=== PATIENT | male | born 1965 | race African-American/Black ===

== ENCOUNTER 2018-05-20 15:42 | Emergency (ER) | payer OTHER, SELFPAY ==
--- NOTE | 2018-05-20 16:31 | ER ---
Nurse's Notes [facility] Name: Fred Barragan III Age: 53 yrs Sex: Male : 1965 Arrival Date: 05/20/2018 Time: 15:46 Bed 25 Private MD: Channing Woo Diagnosis: Presentation: 05/20 16:07 Presenting complaint: Patient states: " I've been having dark stools for about a week ph and I had some blood work done yesterday and they called me today and said to come here." Copy of lab results provided by pt, Hgb 6.7 Hct 19.9, pt reports increased fatigue and SOB, intermittent nausea \\T\\ dry heaving and gia leg swelling, denies abdominal or chest pain, diarrhea or fever. Transition of care: patient was not received from another setting of care. Onset of symptoms was May 20, 2018. Risk Assessment: Do you want to hurt yourself or someone else? Patient reports no desire to harm self or others. Initial Sepsis Screen: Does the patient meet any 2 criteria? No. Patient's initial sepsis screen is negative. Does the patient have a suspected source of infection? No. Patient's initial sepsis screen is negative. Care prior to arrival: None. 16:07 Method Of Arrival: Ambulatory ph 16:07 Acuity: BATOOL 2 ph Historical: - Allergies: 16:15 No Known Allergies; ph - PMHx: 16:15 Chronic pain; Sleep Apnea; chronic leg swelling; ph Vital Signs: 16:10 BP 153 / 79; Pulse 101; Resp 22; Temp 98.0; Pulse Ox 100% on R/A; Weight 156.04 kg; ph Height 5 ft. 11 in. (180.34 cm); Pain 0/10; 16:10 Body Mass Index 47.98 (156.04 kg, 180.34 cm) ph ED Course: 15:46 Patient arrived in ED. sb2 15:46 Channing Woo MD is Private Physician. sb2 15:54 Melo Lynn, LUKASZ is Primary Nurse. la1 16:10 Triage completed. ph 16:30 Nano Gabriel FNP-C is PHCP. kb 16:30 Valentin De Leon MD is Attending Physician. kb Administered Medications: No medications were administered Outcome: 16:31 Patient left the ED. em Signatures: Nano Gabriel CONCRETE SWIMMING POOL INSTALLER-C CONCRETE SWIMMING POOL INSTALLER-Ckb Janes Balderas, DENTAL LABORATORY SUPERVISOR DENTAL LABORATORY SUPERVISOR em Melo Lynn RN RN la1 Emily Reed RN RN Barbara Lutz sb2
[2018-05-20 16:46] VITALS: BP 153/79; TEMP 98; O2SAT 100
== END 2018-05-20 16:31 | disposition left against medical advice (07) ==
LOC: ER 15:42
DX: Z53.21 Procedure and treatment not carried out due to patient leaving prior to being seen by health care provider (principal)
CPT/HCPCS: 99281

== ENCOUNTER 2018-05-20 17:59 | Emergency (ER) | payer OTHER ==
--- NOTE | 2018-05-20 19:01 | RAD REPORT ---
EXAM DESCRIPTION: RAD - Chest Single View - 05/20/2018 6:56 pm CLINICAL HISTORY: DYSPNEA Chest pain. COMPARISON: CHEST PA AND LAT 2 VIEW dated 09/27/2014; CHEST PA AND LAT 2 VIEW dated 09/06/2013; CHEST P A AND LAT 2 VIEW dated 04/13/2013 FINDINGS: Portable technique limits examination quality. The lungs are grossly clear. The heart is upper limit of normal in size. No displaced fractures. IMPRESSION: No acute intrathoracic process suspected.
[2018-05-20 19:12] LABS: Protime INR 1.58
[2018-05-20 19:18] LABS: Absolute Lymphocytes (CBC) 1.4 K/uL (0.7-4.9); Absolute Monocytes 0.5 K/uL (0.1-1.3); Absolute Neutrophil 6.1 K/uL (1.8-8.0); Basophils % 1.2 % (0-1.3); Eosinophils % 2.8 % (0-4.4); Lymphocytes % 17.1 % (15.3-44.8); MCH 34.3 pg (27.0-35.0); MCV 99.1 fL (80-100); MPV 10.7 fL (7.6-11.3); Monocytes % 5.9 % (3.3-12.3); RBC Red Blood Cell Count 1.78 M/uL (4.33-5.43)
[2018-05-20 19:23] LABS: Hematocrit 17.6 % (39.6-49.0)
[2018-05-20 19:29] LABS: Albumin 1.6 g/dL (3.4-5.0); Bilirubin Direct 2.7 mg/dL (0-0.2); Bilirubin Total 3.2 mg/dL (0.2-1.0); Magnesium 1.3 mg/dL (1.8-2.4); Protein, Total 9.2 g/dL (6.4-8.2); Troponin (Emerg Dept Use Only) 0.09 ng/mL (0.0-0.045)
[2018-05-20 19:32] LABS: Potassium 2.7 mmol/L (3.5-5.1)
[2018-05-20] MEDS ORDERED: Magnesium Sulfate 2gm IVPB 2 G/50 ML BAG IV ONE (20:00)
[2018-05-20] MEDS ORDERED: KCL 20 MEQ/100 mL IVPB 20 MEQ/100 ML BAG IV ONE (20:00)
[2018-05-20] MEDS ORDERED: NA CHLORIDE 0.9% 250 ML ONE (20:00)
[2018-05-20] MEDS ORDERED: PANTOPRAZOLE 40 MG INJ ONE (20:00)
[2018-05-20] MEDS ORDERED: NA CHLORIDE 0.9% 500 ML ONE ×2 (20:05→21:37)
--- NOTE | 2018-05-20 20:39 | RAD REPORT ---
EXAM DESCRIPTION: CT - Abdomen Pelvis Wo Contrast - 05/20/2018 8:27 pm CLINICAL HISTORY: Abdominal pain. no iv or oral contrast;Abd pain COMPARISON: No comparisons TECHNIQUE: CT imaging of the abdomen and pelvis was performed without contrast. Solid organ, bowel a nd vascular assessment is limited due to lack of IV and oral contrast. All CT scans are performed using dose optimization technique as appropriate and may include automated exposure control or mA/KV adjustment according to patient size. FINDINGS: The lower lung gutierrez are clear. Diffuse fatty liver is present. Cholecystectomy clips are seen.The spleen, pancreas and adrenal gland s are within normal limits for noncontrast imaging. The right kidney shows no stone or hydronephrosis . 11 mm stone is seen inferior left kidney without hydronephrosis. Prominent varicosities are seen in the para-aortic region. No bowel obstruction, free air, free fluid or abscess. Small fat containing umbilical hernia. Small f at containing right inguinal hernia. The appendix is normal. Mild lumbosacral degenerative changes. IMPRESSION: Fatty liver. Nonobstructing 11 mm left renal stone. A limited non-contrast examination was performed as detailed.
[2018-05-20] MEDS ORDERED: ONDANSETRON 4 MG/2 ML VIAL ONE (21:44)
[2018-05-20] MEDS ORDERED: MORPHINE 4 MG/ML SYR ONE ×2 (21:44→23:38)
--- NOTE | 2018-05-20 22:12 | ER ---
Nurse's Notes [facility] Name: Fred Barragan III Age: 53 yrs Sex: Male : 1965 Arrival Date: 05/20/2018 Time: 18:02 Bed 7 Private MD: Channing Woo Diagnosis: Anemia;Gastrointestinal hemorrhage, unspecified;Hypokalemia;Hypomagnesemia Presentation: 05/20 18:17 Presenting complaint: Patient states: Dark tarry stools x 1 week, had blood work done ph yesterday and was notified to come to ED for Hgb 6.7 and Hct 19.9, pt denies abdominal or chest pain, also denies V/D, reports increased fatigue, nausea, and SOB, also c/o gia leg swelling. Transition of care: patient was not received from another setting of care. Onset of symptoms was May 20, 2018. Risk Assessment: Do you want to hurt yourself or someone else? Patient reports no desire to harm self or others. Initial Sepsis Screen: Does the patient meet any 2 criteria? No. Patient's initial sepsis screen is negative. Does the patient have a suspected source of infection? No. Patient's initial sepsis screen is negative. Care prior to arrival: None. 18:17 Method Of Arrival: Ambulatory ph 18:17 Acuity: BATOOL 2 ph Historical: - Allergies: 18:21 No Known Allergies; ph - Home Meds: 18:21 Zolpidem Tartrate Oral [Active]; meloxicam oral oral [Active]; Furosemide Oral ph [Active]; CPAP [Active]; - PMHx: 18:21 chronic leg swelling; Chronic pain; Sleep Apnea; ph - Immunization history:: Adult Immunizations up to date. - Social history:: Smoking status: Patient uses tobacco products, smokes one-half pack cigarettes per day. - Ebola Screening: : No symptoms or risks identified at this time. Screenin:50 Abuse screen: Denies threats or abuse. Denies injuries from another. Nutritional sg screening: No deficits noted. Tuberculosis screening: No symptoms or risk factors identified. Never had TB. Fall Risk None identified. Assessment: 18:50 General: Appears in no apparent distress. well groomed, well developed, well nourished, sg Behavior is calm, cooperative, appropriate for age. Pain: Denies pain. Neuro: Level of Consciousness is awake, alert, obeys commands, Oriented to person, place, time, situation, Planning Assistant are equal bilaterally Moves all extremities. Full function Gait is steady, Speech is normal, Facial symmetry appears normal, Pupils are PERRLA, Denies weakness blurred vision dizziness, difficulty swallowing, paresthesias numbness headache photophobia diplopia. Cardiovascular: Capillary refill is brisk in bilateral fingers Patient's skin is warm and dry. Chest pain is denied. Respiratory: Airway is patent Respiratory effort is even, unlabored, Respiratory pattern is regular, symmetrical, Breath sounds are clear. GI: Abdomen is round obese, Bowel sounds present X 4 quads. Abd is soft and non tender X 4 quads. Reports bloody stool. : No signs and/or symptoms were reported regarding the genitourinary system. EENT: No signs and/or symptoms were reported regarding the EENT system. Derm: Skin is pink, warm \T\ dry. Musculoskeletal: No signs and/or symptoms reported regarding the musculoskeletal system. 19:10 General: Appears uncomfortable, Behavior is calm, cooperative, appropriate for age. ea Pain: Denies pain. Neuro: Level of Consciousness is awake, alert, obeys commands, Oriented to person, place, time, situation. Cardiovascular: Patient's skin is warm and dry. Respiratory: Airway is patent Respiratory effort is even, unlabored, Respiratory pattern is regular, symmetrical, Breath sounds are clear bilaterally. GI: Abdomen is round non-distended, obese, Bowel sounds present X 4 quads. Abd is soft and non tender X 4 quads. Derm: Skin is pink, warm \T\ dry. 20:00 Reassessment: Patient and/or family updated on plan of care and expected duration. Pain ea level reassessed. Patient is alert, oriented x 3, equal unlabored respirations, skin warm/dry/pink. 21:00 Reassessment: Patient and/or family updated on plan of care and expected duration. Pain ea level reassessed. Patient is alert, oriented x 3, equal unlabored respirations, skin warm/dry/pink. 21:40 Reassessment: Pt complaining of pain to gia lower extremities, nutrition manager notified, ea medication order obtained, medication administered, pt tolerated well. 21:45 Reassessment: Patient and/or family updated on plan of care and expected duration. Pain ea level reassessed. Transfusion initiated. Pt tolerating well. 22:50 Reassessment: Patient and/or family updated on plan of care and expected duration. Pain ea level reassessed. Patient is alert, oriented x 3, equal unlabored respirations, skin warm/dry/pink. 22:55 Reassessment: Report called to Sara LAL at [facility]. ea 23:32 Reassessment: Patient and/or family updated on plan of care and expected duration. Pain ea level reassessed. Patient is alert, oriented x 3, equal unlabored respirations, skin warm/dry/pink. Completed first unit of blood patient,tolerated well. Second unit initiated, pt tolerating well. 23:57 Reassessment: Patient and/or family updated on plan of care and expected duration. Pain ea level reassessed. Patient is alert, oriented x 3, equal unlabored respirations, skin warm/dry/pink. 05/21 00:18 Reassessment: Patient and/or family updated on plan of care and expected duration. Pain ea level reassessed. Patient is alert, oriented x 3, equal unlabored respirations, skin warm/dry/pink. Report given to [facility], transfusion report signed by EMS. Pt transferred via EMS via stretcher, pt tolerating well. Vital Signs: 05/20 18:19 BP 152 / 78; Pulse 104; Resp 22; Temp 98.0; Pulse Ox 100% on R/A; Weight 156.04 kg; ph Height 5 ft. 11 in. (180.34 cm); Pain 0/10; 19:13 BP 105 / 84; Pulse 99; Resp 18; Pulse Ox 99% ; ea 20:00 BP 139 / 69; Pulse 100; Resp 18; Pulse Ox 99% ; ea 21:00 BP 144 / 92; Pulse 100; Resp 20; Pulse Ox 100% on R/A; ea 21:45 BP 127 / 72; Pulse 98; Resp 20; Temp 98.8; Pulse Ox 98% ; ea 22:00 BP 131 / 70; Pulse 99; Resp 18; Temp 98.5; Pulse Ox 98% ; ea 23:15 BP 133 / 86; Pulse 98; Resp 19; Temp 98; Pulse Ox 100% on R/A; ea 23:48 BP 128 / 64; Pulse 98; Resp 19; Temp 98(O); Pulse Ox 100% on R/A; ea 05/21 00:19 BP 130 / 68; Pulse 80; Resp 19; Temp 98; Pulse Ox 100% on R/A; Pain 5/10; ea 12 18:19 Body Mass Index 47.98 (156.04 kg, 180.34 cm) ph ED Course: 05/20 18:02 Patient arrived in ED. sb2 18:02 Channing Woo MD is Private Physician. sb2 18:08 [facility] jr8 18:08 Valentin De Leon MD is Attending Physician. jr8 18:19 Triage completed. ph 18:21 Arm band placed on Patient placed in an exam room. ph 18:50 Initial lab(s) drawn, by me, sent to lab. First set of blood cultures drawn held at sg bedside. Inserted saline lock: 22 gauge in right forearm, using aseptic technique. Blood collected. 18:55 XRAY Chest (1 view) In Process Unspecified. EDMS 19:10 Bee Alvarez, LUKASZ is Primary Nurse. ea 19:10 Patient has correct armband on for positive identification. Placed in gown. Bed in low ea position. Side rails up X2. 19:22 Notified Nurse Practitioner and/or Physician Asbestos Siding Mechanic of a critical lab result(s), lp1 Hemoglobin 6.1, Hematocrit 17.6. 19:32 Notified Nurse Practitioner and/or Physician Asbestos Siding Mechanic of a critical lab result(s), lp1 Magnesium 1.4, potassium 2.7. 20:27 CT Abd/Pelvis - Without Cont In Process Unspecified. EDMS 20:52 Inserted saline lock: 22 gauge in left hand, using aseptic technique. oe 05/21 00:02 No provider procedures requiring assistance completed. Patient transferred, IV remains ea in place. Administered Medications: 05/20 20:00 Drug: ProTONIX 40 mg Route: IVP; Site: right wrist; ea 21:00 Follow up: Response: No adverse reaction lp1 20:05 Drug: Magnesium Sulfate 2 grams Route: IVPB; Infused Over: 2 hrs; Site: right wrist; ea 21:30 Follow up: IV Status: Completed infusion lp1 20:05 Drug: Potassium Chloride 20 mEq Route: IV; Rate: calculated rate; Site: right wrist; ea 22:15 Follow up: Response: No adverse reaction; IV Status: Completed infusion; IV Intake: ea 100ml 20:50 Drug: ProTONIX 8 mg/hr Route: IV; Rate: 25 ml/hr; Site: left hand; ea 05/21 00:04 Follow up: Response: No adverse reaction; IV Status: Infusion continued upon transfer ea 05/20 21:40 Drug: Zofran 4 mg Route: IVP; Site: left hand; ea 22:34 Follow up: Response: No adverse reaction; Marked relief of symptoms ea 21:42 Drug: morphine 4 mg Route: IVP; Site: left hand; ea 22:34 Follow up: Response: No adverse reaction; Pain is decreased ea 22:33 Drug: Nicoderm CQ 21 mg/24 hr 1 patches {Note: right upper arm.} Route: Transdermal; ea Site: affected area; 23:52 Drug: morphine 4 mg Route: IVP; Site: right forearm; ea 05/21 00:15 Follow up: Response: No adverse reaction; Pain is decreased ea Intake: 05/20 22:15 IV: 100ml; Total: 100ml. ea Outcome: 22:12 ER care complete, transfer ordered by MD. chapman 22:30 Instructed on the need for transfer, Demonstrated understanding of instructions. ea 05/21 00:20 Transferred by ground EMS to [facility], Transfer form completed. ea Condition: stable 00:23 Patient left the ED. ea Signatures: Dispatcher [employer] EDMS Warren Whitley RN RN sg Pena, Laura RN RN lp1 Tho Mandujano PA PA jrEmily Tesfaye RN RN ph Espinosa, Orlando oe Antunez, Elena, RN RN ea Billeau, Sheri sb2
--- NOTE | 2018-05-20 22:13 | EDPHYS ---
Physician Documentation [facility] Name: Fred Barragan III Age: 53 yrs Sex: Male : 1965 Arrival Date: 05/20/2018 Time: 18:02 Bed 7 Private MD: Channing Woo ED Physician Valentin De Leon HPI: 05/20 18:59 This 53 yrs old Black Male presents to ER via Ambulatory with complaints of Abnormal jr8 Lab Results. 18:59 Patient was seen at [facility] for routine lab work. Stated that he has history of jr8 chronic leg swelling that he feels is getting worse. Noticed some darkening of his stools lately that now is to the point where it looks tarry looking per patient. Has had increase in shortness of breath. Got lab results back and was told his H/H were low and needs to come to ED for further evaluation. History of daily alcohol use and NSAID use . Severity of symptoms: At their worst the symptoms were moderate in the emergency department the symptoms are unchanged. The patient has not experienced similar symptoms in the past. The patient has been recently seen by a physician:. Historical: - Allergies: 18:21 No Known Allergies; ph - Home Meds: 18:21 Zolpidem Tartrate Oral [Active]; meloxicam oral oral [Active]; Furosemide Oral ph [Active]; CPAP [Active]; - PMHx: 18:21 chronic leg swelling; Chronic pain; Sleep Apnea; ph - Immunization history:: Adult Immunizations up to date. - Social history:: Smoking status: Patient uses tobacco products, smokes one-half pack cigarettes per day. - Ebola Screening: : No symptoms or risks identified at this time. ROS: 18:59 Eyes: Negative for injury, pain, redness, and discharge, ENT: Negative for injury, jr8 pain, and discharge, Neck: Negative for injury, pain, and swelling, Back: Negative for injury and pain, MS/Extremity: Negative for injury and deformity, Skin: Negative for injury, rash, and discoloration, Neuro: Negative for headache, weakness, numbness, tingling, and seizure. 18:59 Cardiovascular: Positive for edema, Negative for chest pain, orthopnea, palpitations, paroxysmal nocturnal dyspnea. 18:59 Respiratory: Positive for dyspnea on exertion, shortness of breath. 18:59 Abdomen/GI: Positive for nausea, black/tarry stool, Negative for abdominal pain. Exam: 18:59 Eyes: Pupils equal round and reactive to light, extra-ocular motions intact. Lids and jr8 lashes normal. Conjunctiva and sclera are non-icteric and not injected. Cornea within normal limits. Periorbital areas with no swelling, redness, or edema. ENT: Nares patent. No nasal discharge, no septal abnormalities noted. Tympanic membranes are normal and external auditory canals are clear. Oropharynx with no redness, swelling, or masses, exudates, or evidence of obstruction, uvula midline. Mucous membranes moist. Neck: Trachea midline, no thyromegaly or masses palpated, and no cervical lymphadenopathy. Supple, full range of motion without nuchal rigidity, or vertebral point tenderness. No Meningismus. Respiratory: Lungs have equal breath sounds bilaterally, clear to auscultation and percussion. No rales, rhonchi or wheezes noted. No increased work of breathing, no retractions or nasal flaring. Back: No spinal tenderness. No costovertebral tenderness. Full range of motion. Skin: Warm, dry with normal turgor. Normal color with no rashes, no lesions, and no evidence of cellulitis. MS/ Extremity: Pulses equal, no cyanosis. Neurovascular intact. Full, normal range of motion. Neuro: Awake and alert, GCS 15, oriented to person, place, time, and situation. Cranial nerves II-XII grossly intact. Motor strength 5/5 in all extremities. Sensory grossly intact. Cerebellar exam normal. Normal gait. 18:59 Cardiovascular: Rate: tachycardic, Rhythm: regular, Pulses: Pulses are 2+ in right radial artery and left radial artery. Heart sounds: normal, normal S1and S2, no S3 or S4, no murmur, no rub, no gallop, Edema: 3+ edema to level of left midcalf, left ankle, left foot, left toes, right midcalf, right ankle, right foot and right toes. 18:59 Abdomen/GI: Inspection: obese Bowel sounds: active, all quadrants, Palpation: soft, in all quadrants, nontender, in all quadrants, Indicators: McBurney's point is not tender, Marina's sign is negative, Rovsing's sign is negative, Liver: tenderness, is not appreciated. Vital Signs: 18:19 BP 152 / 78; Pulse 104; Resp 22; Temp 98.0; Pulse Ox 100% on R/A; Weight 156.04 kg; ph Height 5 ft. 11 in. (180.34 cm); Pain 0/10; 19:13 BP 105 / 84; Pulse 99; Resp 18; Pulse Ox 99% ; ea 20:00 BP 139 / 69; Pulse 100; Resp 18; Pulse Ox 99% ; ea 21:00 BP 144 / 92; Pulse 100; Resp 20; Pulse Ox 100% on R/A; ea 21:45 BP 127 / 72; Pulse 98; Resp 20; Temp 98.8; Pulse Ox 98% ; ea 22:00 BP 131 / 70; Pulse 99; Resp 18; Temp 98.5; Pulse Ox 98% ; ea 23:15 BP 133 / 86; Pulse 98; Resp 19; Temp 98; Pulse Ox 100% on R/A; ea 23:48 BP 128 / 64; Pulse 98; Resp 19; Temp 98(O); Pulse Ox 100% on R/A; ea 12 00:19 BP 130 / 68; Pulse 80; Resp 19; Temp 98; Pulse Ox 100% on R/A; Pain 5/10; ea 12 18:19 Body Mass Index 47.98 (156.04 kg, 180.34 cm) ph MDM: 05/20 18:08 Patient medically screened. [facility] 22:10 Data reviewed: vital signs, nurses notes, lab test result(s), EKG, radiologic studies, [facility] CT scan, plain films, and as a result, I will admit patient. Data interpreted: Pulse oximetry: on room air is 100 %. Interpretation: normal. Counseling: I had a detailed discussion with the patient and/or guardian regarding: the historical points, exam findings, and any diagnostic results supporting the discharge/admit diagnosis, lab results, radiology results, the need to transfer to another facility, for higher level of care, [facility] does not immediately have the required specialist. ED course: [facility] contacted and accepted transfer . 05/20 18:24 Order name: Basic Metabolic Panel; Complete Time: 19:33 jr8 05/20 18:24 Order name: CBC with Diff; Complete Time: 19:25 jr8 05/20 18:24 Order name: LFT's; Complete Time: 19:33 [facility] 05/20 18:24 Order name: Magnesium; Complete Time: 19:33 [facility] 05/20 18:24 Order name: NT PRO-BNP; Complete Time: 19:33 [facility] 05/20 18:24 Order name: PT-INR; Complete Time: 19:25 [facility] 05/20 18:24 Order name: Troponin (emerg Dept Use Only); Complete Time: 19:33 [facility] 05/20 18:24 Order name: XRAY Chest (1 view); Complete Time: 19:25 [facility] 05/20 18:24 Order name: Lipase; Complete Time: 19:33 [facility] 05/20 18:24 Order name: TS [facility] 05/20 19:35 Order name: Packed RBC Leukored -1 [facility]OK 05/20 19:35 Order name: CT Abd/Pelvis - Without Cont; Complete Time: 20:41 [facility] 05/20 20:18 Order name: ABO/RH no charge; Complete Time: 20:28 [facility] 05/20 23:33 Order name: Urine Dipstick--Ancillary (enter results); Complete Time: 00:10 [facility] 05/20 18:24 Order name: EKG; Complete Time: 18:25 [facility] 05/20 18:24 Order name: Cardiac monitoring; Complete Time: 19:00 [facility] 05/20 18:24 Order name: EKG - Nurse/Tech; Complete Time: 00:22 [facility] 05/20 18:24 Order name: IV Saline Lock; Complete Time: 19:00 [facility] 05/20 18:24 Order name: Labs collected and sent; Complete Time: 19:00 [facility] 05/20 18:24 Order name: O2 Per Protocol; Complete Time: 19:01 [facility] 05/20 18:24 Order name: O2 Sat Monitoring; Complete Time: 19:01 [facility] Administered Medications: 20:00 Drug: ProTONIX 40 mg Route: IVP; Site: right wrist; ea 21:00 Follow up: Response: No adverse reaction lp1 20:05 Drug: Magnesium Sulfate 2 grams Route: IVPB; Infused Over: 2 hrs; Site: right wrist; ea 21:30 Follow up: IV Status: Completed infusion lp1 20:05 Drug: Potassium Chloride 20 mEq Route: IV; Rate: calculated rate; Site: right wrist; ea 22:15 Follow up: Response: No adverse reaction; IV Status: Completed infusion; IV Intake: ea 100ml 20:50 Drug: ProTONIX 8 mg/hr Route: IV; Rate: 25 ml/hr; Site: left hand; ea 05/21 00:04 Follow up: Response: No adverse reaction; IV Status: Infusion continued upon transfer ea 05/20 21:40 Drug: Zofran 4 mg Route: IVP; Site: left hand; ea 22:34 Follow up: Response: No adverse reaction; Marked relief of symptoms ea 21:42 Drug: morphine 4 mg Route: IVP; Site: left hand; ea 22:34 Follow up: Response: No adverse reaction; Pain is decreased ea 22:33 Drug: Nicoderm CQ 21 mg/24 hr 1 patches {Note: right upper arm.} Route: Transdermal; ea Site: affected area; 23:52 Drug: morphine 4 mg Route: IVP; Site: right forearm; ea 05/21 00:15 Follow up: Response: No adverse reaction; Pain is decreased ea Disposition: 07:43 Co-signature as Attending Physician, Valentin De Leon MD I agree with the assessment and kdr plan of care. Disposition: 05/20/18 22:12 Transfer ordered to [facility]. Diagnosis are Anemia, Gastrointestinal hemorrhage, unspecified, Hypokalemia, Hypomagnesemia. - Reason for transfer: Higher level of care. - Accepting physician is Dr. Burr. - Condition is Stable. - Problem is new. - Symptoms are unchanged. Signatures: Dispatcher [employer] EDMS Valentin De Leon MD MD kdr Roszak, Josh, PA PA jr8 Emily eRed, RN RN Bee Alvarez RN RN Cassy Núñez RN lp1 Corrections: (The following items were deleted from the chart) 00:23 05/20 22:12 05/20/2018 22:12 Transfer ordered to [facility]. ea Diagnosis is Anemia; Gastrointestinal hemorrhage, unspecified; Hypokalemia; Hypomagnesemia. Reason for transfer: Higher level of care. Accepting physician is Dr. Burr. Condition is Stable. Problem is new. Symptoms are unchanged. jr8
[2018-05-20] MEDS ORDERED: NICOTINE 21 MG/PAT TD ONE (22:36)
[2018-05-20 23:40] LABS: Urine Blood 2+ (NEG); Urine Glucose NEGATIVE (NEG); Urine Protein NEGATIVE (NEG); Urine Specific Gravity 1.015 (1.005-1.030); Urine pH 5.5 (5.0-7.0)
[2018-05-21 01:33] VITALS: TEMP 98; O2SAT 100
[2018-05-21 01:35] VITALS: BP 128/64
--- NOTE | 2018-05-22 07:03 | EKG ---
Test Date: 2018-05-20 Test Time: 19:10:24 Table Lever Operator: JOY MEASUREMENT RESULTS: Intervals: Rate: 101 MA: 138 QRSD: 96 QT: 414 QTc: 536 [place]: P: 62 MA: 138 QRS: 12 T: 37 INTERPRETIVE STATEMENTS: Sinus tachycardia with premature atrial complexes Nonspecific ST abnormality Prolonged QT Abnormal ECG Compared to ECG 04/25/2014 08:12:20 Atrial premature complex(es) now present ST (T wave) deviation now present Sinus rhythm no longer present Electronically Signed On 05-22-18 06:53:41 ALCOHOL RUBBER by Radhames Jay
== END 2018-05-21 00:23 | disposition short-term general hospital (02) ==
LOC: ER 17:59
PROC: 30233N1 Transfusion of Nonautologous Red Blood Cells into Peripheral Vein, Percutaneous Approach (ICD-10-PCS; principal; 2018-05-21)
DX: K92.2 Gastrointestinal hemorrhage, unspecified (principal); D64.9 Anemia, unspecified; E87.6 Hypokalemia; E83.42 Hypomagnesemia; F17.210 Nicotine dependence, cigarettes, uncomplicated
CPT/HCPCS: 36415; 71045; 74176; 80048; 80076; 81003; 83690; 83735; 83880; 84484; 85025; 85610; 86850; 86900; 86901; 86922; 93005; 99285; C9113; J2405; J3475; P9016

== ENCOUNTER 2018-09-25 14:31 | Observation (INO) | payer SELFPAY ==
--- OUTSIDE RECORDS SUMMARY | 2018-09-25 14:33 | XMS REPORT | Clinical Summary ---
:1965 Author Organization [facility] Address [address] [place] [address] Care Team Providers Name Role Phone Channing Woo Primary Care Provider Allergies Active Allergy Reactions Severity Noted Date Comments Sulfa (Sulfonamide Antibiotics) Itching, Swelling Medium 05/21/2018 Medications Medication Sig Dispensed Refills Start Date End Date Status zolpidem (AMBIEN) Take 10 mg by 0 Active 10 mg tablet mouth nightly . torsemide (DEMADEX) Take 2 tablets 60 tablet 1 05/23/2018 Active 20 MG tablet (40 mg total) by mouth daily. meloxicam (MOBIC) Take 15 mg by 0 05/23/2018 Discontinued 15 MG tablet mouth daily. torsemide (DEMADEX) Take 20 mg by 0 05/23/2018 Discontinued 20 MG tablet mouth 2 (two) times daily. ibuprofen/diphenhyd Take 2 tablets 0 05/23/2018 Discontinued ramine cit (ADVIL by mouth every PM ORAL) night as needed (insomnia) . pantoprazole Take 1 tablet 60 tablet 1 05/23/2018 06/24/2018 Discontinued (PROTONIX) 40 MG (40 mg total) tablet by mouth 2 (two) times daily. cholecalciferol, Take 50,000 0 06/26/2018 Discontinued vitamin D3, 50,000 Units by mouth unit Tab once a week. Active Problems Problem Noted Date UGIB (upper gastrointestinal bleed) 05/21/2018 Anemia 05/21/2018 Thrombocytopenia 05/21/2018 Alcohol use 05/21/2018 Hyponatremia 05/21/2018 Hypokalemia 05/21/2018 SHAKIR treated with BiPAP 05/21/2018 Encounters Date Type Specialty Care Team Description 07/13/2018 Anesthesia Event Gastroenterology Tamika Nelson MD 06/26/2018 Anesthesia Event Gastroenterology Nasrallah, Juan Antonio, MD 06/24/2018 Hospital Pre-Admission Testing Resource, Oqmt Encounter Preadmit Phone 06/15/2018 Hospital Computed Tomography NickyRadhames Esophageal Encounter MD [place] [facility] 06/15/2018 Hospital Computed Tomography Radhames Saunders Esophageal Encounter MD [place] [facility]CC[facility] 06/10/2018 Outside Orders Central Scheduling Radhames Saunders 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) 06/01/2018 Outside Orders Lab Princess Napoles A Acute gastrointestinal hemorrhage (Primary Dx) 05/22/2018 Surgery Gastroenterology Radhames Saunders UPPER ENDOSCOPY MD [place] 05/22/2018 Anesthesia Event Gastroenterology Gilma Ochoa MD 05/21/2018 [facility] Internal Bran, UGIB (upper gastrointestinal bleed); - Encounter Medicine Garett Alcohol use; 05/23/2018 MD Jona Acute post-hemorrhagic anemia; Miracle Pulido Cirrhosis of liver without ascites, unspecified hepatic cirrhosis type (HCC); MD Nano Anemia associated with acute blood loss; Thrombocytopathia (HCC); Hypokalemia; Chronic kidney disease, stage 3 (HCC); Hypervolemia, unspecified hypervolemia type; SHAKIR (obstructive sleep apnea) 05/21/2018 Travel after 09/24/2017 Immunizations Name Dates Previously Given Next Due Influenza Four-QIV Non-PF 5+ YR 05/22/2018 Pneumococcal Conjugate (Prevnar) 13-Valent 05/23/2018 Social History Tobacco Use Types Packs/Day Years Used Date Current Every Day Smoker 0.5 38 Smokeless Tobacco: Never Used Tobacco Cessation: Ready to Quit: Yes; Counseling Given: Yes Alcohol Use Drinks/Week oz/Week Comments Yes 2 glasses Sex Assigned at Date Recorded Not on file Job Start Date Occupation Industry Not on file Not on file Not on file Travel History Travel Start Travel End No recent travel history available. Last Filed Vital Signs Vital Sign Reading Time Taken Blood Pressure 95/51 05/23/2018 3:44 PM BUYER ASSISTANT Pulse 81 05/23/2018 3:44 PM BUYER ASSISTANT Temperature 35.7 C (96.3 F) 05/23/2018 3:44 PM BUYER ASSISTANT Respiratory Rate 18 05/23/2018 3:44 PM BUYER ASSISTANT Oxygen Saturation 98% 05/23/2018 3:44 PM BUYER ASSISTANT Inhaled Oxygen Concentration 21% 05/23/2018 11:55 AM BUYER ASSISTANT Weight 156.5 kg (345 lb) 06/24/2018 1:49 PM BUYER ASSISTANT Height 180.3 cm (5' 11") 06/24/2018 1:49 PM BUYER ASSISTANT Body Mass Index 48.12 06/24/2018 1:49 PM BUYER ASSISTANT Plan of Treatment Not on file Procedures Procedure Name Priority Date/Time Associated Diagnosis Comments RHYTHM STRIP - SCAN 08/24/2018 9:[address] ABDOMEN/PELVIS WITH Routine 06/15/2018 Esophageal Results for IV CONTRAST 11:15 AM BUYER ASSISTANT adenocarcinoma (HCC) this procedure are in the results section. CT CHEST WITH IV Routine 06/15/2018 Esophageal Results for CONTRAST 11:15 AM BUYER ASSISTANT adenocarcinoma (HCC) this procedure are in the results section. POCT-CREATININE Routine 06/15/2018 Results for 10:50 AM BUYER ASSISTANT this procedure are in the results section. REPORT OF PROCEDURE - 06/10/2018 ENDOSCOPY SCAN 12:31 PM BUYER ASSISTANT RHYTHM STRIP - SCAN 06/10/2018 12:31 PM BUYER ASSISTANT IMMUNOFIXATION AP Routine 06/01/2018 Acute gastrointestinal Results for ELECTROPHORESIS (TARAH) 11:47 AM BUYER ASSISTANT hemorrhage this procedure are in the results section. TRANSFUSION SERVICE 05/25/2018 REPORT - SCAN 6:01 PM BUYER ASSISTANT PREPARE LEUKO-REDUCED Routine 05/24/2018 Results for RBC 11:54 PM BUYER ASSISTANT this procedure are in the results section. TRANSFUSION SERVICE 05/24/2018 REPORT - SCAN 6:01 PM BUYER ASSISTANT HEMOGLOBIN AND Routine 05/23/2018 Results for HEMATOCRIT 2:50 PM BUYER ASSISTANT this procedure are in the results section. TRANSFUSE Routine 05/23/2018 LEUKO-REDUCED RED 1:42 PM BUYER ASSISTANT BLOOD CELLS CBC W/PLT COUNT & AUTO Routine 05/23/2018 Results for DIFFERENTIAL 4:23 AM BUYER ASSISTANT this procedure are in the results section. CBC W/PLT COUNT & AUTO Routine 05/23/2018 Results for DIFFERENTIAL 4:23 AM BUYER ASSISTANT this procedure are in the results section. PHOSPHORUS Routine 05/23/2018 Results for 4:23 AM BUYER ASSISTANT this procedure are in the results section. MAGNESIUM Routine 05/23/2018 Results for 4:23 AM BUYER ASSISTANT this procedure are in the results section. COMPREHENSIVE Routine 05/23/2018 Results for METABOLIC PANEL 4:23 AM BUYER ASSISTANT this procedure are in the results section. CALCIUM, IONIZED Routine 05/23/2018 Results for 4:23 AM BUYER ASSISTANT this procedure are in the results section. MAGNESIUM Routine 05/22/2018 Results for 6:40 PM BUYER ASSISTANT this procedure are in the results section. POTASSIUM Routine 05/22/2018 Results for 6:40 PM BUYER ASSISTANT this procedure are in the results section. REPORT OF PROCEDURE - 05/22/2018 ENDOSCOPY URL 6:24 PM BUYER ASSISTANT TRANSFUSION SERVICE 05/22/2018 REPORT - SCAN 6:03 PM BUYER ASSISTANT UPPER ENDOSCOPY,BIOPSY 05/22/2018 Melena 4:00 PM BUYER ASSISTANT UPPER ENDOSCOPY 05/22/2018 Melena 4:00 PM BUYER ASSISTANT TISSUE EXAM AP Routine 05/22/2018 Results for 3:59 PM BUYER ASSISTANT this procedure are in the results section. HEPATITIS C PCR, Routine 05/22/2018 Results for QUANTITATIVE 12:52 PM BUYER ASSISTANT this procedure are in the results section. MAGNESIUM Routine 05/22/2018 Results for 12:52 PM BUYER ASSISTANT this procedure are in the results section. CBC W/PLT COUNT & AUTO Routine 05/22/2018 Results for DIFFERENTIAL 4:01 AM BUYER ASSISTANT this procedure are in the results section. PROTEIN AP Routine 05/22/2018 Results for ELECTROPHORESIS, SERUM 4:01 AM BUYER ASSISTANT this procedure are in the results section. URIC ACID Routine 05/22/2018 Results for 4:01 AM BUYER ASSISTANT this procedure are in the results section. PTH, INTACT Routine 05/22/2018 Results for 4:01 AM BUYER ASSISTANT this procedure are in the results section. TSH/FREE T4 IF Routine 05/22/2018 Results for INDICATED 4:01 AM BUYER ASSISTANT this procedure are in the results section. HEPATITIS PANEL, ACUTE Routine 05/22/2018 Results for 4:01 AM BUYER ASSISTANT this procedure are in the results section. B-TYPE NATRIURETIC Routine 05/22/2018 Results for FACTOR (BNP) 4:01 AM BUYER ASSISTANT this procedure are in the results section. CBC W/PLT COUNT & AUTO Routine 05/22/2018 Results for DIFFERENTIAL 4:01 AM BUYER ASSISTANT this procedure are in the results section. PHOSPHORUS Routine 05/22/2018 Results for 4:01 AM BUYER ASSISTANT this procedure are in the results section. MAGNESIUM Routine 05/22/2018 Results for 4:01 AM BUYER ASSISTANT this procedure are in the results section. COMPREHENSIVE Routine 05/22/2018 Results for METABOLIC PANEL 4:01 AM BUYER ASSISTANT this procedure are in the results section. CALCIUM, IONIZED Routine 05/22/2018 Results for 4:01 AM BUYER ASSISTANT this procedure are in the results section. HEMOGLOBIN A1C Routine 05/22/2018 Results for 4:01 AM BUYER ASSISTANT this procedure are in the results section. HIV-1 ANTIGEN WITH Routine 05/22/2018 Results for HIV-1/2 ANTIBODY 4:01 AM BUYER ASSISTANT this procedure are in the results section. VITAMIN B12 AND FOLATE Routine 05/22/2018 Results for 4:01 AM BUYER ASSISTANT this procedure are in the results section. FERRITIN Routine 05/22/2018 Results for 4:01 AM BUYER ASSISTANT this procedure are in the results section. IRON, TIBC, % SAT. Routine 05/22/2018 Results for (WITHOUT FERRITIN) 4:01 AM BUYER ASSISTANT this procedure are in the results section. TYPE AND SCREEN, STAT 05/21/2018 Results for AUTOMATED 8:13 PM BUYER ASSISTANT this procedure are in the results section. HEMOGLOBIN AND STAT 05/21/2018 Results for HEMATOCRIT 8:13 PM BUYER ASSISTANT this procedure are in the results section. URINE PROTEIN AP Routine 05/21/2018 Results for ELECTROPHORESIS, 6:38 PM BUYER ASSISTANT this procedure RANDOM are in the results section. EOSINOPHIL SMEAR, Routine 05/21/2018 Results for URINE 6:38 PM BUYER ASSISTANT this procedure are in the results section. CREATININE, RANDOM Routine 05/21/2018 Results for URINE 6:38 PM BUYER ASSISTANT this procedure are in the results section. PROTEIN, RANDOM URINE Routine 05/21/2018 Results for 6:38 PM BUYER ASSISTANT this procedure are in the results section. SODIUM, RANDOM URINE Routine 05/21/2018 Results for 6:38 PM BUYER ASSISTANT this procedure are in the results section. URINALYSIS W/ Routine 05/21/2018 Results for MICROSCOPIC 6:38 PM BUYER ASSISTANT this procedure are in the results section. B-TYPE NATRIURETIC Routine 05/21/2018 Results for FACTOR (BNP) 1:05 PM BUYER ASSISTANT this procedure are in the results section. URIC ACID Routine 05/21/2018 Results for 1:05 PM BUYER ASSISTANT this procedure are in the results section. CBC W/PLT COUNT & AUTO Routine 05/21/2018 Results for DIFFERENTIAL 5:40 AM BUYER ASSISTANT this procedure are in the results section. URINALYSIS W/ Routine 05/21/2018 Results for MICROSCOPIC 5:40 AM BUYER ASSISTANT this procedure are in the results section. PROTHROMBIN TIME/INR Routine 05/21/2018 Results for 5:40 AM BUYER ASSISTANT this procedure are in the results section. HEPATIC FUNCTION PANEL Routine 05/21/2018 Results for 5:40 AM BUYER ASSISTANT this procedure are in the results section. BASIC METABOLIC PANEL Routine 05/21/2018 Results for (7) 5:40 AM BUYER ASSISTANT this procedure are in the results section. CBC W/PLT COUNT & AUTO Routine 05/21/2018 Results for DIFFERENTIAL 5:40 AM BUYER ASSISTANT this procedure are in the results section. after 09/24/2017 Results RHYTHM STRIP - SCAN (08/24/2018 9:20 AM CDT)Only the most recent of2 resultswithin the time period is included. Narrative Performed At CT Abdomen/Pelvis with IV Contrast (06/15/2018 11:15 AM BUYER ASSISTANT) Specimen Narrative Performed At FINAL REPORT Mashed Pixel EXAM: CT Chest, Abdomen and Pelvis WITH contrast INDICATION:C15.9 COMPARISON: None. TECHNIQUE: Chest, abdomen and pelvis were scanned utilizing a multidetector helical scanner from the lung apex to the pubic symphysis after administration of IV contrast. Coronal and sagittal reformations were obtained. Routine protocol was performed. Scan was performed when during portal venous phase. IV CONTRAST: 150 mL of Omnipaque 300 ORAL CONTRAST: Water COMPLICATIONS: None RADIATION DOSE: Total DLP: 1532 mGy*cm Estimated effective dose: (DLP x 0.015 x size factor) mSv CTDIvol has been reviewed. It is below the limits set by the Radiation Protocol Committee (RPC). FINDINGS: LINES and TUBES: None. LUNGS AND AIRWAYS:The lungs are unremarkable.Airways are normal. PLEURA: The pleural spaces are clear. HEART AND MEDIASTINUM: The thyroid gland is normal.No mediastinal, hilar or axillary lymphadenopathy.The heart is normal in size. There is no pericardial effusion.Subcarinal lymph node measures 0.7 cm. HEPATOBILIARY:No focal hepatic lesions.No biliary ductal dilation. GALLBLADDER: Cholecystectomy clips. SPLEEN: No splenomegaly. PANCREAS: No focal masses or ductal dilatation. ADRENALS: No adrenal nodules KIDNEYS/URETERS: Kidneys enhance symmetrically.No hydronephrosis. No cystic or solid mass lesions.1.2 cm left renal parenchymal calcification posteriorly. GI TRACT: No abnormal distention, wall thickening, or evidence of bowel obstruction. Appendix is normal. PELVIC ORGANS/BLADDER: Unremarkable. LYMPH NODES: Subcentimeter lymph nodes along the celiac axis, not enlarged. VESSELS: Splenorenal varices. PERITONEUM / RETROPERITONEUM: No free air or fluid. BONES: Unremarkable. SOFT TISSUES: Unremarkable. IMPRESSION: 1.Primary esophageal malignancy not well visualized by CT. No adenopathy or metastasis. Signed: Blake Lowe MD Report Verified Date/Time:06/16/2018 17:04:26 Procedure Note Interface, External Ris In - 06/16/2018 5:05 PM BUYER ASSISTANT FINAL REPORT EXAM: CT Chest, Abdomen and Pelvis WITH contrast INDICATION: C15.9 COMPARISON: None. TECHNIQUE: Chest, abdomen and pelvis were scanned utilizing a multidetector helical scanner from the lung apex to the pubic symphysis after administration of IV contrast. Coronal and sagittal reformations were obtained. Routine protocol was performed. Scan was performed when during portal venous phase. IV CONTRAST: 150 mL of Omnipaque 300 ORAL CONTRAST: Water COMPLICATIONS: None RADIATION DOSE: Total DLP: 1532 mGy*cm Estimated effective dose: (DLP x 0.015 x size factor) mSv CTDIvol has been reviewed. It is below the limits set by the Radiation Protocol Committee (RPC). FINDINGS: LINES and TUBES: None. LUNGS AND AIRWAYS: The lungs are unremarkable. Airways are normal. PLEURA: The pleural spaces are clear. HEART AND MEDIASTINUM: The thyroid gland is normal. No mediastinal, hilar or axillary lymphadenopathy. The heart is normal in size. There is no pericardial effusion. Subcarinal lymph node measures 0.7 cm. HEPATOBILIARY: No focal hepatic lesions. No biliary ductal dilation. GALLBLADDER: Cholecystectomy clips. SPLEEN: No splenomegaly. PANCREAS: No focal masses or ductal dilatation. ADRENALS: No adrenal nodules KIDNEYS/URETERS: Kidneys enhance symmetrically. No hydronephrosis. No cystic or solid mass lesions. 1.2 cm left renal parenchymal calcification posteriorly. GI TRACT: No abnormal distention, wall thickening, or evidence of bowel obstruction. Appendix is normal. PELVIC ORGANS/BLADDER: Unremarkable. LYMPH NODES: Subcentimeter lymph nodes along the celiac axis, not enlarged. VESSELS: Splenorenal varices. PERITONEUM / RETROPERITONEUM: No free air or fluid. BONES: Unremarkable. SOFT TISSUES: Unremarkable. IMPRESSION: 1.Primary esophageal malignancy not well visualized by CT. No adenopathy or metastasis. Signed: Blake Lowe MD Report Verified Date/Time: 06/16/2018 17:04:26 Performing Organization Address City/State/Zipcode Phone Number [facility] [employer] JULIET CT Chest with IV Contrast (06/15/2018 11:15 AM BUYER ASSISTANT) Specimen Narrative Performed At FINAL REPORT TURNER CHUNG EXAM: CT Chest, Abdomen and Pelvis WITH contrast INDICATION:C15.9 COMPARISON: None. TECHNIQUE: Chest, abdomen and pelvis were scanned utilizing a multidetector helical scanner from the lung apex to the pubic symphysis after administration of IV contrast. Coronal and sagittal reformations were obtained. Routine protocol was performed. Scan was performed when during portal venous phase. IV CONTRAST: 150 mL of Omnipaque 300 ORAL CONTRAST: Water COMPLICATIONS: None RADIATION DOSE: Total DLP: 1532 mGy*cm Estimated effective dose: (DLP x 0.015 x size factor) mSv CTDIvol has been reviewed. It is below the limits set by the Radiation Protocol Committee (RPC). FINDINGS: LINES and TUBES: None. LUNGS AND AIRWAYS:The lungs are unremarkable.Airways are normal. PLEURA: The pleural spaces are clear. HEART AND MEDIASTINUM: The thyroid gland is normal.No mediastinal, hilar or axillary lymphadenopathy.The heart is normal in size. There is no pericardial effusion.Subcarinal lymph node measures 0.7 cm. HEPATOBILIARY:No focal hepatic lesions.No biliary ductal dilation. GALLBLADDER: Cholecystectomy clips. SPLEEN: No splenomegaly. PANCREAS: No focal masses or ductal dilatation. ADRENALS: No adrenal nodules KIDNEYS/URETERS: Kidneys enhance symmetrically.No hydronephrosis. No cystic or solid mass lesions.1.2 cm left renal parenchymal calcification posteriorly. GI TRACT: No abnormal distention, wall thickening, or evidence of bowel obstruction. Appendix is normal. PELVIC ORGANS/BLADDER: Unremarkable. LYMPH NODES: Subcentimeter lymph nodes along the celiac axis, not enlarged. VESSELS: Splenorenal varices. PERITONEUM / RETROPERITONEUM: No free air or fluid. BONES: Unremarkable. SOFT TISSUES: Unremarkable. IMPRESSION: 1.Primary esophageal malignancy not well visualized by CT. No adenopathy or metastasis. Signed: Blake Lowe MD Report Verified Date/Time:06/16/2018 09:05:46 Procedure Note Interface, External Ris In - 06/16/2018 9:07 AM BUYER ASSISTANT FINAL REPORT EXAM: CT Chest, Abdomen and Pelvis WITH contrast INDICATION: C15.9 COMPARISON: None. TECHNIQUE: Chest, abdomen and pelvis were scanned utilizing a multidetector helical scanner from the lung apex to the pubic symphysis after administration of IV contrast. Coronal and sagittal reformations were obtained. Routine protocol was performed. Scan was performed when during portal venous phase. IV CONTRAST: 150 mL of Omnipaque 300 ORAL CONTRAST: Water COMPLICATIONS: None RADIATION DOSE: Total DLP: 1532 mGy*cm Estimated effective dose: (DLP x 0.015 x size factor) mSv CTDIvol has been reviewed. It is below the limits set by the Radiation Protocol Committee (RPC). FINDINGS: LINES and TUBES: None. LUNGS AND AIRWAYS: The lungs are unremarkable. Airways are normal. PLEURA: The pleural spaces are clear. HEART AND MEDIASTINUM: The thyroid gland is normal. No mediastinal, hilar or axillary lymphadenopathy. The heart is normal in size. There is no pericardial effusion. Subcarinal lymph node measures 0.7 cm. HEPATOBILIARY: No focal hepatic lesions. No biliary ductal dilation. GALLBLADDER: Cholecystectomy clips. SPLEEN: No splenomegaly. PANCREAS: No focal masses or ductal dilatation. ADRENALS: No adrenal nodules KIDNEYS/URETERS: Kidneys enhance symmetrically. No hydronephrosis. No cystic or solid mass lesions. 1.2 cm left renal parenchymal calcification posteriorly. GI TRACT: No abnormal distention, wall thickening, or evidence of bowel obstruction. Appendix is normal. PELVIC ORGANS/BLADDER: Unremarkable. LYMPH NODES: Subcentimeter lymph nodes along the celiac axis, not enlarged. VESSELS: Splenorenal varices. PERITONEUM / RETROPERITONEUM: No free air or fluid. BONES: Unremarkable. SOFT TISSUES: Unremarkable. IMPRESSION: 1.Primary esophageal malignancy not well visualized by CT. No adenopathy or metastasis. Signed: Blake Lowe MD Report Verified Date/Time: 06/16/2018 09:05:46 Performing Organization Address City/State/Zipcode Phone Number Mashed Pixel POC-Creatinine (06/15/2018 10:50 AM BUYER ASSISTANT) POC-Creatinine 1.2Comment: TESTED AT [facility] 0.6 - 1.3 mg/dL [facility] [address] [facility] [place] [address] POC-EGFR 76 mL/min/1.73M2 [facility] Specimen Blood Performing Organization Address City/[facility]/Zipcode Phone Number [address] [address] CENTER EKG-SCANNED (06/10/2018 12:31 PM BUYER ASSISTANT) Narrative Performed At Immunofixation electrophoresis (TARAH) (06/01/2018 11:47 AM BUYER ASSISTANT) IgG >4200 (H) 540-1,822 mg/dL [facility] IgA 1,158 (H) 63 - 484 mg/dL [facility] IgM 324 (H) 22 - 293 mg/dL [facility] Serum TARAH Identification No monoclonal proteins [facility] detected. Polyclonal [facility] elevation of immunoglobulins. Pathologist: Gabby Dover MD [facility] (electronic signature) [facility] Specimen Blood Performing Organization Address City/[facility] Phone Number [address] [address] [place] TRANSFUSION SERVICE REPORT - SCAN (05/25/2018 6:01 PM BUYER ASSISTANT)Only the most recent of3 resultswithin the time period is included. Narrative Performed At Prepare Leuko-Red RBC (05/24/2018 11:54 PM BUYER ASSISTANT) CROSSMATCH COMPATIBLE SAFETRACE TX Unit ABO O Pos [facility]ET[facility] TX UNIT NUMBER [id number] [facility] TX Status TRANSFUSED [facility] TX Blood Bank Product RED BLOOD CELLS [facility] [place] PRODUCT CODE [id number] [facility] [place] Specimen Other Performing Organization Address City/[facility] Phone Number [facility] [place] Hemoglobin and hematocrit (05/23/2018 2:50 PM BUYER ASSISTANT)Only the most recent of2 resultswithin the time period is included. Hemoglobin 7.8 (L) 13.7 - 17.5 GM/DL [facility] Hematocrit 24.4 (L) 40.1 - 51.0 % [facility] Specimen Blood Narrative Performed At Send after transfusion is completed [facility] Performing Organization Address City/[facility]/Zipcode Phone Number [facility] [address] [place] [address] CENTER Transfuse Leuko-Red RBC (05/23/2018 1:42 PM BUYER ASSISTANT)Calcium, Ionized (05/23/2018 4 :23 AM BUYER ASSISTANT)Only the most recent of2 resultswithin the time period is included. Calcium, Ion 0.90 (L) 1.12 - 1.27 mmol/L [facility] pH, Blood 7.48 [facility] Specimen Blood Performing Organization Address City/[facility] Phone Number [address] [address] [place] CBC with platelet count + automated diff (05/23/2018 4:23 AM BUYER ASSISTANT)Only the most recent of3 resultswithin the time period is included. WBC 6.5 3.5 - 10.5 K/L [facility] RBC 2.28 (L) 4.63 - 6.08 M/L [facility] Hemoglobin 7.0 (L) 13.7 - 17.5 GM/DL [facility] Hematocrit 22.2 (L) 40.1 - 51.0 % [facility] MCV 97.4 (H) 79.0 - 92.2 fL [facility] MCH 30.7 25.7 - 32.2 pg [facility] MCHC 31.5 (L) 32.3 - 36.5 GM/DL [facility] RDW 18.6 (H) 11.6 - 14.4 % [facility] Platelets 75 (L) 150 - 450 K/CU MM [facility] MPV 12.1 9.4 - 12.4 fL [facility] nRBC 0 0 - 0 /100 WBC [facility] % Neutros 65 % [facility] % Lymphs 19 % [facility] % Monos 7 % [facility] % Eos 7 % [facility] % Baso 1 % [facility] # Neutros 4.20 1.78 - 5.38 K/L [facility] # Lymphs 1.25 (L) 1.32 - 3.57 K/L [facility] RESOURCES # Monos 0.42 0.30 - 0.82 K/L [facility] # Eos 0.45 0.04 - 0.54 K/L [facility] # Baso 0.07 0.01 - 0.08 K/L [facility] Immature Granulocytes-Relative 1 0 - 1 % [facility] Specimen Blood Performing Organization Address City/State/Zipcode Phone Number [address] [address] [phone] CENTER Phosphorus (05/23/2018 4:23 AM BUYER ASSISTANT)Only the most recent of2 resultswithin the time period is included. Phosphorus 2.9 2.3 - 4.7 mg/dL [facility] Specimen Blood Performing Organization Address City/State/Zipcode Phone Number [address] [address] CENTER Magnesium (05/23/2018 4:23 AM BUYER ASSISTANT)Only the most recent of4 resultswithin the time period is included. Magnesium 1.5 (L) 1.6 - 2.6 mg/dL [facility] Specimen Blood Performing Organization Address City/[facility]/Zipcode Phone Number [facility] [address] [place] [address] CENTER Comprehensive metabolic panel (05/23/2018 4:23 AM BUYER ASSISTANT)Only the most recent of2 resultswithin the time period is included. Protein, Total 8.2 6.0 - 8.3 gm/dL [facility] Albumin 1.7 (L) 3.5 - 5.0 g/dL [facility] Alkaline Phosphatase 158 (H) 40 - 150 U/L [facility] Total Bilirubin 4.1 (H) 0.2 - 1.2 mg/dL [facility] Sodium 131 (L) 136 - 145 meq/L [facility] Potassium 3.3 (L) 3.5 - 5.1 meq/L [facility] Chloride 99 98 - 107 meq/L [facility] CO2 28 22 - 29 meq/L [facility] BUN 17 7 - 21 mg/dL [facility] Creatinine 1.32 (H) 0.57 - 1.25 mg/dL [facility] Glucose 115 (H) 70 - 105 mg/dL [facility] Calcium 7.9 (L) 8.4 - 10.2 mg/dL [facility] AST 202 (H) 5 - 34 U/L [facility] ALT 43 6 - 55 U/L [facility] EGFR 69Comment: ESTIMATED GFR mL/min/1.73 sq m [facility] IS NOT ACCURATE [facility] CREATININE CLEARANCE IN PREDICTING GLOMERULAR FILTRATION RATE. ESTIMATED GFR IS NOT APPLICABLE FOR DIALYSIS PATIENTS. Specimen Blood Narrative Performed At Specimen slightly icteric [facility] Performing Organization Address City/State/Zipcode Phone Number [facility] [address] [place] [address] CENTER Potassium (05/22/2018 6:40 PM BUYER ASSISTANT) Potassium 3.4 (L) 3.5 - 5.1 meq/L [facility] Specimen Blood Narrative Performed At call [facility] Performing Organization Address City/State/Zipcode Phone Number [facility] [address] [place] [address] [phone] [place] REPORT OF PROCEDURE - ENDOSCOPY URL (05/22/2018 6:24 PM BUYER ASSISTANT) Narrative Performed At Tissue Exam (05/22/2018 3:59 PM BUYER ASSISTANT) Case Report Surgical Pathology Report Case: [id number] [facility] Authorizing Provider:Radhames Saunders, Collected: 05/22/2018 1559 [facility] Ordering Location: [address] Received: 05/25/2018 0840 Service Pathologist: Christian Parada MD Specimens: A) - Esophagus, Esophageal Nodule @37cm B) - Esophagus, @ 38cm R/O Barretts DIAGNOSIS A. ESOPHAGUS, NODULE AT 37 CM, BIOPSY [facility] - ADENOCARCINOMA WITH FOCAL SIGNET CELL FEATURES [facility] - FOCAL FIBRINOPURULENT EXUDATE - NO ADJACENT SQUAMOUS MUCOSA SEEN B. ESOPHAGUS, 38 CM, BIOPSY - NO TISSUE IDENTIFIED (SEE COMMENT) Signing Pathologist Direct Phone Line: [phone] COMMENT B. No tissue was identified [facility] microscopically and may not have [facility] survived the processing. CPT Code(s) 35426, 83578, 78022 x 2 [facility] GROSS DESCRIPTION The case was received two parts. [facility] Part A received in formalin in a container labeled "esophagus" are two fragments of horton-white tissue measuring 0.3 x 0.3 x 0.3 cm and 0.2 x 0.2 x 0.2 cm. The specimen is entirely submitted in cassette A1. Part B received in formalin in a container labeled "esophagus" are multiple fragments of horton-white tissue measuring 0.3 cm x 0.2 cm x under 0.1 cm between 0.2 x 0.2 x less than 0.1 cm and two less than 0.1 x less than 0.1 x less than 0.1 cm. The specimen is entirely submitted in cassette B1. WC/ew WC/ew MICROSCOPIC DESCRIPTION A. There are two fragments of closely packed atypical glands with ulcerated surface and focal signet ring cell features. Focal fibrinopurulent exudate is seen. No squamous or squamo columnar epithelium with goblet cells is seen. [facility] B. No tissue seen. SPECIAL STUDIES The interpretation of this case included the use of immunohistochemistry or special stains. [facility] Immunohistochemistry technical testing was performed at [facility], Pathology Laboratory where it was developed and its performance characteristics were determined. It has not be en cleared or approved by the U.S. Food and Drug Administration. The FDA has determined that such clearance or approval is not necessary. The test is used for clinical purposes. It should not be regarde d as investigational or for research. This laboratory is certified under the Clinical Laboratory Improvement Amendments of 1988 (CLIA-88) as qualified to perform high complexity clinical laboratory testing. Block A CDX2-positive CAM5.2- positive Synaptophysin- negative controls are adequate. Specimen Tissue Tissue - Esophageal structure (body structure) Performing Organization Address City/[facility]/Zipcode Phone Number [place] [id number] [place] [address] [phone] CENTER Hepatitis C PCR, Quantitative (05/22/2018 12:52 PM BUYER ASSISTANT) HCV PCR, Quantitative 131,000 (H) <15 IU/mL [facility] Specimen Blood Narrative Performed At This test uses a Real-Time Polymerase Chain [facility] Reaction (RT-PCR) methodology and was performed using [employer] Ampliprep/MAR[employer]Z TaqMan HCV test kit version 2.0 ([employer]). Reportable range for this assay is 15 - 100,000,000 IU per mL (1.18 - 8.00 Log IU/mL). Performing Organization Address City/[facility] Phone Number [address] [address] CENTER Vitamin B12 and Folate (05/22/2018 4:01 AM BUYER ASSISTANT) Vitamin B12 >2000 (H) 213 - 816 pg/mL [facility] Folate 7.0 >=7.0 ng/mL [facility] Specimen Blood Performing Organization Address [facility] Phone Number [address] [address] CENTER TSH/Free T4 If Indicated (05/22/2018 4:01 AM BUYER ASSISTANT) TSH 0.54 0.35 - 4.94 uIU/mL [facility] Specimen Blood Performing Organization Address [facility] Phone Number [address] [address] [phone] [place] Iron, TIBC, % sat. (without ferritin) (05/22/2018 4:01 AM BUYER ASSISTANT) Iron 32.0 (L) 40.0 - 160.0 ug/dL [facility] TIBC 235 (L) 250 - 450 ug/dL [facility] Iron % Saturation 14 (L) 20 - 55 % [facility] Specimen Blood Performing Organization Address [facility] Phone Number [address] [address] [place] HIV-1 Antigen with HIV-1/2 Antibody (05/22/2018 4:01 AM BUYER ASSISTANT) HIV-1 Antigen with HIV 1&2 NON-REACTIVE Nonreactive [facility] Antibody [facility] Specimen Blood Performing Organization Address [facility] Phone Number [address] [address] [place] Hepatitis panel, acute (05/22/2018 4:01 AM BUYER ASSISTANT) Hep A IgM HEPATITIS A TEST NEGATIVE Nonreactive [facility] Hep B C IgM NON-REACTIVE Nonreactive [facility] Hepatitis C Ab Reactive (A) Nonreactive [facility] hepatitis B Surface Ag NON-REACTIVE Nonreactive [facility] Specimen Blood Performing Organization Address City/[facility]/Zipcode Phone Number [address] [address] [phone] CENTER Uric acid (05/22/2018 4:01 AM BUYER ASSISTANT)Only the most recent of2 resultswithin the time period is included. Uric Acid 13.9 (H) 2.6 - 7.2 mg/dL [facility] Specimen Blood Narrative Performed At Specimen moderately icteric [facility] Performing Organization Address [facility] Phone Number [address] [address] [place] Protein electrophoresis, serum (05/22/2018 4:01 AM BUYER ASSISTANT) Albumin Fraction 2.0 (L) 3.5 - 5.5 gm/dL [facility] Alpha 1 Fraction 0.2 0.2 - 0.4 gm/dL [facility] Alpha 2 Fraction 0.4 (L) 0.5 - 0.9 gm/dL [facility] Beta Fraction 1.1 0.6 - 1.1 gm/dL [facility] Gamma Globulin Fraction 4.7 (H) 0.7 - 1.7 gm/dL [facility] Interpretation Beta-gamma bridging and [facility] large polyclonal [facility] elevation of gamma globulins, consistent with cirrhosis and HCV infection. Serum TARAH ordered to exclude presence of underlying monoclonal bands. Pathologist: Gabby Dover MD [facility] (electronic signature) [facility] Protein, Total 8.4 (H) 6.0 - 8.3 gm/dL [facility] Specimen Blood Performing Organization Address [facility] Phone Number [address] [address] [phone] CENTER PTH, intact (05/22/2018 4:01 AM BUYER ASSISTANT) PTH 213.8 (H) 8.5 - 72.5 pg/mL [facility] Specimen Blood Performing Organization Address [facility] Phone Number [address] [address] [phone] CENTER B-type Natriuretic Factor (BNP) (05/22/2018 4:01 AM BUYER ASSISTANT)Only the most recent of2 resultswithin the time period is included. BNP 213 (H) 0 - 100 pg/mL [facility] Specimen Blood Performing Organization Address [facility] Phone Number [address] [address] CENTER Hemoglobin A1c (05/22/2018 4:01 AM BUYER ASSISTANT) Hemoglobin A1C 5.0 4.3 - 6.1 % [facility] Specimen Blood Performing Organization Address [facility] Phone Number [address] [address] CENTER Ferritin (05/22/2018 4:01 AM BUYER ASSISTANT) Ferritin 48 5 - 275 ng/mL [facility] Specimen Blood Performing Organization Address [facility] Phone Number [address] [address] CENTER Type and screen, automated (05/21/2018 8:13 PM BUYER ASSISTANT) ABO/RH AUTOMATED (BEAKER) O POSITIVE [facility] Ab Scrn NEGATIVE [facility] Specimen Blood Performing Organization Address [facility]ode Phone Number [address] [address] Sodium, random urine (05/21/2018 6:38 PM BUYER ASSISTANT) Sodium Urine 20 meq/L [facility] Specimen Urine Narrative Performed At Reference Range: No Normals [facility] Performing Organization Address City/State/Zipcode Phone Number [address] [address] [place] Protein, random urine (05/21/2018 6:38 PM BUYER ASSISTANT) Protein, Urine 14 0 - 14 mg/dL [facility] Specimen Urine Performing Organization Address [facility] Phone Number [address] [address] [phone] [place] Urine Protein Electrophoresis, random (05/21/2018 6:38 PM BUYER ASSISTANT) Protein, Urine 14 0 - 14 mg/dL [facility] Albumin %, Urine 18.9 % [facility] Globulin %, Urine 81.1 % [facility] UPEP,ID No monoclonal bands [facility] detected. [facility] CENTER Pathologist: Gabby Dover MD [facility] (electronic signature) [facility] Specimen Urine Performing Organization Address City/[facility] Phone Number [address] [address] [place] Creatinine, random urine (05/21/2018 6:38 PM BUYER ASSISTANT) Creatinine, Ur 102.4 mg/dL [facility] Specimen Urine Narrative Performed At Reference Range: No Normals [facility] Performing Organization Address City/[facility]/Zipcode Phone Number [address] [address] [place] Urinalysis w/Microscopic (05/21/2018 6:38 PM BUYER ASSISTANT)Only the most recent of2 resultswithin the time period is included. Color, UA Yellow [facility] Clarity, UA Clear [facility] Specific [place], UA 1.010 1.001 - 1.035 [facility] pH, UA 6.0 5.0 - 8.0 [facility] Protein, UA Negative Negative [facility] Glucose, UA Negative Negative [facility] Ketones, UA Negative Negative [facility] Bilirubin, UA Positive (A) Negative [facility] Blood, UA Moderate (A) Negative [facility] Nitrite, UA Negative Negative [facility] Leukocytes, UA Negative Negative [facility] Urobilinogen, UA 3.0 (H) 0.2 - 1.0 mg/dL [facility] RBC, UA 32 /HPF [facility] WBC, UA 0 /HPF [facility] Squam Epithel, UA <1 /HPF [facility] Hyaline Casts, UA 5 /LPF [facility] Specimen Source [facility] Specimen Urine Performing Organization Address City/State/Zipcode Phone Number [address] [address] [phone] [place] Eosinophil smear (05/21/2018 6:38 PM BUYER ASSISTANT) Eosinophil Smear Rare EOS=less than 5% WBCs No EOS seen [facility] seen are EOS (A) MEDICAL [place] Specimen Urine Performing Organization Address City/[facility]/Zipcode Phone Number [address] [address] [place] Prothrombin time/INR (05/21/2018 5:40 AM BUYER ASSISTANT) Protime 19.1 (H) 11.7 - 14.7 seconds [facility] INR 1.6 <=5.9 [facility] Specimen Blood Narrative Performed At RECOMMENDED COUMADIN/WARFARIN INR THERAPY [facility] RANGES STANDARD DOSE: 2.0 - 3.0 Includes: PROPHYLAXIS for venous thrombosis, systemic embolization; TREATMENT for venous thrombosis and/or pulmonary embolus. HIGH RISK: Target INR is 2.5-3.5 for patients with mechanical heart valves. Performing Organization Address [facility] Phone Number [address] [address] [place] Hepatic function panel (05/21/2018 5:40 AM BUYER ASSISTANT) Protein, Total 9.4 (H) 6.0 - 8.3 gm/dL [facility] Albumin 2.0 (L) 3.5 - 5.0 g/dL [facility] Total Bilirubin 4.3 (H) 0.2 - 1.2 mg/dL [facility] Bilirubin, Direct 3.1 (H) 0.1 - 0.5 mg/dL [facility] Alkaline Phosphatase 218 (H) 40 - 150 U/L [facility] AST 210 (H) 5 - 34 U/L [facility] ALT 44 6 - 55 U/L [facility] Specimen Blood Narrative Performed At Specimen slightly icteric [facility] Performing Organization Address [facility] Phone Number [address] [address] [place] Basic metabolic panel (05/21/2018 5:40 AM BUYER ASSISTANT) Sodium 132 (L) 136 - 145 meq/L [facility] Potassium 2.9 (L) 3.5 - 5.1 meq/L [facility] Chloride 97 (L) 98 - 107 meq/L [facility] CO2 24 22 - 29 meq/L [facility] BUN 18 7 - 21 mg/dL [facility] Creatinine 1.34 (H) 0.57 - 1.25 mg/dL [facility] Glucose 159 (H) 70 - 105 mg/dL [facility] Calcium 7.7 (L) 8.4 - 10.2 mg/dL [facility] EGFR 67Comment: ESTIMATED GFR IS mL/min/1.73 sq m [facility] NOT ACCURATE CREATININE [facility] CENTER CLEARANCE IN PREDICTING GLOMERULAR FILTRATION RATE. ESTIMATED GFR IS NOT APPLICABLE FOR DIALYSIS PATIENTS. Specimen Blood Narrative Performed At Specimen slightly icteric [facility] Performing Organization Address City/State/Zipcode Phone Number [facility] [address] [place] [address] [phone] CENTER after 09/24/2017 Insurance Payer Benefit Plan / Group Subscriber ID Type Phone Address [facility] [employer] HMO POS SELECT xxxxxxxxx HMO/POS CARE CHOICE (Home) [place] [address] Advance Directives For more information, please contact:[address] [phone] Code Status Date Activated Date Inactivated Comments Full Code 05/21/2018 3:06 AM This code status was determined by: Patient
--- OUTSIDE RECORDS SUMMARY | 2018-09-25 14:34 | XMS REPORT ---
:1965 [facility] Organization [facility] Address [address] [place] [address] Care Team Providers Name Role Phone JACK RADHAMES PLUMMER Unavailable Unavailable BRAD PARSONS Unavailable Unavailable Problems This patient has no known problems. Allergies, Adverse Reactions, Alerts This patient has no known allergies or adverse reactions. Medications This patient has no known medications. Results Test Description Test Time Test Comments Text Results Atomic Results Result Comments CT, ABDOMEN 2018-06-16 17:04:00 FINAL REPORT EXAM: CT Chest, Abdomen and Pelvis WITH contrast INDICATION: C15.9 COMPARISON: None.TECHNIQUE: Chest, abdomen and pelvis were scanned utilizing [...] No adenopathy or metastasis. Signed: Blake Lowe MDReport Verified Date/Time: 06/16/2018 17:04:26 , CHEST, WITH IV CONTRAST 2018-06-16 09:05:00 FINAL REPORT EXAM: CT Chest, Abdomen and Pelvis WITH contrast INDICATION: C15.9 COMPARISON: None.TECHNIQUE: Chest, abdomen and pelvis were scanned utilizing [...] No adenopathy or metastasis. Signed: Blake Lowe MDReport Verified Date/Time: 06/16/2018 09:05:46 -CREATININE 2018-06-15 10:53:00 Test Item Value Reference Range Comments POC-CREATININE (BEAKER) (test 1.2 mg/dL 0.6-1.3 TESTED AT [facility] 7200 atqo=1546) [facility] [address] POC-EGFR (BEAKER) (test 76 mL/min/1.73M2 fulo=0468) IMMUNOFIXATION ELECTROPHORESIS (TARAH)2018-06-01 15:26:00 Test Item Value Reference Range Comments IMMUNOGLOBULIN G (IGG) (BEAKER) > mg/dL 540-1,822 (test cakx=858) IMMUNOGLOBULIN A (IGA) (BEAKER) 1158 mg/dL 63-484 (test sdwu=883) IMMUNOGLOBULIN M (IGM) (BEAKER) 324 mg/dL 22-293 (test yihh=651) SERUM TARAH ID (BEAKER) (test No monoclonal proteins jsjh=6149) detected. Polyclonal elevation of immunoglobulins. JABY-UVXIGURKIKA-110 (BEAKER) Gabby Dover MD (test jbgw=0780) (electronic signature) PROTEIN ELECTROPHORESIS, [id number] 12:02:00 Test Item Value Reference Range Comments ALBUMIN FRACTION (BEAKER) 2.0 gm/dL 3.5-5.5 (test xdpc=987) ALPHA 1 FRACTION (BEAKER) 0.2 gm/dL 0.2-0.4 (test ytng=755) ALPHA 2 FRACTION (BEAKER) 0.4 gm/dL 0.5-0.9 (test xsni=823) BETA FRACTION (BEAKER) (test 1.1 gm/dL 0.6-1.1 lhui=121) GAMMA GLOBULIN FRACTION 4.7 gm/dL 0.7-1.7 (BEAKER) (test lhvt=980) INTERPRETATION-119 (BEAKER) Beta-gamma bridging and large (test nmwj=6836) polyclonal elevation of gamma globulins, consistent with cirrhosis and HCV infection. Serum TARAH ordered to exclude presence of underlying monoclonal bands. [id number]-[id number]-508 (BEAKER) Gabby Dover MD (test xqna=6324) (electronic signature) PROTEIN TOTAL SERUM, SPEP 8.4 gm/dL 6.0-8.3 (BEAKER) (test xchv=7854) TISSUE [id number] 15:09:00Surgical Pathology Report Case: [id number] Authorizing Provider: Radhames Saunders, Collected: 05/22/2018 1559 OrderingLocation: [address] Received: 2017 0840 Service Pathologist: Christian Parada MD Specimens: A) -Esophagus, Esophageal Nodule @ 37cm B) - Esophagus, @ 38cm R/O Barretts A. 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 ESOPHAGUS, 38 CM, BIOPSY- NO TISSUE IDENTIFIED (SEE COMMENT) Signing Pathologist Direct Phone Line: [phone] signed by Christian Parada MD on 05/29/2018 at 3:09 PMB. No tissue was identified microscopically and may not have survived the processing.[id number], 20640, 24210 x 2The case was received two parts.Part A received in formalin in a container labeled "esophagus" are two fragments of horton-white tissue measuring 0.3 x 0.3 x 0.3 cm and 0.2 x 0.2 x 0.2 cm. The specimen is entirely submitted in cassette A1.Part B received in formalin in a container labeled "esophagus" are multiple fragments of horton-white tissue measuring 0.3 cm x 0.2 cm x under0.1 cm between 0.2 x 0.2 x less than 0.1 cm and two less than 0.1 x less than 0.1 x less than 0.1 cm. The specimen is entirely submitted in cassette B1. WC/ew WC/ew A. There are two fragments of closely packed atypical glands with ulcerated surface and focal signet ring cell features. Focal fibrinopurulent exudate is seen. No squamous or squamo columnar epithelium with goblet cells is seen. B. No tissue seen.The interpretation of this case included the use of immunohistochemistry or special stains. Immunohistochemistry technical testing was performed at [facility], Pathology Laboratory where it was developed and its performance characteristics were determined. It has not beencleared or approved by the U.S. Food and Drug Administration. The FDA has determined that such clearance or approval is not necessary. The test is used for clinical purposes. It should not be regarded as investigational or for research. This laboratory is certified under the Clinical Laboratory Improvement Amendments of 1988 (CLIA-88) as qualified to perform high complexity clinical laboratory testing.Block ACDX2-positiveCAM5.2- positiveSynaptophysin- negativecontrols are adequate.HEMOGLOBIN AND [id number] 14:58:00 Test Item Value Reference Range Comments HEMOGLOBIN (BEAKER) (test smbb=172) 7.8 GM/DL 13.7-17.5 HEMATOCRIT (BEAKER) (test oxlc=341) 24.4 % 40.1-51.0 Send after transfusion is completedCOMPREHENSIVE METABOLIC [id number] 07:05 :00 Test Item Value Reference Range Comments TOTAL PROTEIN (BEAKER) 8.2 gm/dL 6.0-8.3 (test cckr=051) ALBUMIN (BEAKER) (test 1.7 g/dL 3.5-5.0 kgln=3521) ALKALINE PHOSPHATASE 158 U/L 40-150 (BEAKER) (test yxcs=865) BILIRUBIN TOTAL (BEAKER) 4.1 mg/dL 0.2-1.2 (test ypyv=934) SODIUM (BEAKER) (test 131 meq/L 136-145 knjp=404) POTASSIUM (BEAKER) (test 3.3 meq/L 3.5-5.1 gjwf=732) CHLORIDE (BEAKER) (test 99 meq/L 98-107 xqxl=370) CO2 (BEAKER) (test 28 meq/L 22-29 motz=970) BLOOD UREA NITROGEN 17 mg/dL 7-21 (BEAKER) (test nubo=840) CREATININE (BEAKER) (test 1.32 mg/dL 0.57-1.25 zvns=868) GLUCOSE RANDOM (BEAKER) 115 mg/dL 70-105 (test jvfc=294) CALCIUM (BEAKER) (test 7.9 mg/dL 8.4-10.2 mhde=629) AST (SGOT) (BEAKER) (test 202 U/L 5-34 vsuz=392) ALT (SGPT) (BEAKER) (test 43 U/L 6-55 lbci=427) EGFR (BEAKER) (test 69 mL/min/1.73 sq m ESTIMATED GFR IS NOT fddv=4324) ACCURATE CREATININE CLEARANCE IN PREDICTING GLOMERULAR FILTRATION RATE. ESTIMATED GFR IS NOT APPLICABLE FOR DIALYSIS PATIENTS. Specimen slightly [id number] 07:02:00 Test Item Value Reference Range Comments PHOSPHORUS (BEAKER) (test nvxp=248) 2.9 mg/dL 2.3-4.7 [id number] 07:02:00 Test Item Value Reference Range Comments MAGNESIUM (BEAKER) (test yrpi=355) 1.5 mg/dL 1.6-2.6 CALCIUM, [id number] 05:25:00 Test Item Value Reference Range Comments CALCIUM IONIZED (BEAKER) (test lrmu=152) 0.90 mmol/L 1.12-1.27 PH, BLOOD (BEAKER) (test mije=3086) 7.48 CBC W/PLT COUNT & AUTO [id number] 04:43:00 Test Item Value Reference Range Comments WHITE BLOOD CELL COUNT (BEAKER) (test ucqb=281) 6.5 K/ L 3.5-10.5 RED BLOOD CELL COUNT (BEAKER) (test javt=792) 2.28 M/ L 4.63-6.08 HEMOGLOBIN (BEAKER) (test iwlz=077) 7.0 GM/DL 13.7-17.5 HEMATOCRIT (BEAKER) (test vbzo=541) 22.2 % 40.1-51.0 MEAN CORPUSCULAR VOLUME (BEAKER) (test wubd=771) 97.4 fL 79.0-92.2 MEAN CORPUSCULAR HEMOGLOBIN (BEAKER) (test 30.7 pg 25.7-32.2 fbjs=109) MEAN CORPUSCULAR HEMOGLOBIN CONC (BEAKER) (test 31.5 GM/DL 32.3-36.5 bguw=369) RED CELL DISTRIBUTION WIDTH (BEAKER) (test 18.6 % 11.6-14.4 pnxb=167) PLATELET COUNT (BEAKER) (test jrzl=654) 75 K/CU MM 150-450 MEAN PLATELET VOLUME (BEAKER) (test tegn=469) 12.1 fL 9.4-12.4 NUCLEATED RED BLOOD CELLS (BEAKER) (test 0 /100 WBC 0-0 qfrj=339) NEUTROPHILS RELATIVE PERCENT (BEAKER) (test 65 % oubu=663) LYMPHOCYTES RELATIVE PERCENT (BEAKER) (test 19 % yqrx=403) MONOCYTES RELATIVE PERCENT (BEAKER) (test 7 % eram=789) EOSINOPHILS RELATIVE PERCENT (BEAKER) (test 7 % supq=840) BASOPHILS RELATIVE PERCENT (BEAKER) (test 1 % vpvo=409) NEUTROPHILS ABSOLUTE COUNT (BEAKER) (test 4.20 K/ L 1.78-5.38 wwmr=869) LYMPHOCYTES ABSOLUTE COUNT (BEAKER) (test 1.25 K/ L 1.32-3.57 rtda=772) MONOCYTES ABSOLUTE COUNT (BEAKER) (test znnw=626) 0.42 K/ L 0.30-0.82 EOSINOPHILS ABSOLUTE COUNT (BEAKER) (test 0.45 K/ L 0.04-0.54 zfre=013) BASOPHILS ABSOLUTE COUNT (BEAKER) (test alfx=401) 0.07 K/ L 0.01-0.08 IMMATURE GRANULOCYTES-RELATIVE PERCENT (BEAKER) 1 % 0-1 (test nyhn=8610) HEPATITIS C PCR, [id number] 19:37:00 Test Item Value Reference Range Comments HCV NUMERIC RESULT (BEAKER) (test eagu=4425) 045363 IU/mL <15 This test uses a Real-Time Polymerase Chain Reaction (RT-PCR) methodology and was performed using [employer] Ampliprep/MARI[employer]Z TaqMan HCV test kit version 2.0 ( [employer]).Reportable range for this assay is 15 - 100,000, 000 IU per mL (1.18 - 8.00 Log IU/mL).[id number] 19:02:00 Test Item Value Reference Range Comments POTASSIUM (BEAKER) (test koso=644) 3.4 meq/L 3.5-5.1 [id number] 19:02:00 Test Item Value Reference Range Comments MAGNESIUM (BEAKER) (test bizn=675) 1.7 mg/dL 1.6-2.6 callURINE PROTEIN ELECTROPHORESIS, [id number] 14:29:00 Test Item Value Reference Range Comments PROTEIN, URINE (BEAKER) (test 14 mg/dL 0-14 kaat=5797) ALBUMIN URINE ELP (BEAKER) 18.9 % (test bink=9996) GAMMA GLOBULIN URINE (BEAKER) 81.1 % (test chdd=2017) UPEP, ID-438 (BEAKER) (test No monoclonal bands detected. xxnn=7555) [id number] (BEAKER) Gabby Dover MD (test qauf=9614) (electronic signature) [id number] 13:17:00 Test Item Value Reference Range Comments MAGNESIUM (BEAKER) (test pxlc=729) 1.3 mg/dL 1.6-2.6 VITAMIN B12 AND [id number] 10:07:00 Test Item Value Reference Range Comments VITAMIN B12 (BEAKER) (test euth=343) > pg/mL 213-816 FOLATE (BEAKER) (test hbnq=966) 7.0 ng/mL >=7.0 HEMOGLOBIN [id number] 09:56:00 Test Item Value Reference Range Comments HEMOGLOBIN A1C (BEAKER) (test vtcr=015) 5.0 % 4.3-6.1 [id number] 07:07:00 Test Item Value Reference Range Comments FERRITIN (BEAKER) (test vhaw=714) 48 ng/mL 5-275 CALCIUM, [id number] 06:47:00 Test Item Value Reference Range Comments CALCIUM IONIZED (BEAKER) (test cqaf=784) 0.92 mmol/L 1.12-1.27 PH, BLOOD (BEAKER) (test kawc=5007) 7.45 [id number] 06:16:00 Test Item Value Reference Range Comments MAGNESIUM (BEAKER) (test jmns=557) 1.0 mg/dL 1.6-2.6 HEPATITIS PANEL, [id number] 05:47:00 Test Item Value Reference Range Comments HEPATITIS A IGM ANTIBODY (BEAKER) (test Nonreactive Nonreactive opvb=684) HEPATITIS B CORE IGM ANTIBODY (BEAKER) (test Nonreactive Nonreactive vlrl=271) HEPATITIS C ANTIBODY (BEAKER) (test devl=425) Reactive Nonreactive HEPATITIS B SURFACE ANTIGEN (2) (BEAKER) (test Nonreactive Nonreactive ckfd=8646) TSH/FREE T4 IF [id number] 05:40:00 Test Item Value Reference Range Comments THYROID STIMULATING HORMONE (BEAKER) (test 0.54 uIU/mL 0.35-4.94 hiwc=112) HIV-1 ANTIGEN WITH HIV-1/2 [id number] 05:40:00 Test Item Value Reference Range Comments HIV-1 ANTIGEN WITH HIV 1\\T\\2 ANTIBODY (2) Nonreactive Nonreactive (BEAKER) (test qtwc=1355) CBC W/PLT COUNT & AUTO [id number] 05:25:00 Test Item Value Reference Range Comments WHITE BLOOD CELL COUNT (BEAKER) (test ynls=444) 8.2 K/ L 3.5-10.5 RED BLOOD CELL COUNT (BEAKER) (test pzcm=416) 2.49 M/ L 4.63-6.08 HEMOGLOBIN (BEAKER) (test fuvy=968) 7.8 GM/DL 13.7-17.5 HEMATOCRIT (BEAKER) (test gkve=151) 24.3 % 40.1-51.0 MEAN CORPUSCULAR VOLUME (BEAKER) (test egge=172) 97.6 fL 79.0-92.2 MEAN CORPUSCULAR HEMOGLOBIN (BEAKER) (test 31.3 pg 25.7-32.2 nkxj=573) MEAN CORPUSCULAR HEMOGLOBIN CONC (BEAKER) (test 32.1 GM/DL 32.3-36.5 mrkt=731) RED CELL DISTRIBUTION WIDTH (BEAKER) (test 19.0 % 11.6-14.4 xnyi=218) PLATELET COUNT (BEAKER) (test ooqi=393) 75 K/CU MM 150-450 MEAN PLATELET VOLUME (BEAKER) (test jiky=949) 11.9 fL 9.4-12.4 NUCLEATED RED BLOOD CELLS (BEAKER) (test 0 /100 WBC 0-0 ordv=037) NEUTROPHILS RELATIVE PERCENT (BEAKER) (test 69 % rvvb=203) LYMPHOCYTES RELATIVE PERCENT (BEAKER) (test 18 % ovhf=262) MONOCYTES RELATIVE PERCENT (BEAKER) (test 7 % zvrf=079) EOSINOPHILS RELATIVE PERCENT (BEAKER) (test 4 % dfhf=958) BASOPHILS RELATIVE PERCENT (BEAKER) (test 1 % aise=525) NEUTROPHILS ABSOLUTE COUNT (BEAKER) (test 5.70 K/ L 1.78-5.38 yrba=520) LYMPHOCYTES ABSOLUTE COUNT (BEAKER) (test 1.46 K/ L 1.32-3.57 xuim=175) MONOCYTES ABSOLUTE COUNT (BEAKER) (test kiqw=389) 0.54 K/ L 0.30-0.82 EOSINOPHILS ABSOLUTE COUNT (BEAKER) (test 0.34 K/ L 0.04-0.54 jqtr=637) BASOPHILS ABSOLUTE COUNT (BEAKER) (test nznu=434) 0.07 K/ L 0.01-0.08 IMMATURE GRANULOCYTES-RELATIVE PERCENT (BEAKER) 1 % 0-1 (test pnrb=1039) PTH, [id number] 05:24:00 Test Item Value Reference Range Comments PARATHYROID HORMONE INTACT (BEAKER) (test 213.8 pg/mL 8.5-72.5 nruu=637) B-TYPE NATRIURETIC FACTOR (BNP)2018-05-22 05:24:00 Test Item Value Reference Range Comments B-TYPE NATRIURETIC PEPTIDE (BEAKER) (test 213 pg/mL 0-100 tank=154) IRON, TIBC, % SAT. (WITHOUT FERRITIN)2018-05-22 05:23:00 Test Item Value Reference Range Comments IRON (BEAKER) (test cvft=691) 32.0 ug/dL 40.0-160.0 TOTAL IRON BINDING CAPACITY (BEAKER) (test 235 ug/dL 250-450 egag=215) IRON % SATURATION (2) (BEAKER) (test uptp=1847) 14 % 20-55 [id number] 05:19:00 Test Item Value Reference Range Comments PHOSPHORUS (BEAKER) (test bxng=791) 3.0 mg/dL 2.3-4.7 URIC [id number] 05:19:00 Test Item Value Reference Range Comments URIC ACID (BEAKER) (test mnky=542) 13.9 mg/dL 2.6-7.2 Specimen moderately ictericCOMPREHENSIVE METABOLIC [id number] 05:19:00 Test Item Value Reference Range Comments TOTAL PROTEIN (BEAKER) 8.6 gm/dL 6.0-8.3 (test back=467) ALBUMIN (BEAKER) (test 1.8 g/dL 3.5-5.0 kiar=5532) ALKALINE PHOSPHATASE 178 U/L 40-150 (BEAKER) (test fwze=266) BILIRUBIN TOTAL (BEAKER) 4.7 mg/dL 0.2-1.2 (test mktz=904) SODIUM (BEAKER) (test 131 meq/L 136-145 ygvv=349) POTASSIUM (BEAKER) (test 3.2 meq/L 3.5-5.1 ltdi=598) CHLORIDE (BEAKER) (test 98 meq/L 98-107 eyxv=174) CO2 (BEAKER) (test 28 meq/L 22-29 ykii=994) BLOOD UREA NITROGEN 18 mg/dL 7-21 (BEAKER) (test ygbn=173) CREATININE (BEAKER) (test 1.38 mg/dL 0.57-1.25 nvuq=709) GLUCOSE RANDOM (BEAKER) 116 mg/dL 70-105 (test rmoq=422) CALCIUM (BEAKER) (test 7.9 mg/dL 8.4-10.2 qifu=970) AST (SGOT) (BEAKER) (test 207 U/L 5-34 ltjl=751) ALT (SGPT) (BEAKER) (test 42 U/L 6-55 rswa=987) EGFR (BEAKER) (test 65 mL/min/1.73 sq m ESTIMATED GFR IS NOT qsfa=3429) ACCURATE CREATININE CLEARANCE IN PREDICTING GLOMERULAR FILTRATION RATE. ESTIMATED GFR IS NOT APPLICABLE FOR DIALYSIS PATIENTS. Specimen moderately ictericHEMOGLOBIN AND [id number] 20:27:00 Test Item Value Reference Range Comments HEMOGLOBIN (BEAKER) (test vyyi=914) 7.2 GM/DL 13.7-17.5 HEMATOCRIT (BEAKER) (test flwb=708) 22.7 % 40.1-51.0 EOSINOPHIL SMEAR, [id number] 19:56:00 Test Item Value Reference Range Comments EOSINOPHIL SMEAR, URINE (BEAKER) Rare EOS=less than 5% WBCs No EOS seen (test rtsr=9676) seen are EOS SODIUM, RANDOM [id number] 19:42:00 Test Item Value Reference Range Comments SODIUM URINE (BEAKER) (test fxta=922) 20 meq/L Reference Range: No NormalsURINALYSIS W/ [id number] 19:41:00 Test Item Value Reference Range Comments COLOR (BEAKER) (test akta=016) Yellow CLARITY (BEAKER) (test yewy=894) Clear SPECIFIC GRAVITY UA (BEAKER) (test lqpg=011) 1.010 1.001-1.035 PH UA (BEAKER) (test ltxu=850) 6.0 5.0-8.0 PROTEIN UA (BEAKER) (test odxk=182) Negative Negative GLUCOSE UA (BEAKER) (test oqxl=868) Negative Negative KETONES UA (BEAKER) (test ehbb=821) Negative Negative BILIRUBIN UA (BEAKER) (test moea=940) Positive Negative BLOOD UA (BEAKER) (test hlfy=878) Moderate Negative NITRITE UA (BEAKER) (test wabd=099) Negative Negative LEUKOCYTE ESTERASE UA (BEAKER) (test ifrl=905) Negative Negative UROBILINOGEN UA (BEAKER) (test qcyf=585) 3.0 mg/dL 0.2-1.0 RBC UA (BEAKER) (test bsrt=556) 32 /HPF WBC UA (BEAKER) (test zwcf=742) 0 /HPF SQUAMOUS EPITHELIAL (BEAKER) (test hnzf=201) < /HPF HYALINE CASTS (BEAKER) (test henj=685) 5 /LPF SOURCE(BEAKER) (test bsjf=4455) CREATININE, RANDOM [id number] 19:33:00 Test Item Value Reference Range Comments CREATININE URINE (BEAKER) (test ckzq=087) 102.4 mg/dL Reference Range: No NormalsPROTEIN, RANDOM [id number] 19:33:00 Test Item Value Reference Range Comments PROTEIN, URINE (BEAKER) (test phai=0838) 14 mg/dL 0-14 B-TYPE NATRIURETIC FACTOR (BNP)2018-05-21 13:34:00 Test Item Value Reference Range Comments B-TYPE NATRIURETIC PEPTIDE (BEAKER) (test 110 pg/mL 0-100 wwel=953) URIC [id number] 13:29:00 Test Item Value Reference Range Comments URIC ACID (BEAKER) (test whut=627) 13.0 mg/dL 2.6-7.2 Specimen moderately ictericBASIC METABOLIC [id number] 06:49:00 Test Item Value Reference Range Comments SODIUM (BEAKER) (test 132 meq/L 136-145 bnry=062) POTASSIUM (BEAKER) (test 2.9 meq/L 3.5-5.1 zhpf=883) CHLORIDE (BEAKER) (test 97 meq/L 98-107 yenz=866) CO2 (BEAKER) (test 24 meq/L 22-29 ykfc=001) BLOOD UREA NITROGEN 18 mg/dL 7-21 (BEAKER) (test mamd=110) CREATININE (BEAKER) (test 1.34 mg/dL 0.57-1.25 tdum=047) GLUCOSE RANDOM (BEAKER) 159 mg/dL 70-105 (test wbqv=858) CALCIUM (BEAKER) (test 7.7 mg/dL 8.4-10.2 pjni=105) EGFR (BEAKER) (test 67 mL/min/1.73 sq m ESTIMATED GFR IS NOT llfk=4479) ACCURATE CREATININE CLEARANCE IN PREDICTING GLOMERULAR FILTRATION RATE. ESTIMATED GFR IS NOT APPLICABLE FOR DIALYSIS PATIENTS. Specimen slightly ictericHEPATIC FUNCTION [id number] 06:47:00 Test Item Value Reference Range Comments TOTAL PROTEIN (BEAKER) (test qpbq=961) 9.4 gm/dL 6.0-8.3 ALBUMIN (BEAKER) (test qsnq=5764) 2.0 g/dL 3.5-5.0 BILIRUBIN TOTAL (BEAKER) (test sewl=506) 4.3 mg/dL 0.2-1.2 BILIRUBIN DIRECT (BEAKER) (test jfxy=790) 3.1 mg/dL 0.1-0.5 ALKALINE PHOSPHATASE (BEAKER) (test bgbg=762) 218 U/L 40-150 AST (SGOT) (BEAKER) (test kelv=379) 210 U/L 5-34 ALT (SGPT) (BEAKER) (test tzai=792) 44 U/L 6-55 Specimen slightly ictericCBC W/PLT COUNT & AUTO [id number] 06:27 :00 Test Item Value Reference Range Comments WHITE BLOOD CELL COUNT (BEAKER) (test qcsg=003) 9.7 K/ L 3.5-10.5 RED BLOOD CELL COUNT (BEAKER) (test xskd=352) 2.42 M/ L 4.63-6.08 HEMOGLOBIN (BEAKER) (test porj=515) 7.5 GM/DL 13.7-17.5 HEMATOCRIT (BEAKER) (test vxsw=438) 23.7 % 40.1-51.0 MEAN CORPUSCULAR VOLUME (BEAKER) (test ejmf=022) 97.9 fL 79.0-92.2 MEAN CORPUSCULAR HEMOGLOBIN (BEAKER) (test 31.0 pg 25.7-32.2 rktj=848) MEAN CORPUSCULAR HEMOGLOBIN CONC (BEAKER) (test 31.6 GM/DL 32.3-36.5 gmmh=520) RED CELL DISTRIBUTION WIDTH (BEAKER) (test 19.0 % 11.6-14.4 zpqw=724) PLATELET COUNT (BEAKER) (test kcmz=623) 74 K/CU MM 150-450 MEAN PLATELET VOLUME (BEAKER) (test pasx=421) 11.9 fL 9.4-12.4 NUCLEATED RED BLOOD CELLS (BEAKER) (test 0 /100 WBC 0-0 qcvb=854) NEUTROPHILS RELATIVE PERCENT (BEAKER) (test 79 % oslc=986) LYMPHOCYTES RELATIVE PERCENT (BEAKER) (test 11 % upsm=193) MONOCYTES RELATIVE PERCENT (BEAKER) (test 6 % uaoy=024) EOSINOPHILS RELATIVE PERCENT (BEAKER) (test 1 % wlca=154) BASOPHILS RELATIVE PERCENT (BEAKER) (test 1 % vfsi=689) NEUTROPHILS ABSOLUTE COUNT (BEAKER) (test 7.63 K/ L 1.78-5.38 ltcw=393) LYMPHOCYTES ABSOLUTE COUNT (BEAKER) (test 1.02 K/ L 1.32-3.57 pdru=628) MONOCYTES ABSOLUTE COUNT (BEAKER) (test avkj=434) 0.60 K/ L 0.30-0.82 EOSINOPHILS ABSOLUTE COUNT (BEAKER) (test 0.07 K/ L 0.04-0.54 xunl=687) BASOPHILS ABSOLUTE COUNT (BEAKER) (test vtdf=441) 0.06 K/ L 0.01-0.08 IMMATURE GRANULOCYTES-RELATIVE PERCENT (BEAKER) 4 % 0-1 (test oalt=0121) PROTHROMBIN TIME/[id number] 06:27:00 Test Item Value Reference Range Comments PROTIME (BEAKER) (test gmqv=154) 19.1 seconds 11.7-14.7 INR (BEAKER) (test vgnx=384) 1.6 <=5.9 RECOMMENDED COUMADIN/WARFARIN INR THERAPY RANGESSTANDARD DOSE: 2.0 - 3.0 Includes: PROPHYLAXIS forvenous thrombosis, systemic embolization; TREATMENT for venous thrombosis and/or pulmonary embolus.HIGH RISK: Target INR is 2.5-3.5 for patients with mechanical heart valves.URINALYSIS W/ [id number] 06 :12:00 Test Item Value Reference Range Comments COLOR (BEAKER) (test nzcv=153) Yellow CLARITY (BEAKER) (test dwgn=479) Clear SPECIFIC GRAVITY UA (BEAKER) (test ltld=719) 1.008 1.001-1.035 PH UA (BEAKER) (test navw=430) 6.0 5.0-8.0 PROTEIN UA (BEAKER) (test cadl=419) Negative Negative GLUCOSE UA (BEAKER) (test pcsu=251) Negative Negative KETONES UA (BEAKER) (test uyac=686) Negative Negative BILIRUBIN UA (BEAKER) (test ceae=186) Negative Negative BLOOD UA (BEAKER) (test bsba=567) Moderate Negative NITRITE UA (BEAKER) (test adfp=891) Negative Negative LEUKOCYTE ESTERASE UA (BEAKER) (test bvwo=704) Negative Negative UROBILINOGEN UA (BEAKER) (test ibsc=025) 0.2 mg/dL 0.2-1.0 RBC UA (BEAKER) (test bpzn=111) 15 /HPF WBC UA (BEAKER) (test tmac=793) 2 /HPF MUCUS (BEAKER) (test cqpq=8551) Rare SQUAMOUS EPITHELIAL (BEAKER) (test mmeo=308) < /HPF HYALINE CASTS (BEAKER) (test vgcl=644) 20 /LPF AMORPHOUS CRYSTALS (BEAKER) (test cpep=0123) Rare SOURCE(BEAKER) (test xhes=7773) Urine, Voided
--- NOTE | 2018-09-25 15:32 | RAD REPORT ---
EXAM DESCRIPTION: Maurice Single View09/25/2018 3:21 pm CLINICAL HISTORY: Shortness of breath COMPARISON: May 2018 FINDINGS: The lungs appear clear of acute infiltrate. The heart is normal size IMPRESSION: No acute abnormalities displayed
[2018-09-25 15:58] LABS: Absolute Lymphocytes (CBC) 1.1 K/uL (0.7-4.9); Absolute Monocytes 0.5 K/uL (0.1-1.3); Absolute Neutrophil 4.6 K/uL (1.8-8.0); Basophils % 0.8 % (0-1.3); Eosinophils % 3.7 % (0-4.4); Hematocrit 25.4 % (39.6-49.0); Lymphocytes % 16.7 % (15.3-44.8); MPV 9.3 fL (7.6-11.3); Monocytes % 7.6 % (3.3-12.3); RBC Red Blood Cell Count 3.06 M/uL (4.33-5.43)
[2018-09-25 15:59] LABS: Protime INR 1.46
[2018-09-25] MEDS ORDERED: FUROSEMIDE 100 MG/10 ML VIAL IV ONE (16:08)
[2018-09-25 16:42] LABS: ALT/SGPT 39 U/L (12-78); AST/SGOT 187 U/L (15-37); Albumin 1.9 g/dL (3.4-5.0); Alkaline Phosphatase 140 U/L (45-117); BUN Blood Urea Nitrogen 8 mg/dL (7-18); Bicarbonate 23 mmol/L (21-32); Bilirubin Direct 1.7 mg/dL (0-0.2); Bilirubin Total 2.3 mg/dL (0.2-1.0); Glucose Level 115 mg/dL (74-106); Magnesium 2.1 mg/dL (1.8-2.4); NT PRO-BNP 104 pg/mL (<125); Potassium 3.5 mmol/L (3.5-5.1); Sodium Level 137 mmol/L (136-145); Troponin (Emerg Dept Use Only) 0.07 ng/mL (0.0-0.045)
[2018-09-25 17:21] LABS: Anisocytosis 1+; Blood Morphology Comment NOTED (NOT SEEN); Macrocytosis 1+; Platelet Estimate DECR; Urine White Blood Cell Casts OK
--- NOTE | 2018-09-25 17:37 | EDPHYS ---
Physician Documentation [facility] Name: Fred Barragan III Age: 53 yrs Sex: Male : 1965 Arrival Date: 09/25/2018 Time: 14:34 Bed 20 Private MD: Channing Woo ED Physician Samantha Matthew HPI: 09/25 15:39 This 53 yrs old Black Male presents to ER via Ambulatory with complaints of Leg jr8 Swelling. 15:39 The patient presents with swelling. The complaints affect the right leg and left leg. jr8 Onset: The symptoms/episode began/occurred gradually, at an unknown time. and became worse and became persistent. Modifying factors: The symptoms are alleviated by nothing. the symptoms are aggravated by nothing. Associated signs and symptoms: The patient has no apparent associated signs or symptoms. Severity of symptoms: At their worst the symptoms were moderate, in the emergency department the symptoms are unchanged. The patient has experienced similar episodes in the past, a few times. The patient has not recently seen a physician. Historical: - Allergies: 14:40 Sulfa (Sulfonamide Antibiotics); hj - Home Meds: 14:40 Zolpidem Tartrate Oral [Active]; hj - PMHx: 14:40 chronic leg swelling; Chronic pain; Sleep Apnea; hj - PSHx: 14:40 Hernia repair; Cholecystectomy; hj - Immunization history:: Adult Immunizations not up to date. - Social history:: Smoking status: Patient uses tobacco products, 5 sticks per day. - Ebola Screening: : Patient negative for fever greater than or equal to 101.5 degrees Fahrenheit, and additional compatible Ebola Virus Disease symptoms Patient denies exposure to infectious person Patient denies travel to an Ebola-affected area in the 21 days before illness onset. ROS: 15:39 Eyes: Negative for injury, pain, redness, and discharge, ENT: Negative for injury, jr8 pain, and discharge, Neck: Negative for injury, pain, and swelling, Respiratory: Negative for shortness of breath, cough, wheezing, and pleuritic chest pain, Abdomen/GI: Negative for abdominal pain, nausea, vomiting, diarrhea, and constipation, Back: Negative for injury and pain, MS/Extremity: Negative for injury and deformity, Skin: Negative for injury, rash, and discoloration, Neuro: Negative for headache, weakness, numbness, tingling, and seizure. 15:39 Cardiovascular: Positive for edema. Exam: 15:39 Eyes: Pupils equal round and reactive to light, extra-ocular motions intact. Lids and jr8 lashes normal. Conjunctiva and sclera are non-icteric and not injected. Cornea within normal limits. Periorbital areas with no swelling, redness, or edema. ENT: Nares patent. No nasal discharge, no septal abnormalities noted. Tympanic membranes are normal and external auditory canals are clear. Oropharynx with no redness, swelling, or masses, exudates, or evidence of obstruction, uvula midline. Mucous membranes moist. Neck: Trachea midline, no thyromegaly or masses palpated, and no cervical lymphadenopathy. Supple, full range of motion without nuchal rigidity, or vertebral point tenderness. No Meningismus. Respiratory: Lungs have equal breath sounds bilaterally, clear to auscultation and percussion. No rales, rhonchi or wheezes noted. No increased work of breathing, no retractions or nasal flaring. Abdomen/GI: Soft, non-tender, with normal bowel sounds. No distension or tympany. No guarding or rebound. No evidence of tenderness throughout. Back: No spinal tenderness. No costovertebral tenderness. Full range of motion. Skin: Warm, dry with normal turgor. Normal color with no rashes, no lesions, and no evidence of cellulitis. MS/ Extremity: Pulses equal, no cyanosis. Neurovascular intact. Full, normal range of motion. Neuro: Awake and alert, GCS 15, oriented to person, place, time, and situation. Cranial nerves II-XII grossly intact. Motor strength 5/5 in all extremities. Sensory grossly intact. Cerebellar exam normal. Normal gait. 15:39 Cardiovascular: Rate: tachycardic, Rhythm: regular, Pulses: Pulses are 2+ in right radial artery and left radial artery. Heart sounds: normal, normal S1and S2, no S3 or S4, no murmur, no rub, no gallop, Edema: 3+ edema to level of waist, pubic area, left upper thigh, left lower thigh, left knee, left midcalf, left ankle, left foot, left toes, right upper thigh, right lower thigh, right knee, right midcalf, right ankle, right foot and right toes, JVD: is not appreciated. Vital Signs: 14:41 BP 128 / 63; Pulse 106; Resp 18; Temp 99.5(TE); Pulse Ox 97% on R/A; Weight 149.69 kg; hj Height 5 ft. 11 in. (180.34 cm); Pain 6/10; 16:00 BP 157 / 90; Pulse 110; Resp 18; Pulse Ox 99% on R/A; em 17:43 BP 162 / 78; Pulse 109; Resp 18; Pulse Ox 99% on R/A; Pain 6/10; em 19:05 BP 191 / 81; Pulse 105; Resp 19; Temp 98.6; Pulse Ox 98% ; Pain 6/10; rr5 19:40 BP 167 / 74; Pulse 108; Resp 17; Pulse Ox 98% ; rr5 20:05 Pain 3/10; rr5 20:05 BP 161 / 75; Pulse 105; Resp 18; Pulse Ox 98% ; rr5 14:41 Body Mass Index 46.03 (149.69 kg, 180.34 cm) hj MDM: 15:01 Patient medically screened. [facility] 17:35 Data reviewed: vital signs, nurses notes, lab test result(s), EKG, radiologic studies, 8 plain films. Data interpreted: Pulse oximetry: on room air is 99 %. Interpretation: normal. Counseling: I had a detailed discussion with the patient and/or guardian regarding: the historical points, exam findings, and any diagnostic results supporting the discharge/admit diagnosis, lab results, radiology results, the need for further work-up and treatment in the hospital. Physician consultation: Kendrick Paige MD was called at 17:35, was contacted at 17:35, regarding admission, to the telemetry unit. consult, patient's condition, and will see patient. 09/25 15:10 Order name: Basic Metabolic Panel; Complete Time: 16:43 [facility] 09/25 15:10 Order name: CBC with Diff; Complete Time: 19:53 [facility] 09/25 15:10 Order name: LFT's; Complete Time: 16:43 [facility] 09/25 15:10 Order name: Magnesium; Complete Time: 16:43 [facility] 09/25 15:10 Order name: NT PRO-BNP; Complete Time: 16:43 [facility] 09/25 15:10 Order name: PT-INR; Complete Time: 16:20 [facility] 09/25 15:10 Order name: Troponin (emerg Dept Use Only); Complete Time: 16:43 [facility] 09/25 15:10 Order name: XRAY Chest (1 view); Complete Time: 15:41 [facility] 09/25 16:24 Order name: CBC Smear Scan; Complete Time: 19:53 [facility] 09/25 17:50 Order name: Type and Screen; Complete Time: 20:08 [facility] 09/25 17:52 Order name: Extrem Venous W Compress Guido; Complete Time: 19:09 [facility] 09/25 18:02 Order name: Abdomen Exam Complete; Complete Time: 19:21 [facility] 09/25 15:10 Order name: EKG; Complete Time: 15:12 [facility] 09/25 15:10 Order name: Cardiac monitoring; Complete Time: 15: [facility] 09/25 15:10 Order name: EKG - Nurse/Tech; Complete Time: 15: [facility] 09/25 15:10 Order name: IV Saline Lock; Complete Time: 15: [facility] 09/25 15:10 Order name: Labs collected and sent; Complete Time: 15: [facility] 09/25 15:10 Order name: O2 Per Protocol; Complete Time: 15: [facility] 09/25 15:10 Order name: O2 Sat Monitoring; Complete Time: 15:27 [facility] 09/25 16:02 Order name: Diet Regular; Complete Time: 16:03 [facility] 09/25 17:40 Order name: Heart Healthy EDMI Administered Medications: 16:10 Drug: Lasix 80 mg Route: IVP; Site: right antecubital; ss 17:45 Follow up: Response: No adverse reaction em 19:25 Drug: fentaNYL (PF) 50 mcg Route: IVP; Site: right antecubital; rr5 19:47 Follow up: Response: Other; given upon admission. rr5 19:30 Drug: Metoprolol TARTRATE (Lopressor) 50 mg Route: PO; rr5 19:47 Follow up: Response: Other; given at admission rr5 19:44 Drug: Nicotine 21 mg/24 hr 1 patches {Note: right upper arm.} Route: Transdermal; Site: rr5 affected area; 19:46 Follow up: Response: Other; given upon admission rr5 Disposition: 09/25/18 17:36 Hospitalization ordered by Kendrick Paige for Observation. Preliminary diagnosis are Anasarca, Elevated Troponin, Hypoalbuminemia . - Bed requested for Telemetry/MedSurg (observation). - Status is Observation. rr5 - Condition is Stable. - Problem is new. - Symptoms have improved. UTI on Admission? No Addendum: 09/30/2018 14:20 Co-signature as Attending Physician, Samantha Matthew MD. m a2 Signatures: Dispatcher [employer] EDMI Talisha Callaway RN RN Arcelia Dooley RN LUKASZ Eliana Stack, RN RN ss Tho Mandujano PA PA jr8 Piero Dai RN Samantha Norris MD MD ia2 Jamel Quiles RN RN rr5 Janes Balderas [employer] em Corrections: (The following items were deleted from the chart) 09/25 18:57 17:36 Hospitalization Ordered by Kendrick Paige MD for Observation. Preliminary diagnosis dw is Anasarca; Elevated Troponin; Hypoalbuminemia . Bed requested for Telemetry/MedSurg (observation). Status is Observation. Condition is Stable. Problem is new. Symptoms have improved. UTI on Admission? No. jr8 20:09 18:57 09/25/2018 17:36 Hospitalization Ordered by Kendrick Paige MD for Observation. rr5 Preliminary diagnosis is Anasarca; Elevated Troponin; Hypoalbuminemia . Bed requested for Telemetry/MedSurg (observation). Status is Observation. Condition is Stable. Problem is new. Symptoms have improved. UTI on Admission? No. dw
--- NOTE | 2018-09-25 17:37 | ER ---
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 Transition of care: patient was not received from another setting of care. Onset of symptoms was September 25, 2018. Risk Assessment: Do you want to hurt yourself or someone else? Patient reports no desire to harm self or others. Initial Sepsis Screen: Does the patient meet any 2 criteria? No. Patient's initial sepsis screen is negative. Does the patient have a suspected source of infection? No. Patient's initial sepsis screen is negative. Care prior to arrival: None. 14:37 Method Of Arrival: Ambulatory 14:37 Acuity: BATOOL 3 Triage Assessment: 14:41 General: Appears. Historical: - Allergies: 14:40 Sulfa (Sulfonamide Antibiotics); - Home Meds: 14:40 Zolpidem Tartrate Oral [Active]; - PMHx: 14:40 chronic leg swelling; Chronic pain; Sleep Apnea; - PSHx: 14:40 Hernia repair; Cholecystectomy; - Immunization history:: Adult Immunizations not up to date. - Social history:: Smoking status: Patient uses tobacco products, 5 sticks per day. - Ebola Screening: : Patient negative for fever greater than or equal to 101.5 degrees Fahrenheit, and additional compatible Ebola Virus Disease symptoms Patient denies exposure to infectious person Patient denies travel to an Ebola-affected area in the 21 days before illness onset. Screenin:55 Abuse screen: Denies threats or abuse. Nutritional screening: No deficits noted. em Tuberculosis screening: No symptoms or risk factors identified. Fall Risk None identified. Assessment: 14:55 General: Appears in no apparent distress. comfortable, Behavior is calm, cooperative, em Denies fever. Pain: Complains of pain in right leg and left leg Pain currently is 6 out of 10 on a pain scale. Neuro: Level of Consciousness is awake, alert, obeys commands, Oriented to person, place, time, situation. Cardiovascular: Denies chest pain, Heart tones S1 S2 present Capillary refill < 3 seconds Edema is 3+ to left ankle, left foot, right ankle and right foot pitting to left ankle, left foot, right ankle and right foot. Respiratory: Reports shortness of breath on exertion Airway is patent Respiratory effort is even, unlabored, Respiratory pattern is regular, symmetrical, Breath sounds are clear bilaterally. GI: Reports nausea, Patient currently denies vomiting. Derm: Skin is intact, is healthy with good turgor, Skin is pink, warm \T\ dry. Musculoskeletal: Capillary refill < 3 seconds, Range of motion: intact in all extremities. 16:15 Reassessment: Patient appears in no apparent distress at this time. Patient and/or em family updated on plan of care and expected duration. Pain level reassessed. Patient is alert, oriented x 3, equal unlabored respirations, skin warm/dry/pink. 17:42 Reassessment: Patient appears in no apparent distress at this time. Patient and/or em family updated on plan of care and expected duration. Pain level reassessed. Patient is alert, oriented x 3, equal unlabored respirations, skin warm/dry/pink. Patient states feeling better. 18:45 Reassessment: Patient appears in no apparent distress at this time. Patient and/or em family updated on plan of care and expected duration. Pain level reassessed. Patient is alert, oriented x 3, equal unlabored respirations, skin warm/dry/pink. 19:05 General: Appears in no apparent distress. comfortable, Behavior is calm, cooperative, rr5 appropriate for age. Pain: Complains of pain in right leg and left leg Pain does not radiate. Pain currently is 6 out of 10 on a pain scale. Quality of pain is described as aching, Pain began gradually, Is intermittent. Neuro: Level of Consciousness is awake, alert, obeys commands, Oriented to person, place, time, situation. Cardiovascular: Capillary refill < 3 seconds Patient's skin is warm and dry. Respiratory: Airway is patent Respiratory effort is even, unlabored, Respiratory pattern is regular, symmetrical. GI: Reports diarrhea, nausea, vomiting. : No signs and/or symptoms were reported regarding the genitourinary system. EENT: No signs and/or symptoms were reported regarding the EENT system. Derm: Skin is intact, Skin is pink, warm \T\ dry. Musculoskeletal: Capillary refill < 3 seconds, Range of motion: intact in all extremities, Swelling present in right leg and left leg. 20:05 Reassessment: Patient appears in no apparent distress at this time. Patient is alert, rr5 oriented x 3, equal unlabored respirations, skin warm/dry/pink. transferred to room 428 Patient states feeling better. Patient states symptoms have improved. 20:05 Pain: Pain currently is 3 out of 10 on a pain scale. rr5 Vital Signs: 14:41 BP 128 / 63; Pulse 106; Resp 18; Temp 99.5(TE); Pulse Ox 97% on R/A; Weight 149.69 kg; hj Height 5 ft. 11 in. (180.34 cm); Pain 6/10; 16:00 BP 157 / 90; Pulse 110; Resp 18; Pulse Ox 99% on R/A; em 17:43 BP 162 / 78; Pulse 109; Resp 18; Pulse Ox 99% on R/A; Pain 6/10; em 19:05 BP 191 / 81; Pulse 105; Resp 19; Temp 98.6; Pulse Ox 98% ; Pain 6/10; rr5 19:40 BP 167 / 74; Pulse 108; Resp 17; Pulse Ox 98% ; rr5 20:05 Pain 3/10; rr5 20:05 BP 161 / 75; Pulse 105; Resp 18; Pulse Ox 98% ; rr5 14:41 Body Mass Index 46.03 (149.69 kg, 180.34 cm) ED Course: 14:34 Patient arrived in ED. mr 14:34 Channing Woo MD is Private Physician. mr 14:40 Triage completed. hj 14:41 Arm band placed on left wrist. hj 14:48 [facility]. jr8 14:48 Samantha Matthew MD is Attending Physician. jr8 14:55 Patient has correct armband on for positive identification. Placed in gown. Bed in low em position. Call light in reach. Adult w/ patient. wax pourer on. Pulse ox on. NIBP on. 14:58 Janes Balderas LVN is Primary Nurse. em 15:21 XRAY Chest (1 view) In Process Unspecified. EDMS 15:38 EKG done, by computer engineering technician. reviewed by Tho BARRIOS. 3 17:35 Kendrick Paige MD is Hospitalizing Provider. jr8 18:02 Missed attempt(s): 20 gauge in right forearm. Bleeding controlled, band aid applied, 3 catheter tip intact. 18:04 T\T\S collected, blood band applied to patient. Inserted saline lock: 22 gauge in left dh3 hand, using aseptic technique. Blood collected. 19:31 No provider procedures requiring assistance completed. Patient admitted, IV remains in rr5 place. intact. Administered Medications: 16:10 Drug: Lasix 80 mg Route: IVP; Site: right antecubital; ss 17:45 Follow up: Response: No adverse reaction em 19:25 Drug: fentaNYL (PF) 50 mcg Route: IVP; Site: right antecubital; rr5 19:47 Follow up: Response: Other; given upon admission. rr5 19:30 Drug: Metoprolol TARTRATE (Lopressor) 50 mg Route: PO; rr5 19:47 Follow up: Response: Other; given at admission rr5 19:44 Drug: Nicotine 21 mg/24 hr 1 patches {Note: right upper arm.} Route: Transdermal; Site: rr5 affected area; 19:46 Follow up: Response: Other; given upon admission rr5 Intake: Outcome: 17:36 Decision to Hospitalize by Provider. jr8 19:45 Admitted to Tele accompanied by tech, via wheelchair, room 428, with chart, Report rr5 called to nadia 19:45 Condition: stable 19:45 Instructed on the need for admit. 20:09 Patient left the ED. rr5 Signatures: Dispatcher [employer] EDSC Mary Anne LuJanes, KENTON TORRESN em Eliana Stack, RN LUKASZ Tho Mandujano PA PA jr8 Piero Dai, RN Celestina Piper [facility] Felicity Farooq 3 Jamel Quiles, RN RN rr5 Corrections: (The following items were deleted from the chart) 14:44 14:41 Pulse 106bpm; Resp 18bpm; Pulse Ox 97% RA; Temp 99.5F Temporal; 149.69 kg; Height hj 5 ft. 11 in.; BMI: 46.0; Pain 6/10; hj
[2018-09-25] MEDS ORDERED: ONDANSETRON 4 MG/2 ML VIAL IV PRN (17:39)
--- NOTE | 2018-09-25 17:43 | P.HP ---
Certification for Inpatient Patient admitted to: Observation With expected LOS: <2 Midnights Practitioner: I am a practitioner with admitting privileges, knowledge of patient current condition, hospital course, and medical plan of care. 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 Patient stated that he has been having bilateral lower extremity swelling for quite some time over 6 years however recently got worse and thus he decided to come to the ER. Patient stated that he usually takes Lasix for his swelling however has not been able to take the Lasix ox recently and thus has noticed that his legs have been getting worse over time. 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 Patient also stated that he has been having trouble talking, even finishing sentences gets him short of breath. Patient was recently seen at [facility] a in May of 2018 for GI bleeding for he was also found to have esophageal mass and biopsy revealed that he had esophageal adenocarcinoma. Patient has not followed up with heme oncology for primary care provider after that states he was unaware of the diagnosis. In the ER patient was seen and evaluated. Lab work and imaging were done. There was a concern for volume overload secondary to noncompliance with medications and thus patient was admitted to the hospital for volume overload causing generalized anasarca. Allergies No Known Allergies Allergy (Verified 04/25/14 07:57) Home medications list reviewed: Yes (No Home medication. Pt Only take Ambien to sleep at night. ) Home Medications: Dicyclomine [Bentyl*] 10 mg PO TID 04/25/14 Losartan Potassium [Cozaar*] 50 mg PO DAILY 04/25/14 Temazepam [Restoril] 30 mg PO BEDTIME 04/25/14 Tramadol HCl [Ultram] 50 mg PO Q4HP PRN 04/25/14 - Past Medical/Surgical History Has patient received pneumonia vaccine in the past: No Diabetic: No -: Liver Cirrhosis -: Hep C -: CKD -: Alcohol Abuse -: Esophageal AdenoCA -: Smoker -: SHAKIR -: Anasarca -: GI bleed - Family History Family History: Reviewed- Non-Contributory - Social History Smoking Status: Light Tobacco smoker (1-9 cigarettes/day) Counseled patient to stop smoking for: more than 10 minutes Smoking therapy provided: Yes Patient receptive to therapy: No Alcohol use: Yes CD- Drugs: No Caffeine use: No Place of Residence: Home Review of Systems 10-point ROS is otherwise unremarkable Physical Examination - Physical Exam General: Alert, Oriented x3, Acute distress, Obese HEENT: PERRLA, Scleral icterus Neck: JVD distended Respiratory: Normal air movement, Crackles/rales, Rhonchi/gurgles Cardiovascular: Regular rate/rhythm, Normal S1 S2 Gastrointestinal: Normal bowel sounds, No tenderness, Distended, Ascites Musculoskeletal: Swelling, Erythema, Other (BL LE Swelling 3+ ) Neurological: Normal speech (Get SOB while trying to finish Sentences), Normal strength at 5/5 x4 extr, Normal tone Lymphatics: No axilla or inguinal lymphadenopathy - Studies Laboratory Data (last 24 hrs) 09/25/18 15:30: PT 17.0 H, INR 1.46 09/25/18 15:30: WBC 6.4, Hgb 7.8 L*, Hct 25.4 L, Plt Count 125 L 09/25/18 15:30: Sodium 137, Potassium 3.5, BUN 8, Creatinine 0.99, Glucose 115 H , Magnesium 2.1 D, Total Bilirubin 2.3 H, AST 187 H, ALT 39, Alkaline Phosphatase 140 H Assessment and Plan - Problems (Diagnosis) (1) Anasarca Current Visit: Yes Status: Acute Plan: Anasarca most likely secondary to liver cirrhosis secondary to alcohol abuse versus hepatitis-C -patient with bilateral 3+ pitting edema, physical exam with crackles on lung examination, acute distress the patient's inability finish sentences without getting short of breath -patient currently not taking his Lasix. -Lasix 40 mg b.i.d. IV at this time. -will also start patient on albumin x 1 -Strict I&O's, low sodium diet, and fluid restriction -Daily weights (2) Liver cirrhosis Current Visit: Yes Status: Chronic Plan: Liver cirrhosis most likely secondary to hepatitis-C versus alcohol abuse now with elevated LFTs -high a meld score with poor prognosis -will monitor closely at this time stable -due to elevated LFTs will go ahead and get abdominal ultrasound as well Qualifiers: Hepatic cirrhosis type: alcoholic cirrhosis Ascites presence: without ascites Qualified Code(s): K70.30 - Alcoholic cirrhosis of liver without ascites (3) history of Esophageal adenocarcinoma Current Visit: Yes Status: Chronic Plan: Patient recently f/u at [facility] had esophageal biopsy consistent with esophageal adenocarcinoma. -patient has not followed up with Heme/Onco at this time. Has not followed up with primary care provider since discharge -will get Heme/oncology consulted here in the hospital if the (4) CKD (chronic kidney disease) Current Visit: Yes Status: Chronic Plan: Chronic kidney disease with stage III currently. Most likely secondary to hepatic renal syndrome. -BUN and creatinine stable at this time -will continue to monitor closely Qualifiers: Chronic kidney disease stage: stage 3 (moderate) Qualified Code(s): N18.3 - Chronic kidney disease, stage 3 (moderate) (5) History of GI bleed Current Visit: Yes Status: Chronic Plan: History of GI bleed recently in May. Currently hemoglobin is a 7.8. -Will transfuse if less than 7. -Protonix b.i.d. -type and screen (6) Anemia Current Visit: Yes Status: Chronic Plan: Anemia most likely secondary to chronic blood loss versus liver disease versus chronic kidney disease -will monitor closely Qualifiers: Anemia type: iron deficiency Iron deficiency anemia type: chronic blood loss Qualified Code(s): D50.0 - Iron deficiency anemia secondary to blood loss (chronic) (7) Alcohol abuse Current Visit: Yes Status: Chronic (8) Current smoker Current Visit: Yes Status: Chronic (9) SHAKIR (obstructive sleep apnea) Current Visit: Yes Status: Chronic Plan: CPAP at night - Plan Admit patient to medical-surgical floor for further care. Will continue with IV Lasix and albumin at this time for generalized anasarca. Will follow up with heme oncology regarding recommendations for esophageal cancer. - Advance Directives Does patient have a Living Will: No Does patient have a Durable POA for Healthcare: No
[2018-09-25] MEDS ORDERED: ALBUMIN HUMAN 25% 100 ML IV ONE (17:48)
--- NOTE | 2018-09-25 19:04 | RAD REPORT ---
EXAM DESCRIPTION: USExtrem Venous W Compress Bil09/25/2018 6:53 pm CLINICAL HISTORY: Leg pain COMPARISON: none FINDINGS: The common femoral, superficial femoral, popliteal and posterior tibial veins bilaterally are compressible and demonstrate augmentation. Doppler demonstrates good flow. IMPRESSION: No evidence of deep venous thrombosis involving either lower extremity.
--- NOTE | 2018-09-25 19:10 | RAD REPORT ---
EXAM DESCRIPTION: US - Abdomen Exam Complete - 09/25/2018 6:53 pm CLINICAL HISTORY: Abdominal pain COMPARISON: none FINDINGS: The liver has an increased and heterogeneous echotexture. A cholecystectomy. The pancreas, inferior vena cava and abdominal aorta are poorly seen secondary to overlying bowel gas The right kidney measures 12 centimeters with a normal echotexture. The left kidney measures 12 centimeters with a normal echotexture. 1 centimeter nonobstructing renal calculus The spleen measures 10 centimeters. IMPRESSION: Increased and heterogeneous hepatic echotexture consistent with fatty infiltration/infla mmation. Nonobstructing left renal calculi
[2018-09-25] MEDS ORDERED: METOPROLOL TAR 50 MG TAB ONE (19:36)
[2018-09-25] MEDS ORDERED: FENTANYL CITR 100 MCG/2 ML ONE (19:37)
[2018-09-25 19:50] LABS: Rouleau NOTED
[2018-09-25] MEDS ORDERED: NICOTINE 21 MG/PAT TD ONE (19:50)
[2018-09-25] MEDS: PANTOPRAZOLE 40MG TABLET PO SCH (21:26)
[2018-09-25] MEDS ORDERED: POTASSIUM CL SA 10 MEQ TAB PO ONE (21:52)
[2018-09-25 23:08] LABS: Urine Appearance CLEAR; Urine Blood TRACE (NEG); Urine Color YELLOW; Urine Glucose NEGATIVE (NEG); Urine Protein NEGATIVE (NEG); Urine Specific Gravity 1.015 (1.005-1.030)
[2018-09-25] MEDS: ZOLPIDEM TARTRATE 10 MG TABLET PO SCH (23:52)
[2018-09-26] MEDS ORDERED: MORPHINE 2 MG/ML SYR IV PRN (00:02)
[2018-09-26] MEDS ORDERED: LANO/MINERAL OIL/PETRO 3.5 GM EACH EYE SCH (00:02)
[2018-09-26 00:33] LABS: Urine Bilirubin NEGATIVE (NEG); Urine Microscopic Reflex ORDER UMIC
[2018-09-26 00:53] LABS: Urine Bacteria <20 /HPF (NONE SEEN); Urine Culture Reflex Order NOT NEEDED; Urine RBC <5 /HPF (NONE SEEN)
[2018-09-26 01:20] VITALS: BMI 45.7
[2018-09-26 06:00] LABS: Absolute Monocytes 0.5 K/uL (0.1-1.3); Basophils % 1.2 % (0-1.3); Eosinophils % 3.3 % (0-4.4); Hematocrit 24.9 % (39.6-49.0); Lymphocytes % 17.2 % (15.3-44.8); MPV 9.1 fL (7.6-11.3); Monocytes % 8.7 % (3.3-12.3); RBC Red Blood Cell Count 3.05 M/uL (4.33-5.43)
[2018-09-26 06:30] LABS: ALT/SGPT 38 U/L (12-78); AST/SGOT 162 U/L (15-37); Alkaline Phosphatase 131 U/L (45-117); BUN Blood Urea Nitrogen 10 mg/dL (7-18); Bicarbonate 24 mmol/L (21-32); Bilirubin Total 2.4 mg/dL (0.2-1.0); Glucose Level 95 mg/dL (74-106); Magnesium 1.7 mg/dL (1.8-2.4); Phosphorus 2.1 mg/dL (2.5-4.9); Potassium 3.3 mmol/L (3.5-5.1); Protein, Total 9.5 g/dL (6.4-8.2); Sodium Level 136 mmol/L (136-145); Troponin I 0.09 ng/mL (0.0-0.045)
[2018-09-26] MEDS: FUROSEMIDE 40 MG/4 ML VIAL IV SCH ×2 (08:27→16:32)
[2018-09-26] MEDS: PANTOPRAZOLE 40MG TABLET PO SCH ×2 (08:27→16:33)
[2018-09-26] MEDS: POTASS/SODIUM PHOSPHATE 1 PKT POWD.PACK PO SCH ×3 (08:28→11:09)
[2018-09-26] MEDS ORDERED: MAGNESIUM SULFATE 1 gm IVPB 1 GM/100 ML BAG IV ONE (09:00)
[2018-09-26] MEDS ORDERED: POTASSIUM 25 MEQ EFFERV TAB PO ONE (09:00)
--- NOTE | 2018-09-26 10:30 | EKG ---
Test Date: 2018-09-25 Test Time: 15:28:34 Director Of Recruiting: JEREMIAH MEASUREMENT RESULTS: Intervals: Rate: 103 CA: 158 QRSD: 100 QT: 384 QTc: 503 [place]: P: 56 CA: 158 QRS: 14 T: 57 INTERPRETIVE STATEMENTS: Sinus tachycardia with premature atrial complexes Otherwise normal ECG Compared to ECG 05/20/2018 19:10:24 ST (T wave) deviation no longer present Prolonged QT interval no longer present Electronically Signed On 09-26-18 10:28:26 CDT by Radhames Jay
--- NOTE | 2018-09-26 13:13 | P.PN ---
Subjective Date of Service: 09/26/18 Primary Care Provider: Dr Woo Chief Complaint: Anasarca Patient seen and examined at bedside. No family at bedside. Chart reviewed and case discussed with nursing staff. Reports slight improvement in bilateral lower extremity swelling, though still swollen. Reports improved pain. Denies any shortness of breath at this time, denies any chest pain, headache, vision changes. Urinating more frequently due to Lasix. Review of Systems 10-point ROS is otherwise unremarkable Physical Examination - Vital Signs Temperature: 98.3 F Blood Pressure: 123/55 Pulse: 104 Respirations: 19 Pulse Ox (%): 100 - Physical Exam General: Alert, In no apparent distress Neck: Supple, JVD not distended Respiratory: Clear to auscultation bilaterally, Normal air movement Cardiovascular: Regular rate/rhythm, Normal S1 S2, Edema (Bilateral lower extremity) Gastrointestinal: Other (Abdominal edema, pitting) Musculoskeletal: Swelling (With bilateral lower extremity) - Studies Laboratory Data (last 24 hrs) 09/25/18 15:30: PT 17.0 H, INR 1.46 09/25/18 15:30: WBC 6.4, Hgb 7.8 L*, Hct 25.4 L, Plt Count 125 L 09/25/18 15:30: Sodium 137, Potassium 3.5, BUN 8, Creatinine 0.99, Glucose 115 H , Magnesium 2.1 D, Total Bilirubin 2.3 H, AST 187 H, ALT 39, Alkaline Phosphatase 140 H Assessment And Plan - Current Problems (Diagnosis) (1) Anasarca Current Visit: Yes Status: Acute Plan: Anasarca most likely secondary to liver cirrhosis secondary to alcohol abuse versus hepatitis-C -patient with bilateral 3+ pitting edema, physical exam with crackles on lung examination -patient currently not taking his Lasix. -continue Lasix 40 mg b.i.d. IV at this time. -will also start patient on albumin x 1 -Strict I&O's, low sodium diet, and fluid restriction -Daily weights (2) Liver cirrhosis Current Visit: Yes Status: Chronic Plan: Liver cirrhosis most likely secondary to hepatitis-C versus alcohol abuse now with elevated LFTs -high a meld score with poor prognosis -will monitor closely at this time stable -abdominal ultrasound with Increased and heterogeneous hepatic echotexture consistent with fatty infiltration/inflammation. Qualifiers: Hepatic cirrhosis type: alcoholic cirrhosis Ascites presence: without ascites Qualified Code(s): K70.30 - Alcoholic cirrhosis of liver without ascites (3) history of Esophageal adenocarcinoma Current Visit: Yes Status: Chronic Plan: Patient recently f/u at [facility] had esophageal biopsy consistent with esophageal adenocarcinoma. -patient has not followed up with Heme/Onco at this time. Has not followed up with primary care provider since discharge - patient states that he has no insurance, has applied for it. He will need to follow up as an outpatient with Oncology along with the primary care physician. Had extensive discussion with patient regarding diagnosis as patient states he was not aware of this. (4) CKD (chronic kidney disease) Current Visit: Yes Status: Chronic Plan: Chronic kidney disease with stage III currently. Most likely secondary to hepatic renal syndrome. -BUN and creatinine stable at this time -will continue to monitor closely Qualifiers: Chronic kidney disease stage: stage 3 (moderate) Qualified Code(s): N18.3 - Chronic kidney disease, stage 3 (moderate) (5) History of GI bleed Current Visit: Yes Status: Chronic Plan: History of GI bleed recently in May. Currently hemoglobin is a 7.8. -Will transfuse if less than 7. -Protonix b.i.d. -type and screen done (6) Anemia Current Visit: Yes Status: Chronic Plan: Anemia most likely secondary to chronic blood loss versus liver disease versus chronic kidney disease -will monitor closely Qualifiers: Anemia type: iron deficiency Iron deficiency anemia type: chronic blood loss Qualified Code(s): D50.0 - Iron deficiency anemia secondary to blood loss (chronic) (7) Alcohol abuse Current Visit: Yes Status: Chronic (8) Current smoker Current Visit: Yes Status: Chronic (9) SHAKIR (obstructive sleep apnea) Current Visit: Yes Status: Chronic Plan: CPAP at night - Plan Will continue with IV Lasix and albumin at this time for generalized anasarca.
[2018-09-26] MEDS: POLYVINYL ALCOHOL 1.4% 15 ML EACH EYE SCH (13:34)
[2018-09-26] MEDS: TRAMADOL HCL 50 MG TAB PO PRN ×2 (13:35→21:34)
[2018-09-26] MEDS: NICOTINE 21 MG/PAT TD SCH (21:34)
[2018-09-26] MEDS: ZOLPIDEM TARTRATE 10 MG TABLET PO SCH ×2 (21:34→23:16)
[2018-09-27 05:46] LABS: ALT/SGPT 40 U/L (12-78); AST/SGOT 148 U/L (15-37); Albumin 1.9 g/dL (3.4-5.0); Alkaline Phosphatase 133 U/L (45-117); BUN Blood Urea Nitrogen 12 mg/dL (7-18); Bicarbonate 23 mmol/L (21-32); Bilirubin Total 2.5 mg/dL (0.2-1.0); Glucose Level 100 mg/dL (74-106); Magnesium 1.8 mg/dL (1.8-2.4); Phosphorus 2.1 mg/dL (2.5-4.9); Potassium 3.1 mmol/L (3.5-5.1); Protein, Total 9.2 g/dL (6.4-8.2); Sodium Level 135 mmol/L (136-145)
[2018-09-27 06:02] LABS: Absolute Lymphocytes (CBC) 0.9 K/uL (0.7-4.9); Absolute Monocytes 0.5 K/uL (0.1-1.3); Absolute Neutrophil 4.1 K/uL (1.8-8.0); Basophils % 3.2 % (0-1.3); Eosinophils % 1.8 % (0-4.4); Hematocrit 24.8 % (39.6-49.0); Lymphocytes % 16.2 % (15.3-44.8); MPV 9.3 fL (7.6-11.3); Monocytes % 8.1 % (3.3-12.3); RBC Red Blood Cell Count 2.99 M/uL (4.33-5.43)
[2018-09-27] MEDS: POTASS/SODIUM PHOSPHATE 1 PKT POWD.PACK PO SCH ×3 (07:50→10:03)
[2018-09-27] MEDS ORDERED: POTASSIUM 25 MEQ EFFERV TAB PO ONE (08:00)
[2018-09-27] MEDS: NICOTINE 21 MG/PAT TD SCH (08:50)
[2018-09-27] MEDS: FUROSEMIDE 40 MG/4 ML VIAL IV SCH (08:51)
[2018-09-27 08:52] VITALS: BP 130/61
[2018-09-27] MEDS: POLYVINYL ALCOHOL 1.4% 15 ML EACH EYE SCH (08:52)
[2018-09-27] MEDS ORDERED: MAGNESIUM SULFATE 1 gm IVPB 1 GM/100 ML BAG IV ONE (09:00)
[2018-09-27 09:14] VITALS: TEMP 98.9
[2018-09-27] MEDS: PANTOPRAZOLE 40MG TABLET PO SCH (09:24)
[2018-09-27] MEDS: TRAMADOL HCL 50 MG TAB PO PRN (09:24)
[2018-09-27 11:59] VITALS: O2SAT 99
--- NOTE | 2018-09-27 12:36 | P.SSS ---
Patient History Date of Service: 09/27/18 Primary Care Provider: Dr Woo Reason for admission: Anasarca History of Present Illness: This is a 53 yr old male with a history of CKD3, Liver cirrhosis 2.2 to Alcohol and Hep C, Hx of upper GIB, hx of Esophageal adenocarcinoma, SHAKIR, obesity who presented to the ER complaining of having bilateral lower extremity swelling. Patient stated that he has been having bilateral lower extremity swelling for quite some time over 6 years however recently got worse and thus he decided to come to the ER. Patient stated that he usually takes Lasix for his swelling however has not been able to take the Lasix ox recently and thus has noticed that his legs have been getting worse over time. 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 Patient also stated that he has been having trouble talking, even finishing sentences gets him short of breath. Patient was recently seen at [facility] a in May of 2018 for GI bleeding for he was also found to have esophageal mass and biopsy revealed that he had esophageal adenocarcinoma. Patient has not followed up with heme oncology for primary care provider after that states he was unaware of the diagnosis. In the ER patient was seen and evaluated. Lab work and imaging were done. There was a concern for volume overload secondary to noncompliance with medications and thus patient was admitted to the hospital for volume overload causing generalized anasarca. Allergies Sulfa (Sulfonamide Antibiotics) Allergy (Verified 09/25/18 21:29) Anaphylaxis Home Medications: Zolpidem Tartrate [Ambien] 1 tab PO BEDTIME 09/25/18 Spironolactone 25 mg PO BID #30 tablet 09/27/18 Torsemide [Demadex*] 20 mg PO BID #30 tab 09/27/18 traMADol HCL [Ultram*] 50 mg PO Q6H PRN #12 tab 09/27/18 - Past Medical/Surgical History Has patient received pneumonia vaccine in the past: No Diabetic: No -: Liver Cirrhosis -: Hep C -: CKD -: Alcohol Abuse -: Esophageal AdenoCA -: Smoker -: SHAKIR -: Anasarca -: GI bleed -: hernia repair -: gall bladder removed - Family History Family History: Reviewed- Non-Contributory - Family History Father -: Hypertension Notes: Sciatica - Social History Smoking Status: Light Tobacco smoker (1-9 cigarettes/day) Alcohol use: Yes CD- Drugs: No Caffeine use: No Place of Residence: Home Physical Examination - Vital Signs Temperature: 98.9 F Blood Pressure: 130/61 Pulse: 88 Respirations: 20 Pulse Ox (%): 98 - Diagnosis (Problem(s)) (1) Anasarca Current Visit: Yes Status: Acute (2) Liver cirrhosis Current Visit: Yes Status: Chronic Qualifiers: Hepatic cirrhosis type: alcoholic cirrhosis Ascites presence: without ascites Qualified Code(s): K70.30 - Alcoholic cirrhosis of liver without ascites (3) history of Esophageal adenocarcinoma Current Visit: Yes Status: Chronic (4) CKD (chronic kidney disease) Current Visit: Yes Status: Chronic Qualifiers: Chronic kidney disease stage: stage 3 (moderate) Qualified Code(s): N18.3 - Chronic kidney disease, stage 3 (moderate) (5) History of GI bleed Current Visit: Yes Status: Chronic (6) Anemia Current Visit: Yes Status: Chronic Qualifiers: Anemia type: iron deficiency Iron deficiency anemia type: chronic blood loss Qualified Code(s): D50.0 - Iron deficiency anemia secondary to blood loss (chronic) (7) Alcohol abuse Current Visit: Yes Status: Chronic (8) Current smoker Current Visit: Yes Status: Chronic (9) SHAKIR (obstructive sleep apnea) Current Visit: Yes Status: Chronic Treatment Summary: Patient was admitted for anasarca, most likely secondary to liver cirrhosis secondary to alcohol abuse versus hepatitis-C. Patient did have bilateral pitting edema and crackles on lung exam. He was not currently taking any diuretics. He was started on IV diuresis with Lasix 40 mg twice a day. He was given albumin x1. He was educated on low-sodium diet and fluid restriction along with strict I&Os. Patient also has a liver cirrhosis likely secondary to hepatitis C versus alcohol abuse. His liver enzymes were elevated and he has a high meld score and a poor overall prognosis. He did have some evidence of fatty infiltration/ information in the abdominal ultrasound. It seems that patient also has a history of esophageal cancer, biopsy consistent with esophageal adenocarcinoma. Chart was reviewed for external records. Patient states that he did not know , was not told regarding this. He stated that he did not even know they did a biopsy at the time of the EGD in [facility]. He has not had any follow up in regards to this. Discussed case with his primary care physician, Dr. Woo, who stated that they have been trying to get patient to follow up and get further management for this. Patient then stated that he did not have any insurance, he has applied for it. He states that he wants to follow up as an outpatient with Oncology along with his primary care physician once his insurance to set up. I had an extensive discussion with patient regarding his diagnosis, prognosis and treatment plan. Patient states that he would not like to stay in the hospital another night. He just would like a prescription for torsemide as this has worked on his edema. His IV Lasix was switched to oral torsemide. The patient was discharged per patient's wishes to follow up as an outpatient for further workup of esophageal adenocarcinoma/ management. He was discharged home on oral torsemide and spironolactone. I did discuss the urgency of timely evaluation/management. Patient stated that he understands and he also would like to get this taken care of but he would like to send outpatient once he has insurance so he does not have to worry about the financial aspect of it. Patient states that he would likely because the bed sitting up comfortable, he is not getting when he is asking for, like his pain medications. Patient also has a history of CKD, stage III. This is probably likely secondary to hepatic renal syndrome. His creatinine remained stable throughout the stay. He also has a history of GI bleed. No evidence of active bleeding at this time. His hemoglobin remained stable throughout the stay, though low. He was educated on alcohol cessation as well as smoking cessation. He was provided with a CPAP for his obstructive sleep apnea. Prior to discharge, he was alert oriented x3, in no acute distress. He still had lower extremity edema, slightly improved from admission. Labs were stable, vital signs were stable. - Disposition Discharge Date: 09/27/18 Condition: FAIR Patient Discharge Instructions: Please make sure to follow up with the primary care physician in the next 2-3 days. It is very important to have her follow up with the primary care physician's you can get your other appointments set up. As discussed, this is very important. A primary care physician will also monitor acute kidney disease and other electrolytes once starting torsemide. New medications: Torsemide, tramadol Diet: Fluid restriction Activity: Ad harsha Time Spent Managing Pts Care (In Minutes): 55
[2018-09-28] MEDS ORDERED: TORSEMIDE 20 MG TAB PO SCH (09:00)
== END 2018-09-27 13:49 | disposition home or self-care (01) ==
LOC: ER 14:31 → ERHOLD 17:39 → 4TH 19:52
PROVIDERS: ADMIT Family Medicine; ATTEND Family Medicine
DX: R60.1 Generalized edema (principal); N18.3 Chronic kidney disease, stage 3 (moderate); K70.30 Alcoholic cirrhosis of liver without ascites; B19.20 Unspecified viral hepatitis C without hepatic coma; D50.9 Iron deficiency anemia, unspecified; G47.33 Obstructive sleep apnea (adult) (pediatric); E66.9 Obesity, unspecified; Z68.42 Body mass index [BMI] 45.0-49.9, adult; F17.210 Nicotine dependence, cigarettes, uncomplicated; Z88.2 Allergy status to sulfonamides; Z85.01 Personal history of malignant neoplasm of esophagus
CPT/HCPCS: 36415; 71045; 76700; 80048; 80053; 80076; 81003; 81015; 83735; 83880; 84100; 84132; 84443; 84484; 85025; 85610; 86850; 86900; 86901; 87493; 93005; 93970; 94660; 94760; 96374; 96375; 99285; G0378; J1940; J2270; J3010; J3475; P9047

== ENCOUNTER 2019-04-27 13:19 | Emergency (ER) | payer SELFPAY ==
--- OUTSIDE RECORDS SUMMARY | 2019-04-27 13:22 | XMS REPORT | Summary of Care ---
:1965 Author Organization [facility] Address [address] [place] [id number] Care Team Providers Name Role Phone Annetta Ventura Primary Care Provider Reason for Visit Reason Comments Results Encounter Details Date Type Department Care Team Description 12/25/2018 Telephone [facility] Keisha Parker MD Results GASTROENTEROLOGY [address] [place] [address]. [address] [place] [address] [place] [address]. [phone] [place] [address] [phone] Allergies Active Allergy Reactions Severity Noted Date Comments Sulfa (Sulfonamide Antibiotics) Swelling 11/12/2018 documented as of this encounter (statuses as of 12/25/2018) Medications Medication Sig Dispensed Refills Start Date End Date Status torsemide 20 mg Take 20 mg by 0 Active tablet mouth 4 (four) times daily. potassium Take by mouth. 0 Active (POTASSIMIN ORAL) naproxen 500 mg Take 1 tablet by 60 tablet 2 11/13/2018 Active tabletIndications: mouth 2 (two) Chronic midline low times daily with back pain without meals. sciatica zolpidem tartrate Take by mouth. 0 Active (AMBIEN ORAL) MELATONIN, BULK, 0 Active MISC omeprazole 40 mg Take 1 capsule 180 capsule 0 12/22/2018 03/22/2019 Active capsuleIndications: by mouth 2 (two) Esophageal mass, times daily for Upper GI bleeding, 90 days. Iron deficiency anemia due to chronic blood loss documented as of this encounter (statuses as of 12/25/2018) Active Problems Problem Noted Date Esophageal mass 12/01/2018 Overview: Added automatically from request for surgery [id number] Upper GI bleeding 11/12/2018 Iron deficiency anemia due to chronic blood loss 11/12/2018 SHAKIR treated with BiPAP 11/12/2018 Alcohol abuse 11/12/2018 documented as of this encounter (statuses as of 12/25/2018) Social History Tobacco Use Types Packs/Day Years Used Date Light Tobacco Smoker Smokeless Tobacco: Never Used Alcohol Use Drinks/Week oz/Week Comments Not Currently 8 Shots of liquor 4.8 stopped June 2018 Food Insecurity Answer Date Recorded Within the past 12 months, you worried that your food would Often true 2018 run out before you got money to buy more. Within the past 12 months, the food you bought just didn't Not asked last and you didn't have money to get more. Sex Assigned at Date Recorded Not on file Job Start Date Occupation Industry Not on file Not on file Not on file Travel History Travel Start Travel End No recent travel history available. documented as of this encounter Last Filed Vital Signs Not on filedocumented in this encounter Plan of Treatment Date Type Specialty Care Team Description 12/29/2018 Appointment Radiology Brady Bailey MD [address] [place] [address]. [address] [place] [phone] 12/29/2018 Appointment Radiology Brady Bailey MD [address] [place] [address]. [address] [place] [phone] 01/11/2019 Office Visit Gastroenterology James Bravo MD [address] [place] [address] [phone] 06/07/2019 Office Visit Gastroenterology James Bravo MD [address] [place] [address] [phone] Health Maintenance Due Date Last Done Comments HEPATITIS C (HCV) SCREEN 1965 PNEUMOCOCCAL 0-64 YEARS COMBINED SERIES (1 - 1970 PPSV23) DTaP,Tdap,and Td Vaccines (1 - Tdap) 1983 COLONOSCOPY 2014 Zoster Recombinant Vaccine (SHINGRIX) (1 of 2) 2014 INFLUENZA VACCINE 01/31/2019 documented as of this encounter Results Not on filedocumented in this encounter Insurance Payer Benefit Plan Subscriber ID Effective Phone Address Type / Group Dates BARAK CANCINO [id number] 2018-Prese [phone] [facility] PRIMARY CARE PRIMARY CARE nt [address] [place] [address] [place] [place] BARAK WILHELM [id number] 2018-[place] [address] [facility] ent [address] [facility] [place] [address] documented as of this encounter
--- OUTSIDE RECORDS SUMMARY | 2019-04-27 13:22 | XMS REPORT ---
:1965 [facility] [address] [address] [place] [address] Care Team Providers Name Role Phone RADHAMES SAUNDERS PLUMMER Unavailable Unavailable BRAD PARSONS Unavailable Unavailable [...] (BEAKER) (test 1.2 mg/dL 0.6-1.3 TESTED AT [facility] 7200 binj=3178) [facility] [address] POC-EGFR (BEAKER) (test 76 mL/min/1.73M2 zzyx=3867) IMMUNOFIXATION ELECTROPHORESIS (TARAH)2018-06-01 15:26:00 Test Item Value Reference Range Comments IMMUNOGLOBULIN G (IGG) (BEAKER) > mg/dL 540-1,822 (test dhju=376) IMMUNOGLOBULIN A (IGA) (BEAKER) 1158 mg/dL 63-484 (test uqrl=062) IMMUNOGLOBULIN M (IGM) (BEAKER) 324 mg/dL 22-293 (test uyfd=456) SERUM TARAH ID (BEAKER) (test No monoclonal proteins uyfe=8210) detected. Polyclonal elevation of immunoglobulins. [id number] (BEAKER) Gabby Dover MD (test jkct=5684) (electronic signature) PROTEIN ELECTROPHORESIS, [id number] 12:02:00 Test Item Value Reference Range Comments ALBUMIN FRACTION (BEAKER) 2.0 gm/dL 3.5-5.5 (test wrtv=738) ALPHA 1 FRACTION (BEAKER) 0.2 gm/dL 0.2-0.4 (test xwpi=870) ALPHA 2 FRACTION (BEAKER) 0.4 gm/dL 0.5-0.9 (test nwhr=595) BETA FRACTION (BEAKER) (test 1.1 gm/dL 0.6-1.1 hqbn=978) GAMMA GLOBULIN FRACTION 4.7 gm/dL 0.7-1.7 (BEAKER) (test gkip=920) INTERPRETATION-119 (BEAKER) Beta-gamma bridging and large (test ecuu=1657) polyclonal elevation of gamma globulins, consistent with cirrhosis and HCV infection. Serum TARAH ordered to exclude presence of underlying monoclonal bands. [id number] (KATYA) Gabby Dover MD (test zorm=2127) (electronic signature) PROTEIN TOTAL SERUM, SPEP 8.4 gm/dL 6.0-8.3 (BEAKER) (test nykr=8947) TISSUE [id number] 15:09:00Surgical Pathology Report Case: [id number] Authorizing Provider: Radhames Saunders, Collected: 05/22/2018 Janell GAINES OrderingLocation: [address] Received: 2017 0840 Service Pathologist: Christian Parada MD Specimens: A) -Esophagus, Esophageal Nodule @ 37cm B) - Esophagus, @ 38cm R/O Barretts A. 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 ESOPHAGUS, 38 CM, BIOPSY- NO TISSUE IDENTIFIED (SEE COMMENT) Signing Pathologist Direct Phone Line: [phone] signed by Christian Parada MD on 05/29/2018 at 3:09 PMB. No tissue was identified microscopically and may not have survived the processing.[id number], [phone], [phone] x 2The case was received two parts.Part [...] stains. Immunohistochemistry technical testing was performed at [facility], Pathology Laboratory where it was developed [...] testing.Block ACDX2-positiveCAM5.2- positiveSynaptophysin- negativecontrols are adequate.HEMOGLOBIN AND [id number] 14:58:00 Test Item Value Reference Range Comments HEMOGLOBIN (BEAKER) (test meso=275) 7.8 GM/DL 13.7-17.5 HEMATOCRIT (BEAKER) (test owac=531) 24.4 % 40.1-51.0 Send after transfusion is completedCOMPREHENSIVE METABOLIC [id number] 07:05 :00 Test Item Value Reference Range Comments TOTAL PROTEIN (BEAKER) 8.2 gm/dL 6.0-8.3 (test hbtb=392) ALBUMIN (BEAKER) (test 1.7 g/dL 3.5-5.0 uxoq=5489) ALKALINE PHOSPHATASE 158 U/L 40-150 (BEAKER) (test isqp=320) BILIRUBIN TOTAL (BEAKER) 4.1 mg/dL 0.2-1.2 (test wwwj=005) SODIUM (BEAKER) (test 131 meq/L 136-145 hvfp=105) POTASSIUM (BEAKER) (test 3.3 meq/L 3.5-5.1 qwnw=068) CHLORIDE (BEAKER) (test 99 meq/L 98-107 ptmp=688) CO2 (BEAKER) (test 28 meq/L 22-29 ffji=280) BLOOD UREA NITROGEN 17 mg/dL 7-21 (BEAKER) (test mcxg=667) CREATININE (BEAKER) (test 1.32 mg/dL 0.57-1.25 zzix=881) GLUCOSE RANDOM (BEAKER) 115 mg/dL 70-105 (test ffvd=574) CALCIUM (BEAKER) (test 7.9 mg/dL 8.4-10.2 zfjm=691) AST (SGOT) (BEAKER) (test 202 U/L 5-34 wyqh=729) ALT (SGPT) (BEAKER) (test 43 U/L 6-55 vuql=121) EGFR (BEAKER) (test 69 mL/min/1.73 sq m ESTIMATED GFR IS NOT jdsa=3446) ACCURATE CREATININE CLEARANCE IN PREDICTING GLOMERULAR FILTRATION RATE. ESTIMATED GFR IS NOT APPLICABLE FOR DIALYSIS PATIENTS. Specimen slightly [id number] 07:02:00 Test Item Value Reference Range Comments PHOSPHORUS (BEAKER) (test mpyo=919) 2.9 mg/dL 2.3-4.7 [id number] 07:02:00 Test Item Value Reference Range Comments MAGNESIUM (BEAKER) (test jrrx=005) 1.5 mg/dL 1.6-2.6 CALCIUM, [id number] 05:25:00 Test Item Value Reference Range Comments CALCIUM IONIZED (BEAKER) (test lmkt=375) 0.90 mmol/L 1.12-1.27 PH, BLOOD (BEAKER) (test rwvv=8617) 7.48 CBC W/PLT COUNT & AUTO [id number] 04:43:00 Test Item Value Reference Range Comments WHITE BLOOD CELL COUNT (BEAKER) (test ftve=898) 6.5 K/ L 3.5-10.5 RED BLOOD CELL COUNT (BEAKER) (test nztr=237) 2.28 M/ L 4.63-6.08 HEMOGLOBIN (BEAKER) (test ycjb=064) 7.0 GM/DL 13.7-17.5 HEMATOCRIT (BEAKER) (test ciba=228) 22.2 % 40.1-51.0 MEAN CORPUSCULAR VOLUME (BEAKER) (test upcx=928) 97.4 fL 79.0-92.2 MEAN CORPUSCULAR HEMOGLOBIN (BEAKER) (test 30.7 pg 25.7-32.2 mwlp=492) MEAN CORPUSCULAR HEMOGLOBIN CONC (BEAKER) (test 31.5 GM/DL 32.3-36.5 afnc=133) RED CELL DISTRIBUTION WIDTH (BEAKER) (test 18.6 % 11.6-14.4 qdfd=979) PLATELET COUNT (BEAKER) (test sczx=372) 75 K/CU MM 150-450 MEAN PLATELET VOLUME (BEAKER) (test jfbh=771) 12.1 fL 9.4-12.4 NUCLEATED RED BLOOD CELLS (BEAKER) (test 0 /100 WBC 0-0 mcgu=478) NEUTROPHILS RELATIVE PERCENT (BEAKER) (test 65 % rhhd=578) LYMPHOCYTES RELATIVE PERCENT (BEAKER) (test 19 % qrle=907) MONOCYTES RELATIVE PERCENT (BEAKER) (test 7 % sabt=943) EOSINOPHILS RELATIVE PERCENT (BEAKER) (test 7 % xjnc=185) BASOPHILS RELATIVE PERCENT (BEAKER) (test 1 % wspp=948) NEUTROPHILS ABSOLUTE COUNT (BEAKER) (test 4.20 K/ L 1.78-5.38 uxss=423) LYMPHOCYTES ABSOLUTE COUNT (BEAKER) (test 1.25 K/ L 1.32-3.57 jgie=705) MONOCYTES ABSOLUTE COUNT (BEAKER) (test rbvj=257) 0.42 K/ L 0.30-0.82 EOSINOPHILS ABSOLUTE COUNT (BEAKER) (test 0.45 K/ L 0.04-0.54 sbrc=058) BASOPHILS ABSOLUTE COUNT (BEAKER) (test dvwt=386) 0.07 K/ L 0.01-0.08 IMMATURE GRANULOCYTES-RELATIVE PERCENT (BEAKER) 1 % 0-1 (test fmuj=9526) HEPATITIS C PCR, [id number] 19:37:00 Test Item Value Reference Range Comments HCV NUMERIC RESULT (BEAKER) (test xgut=7035) 304600 IU/mL <15 This test uses a Real-Time Polymerase Chain Reaction (RT-PCR) methodology and was performed using [employer] Ampliprep/MAR[employer]Z TaqMan HCV test kit version 2.0 ( [employer]).Reportable range for this assay is 15 - 100,000, 000 IU per mL (1.18 - 8.00 Log IU/mL).[id number] 19:02:00 Test Item Value Reference Range Comments POTASSIUM (BEAKER) (test dsyw=081) 3.4 meq/L 3.5-5.1 [id number] 19:02:00 Test Item Value Reference Range Comments MAGNESIUM (BEAKER) (test ejkl=099) 1.7 mg/dL 1.6-2.6 callURINE PROTEIN ELECTROPHORESIS, [id number] 14:29:00 Test Item Value Reference Range Comments PROTEIN, URINE (BEAKER) (test 14 mg/dL 0-14 bziu=6803) ALBUMIN URINE ELP (BEAKER) 18.9 % (test rxos=2421) GAMMA GLOBULIN URINE (BEAKER) 81.1 % (test xeik=3713) UPEP, ID-438 (BEAKER) (test No monoclonal bands detected. zkff=9290) [id number] (BEAKER) Gabby Dover MD (test bpsd=1274) (electronic signature) [id number] 13:17:00 Test Item Value Reference Range Comments MAGNESIUM (BEAKER) (test kvyw=107) 1.3 mg/dL 1.6-2.6 VITAMIN B12 AND [id number] 10:07:00 Test Item Value Reference Range Comments VITAMIN B12 (BEAKER) (test bpzj=691) > pg/mL 213-816 FOLATE (BEAKER) (test suvn=608) 7.0 ng/mL >=7.0 HEMOGLOBIN [id number] 09:56:00 Test Item Value Reference Range Comments HEMOGLOBIN A1C (BEAKER) (test netk=005) 5.0 % 4.3-6.1 [id number] 07:07:00 Test Item Value Reference Range Comments FERRITIN (BEAKER) (test sgyj=653) 48 ng/mL 5-275 CALCIUM, [id number] 06:47:00 Test Item Value Reference Range Comments CALCIUM IONIZED (BEAKER) (test yuph=722) 0.92 mmol/L 1.12-1.27 PH, BLOOD (BEAKER) (test ctzr=7247) 7.45 [id number] 06:16:00 Test Item Value Reference Range Comments MAGNESIUM (BEAKER) (test vznh=429) 1.0 mg/dL 1.6-2.6 HEPATITIS PANEL, [id number] 05:47:00 Test Item Value Reference Range Comments HEPATITIS A IGM ANTIBODY (BEAKER) (test Nonreactive Nonreactive vood=105) HEPATITIS B CORE IGM ANTIBODY (BEAKER) (test Nonreactive Nonreactive qqim=983) HEPATITIS C ANTIBODY (BEAKER) (test rkcx=874) Reactive Nonreactive HEPATITIS B SURFACE ANTIGEN (2) (BEAKER) (test Nonreactive Nonreactive zywb=1159) TSH/FREE T4 IF [id number] 05:40:00 Test Item Value Reference Range Comments THYROID STIMULATING HORMONE (BEAKER) (test 0.54 uIU/mL 0.35-4.94 tpri=568) HIV-1 ANTIGEN WITH HIV-1/2 [id number] 05:40:00 Test Item Value Reference Range Comments HIV-1 ANTIGEN WITH HIV 1\\T\\2 ANTIBODY (2) Nonreactive Nonreactive (BEAKER) (test aver=4775) CBC W/PLT COUNT & AUTO [id number] 05:25:00 Test Item Value Reference Range Comments WHITE BLOOD CELL COUNT (BEAKER) (test stwb=055) 8.2 K/ L 3.5-10.5 RED BLOOD CELL COUNT (BEAKER) (test scdy=759) 2.49 M/ L 4.63-6.08 HEMOGLOBIN (BEAKER) (test tnti=625) 7.8 GM/DL 13.7-17.5 HEMATOCRIT (BEAKER) (test cntz=223) 24.3 % 40.1-51.0 MEAN CORPUSCULAR VOLUME (BEAKER) (test wknb=025) 97.6 fL 79.0-92.2 MEAN CORPUSCULAR HEMOGLOBIN (BEAKER) (test 31.3 pg 25.7-32.2 tutn=219) MEAN CORPUSCULAR HEMOGLOBIN CONC (BEAKER) (test 32.1 GM/DL 32.3-36.5 vwko=931) RED CELL DISTRIBUTION WIDTH (BEAKER) (test 19.0 % 11.6-14.4 akae=224) PLATELET COUNT (BEAKER) (test xjwm=478) 75 K/CU MM 150-450 MEAN PLATELET VOLUME (BEAKER) (test hlpr=598) 11.9 fL 9.4-12.4 NUCLEATED RED BLOOD CELLS (BEAKER) (test 0 /100 WBC 0-0 qawu=611) NEUTROPHILS RELATIVE PERCENT (BEAKER) (test 69 % abhq=279) LYMPHOCYTES RELATIVE PERCENT (BEAKER) (test 18 % pjxz=559) MONOCYTES RELATIVE PERCENT (BEAKER) (test 7 % xacr=633) EOSINOPHILS RELATIVE PERCENT (BEAKER) (test 4 % attu=339) BASOPHILS RELATIVE PERCENT (BEAKER) (test 1 % jkfm=591) NEUTROPHILS ABSOLUTE COUNT (BEAKER) (test 5.70 K/ L 1.78-5.38 gibz=834) LYMPHOCYTES ABSOLUTE COUNT (BEAKER) (test 1.46 K/ L 1.32-3.57 hbco=777) MONOCYTES ABSOLUTE COUNT (BEAKER) (test ypyk=122) 0.54 K/ L 0.30-0.82 EOSINOPHILS ABSOLUTE COUNT (BEAKER) (test 0.34 K/ L 0.04-0.54 zfzb=489) BASOPHILS ABSOLUTE COUNT (BEAKER) (test ybod=937) 0.07 K/ L 0.01-0.08 IMMATURE GRANULOCYTES-RELATIVE PERCENT (BEAKER) 1 % 0-1 (test pren=5825) PTH, [id number] 05:24:00 Test Item Value Reference Range Comments PARATHYROID HORMONE INTACT (BEAKER) (test 213.8 pg/mL 8.5-72.5 btpn=737) B-TYPE NATRIURETIC FACTOR (BNP)2018-05-22 05:24:00 Test Item Value Reference Range Comments B-TYPE NATRIURETIC PEPTIDE (BEAKER) (test 213 pg/mL 0-100 mbde=559) IRON, TIBC, % SAT. (WITHOUT FERRITIN)2018-05-22 05:23:00 Test Item Value Reference Range Comments IRON (BEAKER) (test nfta=822) 32.0 ug/dL 40.0-160.0 TOTAL IRON BINDING CAPACITY (BEAKER) (test 235 ug/dL 250-450 bvtw=445) IRON % SATURATION (2) (BEAKER) (test rvxl=3702) 14 % 20-55 [id number] 05:19:00 Test Item Value Reference Range Comments PHOSPHORUS (BEAKER) (test ztlo=222) 3.0 mg/dL 2.3-4.7 URIC [id number] 05:19:00 Test Item Value Reference Range Comments URIC ACID (BEAKER) (test gczo=789) 13.9 mg/dL 2.6-7.2 Specimen moderately ictericCOMPREHENSIVE METABOLIC [id number] 05:19:00 Test Item Value Reference Range Comments TOTAL PROTEIN (BEAKER) 8.6 gm/dL 6.0-8.3 (test gtrr=282) ALBUMIN (BEAKER) (test 1.8 g/dL 3.5-5.0 rqra=4444) ALKALINE PHOSPHATASE 178 U/L 40-150 (BEAKER) (test avpd=036) BILIRUBIN TOTAL (BEAKER) 4.7 mg/dL 0.2-1.2 (test ousk=826) SODIUM (BEAKER) (test 131 meq/L 136-145 slcb=457) POTASSIUM (BEAKER) (test 3.2 meq/L 3.5-5.1 ewye=087) CHLORIDE (BEAKER) (test 98 meq/L 98-107 tlgu=109) CO2 (BEAKER) (test 28 meq/L 22-29 qytu=870) BLOOD UREA NITROGEN 18 mg/dL 7-21 (BEAKER) (test ihwf=689) CREATININE (BEAKER) (test 1.38 mg/dL 0.57-1.25 vnhn=766) GLUCOSE RANDOM (BEAKER) 116 mg/dL 70-105 (test vgqb=373) CALCIUM (BEAKER) (test 7.9 mg/dL 8.4-10.2 tqck=203) AST (SGOT) (BEAKER) (test 207 U/L 5-34 swgx=594) ALT (SGPT) (BEAKER) (test 42 U/L 6-55 vvdq=364) EGFR (BEAKER) (test 65 mL/min/1.73 sq m ESTIMATED GFR IS NOT pift=7400) ACCURATE CREATININE CLEARANCE IN PREDICTING GLOMERULAR FILTRATION RATE. ESTIMATED GFR IS NOT APPLICABLE FOR DIALYSIS PATIENTS. Specimen moderately ictericHEMOGLOBIN AND [id number] 20:27:00 Test Item Value Reference Range Comments HEMOGLOBIN (BEAKER) (test afgb=802) 7.2 GM/DL 13.7-17.5 HEMATOCRIT (BEAKER) (test mofl=380) 22.7 % 40.1-51.0 EOSINOPHIL SMEAR, [id number] 19:56:00 Test Item Value Reference Range Comments EOSINOPHIL SMEAR, URINE (BEAKER) Rare EOS=less than 5% WBCs No EOS seen (test hoaf=7571) seen are EOS SODIUM, RANDOM [id number] 19:42:00 Test Item Value Reference Range Comments SODIUM URINE (BEAKER) (test auus=991) 20 meq/L Reference Range: No NormalsURINALYSIS W/ [id number] 19:41:00 Test Item Value Reference Range Comments COLOR (BEAKER) (test hlhp=170) Yellow CLARITY (BEAKER) (test eaqb=002) Clear SPECIFIC GRAVITY UA (BEAKER) (test hgmt=232) 1.010 1.001-1.035 PH UA (BEAKER) (test yrfk=867) 6.0 5.0-8.0 PROTEIN UA (BEAKER) (test xivl=914) Negative Negative GLUCOSE UA (BEAKER) (test iowd=732) Negative Negative KETONES UA (BEAKER) (test cfdj=783) Negative Negative BILIRUBIN UA (BEAKER) (test jayi=049) Positive Negative BLOOD UA (BEAKER) (test iytx=863) Moderate Negative NITRITE UA (BEAKER) (test ucqf=351) Negative Negative LEUKOCYTE ESTERASE UA (BEAKER) (test dmqc=636) Negative Negative UROBILINOGEN UA (BEAKER) (test hgds=877) 3.0 mg/dL 0.2-1.0 RBC UA (BEAKER) (test woyf=268) 32 /HPF WBC UA (BEAKER) (test wlmz=128) 0 /HPF SQUAMOUS EPITHELIAL (BEAKER) (test avme=808) < /HPF HYALINE CASTS (BEAKER) (test pdqb=403) 5 /LPF SOURCE(BEAKER) (test eggx=4337) CREATININE, RANDOM [id number] 19:33:00 Test Item Value Reference Range Comments CREATININE URINE (BEAKER) (test khja=405) 102.4 mg/dL Reference Range: No NormalsPROTEIN, RANDOM [id number] 19:33:00 Test Item Value Reference Range Comments PROTEIN, URINE (BEAKER) (test rwuz=1093) 14 mg/dL 0-14 B-TYPE NATRIURETIC FACTOR (BNP)2018-05-21 13:34:00 Test Item Value Reference Range Comments B-TYPE NATRIURETIC PEPTIDE (BEAKER) (test 110 pg/mL 0-100 enpm=264) URIC [id number] 13:29:00 Test Item Value Reference Range Comments URIC ACID (BEAKER) (test nukm=140) 13.0 mg/dL 2.6-7.2 Specimen moderately ictericBASIC METABOLIC [id number] 06:49:00 Test Item Value Reference Range Comments SODIUM (BEAKER) (test 132 meq/L 136-145 yrgg=659) POTASSIUM (BEAKER) (test 2.9 meq/L 3.5-5.1 kfji=062) CHLORIDE (BEAKER) (test 97 meq/L 98-107 jirj=693) CO2 (BEAKER) (test 24 meq/L 22-29 kest=037) BLOOD UREA NITROGEN 18 mg/dL 7-21 (BEAKER) (test mfzp=044) CREATININE (BEAKER) (test 1.34 mg/dL 0.57-1.25 fwjj=353) GLUCOSE RANDOM (BEAKER) 159 mg/dL 70-105 (test azdn=777) CALCIUM (BEAKER) (test 7.7 mg/dL 8.4-10.2 gvar=142) EGFR (BEAKER) (test 67 mL/min/1.73 sq m ESTIMATED GFR IS NOT jogh=2666) ACCURATE CREATININE CLEARANCE IN PREDICTING GLOMERULAR FILTRATION RATE. ESTIMATED GFR IS NOT APPLICABLE FOR DIALYSIS PATIENTS. Specimen slightly ictericHEPATIC FUNCTION [id number] 06:47:00 Test Item Value Reference Range Comments TOTAL PROTEIN (BEAKER) (test cnbp=101) 9.4 gm/dL 6.0-8.3 ALBUMIN (BEAKER) (test rclt=3093) 2.0 g/dL 3.5-5.0 BILIRUBIN TOTAL (BEAKER) (test axdo=344) 4.3 mg/dL 0.2-1.2 BILIRUBIN DIRECT (BEAKER) (test sqhk=226) 3.1 mg/dL 0.1-0.5 ALKALINE PHOSPHATASE (BEAKER) (test dfid=860) 218 U/L 40-150 AST (SGOT) (BEAKER) (test tazq=936) 210 U/L 5-34 ALT (SGPT) (BEAKER) (test uzkd=031) 44 U/L 6-55 Specimen slightly ictericCBC W/PLT COUNT & AUTO [id number] 06:27 :00 Test Item Value Reference Range Comments WHITE BLOOD CELL COUNT (BEAKER) (test bpqo=372) 9.7 K/ L 3.5-10.5 RED BLOOD CELL COUNT (BEAKER) (test ytjt=714) 2.42 M/ L 4.63-6.08 HEMOGLOBIN (BEAKER) (test kpgd=714) 7.5 GM/DL 13.7-17.5 HEMATOCRIT (BEAKER) (test bcgc=125) 23.7 % 40.1-51.0 MEAN CORPUSCULAR VOLUME (BEAKER) (test zlfc=975) 97.9 fL 79.0-92.2 MEAN CORPUSCULAR HEMOGLOBIN (BEAKER) (test 31.0 pg 25.7-32.2 sraz=179) MEAN CORPUSCULAR HEMOGLOBIN CONC (BEAKER) (test 31.6 GM/DL 32.3-36.5 rnzg=131) RED CELL DISTRIBUTION WIDTH (BEAKER) (test 19.0 % 11.6-14.4 jipu=961) PLATELET COUNT (BEAKER) (test hljm=365) 74 K/CU MM 150-450 MEAN PLATELET VOLUME (BEAKER) (test mmin=036) 11.9 fL 9.4-12.4 NUCLEATED RED BLOOD CELLS (BEAKER) (test 0 /100 WBC 0-0 mebc=210) NEUTROPHILS RELATIVE PERCENT (BEAKER) (test 79 % vura=932) LYMPHOCYTES RELATIVE PERCENT (BEAKER) (test 11 % tbjk=309) MONOCYTES RELATIVE PERCENT (BEAKER) (test 6 % ezkd=596) EOSINOPHILS RELATIVE PERCENT (BEAKER) (test 1 % qmah=440) BASOPHILS RELATIVE PERCENT (BEAKER) (test 1 % hnfz=605) NEUTROPHILS ABSOLUTE COUNT (BEAKER) (test 7.63 K/ L 1.78-5.38 qjtx=602) LYMPHOCYTES ABSOLUTE COUNT (BEAKER) (test 1.02 K/ L 1.32-3.57 eoyq=557) MONOCYTES ABSOLUTE COUNT (BEAKER) (test mejr=996) 0.60 K/ L 0.30-0.82 EOSINOPHILS ABSOLUTE COUNT (BEAKER) (test 0.07 K/ L 0.04-0.54 kxpv=006) BASOPHILS ABSOLUTE COUNT (BEAKER) (test yqui=232) 0.06 K/ L 0.01-0.08 IMMATURE GRANULOCYTES-RELATIVE PERCENT (BEAKER) 4 % 0-1 (test vhai=6652) PROTHROMBIN TIME/[id number] 06:27:00 Test Item Value Reference Range Comments PROTIME (BEAKER) (test hyey=955) 19.1 seconds 11.7-14.7 INR (BEAKER) (test xejz=831) 1.6 <=5.9 RECOMMENDED COUMADIN/WARFARIN INR THERAPY RANGESSTANDARD DOSE: 2.0 - 3.0 Includes: PROPHYLAXIS forvenous thrombosis, systemic embolization; TREATMENT for venous thrombosis and/or pulmonary embolus.HIGH RISK: Target INR is 2.5-3.5 for patients with mechanical heart valves.URINALYSIS W/ [id number] 06 :12:00 Test Item Value Reference Range Comments COLOR (BEAKER) (test reip=618) Yellow CLARITY (BEAKER) (test yxks=377) Clear SPECIFIC GRAVITY UA (BEAKER) (test fjxe=952) 1.008 1.001-1.035 PH UA (BEAKER) (test sfmh=267) 6.0 5.0-8.0 PROTEIN UA (BEAKER) (test xcuc=374) Negative Negative GLUCOSE UA (BEAKER) (test ygrn=241) Negative Negative KETONES UA (BEAKER) (test nspo=141) Negative Negative BILIRUBIN UA (BEAKER) (test sldd=547) Negative Negative BLOOD UA (BEAKER) (test cevj=794) Moderate Negative NITRITE UA (BEAKER) (test haza=835) Negative Negative LEUKOCYTE ESTERASE UA (BEAKER) (test rzav=651) Negative Negative UROBILINOGEN UA (BEAKER) (test ujal=249) 0.2 mg/dL 0.2-1.0 RBC UA (BEAKER) (test oaql=924) 15 /HPF WBC UA (BEAKER) (test pxja=302) 2 /HPF MUCUS (BEAKER) (test gwst=6859) Rare SQUAMOUS EPITHELIAL (BEAKER) (test reti=947) < /HPF HYALINE CASTS (BEAKER) (test huxt=983) 20 /LPF AMORPHOUS CRYSTALS (BEAKER) (test iqko=9529) Rare SOURCE(BEAKER) (test xdcp=8712) Urine, Voided
--- OUTSIDE RECORDS SUMMARY | 2019-04-27 13:22 | XMS REPORT | Summary of Care ---
:1965 Author Organization [facility] Address [address] [place] [id number] Care Team Providers Name Role Phone Annetta Ventura Primary Care Provider Reason for Visit Reason Comments Results Encounter Details Date Type Department Care Team Description 12/25/2018 Telephone [facility] Keisha Parker MD Results GASTROENTEROLOGY [address] [place] [address]. [address] [place] [address] [place] [address]. [phone] [place] [address] [phone] Allergies Active Allergy Reactions Severity Noted Date [...] Overview: Added automatically from request for surgery [id number] Upper GI bleeding 11/12/2018 Iron deficiency anemia [...] Description 12/29/2018 Appointment Radiology Brady Bailey MD [address] [place] [address] [place] [phone] 12/29/2018 Appointment Radiology Brady Bailey MD [address] [place] [address]. [address] [place] [address] [phone] 01/11/2019 Office Visit Gastroenterology James Bravo MD [address] [place] [address] [phone] 06/07/2019 Office Visit Gastroenterology James Bravo MD [address] [place] [address] [phone] Health Maintenance Due Date Last Done Comments [...] Address Type / Group Dates BARAK CANCINO [id number] 2018-Prese [phone] [facility] PRIMARY CARE PRIMARY CARE nt [address] [place] [address] [place] [place] BARAK WILHELM [id number] [address]-[place] [address] [facility] ent [address] [employer] [facility] [place] [address] documented as of this encounter
--- OUTSIDE RECORDS SUMMARY | 2019-04-27 13:23 | XMS REPORT | Summary of Care ---
:1965 Author Organization [facility] Address [address] [place] [address] Care Team Providers Name Role Phone Annetta Ventura Marika DELATORRE Primary Care Provider Reason for Visit Reason Comments Results Encounter Details Date Type Department Care Team Description 12/30/2018 Telephone Medical Intensive Care Keisha Parker MD Results Unit ([facility] 8B) [address] [place] [address]. [address] [place] [address] [place] [address] Allergies Active Allergy Reactions Severity Noted Date Comments Sulfa (Sulfonamide Antibiotics) Swelling 11/12/2018 documented as of this encounter (statuses as of 12/30/2018) Medications Medication Sig Dispensed Refills Start Date [...] as of this encounter (statuses as of 12/30/2018) Active Problems Problem Noted Date Esophageal mass 12/01/2018 Overview: Added automatically from request for surgery [id number] Upper GI bleeding 11/12/2018 Iron deficiency anemia due to chronic blood loss 11/12/2018 SHAKIR treated with BiPAP 11/12/2018 Alcohol abuse 11/12/2018 documented as of this encounter (statuses as of 12/30/2018) Social History Tobacco Use Types Packs/Day Years [...] Treatment Date Type Specialty Care Team Description 12/31/2018 Office Visit Family Medicine Annetta Ventura, MEDICAL LEADER [address] [place], [place] [phone] Mariah, Jony Primary 01/11/2019 Office Visit Gastroenterology James Bravo MD [address] [place], [place] [phone] 06/07/2019 Office Visit Gastroenterology James Bravo MD [address] [place], [place] [phone] Health Maintenance Due Date Last Done Comments HEPATITIS C (HCV) SCREEN 1965 PNEUMOCOCCAL 0-64 YEARS COMBINED SERIES (1 of 1 - 1970 PPSV23) DTaP,Tdap,and Td Vaccines (1 - Tdap) 1983 COLONOSCOPY 2014 Zoster Recombinant Vaccine (SHINGRIX) (1 of 2) 2014 INFLUENZA VACCINE 01/31/2019 documented as of this encounter Results Not on filedocumented in this encounter Insurance Payer Benefit Plan Subscriber ID Effective Phone Address Type / Group Dates LUISCHAPIN BARAK [id number] 2018-Presmarika [phone] [facility] PRIMARY CARE PRIMARY CARE nt [address] [place] [address] [place] [place] WILHELM [id number] [address] [place] [address] [address] H C ent [address] [place] [address] documented as of this encounter
--- OUTSIDE RECORDS SUMMARY | 2019-04-27 13:23 | XMS REPORT | Summary of Care ---
:1965 Author Organization [facility] Address [address] [place] [address] 14[address] Care Team Providers Name Role Phone Annetta Ventura Primary Care Provider Reason for Visit Reason Comments Results Encounter Details Date Type Department Care Team Description 12/25/2018 Telephone [facility] Keisha Parker MD Results GASTROENTEROLOGY [address] [place] [address]. 3RD [place] [address] [place] [address]. [phone] [place] [address] [phone] Allergies Active Allergy Reactions Severity Noted Date Comments Sulfa (Sulfonamide Antibiotics) Swelling 11/12/2018 documented as of this encounter (statuses as of 12/28/2018) Medications Medication Sig Dispensed Refills Start Date [...] as of this encounter (statuses as of 12/28/2018) Active Problems Problem Noted Date Esophageal mass 12/01/2018 Overview: Added automatically from request for surgery [id number] Upper GI bleeding 11/12/2018 Iron deficiency anemia due to chronic blood loss 11/12/2018 SHAKIR treated with BiPAP 11/12/2018 Alcohol abuse 11/12/2018 documented as of this encounter (statuses as of 12/28/2018) Social History Tobacco Use Types Packs/Day Years [...] Description 12/29/2018 Appointment Radiology Brady Bailey MD [address] [place] [address]. [address] [place] [phone] 12/29/2018 Appointment Radiology Brady Bailey MD [address] [place] [address]. [address] [place] [phone] 01/11/2019 Office Visit Gastroenterology James Bravo MD [address] [place] [address] [phone] 06/07/2019 Office Visit Gastroenterology James Bravo MD [address] [place] [address] [phone] Health Maintenance Due Date Last Done Comments [...] Address Type / Group Dates BARAK CANCINO [id number] 2018-Prese [phone] [facility] PRIMARY CARE PRIMARY CARE nt [address] [place] [address] [place] BARAK WILHELM [id number] [address]-[place] [address] H C I [facility] C ent [address] [facility] [place] [id number] documented as of this encounter
--- OUTSIDE RECORDS SUMMARY | 2019-04-27 13:23 | XMS REPORT | Summary of Care ---
:1965 Author Organization [facility] Address [address] [place] [address] Care Team Providers Name Role Phone Annetta Ventura Primary Care Provider Reason for Referral MRI/CAT Scan (EL) Status Reason Specialty Diagnoses / Referred By Referred To Procedures Contact Contact New Request Diagnostic Diagnoses Alcoholic cirrhosis, unspecified whether ascites present H/O: upper GI bleed Esophageal mass Asa, Radiology Procedures CT THORAX W WO CONTRAST Kavin K, DO [address] [facility] [id number] [place] [address] MRI/CAT Scan (EL) Status Reason Specialty Diagnoses / Referred By Referred To Procedures Contact Contact New Request Diagnostic Diagnoses Alcoholic cirrhosis, unspecified whether ascites present H/O: upper GI bleed Esophageal mass Asa, Radiology Procedures CT ABDOMEN PELVIS W WO CONTRAST Kavin K, 301 [facility] [id number] [place] [address] Reason for Visit Reason Comments Notification Encounter Details Date Type Department Care Team Description 12/30/2018 Telephone [facility] GASTROENTEROLOGY James Bravo [facility] MD Jaspreet [address] [place] [address] [place] [address] Allergies Active Allergy Reactions Severity Noted Date Comments Sulfa (Sulfonamide Antibiotics) Swelling 11/12/2018 documented as of this encounter (statuses as of 12/31/2018) Medications Medication Sig Dispensed Refills Start Date End Date Status potassium Take by mouth. 0 Active (POTASSIMIN [...] deficiency anemia due to chronic blood loss LORazepam (ATIVAN) 2 Take 1 tablet by 1 tablet 0 12/31/2018 12/31/2018 Active mg tablet mouth once now for 1 dose. documented as of this encounter (statuses as of 12/31/2018) Active Problems Problem Noted Date Esophageal mass 12/01/2018 Overview: Added automatically from request for surgery [id number] Upper GI bleeding 11/12/2018 Iron deficiency anemia due to chronic blood loss 11/12/2018 SHAKIR treated with BiPAP 11/12/2018 Alcohol abuse 11/12/2018 documented as of this encounter (statuses as of 12/31/2018) Social History Tobacco Use Types Packs/Day Years [...] Treatment Date Type Specialty Care Team Description 01/05/2019 Appointment Radiology Kavin Bray, DO [address] [id number] [place] [address] [phone] 01/05/2019 Appointment Radiology Kavin Bray DO 301 [facility] [id number] [place], [place] [phone] 01/11/2019 Office Visit Gastroenterology James Bravo MD 301 [place], [place] [phone] 06/07/2019 Office Visit Gastroenterology James Bravo MD [address] [place] [address] Name Type Priority Associated Diagnoses Order Schedule CT ABDOMEN PELVIS W WO IMAGING EL Alcoholic cirrhosis, Expected: 2018, CONTRAST unspecified whether Expires: 12/31/2019 ascites present H/O: upper GI bleed Esophageal mass CREATININE LAB Routine Alcoholic cirrhosis, Expected: 01/06/2019 unspecified whether (Approximate), ascites present Expires: 12/31/2019 H/O: upper GI bleed Esophageal mass CT THORAX W WO CONTRAST IMAGING EL Alcoholic cirrhosis, Expected: 2018 unspecified whether (Approximate), ascites present Expires: 12/31/2019 H/O: upper GI bleed Esophageal mass Health Maintenance Due Date Last Done Comments HEPATITIS C (HCV) SCREEN 1965 PNEUMOCOCCAL 0-64 YEARS COMBINED SERIES (1 of 3 - 1970 PCV13) DTaP,Tdap,and Td Vaccines (1 - Tdap) 1983 COLONOSCOPY 2014 Zoster Recombinant Vaccine (SHINGRIX) (1 of 2) 2014 INFLUENZA VACCINE 01/31/2019 documented as of this encounter Results Not on filedocumented in this encounter Visit Diagnoses Diagnosis Alcoholic cirrhosis, unspecified whether ascites present - Primary H/O: upper GI bleed Personal history of other diseases of digestive system Esophageal mass Unspecified disorder of esophagus documented in this encounter Insurance Payer Benefit Plan Subscriber ID Effective Phone Address Type / Group Dates BARAK CANCINO [id number] 2018-Prese [phone] [facility] PRIMARY CARE PRIMARY CARE nt [address] [place] [address] [place] [facility] [id number] [address] [address] C I H C ent 20 [place] [id number] documented as of this encounter
--- OUTSIDE RECORDS SUMMARY | 2019-04-27 13:23 | XMS REPORT | Summary of Care ---
:1965 Author Organization [facility] Address [address] [place] [address] Care Team Providers Name Role Phone Annetta Ventura Primary Care Provider Reason for Visit Reason Comments SWELLING Generalized Encounter Details Date Type Department Care Team Description 12/31/2018 Office Visit [facility] Annetta Ventura FNP [address] [place] [address] Esophageal mass (Primary Dx); [facility] Primary Pedal edema; Clinic Claustrophobia [facility] [place] [address] Allergies Active Allergy Reactions Severity Noted Date Comments Sulfa (Sulfonamide Antibiotics) Swelling 11/12/2018 documented as of this encounter (statuses as of 01/01/2019) Medications Medication Sig Dispensed Refills Start Date End Date Status potassium Take by 0 Active (POTASSIMIN ORAL) mouth. naproxen 500 mg Take 1 tablet 60 tablet 2 11/13/2018 Active tabletIndications: by mouth 2 Chronic midline low (two) times back pain without daily with sciatica meals. zolpidem tartrate Take by 0 Active (AMBIEN ORAL) mouth. MELATONIN, BULK, 0 Active MISC omeprazole 40 mg Take 1 180 capsule 0 12/22/2018 Active capsuleIndications: capsule by 9 Esophageal mass, mouth 2 (two) Upper GI bleeding, times daily Iron deficiency for 90 days. anemia due to chronic blood loss potassium gluconate Take 500 mg 0 Active 500 mg (83 mg) Tab by mouth as needed for Other (Cramping per patient). spironolactone 50 mg Take 1 tablet 60 tablet 5 12/31/2018 Active tabletIndications: by mouth 2 Pedal edema (two) times daily. torsemide 20 mg Take 1 tablet 120 tablet 5 12/31/2018 Active tabletIndications: by mouth 4 9 Pedal edema (four) times daily for 30 days. diazePAM (VALIUM) 10 Take 1 tablet 1 tablet 0 01/01/2019 Active mg by mouth once 9 tabletIndications: now for 1 Claustrophobia dose. torsemide 20 mg Take 20 mg by 0 Discontinued tablet mouth 4 9 (four) times daily. spironolactone 50 mg Take 1 tablet 60 tablet 5 12/31/2018 Discontinued tabletIndications: by mouth 2 9 Pedal edema (two) times daily. documented as of this encounter (statuses as of 01/01/2019) Active Problems Problem Noted Date Esophageal mass 12/01/2018 Overview: Added automatically from request for surgery [id number] Upper GI bleeding 11/12/2018 Iron deficiency anemia due to chronic blood loss 11/12/2018 SHAKIR treated with BiPAP 11/12/2018 Alcohol abuse 11/12/2018 documented as of this encounter (statuses as of 01/01/2019) Social History Tobacco Use Types Packs/Day Years [...] of this encounter Last Filed Vital Signs Vital Sign Reading Time Taken Comments Blood Pressure 112/61 12/31/2018 1:33 PM CDT Pulse 89 12/31/2018 1:33 PM CDT Temperature 36.8 C (98.3 F) 12/31/2018 1:33 PM CDT Respiratory Rate 20 12/31/2018 1:33 PM CDT Oxygen Saturation 97% 12/31/2018 1:33 PM CDT Inhaled Oxygen Concentration - - Weight 145.9 kg (321 lb 9.6 oz) 12/31/2018 1:33 PM CDT Height 180.3 cm (5' 11") 12/31/2018 1:33 PM CDT Body Mass Index 44.85 12/31/2018 1:33 PM CDT documented in this encounter Progress Notes Gabby Marion LVN - 12/31/2018 1:30 PM CDTCuma Barragan is a 53 year old male Patient here today for generalized swelling. Reports 5 pain on scale 0/10, MD notified. Reviewed medications and allergies with patient today. Fall Risk Assessment/Screening performed with patient today and patient is not at risk for falls. nnetta Wan FNP - 12/31/2018 1:30 PM CDT Cc: Chief Complaint Patient presents with SWELLING Generalized HPI Fred Barragan is a 53 year old male [facility] and to follow up his recent EGD which found poorly differentiated invasive adenocarcinoma MSI stable in background of Barrets at 35cm or the distal esophagus. Was supposed to have staging imaging of chest, abd, pelvis. Was unable to do the imaging due to anxiety issues. Imaging has beenrescheduled for 01/05/19 and he would like something for sedation so that he can complete the testing. Is also wanting to increase his diuretics due to poorly controlled edema. Is taking torsemide 40mg bid and would like to increase to 80 bid. States he is having issue ambulating due to pain associatedwith the swelling and is not able to wear any of his shoes. States swelling only goes down with elevation. Allergies Fred is allergic to sulfa (sulfonamide antibiotics). Medications Outpatient Medications Prior to Visit Medication Sig Dispense Refill potassium gluconate 500 mg (83 mg) Tab Take 500 mg by mouth as needed for Other (Cramping per patient). omeprazole 40 mg capsule Take 1 capsule by mouth 2 (two) times daily for 90 days. 180 capsule 0 MELATONIN, BULK, MISC zolpidem tartrate (AMBIEN ORAL) Take by mouth. naproxen 500 mg tablet Take 1 tablet by mouth 2 (two) times daily with meals. 60 tablet 2 potassium (POTASSIMIN ORAL) Take by mouth. torsemide 20 mg tablet Take 20 mg by mouth 4 (four) times daily. No facility-administered medications prior to visit. Histories Past Medical History: Diagnosis Date Anemia Anxiety Arthritis Peptic ulcer Substance abuse Transfusion history Past Surgical History: Procedure Laterality Date CHOLECYSTECTOMY ESOPHAGOGASTRODUODENOSCOPY N/A 12/22/2018 Surgeon: Brady Bailey MD; Location: [facility] EGD LESION ABLATION 06/2018 HERNIA REPAIR Social History Socioeconomic History Marital status: Spouse name: Not on file Number of children: 2 Years of education: high school Highest education level: Not on file Occupational History Not on file Social Needs Financial resource strain: Not on file Food insecurity: Worry: Often true Inability: Not on file Transportation needs: Medical: Not on file Non-medical: Not on file Tobacco Use Smoking status: Light Tobacco Smoker Smokeless tobacco: Never Used Substance and Sexual Activity Alcohol use: Not Currently Alcohol/week: 4.8 oz Types: 8 Shots of liquor per week Comment: stopped June 2018 Drug use: Not Currently Types: Marijuana Comment: as teenager Sexual activity: Not Currently Partners: Female Lifestyle Physical activity: Days per week: Not on file Minutes per session: Not on file Stress: Not on file Relationships Social connections: Talks on phone: Not on file Gets together: Not on file Attends spiritism service: Not on file Active member of club or organization: Not on file Attends meetings of clubs or organizations: Not on file Relationship status: Not on file Intimate partner violence: Fear of current or ex partner: Not on file Emotionally abused: Not on file Physically abused: Not on file Forced sexual activity: Not on file Other Topics Concern Not on file Social History Narrative 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 Had DUI in the 80 then go another in 2018 which caused loss of employment. 2 sons. One he has been out of touch with for over 10 yrs and the other [place] his Dad ENDOSCOPY 12/22/18 - Esophagogastric landmarks were identified: the Z-line was found at 32 cm, the gastroesophageal junction was found at 38 cm and the site of hiatal narrowing was found at 40 cm from the incisors. Findings: - Circumferential salmon-colored mucosa was present from 32 to 38 cm. Nodularity was present and ulcerations were present. The maximum longitudinal extent of these esophageal mucosal changes was 6 cm in length. - The salmon coloured mucosa also contained other mucosal changes characterized by friability (with contact bleeding), nodularity and altered texture were found in the lower third of the esophagus. Biopsies were taken with a cold forceps for histology from 35 cm. - A small, fungating and ulcerating mass was found in the lower third of the esophagus, 37 cm from the incisors. The mass was non-obstructing and not circumferential. Biopsies were taken with a cold forceps for histology. Mild oozing of blood noted which stopped afterwards. - Diffuse erythematous, irregular appearing mucosa was found in the gastric cardia. Biopsies were taken with a cold forceps for histology. - The gastric fundus, gastric body and gastric antrum were normal. - There is no endoscopic evidence of tumor in the gastroesophageal junction and in the cardia. - Many superficial duodenal ulcers with a clean ulcer base (Hector Class III) were found in the duodenal bulb. The largest lesion was 1 mm in largest dimension. - The second portion of the duodenum was normal. PATHOLOGY Component 12/22/18 Final Diagnosis A. ESOPHAGUS, NODULE, EXCISION, BIOPSY: - POORLY DIFFERENTIATED INVASIVE CARCINOMA - MSI STABLE, PENDING FISH FOR HER-2/Evette - SEE COMMENT B. STOMACH, GASTRIC CARDIA, BIOPSY: - GASTRIC CARDIA WITH INTESTINAL METAPLASIA C. ESOPHAGUS, 35 CM, BIOPSY: - POORLY DIFFERENTIATED INVASIVE ADENOCARCINOMA IN THE BACKGROUND OF BARRETS Imaging ABDOMINAL ULTRASOUND, LIMITED:12/18/18 HISTORY: HCV, evaluate for cirrhosis, HCC, and hepatic/portal vascular abnormalities . COMPARISON: None. Evaluation of the vasculature is suboptimal secondary to patient respiratory motion and inability to hold her breath. FINDINGS: The liver is coarsened in echotexture and nodular in contour. It measures 18.3 cm, mildly enlarged. No sonographically detectable focal lesions are identified within the liver. No intrahepatic biliary dilatation is present. The main portal vein demonstrates normal hepatopetal flow. Peak systolic velocity in the hepatic vasculature are as follows: Middle hepatic vein 18.2 cm/s Left hepatic vein 17.5 cm/s Right hepatic vein equals 12.7 cm/s The main portal vein demonstrates hepatofugal flow but the spectral waveform is unreliable. Similarly in the common hepatic duct the waveform is unremarkable. The common bile duct is normal in caliber, measuring 0.5 cm. IMPRESSION Cirrhotic liver morphology with hepatomegaly and no focal lesions. Hepatofugal flow is noted in the main portal vein possibly sequelae of portal hypertension but waveforms are not reliable. Recommend further evaluation with triple phase liver CT, as clinically indicated. IRhett MD., have reviewed this study and agree with the above report. EGD report - Esophagogastric landmarks were identified: the Z-line was found at 32 cm, the gastroesophageal junction was found at 38 cm and the site of hiatal narrowing was found at 40 cm from the incisors. Findings: - Circumferential salmon-colored mucosa was present from 32 to 38 cm. Nodularity was present and ulcerations were present. The maximum longitudinal extent of these esophageal mucosal changes was 6 cm in length. - The salmon coloured mucosa also contained other mucosal changes characterized by friability (with contact bleeding), nodularity and altered texture were found in the lower third of the esophagus. Biopsies were taken with a cold forceps for histology from 35 cm. - A small, fungating and ulcerating mass was found in the lower third of the esophagus, 37 cm from the incisors. The mass was non-obstructing and not circumferential. Biopsies were taken with a cold forceps for histology. Mild oozing of blood noted which stopped afterwards. - Diffuse erythematous, irregular appearing mucosa was found in the gastric cardia. Biopsies were taken with a cold forceps for histology. - The gastric fundus, gastric body and gastric antrum were normal. - There is no endoscopic evidence of tumor in the gastroesophageal junction and in the cardia. - Many superficial duodenal ulcers with a clean ulcer base (Hector Class III) were found in the duodenal bulb. The largest lesion was 1 mm in largest dimension. - The second portion of the duodenum was normal. Pathology Component Final Diagnosis A. ESOPHAGUS, NODULE, EXCISION, BIOPSY: - POORLY DIFFERENTIATED INVASIVE CARCINOMA - MSI STABLE, PENDING FISH FOR HER-2/Evette - SEE COMMENT B. STOMACH, GASTRIC CARDIA, BIOPSY: - GASTRIC CARDIA WITH INTESTINAL METAPLASIA C. ESOPHAGUS, 35 CM, BIOPSY: - POORLY DIFFERENTIATED INVASIVE ADENOCARCINOMA IN THE BACKGROUND OF BARRETS I have personally reviewed all specimens/slides and agree with all statements made by residents, fellows or pathologist assistants whose name(s) may appear on this report. No family history on file. Review of Systems Constitutional: negative Eyes: negative Ears: negative Cardiovascular: negative Respiratory: Negative. Gastrointestinal: anorexia, GERD, hematochezia, stomach ulcer and weight loss Musculoskeletal: back pain, limitations on walking, trouble walking and weakness Neuro: negative Psych: anxiety and insomnia Hem/Lymph: anemia, fatigue and weight loss Vital Signs BP 112/61 (BP Location: Left arm, Patient Position: Sitting) | Pulse 89 | Temp 36.8 C (98.3 F)(Oral) | Resp 20 | Ht 5' 11" (1.803 m) | Wt 321 lb 9.6 oz (145.9 kg) | SpO2 97% | BMI 44.85 kg/m Physical Exam Appearance: patient alert and in no acute distress, well groomed, good hygiene , obese and well hydrated Eye: normal external eye, corneas clear, conjunctiva and sclera normal and pupils equal, round, reactive to light and accomodation Ear: normal TM's bilaterally, normal auditory canals and external ears non- tender Oropharynx: moist mucus membranes, no erythema or tonsillar enlargement, posterior pharynx clear and lips, teeth and gums normal Neck: supple, no bruit, no lymphadenopathy or thyromegaly Cardiovascular: regular rate and rhythm, no murmur Respiratory: clear to auscultation and percussion, bilaterally Abdomen: soft, non-tender, non-distended, no liver, spleen or abnormal masses palpated Extremities: extremities, peripheral pulses and reflexes normal Musculoskeletal: no clubbing, cyanosi, peripheral pulses 2+ in all extremities. 4+ pedal edema Skin: skin color, texture and turgor are normal; no bruising, rashes or lesions noted Assessment/Plan 1. Esophageal mass Staging Imaging will be done on 01/05/19. Pt urged to complete imaging ziggy so a treatment plan can be recommended Will be sending to [facility] for treatment as soon as imaging is completed 2. Pedal edema - Will Add spironolactone 50 mg tablet; Take 1 tablet by mouth 2 (two) times daily. Dispense: 60 tablet; Refill: 5 - Will continue torsemide 20 mg tablet; Take 1 tablet by mouth 4 (four) times daily for 30 days. Dispense: 120 tablet; Refill: 5 3. Claustrophobia - diazePAM (VALIUM) 10 mg tablet; Take 1 tablet by mouth once now for 1 dose. Dispense: 1 tablet; Refill: 0 Have patient return to clinic when imaging is completed if he has any questions or concerns. Will continue to work on MDA referral through the [facility] system Appropriate plan of ca re, desired health behaviors, goals and medications discussed with patient and educational resources and self-management tools provided, as applicable. Patient/family/guardian voice understanding. Barriers to adherence: none Ability to manage care: Good As necessary, prescribed medications and potential significant medication side effects or medicationinteractions were discussed with the patient and pt will let me know if any occur. Call or return to clinic prn if these symptoms worsen or fail to improve as anticipated. Call or report to ER if symptoms should symptoms progress or worsen. The patient indicates understanding of these issues and agrees with the plan. Annetta [facility] documented in this encounter Plan of Treatment Date Type Specialty Care Team Description 01/05/2019 Appointment Radiology Kavin Bray DO [address] [place] [id number] [place] [address] [phone] 01/05/2019 Appointment Radiology Kavin Bray DO [address] [facility] [id number] [place] [address] [phone] 01/11/2019 Office Visit Gastroenterology James Bravo MD [address] [place], [place] [phone] 06/07/2019 Office Visit Gastroenterology James Bravo MD [address] [place], [place] 886125 Health Maintenance Due Date Last Done Comments HEPATITIS C (HCV) SCREEN 1965 PNEUMOCOCCAL 0-64 YEARS COMBINED SERIES (1 of 3 - 1970 PCV13) DTaP,Tdap,and Td Vaccines (1 - Tdap) 1983 COLONOSCOPY 2014 Zoster Recombinant Vaccine (SHINGRIX) (1 of 2) 2014 INFLUENZA VACCINE 01/31/2019 documented as of this encounter Results Not on filedocumented in this encounter Visit Diagnoses Diagnosis Esophageal mass - Primary Unspecified disorder of esophagus Pedal edema Edema Claustrophobia Other isolated or specific phobias documented in this encounter Insurance Payer Benefit Plan / Subscriber ID Effective Phone Address Type Group Dates BARAK CANCINO [id number] 2018-[facility] [phone] [facility] PRIMARY CARE PRIMARY CARE nt [address] [place] [address] (Home) [place] [address] documented as of this encounter
--- OUTSIDE RECORDS SUMMARY | 2019-04-27 13:23 | XMS REPORT | Summary of Care ---
:1965 Author Organization [facility] Address [address] [place] [address] Care Team Providers Name Role Phone Annetta Ventura VERIFICATION REP Primary Care Provider Reason for Visit MRI/CAT Scan (EL) Status Reason Specialty Diagnoses / Referred By Referred To Procedures Contact Contact Canceled Diagnostic Diagnoses Esophageal mass Upper GI bleeding Iron deficiency anemia due to chronic blood loss Brady Bailey MD Radiology Procedures CT abdomen pelvis with contrast [address] [place] [address]. [address] [place] [address] Encounter Details Date Type Department Care Team Description 12/29/2018 Hospital Encounter [facility] Brady Bailey MD Canceled (ERROR) [address] Computed Tomography [facility]. [address] [facility] [address] [place] [phone] Allergies Active Allergy Reactions Severity Noted Date [...] Overview: Added automatically from request for surgery [id number] Upper GI bleeding 11/12/2018 Iron deficiency anemia [...] Description 12/31/2018 Office Visit Family Medicine Annetta Ventura FNP 301 [place], [place] 628775 Care, Jony Primary 01/11/2019 Office Visit Gastroenterology James Bravo MD 301 [place], [place] [phone] 06/07/2019 Office Visit Gastroenterology James Bravo MD [address] [place], [place] [phone] Health Maintenance Due Date Last Done Comments HEPATITIS C (HCV) SCREEN 1965 PNEUMOCOCCAL 0-64 YEARS COMBINED SERIES (1 of 1 - 1970 PPSV23) DTaP,Tdap,and Td Vaccines (1 - Tdap) 1983 COLONOSCOPY 2014 Zoster Recombinant Vaccine (SHINGRIX) (1 of 2) 2014 INFLUENZA VACCINE 01/31/2019 documented as of this encounter Results Not on filedocumented in this encounter Visit Diagnoses Diagnosis Esophageal mass Unspecified disorder of esophagus Upper GI bleeding Hemorrhage of gastrointestinal tract, unspecified Iron deficiency anemia due to chronic blood loss Iron deficiency anemia secondary to blood loss (chronic) documented in this encounter Insurance Payer Benefit Plan Subscriber ID Effective Phone Address Type / Group Dates [employer]. [place] BARAK WILHELM [id number] [address] [address] [address] C ent [address] [place] [address] (Home) [place] [address] documented as of this encounter
--- OUTSIDE RECORDS SUMMARY | 2019-04-27 13:23 | XMS REPORT | Summary of Care ---
:1965 Author Organization [facility] Address [address] [place] [address] Care Team Providers Name Role Phone Annetta Ventura Primary Care Provider Reason for Visit Reason Comments Appointment Encounter Details Date Type Department Care Team Description 12/29[facility]2018 [facility] [id number] [place] [phone] Allergies Active Allergy Reactions Severity Noted Date Comments Sulfa (Sulfonamide Antibiotics) Swelling 11/12/2018 documented as of this encounter (statuses as of 12/29/2018) Medications Medication Sig Dispensed Refills Start Date [...] as of this encounter (statuses as of 12/29/2018) Active Problems Problem Noted Date Esophageal mass 12/01/2018 Overview: Added automatically from request for surgery [id number] Upper GI bleeding 11/12/2018 Iron deficiency anemia due to chronic blood loss 11/12/2018 SHAKIR treated with BiPAP 11/12/2018 Alcohol abuse 11/12/2018 documented as of this encounter (statuses as of 12/29/2018) Social History Tobacco Use Types Packs/Day Years [...] Description 12/29/2018 Appointment Radiology Brady Bailey MD [address] [place] [address]. [address] [place] [phone] 12/29/2018 Hospital Encounter Radiology Brady Bailey MD [address] [place] [address]. [address] [place] [address] [phone] 12/31/2018 Office Visit Family Medicine Annetta Ventura FNP [address] [place] [address] [phone] Care, Ang Primary 01/11/2019 Office Visit Gastroenterology James Bravo MD [address] [place] [address] [phone] 06/07/2019 Office Visit GastroenterJames Dobbs MD [address] [place] [address] [phone] Health Maintenance Due Date Last Done Comments [...] Address Type / Group Dates BARAK CANCINO [id number] 2018-Prese [phone] [facility] PRIMARY CARE PRIMARY CARE nt [address] [place] [address] [place] [place] BARAK WILHELM [id number] [address]-[place] [address] H C [place] [address] [place] [address] documented as of this encounter
--- OUTSIDE RECORDS SUMMARY | 2019-04-27 13:23 | XMS REPORT | Summary of Care ---
:1965 Author Organization [facility] Address [address] [place] [address] Care Team Providers Name Role Phone Annetta Ventura LIGHT BULB TESTER Primary Care Provider Reason for Visit MRI/CAT Scan (EL) Status Reason Specialty Diagnoses / Referred By Referred To Procedures Contact Contact Canceled Diagnostic Diagnoses Esophageal mass Upper GI bleeding Iron deficiency anemia due to chronic blood loss Brady Bailey MD Radiology Procedures CT thorax with contrast [address] [place] [address]. [address] [place] [address] Encounter Details Date Type Department Care Team Description 12/29/2018 Hospital Encounter [facility] Brady Bailey MD Canceled (ERROR) [address] Computed Tomography [facility]. [address] [facility] [address] [place] [phone] Allergies Active Allergy Reactions Severity Noted [...] Overview: Added automatically from request for surgery [id number] Upper GI bleeding 11/12/2018 Iron deficiency anemia [...] Visit Family Medicine Annetta Ventura FNP 301 [place], [place] 731765 Care, Jony Primary 01/11/2019 Office Visit Gastroenterology James Bravo MD 301 [place], [place] 0[address] 06/07/2019 Office Visit Gastroenterology James Bravo MD 301 [place], [place] [phone] Health Maintenance Due Date Last Done Comments [...] Group Dates [employer] I BARAK WILHELM [id number] [address]-[place] [address] C [address] H C ent [address] [place] [address] ([employer] [address]) [place] [address] documented as of this encounter
--- OUTSIDE RECORDS SUMMARY | 2019-04-27 13:23 | XMS REPORT | Summary of Care ---
:1965 Author Organization [facility] Address [address] [place] [address] Care Team Providers Name Role Phone Annetta Ventura Primary Care Provider Reason for Visit Reason Comments SWELLING Generalized Encounter Details Date Type Department Care Team Description 12/31/2018 Office Visit [facility] Annetta Ventura FNP 301 [place] [address] Esophageal mass (Primary Dx); [facility] Primary Pedal edema; Clinic Claustrophobia [facility] [place] [address] Allergies Active Allergy Reactions Severity [...] Overview: Added automatically from request for surgery [id number] Upper GI bleeding 11/12/2018 Iron deficiency anemia [...] [facility] and to follow up his [...] N/A 12/22/2018 Surgeon: Brady Bailey MD; Location: 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 Had DUI in the 80 then go another in 2018 which caused loss of employment. 2 sons. One he has been out of touch with for over 10 yrs and the other lives [place] a good relationship with his Dad [...] can be recommended Will be sending to [facility] for treatment as soon as imaging is [...] to work on MDA referral through the [facility] system Appropriate plan of ca re, desired [...] issues and agrees with the plan. Annetta [facility] documented in this encounter Plan of Treatment Date Type Specialty Care Team Description 01/05/2019 Appointment Radiology Kavin Bray DO [address] [place] [id number] [place] [address] [id number] 01/05/2019 Appointment Radiology Kavin Bray DO 301 [facility] [id number] [place] [address] [phone] 01/11/2019 Office Visit Gastroenterology James Bravo MD 301 [place], [place] 480565 06/07/2019 Office Visit Gastroenterology James Bravo MD 301 [place], [place] 107965 Health Maintenance Due Date Last Done Comments [...] Phone Address Type Group Dates BARAK CANCINO [id number] 2018-[facility] [phone] [facility] PRIMARY CARE PRIMARY CARE nt [address] [place] [address] (Home) [place] [address] documented as of this encounter
--- OUTSIDE RECORDS SUMMARY | 2019-04-27 13:24 | XMS REPORT | Summary of Care ---
:1965 Author Organization [facility] Address [address] [place] [address] Care Team Providers Name Role Phone Annetta Ventura Primary Care Provider Reason for Visit Reason Comments Appointment Encounter Details Date Type Department Care Team Description 01/01/2019 [facility] [phone] [place] [phone] Allergies Active Allergy Reactions Severity Noted Date Comments Sulfa (Sulfonamide Antibiotics) Swelling 11/12/2018 documented as of this encounter (statuses as of 01/04/2019) Medications Medication Sig Dispensed Refills Start Date [...] MISC omeprazole 40 mg Take 1 capsule by 180 capsule 0 12/22/2018 Active capsuleIndications: mouth 2 (two) 9 Esophageal mass, times daily for 90 Upper GI bleeding, days. Iron deficiency anemia due to chronic blood loss potassium gluconate Take 500 mg by 0 Active 500 mg (83 mg) Tab mouth as needed for Other (Cramping per patient). spironolactone 50 mg Take 1 tablet by 60 tablet 5 12/31/2018 Active tabletIndications: mouth 2 (two) Pedal edema times daily. torsemide 20 mg Take 1 tablet by 120 tablet 5 12/31/2018 Active tabletIndications: mouth 4 (four) 9 Pedal edema times daily for 30 days. diazePAM 10 mg Take 1 tablet by 1 tablet 0 01/04/2019 Active tabletIndications: mouth once now for 9 Anxiety diarrhea 1 dose. To be taken 30 minutes prior to Imaging examinations diazePAM (VALIUM) 10 Take 1 tablet by 1 tablet 0 01/01/2019 mg mouth once now for 9 tabletIndications: 1 dose. Claustrophobia documented as of this encounter (statuses as of 01/04/2019) Active Problems Problem Noted Date Esophageal mass 12/01/2018 Overview: Added automatically from request for surgery [id number] Upper GI bleeding 11/12/2018 Iron deficiency anemia due to chronic blood loss 11/12/2018 SHAKIR treated with BiPAP 11/12/2018 Alcohol abuse 11/12/2018 documented as of this encounter (statuses as of 01/04/2019) Social History Tobacco Use Types Packs/Day Years [...] Description 01/05/2019 Appointment Radiology Kavin Bray DO 301 [facility] [id number] [place] [address] 01/05/2019 Appointment Radiology Kavin Bray DO [id number] [place], [place] 349125 02/08/2019 Office Visit Gastroenterology Karlo Rossi 301 [facility] [id number] [place], [place] 032905 James Bravo MD 301 [place], [place] [phone] 06/07/2019 Office Visit Gastroenterology James Bravo MD 301 [place], [place] [phone] Health Maintenance Due Date Last Done Comments [...] mass - Primary Unspecified disorder of esophagus Anxiety diarrhea Gastrointestinal malfunction arising from mental factors documented in this encounter Insurance Payer Benefit Plan Subscriber ID Effective Phone Address Type / Group Dates BARAK CANCINO [id number] 2018-Prese [phone] [facility] PRIMARY CARE PRIMARY CARE nt [address] [place] [address] [employer] [place] BARAK WILHELM [id number] [address] [place] [address] H C I H C ent [address] [place] [address] documented as of this encounter
--- OUTSIDE RECORDS SUMMARY | 2019-04-27 13:24 | XMS REPORT | Summary of Care ---
:1965 Author Organization [facility] Address [address] [place] [address] Care Team Providers Name Role Phone Annetta Ventura Primary Care Provider Reason for Visit Reason Comments Assessment Encounter Details Date Type Department Care Team Description 01/06/2019 Telephone [facility] GASTROENTEROLOGY James Bravo Assessment -[facility] MD Jaspreet [address] [place] [address] [place] [address] Allergies Active Allergy Reactions Severity Noted Date Comments Sulfa (Sulfonamide Antibiotics) Swelling 11/12/2018 documented as of this encounter (statuses as of 01/07/2019) Medications Medication Sig Dispensed Refills Start Date End Date Status potassium (POTASSIMIN Take by 0 Active ORAL) mouth. naproxen 500 mg Take 1 tablet 60 tablet 2 11/13/2018 Active tabletIndications: by mouth 2 Chronic midline low (two) times back pain without daily with sciatica meals. zolpidem tartrate Take by 0 Active (AMBIEN ORAL) mouth. MELATONIN, BULK, MISC 0 Active omeprazole 40 mg Take 1 capsule 180 capsule 0 12/22/2018 03/22/2019 Active capsuleIndications: by mouth 2 Esophageal mass, Upper (two) times GI bleeding, Iron daily for 90 deficiency anemia due days. to chronic blood loss potassium gluconate Take 500 mg by 0 Active 500 mg (83 mg) Tab mouth as needed for Other (Cramping per patient). spironolactone 50 mg Take 1 tablet 60 tablet 5 12/31/2018 Active tabletIndications: by mouth 2 Pedal edema (two) times daily. torsemide 20 mg Take 1 tablet 120 tablet 5 12/31/2018 01/30/2019 Active tabletIndications: by mouth 4 Pedal edema (four) times daily for 30 days. documented as of this encounter (statuses as of 01/07/2019) Active Problems Problem Noted Date Esophageal mass 12/01/2018 Overview: Added automatically from request for surgery [id number] Upper GI bleeding 11/12/2018 Iron deficiency anemia due to chronic blood loss 11/12/2018 SHAKIR treated with BiPAP 11/12/2018 Alcohol abuse 11/12/2018 documented as of this encounter (statuses as of 01/07/2019) Social History Tobacco Use Types Packs/Day Years [...] Treatment Date Type Specialty Care Team Description 02/08/2019 Office Visit Gastroenterology Karlo Rossi 301 [facility] [id number] [place], [place] 146685 James Bravo MD 301 [place], [place] [phone] 06/07/2019 Office Visit Gastroenterology James Bravo MD 301 [place], [place] [phone] Health Maintenance Due Date Last Done Comments [...] Address Type / Group Dates BARAK CANCINO [id number] [address]-[place] [address] PRIMARY CARE PRIMARY CARE nt [address] [place] [address] [employer]. I BARAK WILHELM [id number] [address]-[place] [address] H C I H C ent 20 [place] [address] documented as of this encounter
--- OUTSIDE RECORDS SUMMARY | 2019-04-27 13:24 | XMS REPORT | Summary of Care ---
:1965 Author Organization [facility] Address [address] [place] [address] Care Team Providers Name Role Phone Annetta Ventura Primary Care Provider Reason for Visit Reason Comments Assessment Encounter Details Date Type Department Care Team Description 01/06/2019 Telephone [facility] GASTROENTEROLOGY James Bravo Assessment -[facility] MD Jaspreet [address] [place] [address] [place] [address] Allergies Active Allergy Reactions Severity Noted Date Comments Sulfa (Sulfonamide Antibiotics) Swelling 11/12/2018 documented as of this encounter (statuses as of 01/12/2019) Medications Medication Sig Dispensed Refills Start Date [...] as of this encounter (statuses as of 01/12/2019) Active Problems Problem Noted Date Esophageal mass 12/01/2018 Overview: Added automatically from request for surgery [id number] Upper GI bleeding 11/12/2018 Iron deficiency anemia due to chronic blood loss 11/12/2018 SHAKIR treated with BiPAP 11/12/2018 Alcohol abuse 11/12/2018 documented as of this encounter (statuses as of 01/12/2019) Social History Tobacco Use Types Packs/Day Years [...] Office Visit Gastroenterology Karlo Rossi 301 [facility] [id number] [place], [place] 8[address] James Bravo MD 301 [place], [place] [phone] 06/07/2019 Office Visit Gastroenterology James Bravo MD 301 [place], [place] [phone] Health Maintenance Due Date Last Done Comments [...] Address Type / Group Dates BARAK CANCINO [id number] [address]-[place] [address] PRIMARY CARE PRIMARY CARE nt [address] [place] [address] [employer]. I BARAK WILHELM [id number] 2018-[place] [address] H C I H C ent 20 [place] [address] documented as of this encounter
--- OUTSIDE RECORDS SUMMARY | 2019-04-27 13:24 | XMS REPORT | Summary of Care ---
:1965 Author Organization [facility] Address [address] [place] [address] Care Team Providers Name Role Phone Annetta Ventura Primary Care Provider Reason for Visit Reason Comments Appointment Encounter Details Date Type Department Care Team Description [facility] [phone] [place] [phone] Allergies Active Allergy Reactions Severity Noted [...] Take 1 tablet 1 tablet 0 01/01/2019 01/01/2019 Active mg tabletIndications: by mouth once Claustrophobia now for 1 dose. documented as of this encounter (statuses as of 01/01/2019) Active Problems Problem Noted Date Esophageal mass 12/01/2018 Overview: Added automatically from request for surgery [id number] Upper GI bleeding 11/12/2018 Iron deficiency anemia [...] 01/05/2019 Appointment Radiology Kavin Bray DO 301 [facility] [id number] [place] [address] 01/05/2019 Appointment Radiology Kavin Bray DO 301 [facility] [id number] [place] [address] 01/11/2019 Office Visit Gastroenterology James Bravo MD [address] [place] [address] [phone] 06/07/2019 Office Visit Gastroenterology James Bravo MD [address] [place] [address] [phone] Health Maintenance Due Date Last Done Comments [...] Address Type / Group Dates BARAK CANCINO [id number] 2018-Prese [phone] [facility] PRIMARY CARE PRIMARY CARE nt [address] [place] [address] [place]. I BARAK WILHELM [id number] 2018-[place] [address] H C I H C ent 20 [place] [address] documented as of this encounter
--- OUTSIDE RECORDS SUMMARY | 2019-04-27 13:24 | XMS REPORT | Summary of Care ---
:1965 Author Organization [facility] Address [address] [place] [address] Care Team Providers Name Role Phone Annetta Ventura Primary Care Provider Reason for Referral MRI/CAT Scan (EL) Status Reason Specialty Diagnoses / Referred By Referred To Procedures Contact Contact New Request Diagnostic Diagnoses Alcoholic cirrhosis, unspecified whether ascites present H/O: upper GI bleed Esophageal mass Asa, Radiology Procedures CT THORAX W WO CONTRAST Kavin Gould DO [address] [address] MRI/CAT Scan (EL) Status Reason Specialty Diagnoses / Referred By Referred To Procedures Contact Contact New Request Diagnostic Diagnoses Alcoholic cirrhosis, unspecified whether ascites present H/O: upper GI bleed Esophageal mass Asa, Radiology Procedures CT THORAX W WO CONTRAST Kavin Gould DO [address] [address] Reason for Visit (Routine) Status Reason Specialty Diagnoses / Procedures Referred By Contact Referred To Contact Closed Radiology Procedures Kavin Bray, Jia Ct CONSULT/REFERRAL DO [address] [facility] RADIOLOGY (NON [facility]) [address] [place] [phone] CONTRAST Encounter Details Date Type Department Care Team Description 01/05/2019 Hospital Encounter [facility] Kavin Bray, Lavonne [place] Computed DO Tomography 301 [place] [id number] [address] [facility] [address] [place], [place] [address] [place] [address] Allergies Active Allergy Reactions Severity Noted Date Comments Sulfa (Sulfonamide Antibiotics) Swelling 11/12/2018 documented as of this encounter (statuses as of 01/06/2019) Medications Medication Sig Dispensed Refills Start Date [...] as of this encounter (statuses as of 01/06/2019) Active Problems Problem Noted Date Esophageal mass 12/01/2018 Overview: Added automatically from request for surgery [id number] Upper GI bleeding 11/12/2018 Iron deficiency anemia due to chronic blood loss 11/12/2018 SHAKIR treated with BiPAP 11/12/2018 Alcohol abuse 11/12/2018 documented as of this encounter (statuses as of 01/06/2019) Social History Tobacco Use Types Packs/Day Years [...] 02/08/2019 Office Visit Gastroenterology Karlo Rossi 301 [facility] [id number] [place], [place] [phone] James Bravo MD 301 [place], [place] [phone] 06/07/2019 Office Visit Gastroenterology James Bravo MD 301 [place], [place] [phone] Name Type Priority Associated Diagnoses Date/Time CT THORAX W WO IMAGING EL Alcoholic cirrhosis, 01/05/2019 2:49 PM CONTRAST unspecified whether CDT ascites present H/O: upper GI bleed Esophageal mass Name Type Priority Associated Diagnoses Order Schedule CT THORAX W WO IMAGING EL Alcoholic cirrhosis, 1 Occurrences starting CONTRAST unspecified whether 01/05/2019 until ascites present 01/05/2019 H/O: upper GI bleed Esophageal mass Health [...] Diagnosis Alcoholic cirrhosis, unspecified whether ascites present H/O: upper GI bleed Personal history of other diseases of digestive system Esophageal mass Unspecified disorder of esophagus documented in this encounter Insurance Payer Benefit Plan Subscriber ID Effective Phone Address Type / Group Dates BARAK CO. I BARAK COLaisha [id number] 2018-[facility] [place] [address] C [address] H C ent [address] [place] [address] ([place]) [place] [address] documented as of this encounter
--- OUTSIDE RECORDS SUMMARY | 2019-04-27 13:24 | XMS REPORT | Summary of Care ---
:1965 Author Organization [facility] Address [address] [place] [address] Care Team Providers Name Role Phone Annetta Ventura Primary Care Provider Reason for Referral MRI/CAT Scan (EL) Status Reason Specialty Diagnoses / Referred By Referred To Procedures Contact Contact New Request Diagnostic Diagnoses Alcoholic cirrhosis, unspecified whether ascites present H/O: upper GI bleed Esophageal mass Asa, Radiology Procedures CT ABDOMEN PELVIS W WO CONTRAST Kavin Gould, DO [address] [facility] [id number] [place] [address] MRI/CAT Scan (LE) Status Reason Specialty Diagnoses / Referred By Referred To Procedures Contact Contact New Request Diagnostic Diagnoses Alcoholic cirrhosis, unspecified whether ascites present H/O: upper GI bleed Esophageal mass Asa, Radiology Procedures CT ABDOMEN PELVIS W WO CONTRAST Kavin Gould, DO 301 [facility] [id number] [place] [address] Encounter Details Date Type Department Care Team Description 01/05/2019 Hospital Encounter [facility] Kavin Tejeda, Lavonne Oneal Computed DO Tomography [address] [facility] [id number] [address] [place] [address] [place] [phone] Allergies Active Allergy Reactions Severity Noted Date [...] Overview: Added automatically from request for surgery [id number] Upper GI bleeding 11/12/2018 Iron deficiency anemia [...] Care Team Description 02/08/2019 Office Visit Gastroenterology Mateomarybel Karlo Nunez 301 [facility] [id number] [place], [place] [address] James Bravo MD [address] [place], [place] [phone] 06/07/2019 Office Visit Gastroenterology James Bravo MD [address] [place], [place] [phone] Name Type Priority Associated Diagnoses Date/Time CT ABDOMEN PELVIS W WO IMAGING EL Alcoholic cirrhosis, 01/05/2019 2:49 PM CONTRAST unspecified whether CDT ascites present H/O: upper GI bleed Esophageal mass Name Type Priority Associated Diagnoses Order Schedule CT ABDOMEN PELVIS W IMAGING EL Alcoholic cirrhosis, 1 Occurrences starting WO CONTRAST unspecified whether 01/05/2019 until ascites present 01/05/2019 H/O: upper GI bleed Esophageal mass Health Maintenance Due Date Last Done Comments HEPATITIS C (HCV) SCREEN 1965 PNEUMOCOCCAL 0-64 YEARS COMBINED SERIES (1 of 3 - 1970 PCV13) DTaP,Tdap,and Td Vaccines (1 - Tdap) 1983 COLONOSCOPY 2014 Zoster Recombinant Vaccine (SHINGRIX) (1 of 2) 2014 INFLUENZA VACCINE 01/31/2019 documented as of this encounter Procedures Procedure Name Priority Date/Time Associated Diagnosis Comments CONSENT/REFUSAL FOR Routine 01/05/2019 2:30 PM DIAGNOSIS AND TREATMENT CDT ASSIGNMENT OF BENEFITS Routine 01/05/2019 2:30 PM CDT documented in this encounter Results Not on filedocumented in this encounter Visit Diagnoses Diagnosis Alcoholic cirrhosis, unspecified whether ascites present H/O: upper GI bleed Personal history of other diseases of digestive system Esophageal mass Unspecified disorder of esophagus documented in this encounter Insurance Payer Benefit Plan Subscriber ID Effective Phone Address Type / Group Dates [employer] [place] [id number] [address] [address] [address] C ent [address] [place], [place] [address] ([place]) [place] [address] documented as of this encounter
--- OUTSIDE RECORDS SUMMARY | 2019-04-27 13:24 | XMS REPORT | Summary of Care ---
:1965 Author Organization [facility] Address [address] [place] [address] Care Team Providers Name Role Phone Annetta Ventura Primary Care Provider Reason for Visit Reason Comments Procedure Encounter Details Date Type Department Care Team Description 01/11/2019 Telephone [facility]STR[facility] James Bravo Procedure -[facility] MD Jaspreet [address] [place] [address] [place] [phone] Allergies Active Allergy Reactions Severity Noted Date Comments Sulfa (Sulfonamide Antibiotics) Swelling 11/12/2018 documented as of this encounter (statuses as of 01/15/2019) Medications Medication Sig Dispensed Refills Start Date [...] as of this encounter (statuses as of 01/15/2019) Active Problems Problem Noted Date Esophageal mass 12/01/2018 Overview: Added automatically from request for surgery [id number] Upper GI bleeding 11/12/2018 Iron deficiency anemia due to chronic blood loss 11/12/2018 SHAKIR treated with BiPAP 11/12/2018 Alcohol abuse 11/12/2018 documented as of this encounter (statuses as of 01/15/2019) Social History Tobacco Use Types Packs/Day Years [...] 02/08/2019 Office Visit Gastroenterology Karlo Rossi 301 [facility] [id number] [place], [place] [address] James Bravo MD 301 [place], [place] [phone] 06/07/2019 Office Visit Gastroenterology James Bravo MD [address] [place], [place] [phone] Health Maintenance Due Date Last Done Comments HEPATITIS C (HCV) SCREEN 1965 PNEUMOCOCCAL 0-64 YEARS COMBINED SERIES (1 of 3 - 1970 PCV13) DTaP,Tdap,and Td Vaccines (1 - Tdap) 1983 COLONOSCOPY 2014 Zoster Recombinant Vaccine (SHINGRIX) (1 of 2) 2014 INFLUENZA VACCINE (#1) 2019 documented as of this encounter Results Not on filedocumented in this encounter Insurance Payer Benefit Plan Subscriber ID Effective Phone Address Type / Group Dates BARAK CANCINO [id number] 2018-Prese [phone] [facility] PRIMARY CARE PRIMARY CARE nt [address] [place] [address] [employer] BARAK COLaisha [id number] [address] [place] [address] H C I H C ent 20 [facility] [place] [address] documented as of this encounter
--- OUTSIDE RECORDS SUMMARY | 2019-04-27 13:24 | XMS REPORT | Summary of Care ---
:1965 Author Organization [facility] Address [address] [place] [address] Care Team Providers Name Role Phone Annetta Ventura Primary Care Provider Reason for Visit Reason Comments Appointment Encounter Details Date Type Department Care Team Description 01/01/2019 [facility] [phone] [place] [phone] Allergies Active Allergy Reactions Severity Noted [...] Overview: Added automatically from request for surgery [id number] Upper GI bleeding 11/12/2018 Iron deficiency anemia [...] 01/05/2019 Appointment Radiology Kavin Bray DO [address] [address] [id number] [place] [address] 01/05/2019 Appointment Radiology Kavin Bray DO [address] MO[address] [place], [place] [address] 02/08/2019 Office Visit Gastroenterology Karlo Rossi 301 [facility] [id number] [place], [place] [address] James Bravo MD 301 [place], [place] [phone] 06/07/2019 Office Visit Gastroenterology James Bravo MD 301 [place], [place] [phone] Health Maintenance Due Date Last Done Comments [...] Address Type / Group Dates BARAK CANCINO [id number] 2018-Prese [phone] [facility] PRIMARY CARE PRIMARY CARE nt [address] [place] [address] [employer] [employer] BARAK WILHELM [id number] [address]-[place] [address] H C I H C ent 20 [place] [address] documented as of this encounter
--- OUTSIDE RECORDS SUMMARY | 2019-04-27 13:25 | XMS REPORT | Summary of Care ---
:1965 Author Organization [facility] - Health Address [address] [place] [address] Care Team Providers Name Role Phone Annetta Ventura Primary Care Provider Encounter Details Date Type Department Care Team Description 01/07/2019 Orders Only [facility] Doctor Unassigned, No 301 [facility] Name [place] [phone] [place] [address] Allergies Active Allergy Reactions Severity Noted Date Comments Sulfa (Sulfonamide Antibiotics) Swelling 11/12/2018 documented as of this encounter (statuses as of 01/19/2019) Medications Medication Sig Dispensed Refills Start Date [...] as of this encounter (statuses as of 01/19/2019) Active Problems Problem Noted Date Esophageal mass 12/01/2018 Overview: Added automatically from request for surgery [id number] Upper GI bleeding 11/12/2018 Iron deficiency anemia due to chronic blood loss 11/12/2018 SHAKIR treated with BiPAP 11/12/2018 Alcohol abuse 11/12/2018 documented as of this encounter (statuses as of 01/19/2019) Social History Tobacco Use Types Packs/Day Years [...] 02/08/2019 Office Visit Gastroenterology Karlo Rossi 301 [facility] [id number] [place], [place] [phone] James Bravo MD 301 [place], [place] [phone] 06/07/2019 Office Visit Gastroenterology James Bravo MD [address] [place] [address] Health Maintenance Due Date Last Done Comments HEPATITIS C (HCV) SCREEN 1965 PNEUMOCOCCAL 0-64 YEARS COMBINED SERIES (1 of 3 - 1970 PCV13) DTaP,Tdap,and Td Vaccines (1 - Tdap) 1983 COLONOSCOPY 2014 Zoster Recombinant Vaccine (SHINGRIX) (1 of 2) 2014 INFLUENZA VACCINE (#1) 2019 documented as of this encounter Procedures Procedure Name Priority Date/Time Associated Diagnosis Comments AUTHORIZATION FOR RELEASE Routine 01/07/2019 12:01 AM OF [facility] CDT documented in this encounter Results Not on filedocumented in this encounter Insurance Payer Benefit Plan Subscriber ID Effective Phone Address Type / Group Dates BARAK WILHELM I BARAK WILHELM [id number] 2018-Pres [phone] [facility] H C I H C ent 20 [place] [address] BARAK CANCINO [id number] 2018-Prese [phone] [facility] PRIMARY CARE PRIMARY CARE nt [address] [place] [address] documented as of this encounter
--- OUTSIDE RECORDS SUMMARY | 2019-04-27 13:25 | XMS REPORT | Summary of Care ---
:1965 Author Organization [facility] - Health Address [address] [place] [address] Care Team Providers Name Role Phone Annetta Ventura Primary Care Provider Encounter Details Date Type Department Care Team Description 01/19/2019 Orders Only [facility] Doctor Unassigned, No 301 [facility] Name [place] [phone] [place] [address] Allergies Active Allergy Reactions Severity Noted Date [...] Overview: Added automatically from request for surgery [id number] Upper GI bleeding 11/12/2018 Iron deficiency anemia [...] 02/08/2019 Office Visit Gastroenterology Karlo Rossi 301 [facility] [id number] [place], [place] [phone] James Bravo MD 301 [place], [place] [phone] 06/07/2019 Office Visit Gastroenterology James Bravo MD [address] [place] [address] Health Maintenance Due Date Last Done Comments HEPATITIS C (HCV) SCREEN 1965 PNEUMOCOCCAL 0-64 YEARS COMBINED SERIES (1 of 3 - 1970 PCV13) DTaP,Tdap,and Td Vaccines (1 - Tdap) 1983 COLONOSCOPY 2014 Zoster Recombinant Vaccine (SHINGRIX) (1 of 2) 2014 INFLUENZA VACCINE (#1) 2019 documented as of this encounter Procedures Procedure Name Priority Date/Time Associated Diagnosis Comments CONSENT/REFUSAL FOR Routine 01/19/2019 4:48 PM CDT DIAGNOSIS AND TREATMENT documented in this encounter Results Not on filedocumented in this encounter Insurance Payer Benefit Plan Subscriber ID Effective Phone Address Type / Group Dates BARAK WILHELM I BARAK WILHELM [id number] [address] [address] C I H C ent 20 [place] [address] BARAK CANCINO [id number] 2018-Pres [phone] [facility] PRIMARY CARE PRIMARY CARE nt [address] [place] [address] documented as of this encounter
--- OUTSIDE RECORDS SUMMARY | 2019-04-27 13:25 | XMS REPORT | Summary of Care ---
:1965 Author Organization [facility] Address [address] [place] [address] Care Team Providers Name Role Phone Annetta Ventura Primary Care Provider Reason for Visit Reason Comments Follow-up Encounter Details Date Type Department Care Team Description [facility] [place] [address] [address] [place], [place] [phone] [place] [phone] Allergies Active Allergy Reactions Severity Noted Date Comments Sulfa (Sulfonamide Antibiotics) Swelling 11/12/2018 documented as of this encounter (statuses as of 01/20/2019) Medications Medication Sig Dispensed Refills Start Date [...] edema (four) times daily for 30 days. traMADol 50 mg Take 1 tablet 15 tablet 0 01/19/2019 Active tabletIndications: by mouth every Pitting edema 6 (six) hours as needed for Pain (scale 7-10). documented as of this encounter (statuses as of 01/20/2019) Active Problems Problem Noted Date Esophageal mass 12/01/2018 Overview: Added automatically from request for surgery [id number] Upper GI bleeding 11/12/2018 Iron deficiency anemia due to chronic blood loss 11/12/2018 SHAKIR treated with BiPAP 11/12/2018 Alcohol abuse 11/12/2018 documented as of this encounter (statuses as of 01/20/2019) Social History Tobacco Use Types Packs/Day Years [...] 02/08/2019 Office Visit Gastroenterology Karlo Rossi 301 [facility] [id number] [place], [place] [phone] James Bravo MD [address] [place], [place] [phone] 06/07/2019 Office Visit Gastroenterology James Bravo MD [address] [place] [address] [phone] Health Maintenance Due Date Last Done Comments [...] Group Dates [employer] I BARAK WILHELM [id number] 2018-[place] [address] C [address] H [place] [address] [place] [address] BARAK CANCINO [id number] 2018-[place] [address] PRIMARY CARE PRIMARY CARE nt [address] [place] [address] documented as of this encounter
--- OUTSIDE RECORDS SUMMARY | 2019-04-27 13:25 | XMS REPORT | Summary of Care ---
:1965 Author Organization [facility] - [facility] Address [address] [place] [address] Care Team Providers Name Role Phone Annetta Ventura Primary Care Provider Reason for Referral Radiology Services (STAT) Status Reason Specialty Diagnoses / Referred By Referred To Procedures Contact Contact New Request Diagnostic Diagnoses Pitting edema Carrillo, Felisha Radiology Procedures XR CHEST 1 VW R, EMNP [address] [address] Radiology Services (STAT) Status Reason Specialty Diagnoses / Referred By Referred To Procedures Contact Contact New Request Diagnostic Diagnoses Pitting edema Carrillo, Felisha Radiology Procedures XR CHEST 1 VW R, EMNP [address] [address] Reason for Visit Reason Comments PITTING EDEMA Auth/Cert Status Reason Specialty Diagnoses / Referred By Referred To Procedures Contact Contact Emergency Medicine Diagnoses RETAINING WATER [facility] [address] [place] [address] [place] [address] Encounter Details Date Type Department Care Team Description 01/19/2019 Emergency [facility]-Emergency Carrillo, Felisha R, Pitting edema (Primary Dx); Department EMNP Anemia, unspecified type [address] [place] [address] [place] [address] HS7241 [place] [address] Allergies Active Allergy Reactions Severity Noted Date [...] Overview: Added automatically from request for surgery [id number] Upper GI bleeding 11/12/2018 Iron deficiency anemia [...] Sign Reading Time Taken Comments Blood Pressure 132/93 01/19/2019 8:27 PM CDT Pulse 79 01/19/2019 8:27 PM CDT Temperature 37.1 C (98.7 F) 01/19/2019 4:58 PM CDT Respiratory Rate 21 01/19/2019 8:27 PM CDT Oxygen Saturation 100% 01/19/2019 8:27 PM CDT Inhaled Oxygen Concentration - - Weight 150.1 kg (331 lb) 01/19/2019 4:58 PM CDT Height 180.3 cm (5' 11") 01/19/2019 4:58 PM CDT Body Mass Index 46.17 01/19/2019 4:58 PM CDT documented in this encounter Discharge Instructions Felisha Rodrigues EMNP - 01/19/2019NO LIFE-THREATENING FINDINGS ON TODAY'S EXAM. SPECIAL INSTRUCTIONS: 1. Take diruetic as prescribed 2. Elevated lower legs 3. Follow up with your primary care provider for medication management 4. Will need to continue follow up for esophageal mass. 5. Continue to take vitamins for anemia FOLLOW-UP RECOMMENDATIONS: RECOMMEND FOLLOW-UP WITH A PRIMARY CARE PROVIDER OR SPECIALIST IN 2-5 DAYS, ESPECIALLY IF NO IMPROVEMENT IN SYMPTOMS. TO FOLLOW-UP WITHIN THE [facility], TRY THESE OPTIONS (CLINIC APPOINTMENTS AVAILABLE ON PATD-AB-PIDI BASIS): 1. SCHEDULE AN APPOINTMENT ONLINE AT [facility] 2. OR CALL THE [facility] ACCESS CENTER AT OR 3. OR CALL YOUR [facility] PHYSICIAN'S OFFICE DIRECTLY IF YOU ARE ALREADY AN ESTABLISHED [facility] PATIENT. OR, YOU MAY FOLLOW-UP WITH A PROVIDER OF YOUR CHOICE, SUCH : 1. A PHYSICIAN OF YOUR CHOICE 2. [facility], . LOCATIONS IN [facility] 3. [facility], [address], [place]; RETURN TO ER FOR WORSENING OF SYMPTOMS. AttachmentsThe following attachments cannot be sent through Care Everywhere.Diuretic, Taking a (Surinamese)Leg Swelling in Both Legs (Surinamese) documented in this encounter Plan of Treatment Date Type Specialty Care Team Description 02/08/2019 Office Visit Gastroenterology Karlo Rossi 301 [facility] MC0943 [place], [place] [id number] James Bravo MD 301 [place], [place] [phone] 06/07/2019 Office Visit Gastroenterology James Bravo MD 301 [place] [address] Health Maintenance Due Date Last Done Comments HEPATITIS C (HCV) SCREEN 1965 PNEUMOCOCCAL 0-64 YEARS COMBINED SERIES (1 of 3 - 1970 PCV13) DTaP,Tdap,and Td Vaccines (1 - Tdap) 1983 COLONOSCOPY 2014 Zoster Recombinant Vaccine (SHINGRIX) (1 of 2) 2014 INFLUENZA VACCINE (#1) 2019 documented as of this encounter Procedures Procedure Name Priority Date/Time Associated Comments Diagnosis TROPONIN I STAT 01/19/2019 7:18 Pitting edema Results for this PM CDT procedure are in the results section. XR CHEST 1 VW STAT 01/19/2019 5:48 Pitting edema Results for this PM CDT procedure are in the results section. CBC WITH DIFFERENTIAL STAT 01/19/2019 5:22 Pitting edema Results for this PM CDT procedure are in the results section. N-TERMINAL PRO-BNP STAT 01/19/2019 5:22 Pitting edema Results for this PM CDT procedure are in the results section. URINALYSIS STAT 01/19/2019 5:22 Pitting edema Results for this PM CDT procedure are in the results section. COMP. METABOLIC PANEL STAT 01/19/2019 5:22 Pitting edema Results for this ([id number]) PM CDT procedure are in the results section. TROPONIN I STAT 01/19/2019 5:22 Pitting edema Results for this PM CDT procedure are in the results section. LIPASE STAT 01/19/2019 5:22 Pitting edema Results for this PM CDT procedure are in the results section. EKG-12 LEAD STAT 01/19/2019 5:18 PM CDT documented in this encounter Results TROPONIN I (01/19/2019 7:18 PM CDT) TROPONIN I 0.037 (H) <=0.034 ng/mL [facility] Specimen Blood - ARM, RIGHT Narrative Performed At Equal or Less than 0.034 ng/ml---Normal [facility] Note: Cardiac troponin begins to rise 3-4 hours after the onset of ischemia. Repeat in 4-6 hours if the sample was drawn within 3-4 hours of the onset of the symptom and found normal. Between 0.035 and 0.120 ng/mL--- Borderline. Questionable myocardial injury or necrosis Note: Serial measurement may be necessary to confirm or exclude the diagnosis of myocardial injury or necrosis; Clinical correlation (symptoms, EKGs, imaging studies, and others) required; Repeat in 4-6 hours if clinically indicated. Equal or Higher than 0.121 ng/mL---Abnormal. Myocardial Injury or Necrosis Likely Biotin has been reported to cause a negative bias, interpret results relative to patient's use of biotin. Performing Organization Address City/State/Zipcode Phone Number [facility] CLIA: [id number], [address] [place] [address] XR CHEST 1 VW (01/19/2019 5:48 PM CDT) Specimen Impressions Performed At PACS/VR/DOSE Cardiomegaly with mild pulmonary edema. Marshall Coyne MD., have reviewed this study and agree with the above report. Narrative Performed At * * * * * * * * ORIGINAL REPORT * * * * * * * * PACS/VR/DOSE PROCEDURE: XR CHEST 1 VW CLINICAL INDICATION: pitting edema COMPARISON: None FINDINGS: The bronchovascular markings are prominent with engorgement of the vasculature in bilateral rhona and bilateral lung bases. No pleural effusion or pneumothorax is seen. The heart is enlarged in size. No acute bony abnormality. Procedure Note [facility], Radiant Results Inft User - 01/19/2019 8:59 PM CDT * * * * * * * * ORIGINAL REPORT * * * * * * * * PROCEDURE: XR CHEST 1 VW CLINICAL INDICATION: pitting edema COMPARISON: None FINDINGS: The bronchovascular markings are prominent with engorgement of the vasculature in bilateral rhona and bilateral lung bases. No pleural effusion or pneumothorax is seen. The heart is enlarged in size. No acute bony abnormality. IMPRESSION Cardiomegaly with mild pulmonary edema. I, Ifrah Mazariegos MD., have reviewed this study and agree with the above report. Performing Organization Address [facility] Phone Number PACS/VR/DOSE LIPASE (01/19/2019 5:22 PM CDT) LIPASE 290 (H) 0 - 220 U/L [facility] Specimen Blood - ARM, RIGHT Performing Organization Address [facility] Services[facility] Phone Number [facility] CLIA: [id number], [address] [place] [address] TROPONIN I (01/19/2019 5:22 PM CDT) TROPONIN I 0.037 (H) <=0.034 ng/mL [facility] Specimen Blood - ARM, RIGHT Narrative Performed At Equal or Less than 0.034 ng/ml---Normal [facility] Note: Cardiac troponin begins to rise 3-4 hours after the onset of ischemia. Repeat in 4-6 hours if the sample was drawn within 3-4 hours of the onset of the symptom and found normal. Between 0.035 and 0.120 ng/mL--- Borderline. Questionable myocardial injury or necrosis Note: Serial measurement may be necessary to confirm or exclude the diagnosis of myocardial injury or necrosis; Clinical correlation (symptoms, EKGs, imaging studies, and others) required; Repeat in 4-6 hours if clinically indicated. Equal or Higher than 0.121 ng/mL---Abnormal. Myocardial Injury or Necrosis Likely Biotin has been reported to cause a negative bias, interpret results relative to patient's use of biotin. Performing Organization Address [facility] Services[facility] Phone Number [facility] CLIA: [id number], [address] [place], [place] [address] LAB[address] URINALYSIS (01/19/2019 5:22 PM CDT) APPEARANCE Clear Clear [facility] COLOR Yellow Yellow [facility] PH 5.5 4.8 - 8.0 [facility] SP GRAVITY 1.020 1.003 - 1.030 [facility] GLU U QUAL Negative Negative [facility] BLOOD Negative Negative [facility] KETONES Negative Negative [facility] PROTEIN Negative Negative [facility] UROBILIN 0.2 mg/dL 0-1.0 mg/dL [facility] BILIRUBIN Small (A) Negative [facility] NITRITE Negative Negative [facility] LEUK OCTAVIO Negative Negative [facility] RBC/HPF 0 0 - 3 HPF [facility] WBC/HPF 1 0 - 5 HPF [facility] BACTERIA Moderate (A) Negative [facility] AMORPHOUS 1+ HPF [facility] Specimen Urine - URINE, CLEAN CATCH Performing Organization Address City/[facility] Services[facility] Phone Number [facility] CLIA: [id number], [address] [place] [address] N-TERMINAL PRO-BNP (01/19/2019 5:22 PM CDT) NT-proBNP 289 (H) <=125 pg/mL [facility] Specimen Blood - ARM, RIGHT Narrative Performed At Biotin has been reported to cause a negative [facility] bias, interpret results relative to patient's use of biotin. Performing Organization Address [facility] Phone Number [facility] CLIA: [id number], [address] [place] [address] COMP. METABOLIC PANEL ([id number]) (01/19/2019 5:22 PM CDT) NA 141 135 - 145 [facility] mmol/L [facility]ITAL [facility] K 3.7 3.5 - 5.0 [facility] mmol/L [facility] CL 111 (H) 98 - 108 mmol/L [facility] CO2 TOTAL 20 (L) 23 - 31 mmol/L [facility] AGAP 10 2 - 16 [facility] BUN 15 7 - 23 mg/dL [facility] GLUCOSE 131 (H) 70 - 110 mg/dL [facility] CREATININE 1.17 0.60 - 1.25 [facility] mg/dL [facility] TOTAL BILI 1.2 (H) 0.1 - 1.1 mg/dL [facility] CALCIUM 8.7 8.6 - 10.6 [facility] mg/dL [facility] T PROTEIN 8.7 (H) 6.3 - 8.2 g/dL [facility] ALBUMIN 3.0 (L) 3.5 - 5.0 g/dL [facility] ALK PHOS 189 (H) 34 - 122 U/L [facility] ALT(SGPT) 18 9 - 51 U/L [facility] AST(SGOT) 82 (H) 13 - 40 U/L [facility] eGFR Calculation 65.0 mL/min/1.73m2 [facility] (Non-[facility] LABORATORY Salvadorean) eGFR Calculation 78.7 mL/min/1.73m2 [facility] () [facility] Specimen Blood - ARM, RIGHT Narrative Performed At Association of Glomerular Filtration Rate (GFR) [facility] and Staging of Kidney Disease* + + +- + | GFR (mL/min/1.73 m2)| With Kidney Damage|Without Kidney Damage + + +- + |>90| Stage one| Normal + + +- + |60-89|S tage two| Decreased GFR + + +- + |30-59|S tage three| Stage three + + +- + |15-29|S tage four | Stage four + + +- + |<15 (or dialysis)|Stage five | Stage five + + +- + *Each stage assumes the associated GFR level has been in effect for at least three months.Stages 1 to 5, with or without kidney disease, indicate chronic kidney disease. Notes: Determination of stages one and two (with eGFR >59mL/min/1.73 m2) requires estimation of kidney damage for at least three months as defined by structural or functional abnormalities of the kidney, manifested by either: Pathological abnormalities or Markers of kidney damage (including abnormalities in the composition of the blood or urine or abnormalities in imaging tests). Performing Organization Address City/State/Zipcode Phone Number [facility] CLIA: [id number], [address] [place] [address] CBC WITH DIFFERENTIAL (01/19/2019 5:22 PM CDT) WBC 4.80 4.20 - 10.70 [facility] 10*3/L [facility] RBC 2.90 (L) 4.26 - 5.52 [facility] 10*6/L [facility]ITAL [facility] HGB 8.0 (L) 12.2 - 16.4 [facility] g/dL [facility]ITAL [facility] HCT 26.6 (L) 38.4 - 49.3 % [facility] MCV 91.7 81.7 - 95.6 fL [facility] MCH 27.6 26.1 - 32.7 pg [facility] MCHC 30.1 (L) 31.2 - 35.0 [facility] g/dL [facility] RDW-SD 71.6 (H) 38.5 - 51.6 fL [facility] RDW-CV 21.3 (H) 12.1 - 15.4 % [facility] PLT 136 (L) 150 - 328 [facility] 10*3/L [facility]ITAL [facility] MPV 11.3 9.8 - 13.0 fL [facility] NRBC/100 WBC 0.0 0.0 - 10.0 /100 [facility] WBCs [facility] NRBC x10^3 <0.01 10*3/L [facility] GRAN MAT (NEUT) % 50.5 % [facility] IMM GRAN % 0.40 % [facility] LYMPH % 30.6 % [facility] MONO % 9.4 % [facility] EOS % 8.3 % [facility] BASO % 0.8 % [facility] GRAN MAT x10^3(ANC) 2.42 1.99 - 6.95 [facility] 10*3/uL HOSPITAL [facility]ORY IMM GRAN x10^3 <0.03 0.00 - 0.06 [facility] 10*3/uL [facility]ITAL [facility] LYMPH x10^3 1.47 1.09 - 3.23 [facility] 10*3/uL [facility]ITAL [facility] MONO x10^3 0.45 0.36 - 1.02 [facility] 10*3/uL HOSPITAL LAB[facility]ORY EOS x10^3 0.40 0.06 - 0.53 [facility] 10*3/uL [facility]ITAL LAB[facility] BASO x10^3 0.04 0.01 - 0.09 [facility] 10*3/uL [facility] Specimen Blood - ARM, RIGHT Performing Organization Address City/State/Zipcode Phone Number [facility] CLIA: [id number], [address] [place] [address] documented in this encounter Visit Diagnoses Diagnosis Pitting edema - Primary Edema Anemia, unspecified type documented in this encounter Administered Medications Medication Order MAR Action Action Date Dose Rate Site bumetanide (BUMEX) injection Given 01/19/2019 6:44 PM CDT 1.25 mg 1.25 mg 1.25 mg, Slow IV Push, ONCE, 1 dose, 01/19/19 at 1945, STAT diphenhydrAMINE (BENADRYL) injection 25 mg Given 01/19/2019 8:26 PM CDT 25 mg 25 mg, Slow IV Push, ONCE, 1 dose, Fri01/19/19 at 2130, STAT morpHINE injection 4 mg Given 01/19/2019 6:44 PM CDT 4 mg 4 mg, Slow IV Push, ONCE, 1 dose, Fri01/19/19 at 1945, STAT documented in this encounter Insurance Payer Benefit Plan Subscriber ID Effective Phone Address Type / Group Dates [employer]AK [employer]. I BARAK COLaisha [id number] [address] [address] H C I H C ent [address] [place] [address] BARAK CANCINO [id number] 2018-Pres [phone] [facility] PRIMARY CARE [address] [place] [address] (Home) [place] [address] documented as of this encounter
--- OUTSIDE RECORDS SUMMARY | 2019-04-27 13:25 | XMS REPORT | Summary of Care ---
:1965 Author Organization [facility] Address [address] [place] [address] Care Team Providers Name Role Phone Annetta Ventura Primary Care Provider Reason for Visit Reason Comments Appointment Encounter Details Date Type Department Care Team Description 01/19/2019 Telephone [facility] GASTROENTEROLOGY James Bravo Appointment -[facility] MD Jaspreet [address] [place] [address] [place] [address] Allergies Active Allergy Reactions Severity Noted Date Comments Sulfa (Sulfonamide Antibiotics) Swelling 11/12/2018 documented as of this encounter (statuses as of 02/02/2019) Medications Medication Sig Dispensed Refills Start Date [...] Active capsuleIndications: by mouth 2 Esophageal mass, (two) times Upper GI bleeding, daily for 90 Iron deficiency days. anemia due to chronic blood loss potassium gluconate Take 500 mg by 0 Active 500 mg (83 mg) Tab mouth as needed for Other (Cramping per patient). spironolactone 50 mg Take 1 tablet 60 tablet 5 12/31/2018 Active tabletIndications: by mouth 2 Pedal edema (two) times daily. traMADol 50 mg Take 1 tablet 15 tablet 0 01/19/2019 Active tabletIndications: by mouth every Pitting edema 6 (six) hours as needed for Pain (scale 7-10). torsemide 20 mg Take 1 tablet 120 tablet 5 12/31/2018 01/30/2019 tabletIndications: by mouth 4 Pedal edema (four) times daily for 30 days. documented as of this encounter (statuses as of 02/02/2019) Active Problems Problem Noted Date Esophageal mass 12/01/2018 Overview: Added automatically from request for surgery [id number] Upper GI bleeding 11/12/2018 Iron deficiency anemia due to chronic blood loss 11/12/2018 SHAKIR treated with BiPAP 11/12/2018 Alcohol abuse 11/12/2018 documented as of this encounter (statuses as of 02/02/2019) Social History Tobacco Use Types Packs/Day Years [...] Gastroenterology Karlo Rossi 301 [facility] PV7812 [place], [place] [id number] James Bravo MD 301 [place], [place] [id number] 06/07/2019 Office Visit Gastroenterology James Bravo MD [address] [place] [address] [phone] Health Maintenance Due Date Last Done Comments [...] Group Dates [employer]AK CO. I BARAK WILHELM [id number] [address]-[place] [address] H C I H C ent [address] [place] [address] BARAK CANCINO [id number] 2018-Presmarika [phone] [facility] PRIMARY CARE PRIMARY CARE nt [address] [place] [address] documented as of this encounter
--- OUTSIDE RECORDS SUMMARY | 2019-04-27 13:25 | XMS REPORT | Summary of Care ---
:1965 Author Organization [facility] Address [address] [place] [address] Care Team Providers Name Role Phone Annetta Ventura Primary Care Provider Reason for Visit Reason Comments Appointment Encounter Details Date Type Department Care Team Description 01/19/2019 Telephone [facility] GASTROENTEROLOGY James Bravo Appointment -[facility] MD Jaspreet [address] [place] [address] [place] [address] Allergies Active Allergy Reactions Severity Noted Date Comments Sulfa (Sulfonamide Antibiotics) Swelling 11/12/2018 documented as of this encounter (statuses as of 02/03/2019) Medications Medication Sig Dispensed Refills Start Date [...] as of this encounter (statuses as of 02/03/2019) Active Problems Problem Noted Date Esophageal mass 12/01/2018 Overview: Added automatically from request for surgery [id number] Upper GI bleeding 11/12/2018 Iron deficiency anemia due to chronic blood loss 11/12/2018 SHAKIR treated with BiPAP 11/12/2018 Alcohol abuse 11/12/2018 documented as of this encounter (statuses as of 02/03/2019) Social History Tobacco Use Types Packs/Day Years [...] Visit Gastroenterology Karlo Rossi 301 [facility] [id number] [place], [place] [phone] James Bravo MD 301 [place], [place] [phone] 06/07/2019 Office Visit Gastroenterology James Bravo MD [address] [place] [address] [phone] Health Maintenance Due Date Last Done Comments [...] Group Dates [employer]AK [employer]. I BARAK WILHELM [id number] [address]-[place] [address] H C I H C ent [address] [place] [address] BARAK CANCINO [id number] 2018-Presmarika [phone] [facility] PRIMARY CARE PRIMARY CARE nt [address] [place] [address] documented as of this encounter
--- OUTSIDE RECORDS SUMMARY | 2019-04-27 13:25 | XMS REPORT | Summary of Care ---
:1965 Author Organization [facility] Address [address] [place] [address] Care Team Providers Name Role Phone Annetta Ventura Primary Care Provider Reason for Visit Reason Comments Appointment Encounter Details Date Type Department Care Team Description 01/19/2019 Telephone [facility] GASTROENTEROLOGY James Bravo Appointment -[facility] MD Jaspreet [address] [place] [address] [place] [address] Allergies Active Allergy Reactions Severity Noted Date [...] Overview: Added automatically from request for surgery [id number] Upper GI bleeding 11/12/2018 Iron deficiency anemia [...] 02/08/2019 Office Visit Gastroenterology Karlo Rossi 301 [facility] [id number] [place], [place] [phone] James Bravo MD 301 [place], [place] [phone] 06/07/2019 Office Visit Gastroenterology James Bravo MD [address] [place] [address] [phone] Health Maintenance Due Date Last Done Comments [...] Group Dates [employer]AK [employer]. I BARAK WILHELM [id number] [address]-[place] [address] H C I H C ent [address] [place] [address] BARAK CANCINO [id number] 2018-Presmarika [phone] [facility] PRIMARY CARE PRIMARY CARE nt [address] [place] [address] documented as of this encounter
--- OUTSIDE RECORDS SUMMARY | 2019-04-27 13:26 | XMS REPORT | Summary of Care ---
:1965 Author Organization [facility] Address [address] [place] [address] Care Team Providers Name Role Phone Annetta Ventura Primary Care Provider Reason for Visit Reason Comments Appointment Encounter Details Date Type Department Care Team Description 01/19/2019 Telephone [facility] GASTROENTEROLOGY James Bravo Appointment -[facility] MD Jaspreet [address] [place] [address] [place] [address] Allergies Active Allergy Reactions Severity Noted Date Comments Sulfa (Sulfonamide Antibiotics) Swelling 11/12/2018 documented as of this encounter (statuses as of 02/04/2019) Medications Medication Sig Dispensed Refills Start Date [...] as of this encounter (statuses as of 02/04/2019) Active Problems Problem Noted Date Esophageal mass 12/01/2018 Overview: Added automatically from request for surgery [id number] Upper GI bleeding 11/12/2018 Iron deficiency anemia due to chronic blood loss 11/12/2018 SHAKIR treated with BiPAP 11/12/2018 Alcohol abuse 11/12/2018 documented as of this encounter (statuses as of 02/04/2019) Social History Tobacco Use Types Packs/Day Years [...] Office Visit Gastroenterology Karlo Rossi 301 [facility] VI2663 [place], [place] [phone] James Bravo MD 301 [place], [place] [phone] 06/07/2019 Office Visit Gastroenterology James Bravo MD 301 [place] [address] [phone] Health Maintenance Due Date Last Done Comments [...] Group Dates [employer]AK [employer]. I BARAK WILHELM [id number] [address]-[place] [address] H C I H C ent [address] [place] [address] BARAK CANCINO [id number] 2018-Presmarika [phone] [facility] PRIMARY CARE PRIMARY CARE nt [address] [place] [address] documented as of this encounter
--- OUTSIDE RECORDS SUMMARY | 2019-04-27 13:26 | XMS REPORT | Summary of Care ---
:1965 Author Organization [facility] Address [address] [place] [address] Care Team Providers Name Role Phone Annetta Ventura Primary Care Provider Reason for Visit Reason Comments Appointment Encounter Details Date Type Department Care Team Description 01/19/2019 Telephone [facility] GASTROENTEROLOGY James Bravo Appointment -[facility] MD Jaspreet [address] [place] [address] [place] [address] Allergies Active Allergy Reactions Severity Noted Date [...] Overview: Added automatically from request for surgery [id number] Upper GI bleeding 11/12/2018 Iron deficiency anemia [...] Visit Gastroenterology Karlo Rossi 301 [facility] [id number] [place], [place] [phone] James Bravo MD 301 [place], [place] [phone] 06/07/2019 Office Visit Gastroenterology James Bravo MD 301 [place] [address] [phone] Health Maintenance Due Date Last Done Comments [...] Group Dates BARAK CO. I BARAK WILHELM [id number] [address]-[place] [address] H C I H C ent 20 [place] [address] BARAK CANCINO [id number] 2018-Presmarika [phone] [facility] PRIMARY CARE PRIMARY CARE nt [address] [place] [address] documented as of this encounter
--- OUTSIDE RECORDS SUMMARY | 2019-04-27 13:26 | XMS REPORT | Summary of Care ---
:1965 Author Organization [facility] Address [address] [place] [address] Care Team Providers Name Role Phone Annetta Ventura [facility] Primary Care Provider Reason for Visit Reason Comments Cancer (Routine) Status Reason Specialty Diagnoses / Procedures Referred By Referred To Contact Contact Closed Gastroenterology Diagnoses Esophageal mass Annetta Ventura, Procedures CONSULT/REFERRAL GASTROENTEROLOGY [address] [address] Encounter Details Date Type Department Care Team Description 02/08/2019 Office Visit [facility] Karlo Rossi [address] [place] [address] [id number] [place], [place] [phone] Malignant neoplasm GASTROENTEROLOGY -James Umana MD [address] [place] [address] [phone] of lower third of [facility] esophagus (Primary 2240 [facility]) [address] [place] [phone] Allergies Active Allergy Reactions Severity Noted Date Comments Sulfa (Sulfonamide Antibiotics) Swelling 11/12/2018 documented as of this encounter (statuses as of 02/08/2019) Medications Medication Sig Dispensed Refills Start Date [...] hours as needed for Pain (scale 7-10). phytonadione, vitamin once now. 0 Active K1, (VITAMIN K) 1 mg/0.5 mL injection phytonadione, vit K1, 0 Active (VITAMIN K1 MISC) documented as of this encounter (statuses as of 02/08/2019) Active Problems Problem Noted Date Esophageal mass 12/01/2018 Overview: Added automatically from request for surgery [id number] Upper GI bleeding 11/12/2018 Iron deficiency anemia due to chronic blood loss 11/12/2018 SHAKIR treated with BiPAP 11/12/2018 Alcohol abuse 11/12/2018 documented as of this encounter (statuses as of 02/08/2019) Social History Tobacco Use Types Packs/Day Years Used Date Heavy Tobacco Smoker Cigarettes 10 40 Smokeless Tobacco: Never Used Tobacco Cessation: Ready to Quit: No; Counseling Given: No Alcohol Use Drinks/Week oz/Week Comments Not Asked 8 Shots of liquor 4.8 stopped March 2019 Food Insecurity Answer Date Recorded Within the [...] Sign Reading Time Taken Comments Blood Pressure 112/60 02/08/2019 5:05 PM CDT Pulse 75 02/08/2019 5:05 PM CDT Temperature 35.7 C (96.2 F) 02/08/2019 5:05 PM CDT Respiratory Rate 20 02/08/2019 5:05 PM CDT Oxygen Saturation - - Inhaled Oxygen Concentration - - Weight 148.6 kg (327 lb 11.2 oz) 02/08/2019 5:05 PM CDT Height 172.7 cm (5' 8") 02/08/2019 5:05 PM CDT Body Mass Index 49.83 02/08/2019 5:05 PM CDT documented in this encounter Progress Notes Yuki Quiñones RN - 02/08/2019 4:00 PM CDTPt to be called by bed control. Should have bed within the next 30 min. Advised him to [place] and he should be receiving a call. Left stable. Verbalized understanding. James Partida MD - 02/08/2019 4:00 PM CDT Gastroenterology and Hepatology Note Requesting physician: Annetta Ventura Primary Care Physician: Annetta Ventura Reason for Consultation: 53 yr old male with recent unintensional weight loss, history of a gastricAVM in Jun 2018 and supected esophgeal lesion via EGD. Please evaluate an treat Date of Service: 02/08/19 Chief Complaint: Follow-up for esophageal mass History of Present IllnessWe are seeing [facility] a 53 year old, male, with PMHx of SHAKIR, (bipap) chronic back with NSAID use, CKD, insomnia, HCV cirrhosis, hypoalbuminemia, thrombocytopenia, ETOH use, tobacco use, who presents for follow-up for esophageal mass. GIANNA we requested and obtained EGD with discovery of lower esophageal adenocarcinoma. Patient still needs CT staging and evaluation by oncology. He was unable to obtain CT imaging due to claustrophobia, attempted CT imaging with PO benzodiazepines which was also unsuccessful. Patients main complaint is pedal edema which he states has been difficult to control. Patient denies abdominal pain, dysphagia, but does note slow weight loss. He continues to smoke tobacco. GIANNA: 11/30/2018 Patient was admitted to outside hospital in 05/2018 for anemia and melena, reported 2/2 bleeding AVMs which were treated. He was told that there was concern for an esophageal cancer when they were completing the procedure. Patient with no complaints today. He denies abdominal pain, difficulty swallowing, nausea, emesis, ascites, paracentesis, confusion, jaundice. He also denies recurrence of black stools. Patient drinks ETOH on the weekend and is a daily tobacco user. Patient denies NSAID use, antiplatelet use, or anticoagulants. He has never been told that he has any problems with his liver. Problems with anesthesia: None Family History of colon cancer: None Personal History of polyps: Never evaluated Investigation: EGD: 12/22/18 - Esophagogastric landmarks identified. - [place]-colored mucosa suspicious for long-segment Chiang's esophagus. - Friable (with contact bleeding), nodular, texture changed mucosa in the esophagus. Biopsied. - Malignant esophageal tumor was found in the lower third of the esophagus. Biopsied. - Erythematous mucosa in the cardia. Biopsied. - Normal gastric fundus, gastric body and antrum. - Multiple duodenal ulcers with a clean ulcer base (Hector Class III). - Normal second portion of the duodenum. A. ESOPHAGUS, NODULE, EXCISION, BIOPSY: - POORLY DIFFERENTIATED INVASIVE CARCINOMA - MSI STABLE, PENDING FISH FOR HER-2/Evette - SEE COMMENT B. STOMACH, GASTRIC CARDIA, BIOPSY: - GASTRIC CARDIA WITH INTESTINAL METAPLASIA C. ESOPHAGUS, 35 CM, BIOPSY: - POORLY DIFFERENTIATED INVASIVE ADENOCARCINOMA IN THE BACKGROUND OF BARRETS OSH: CT C/A/P w IV/PO: 06/15/18: report states the followin.Primary esophageal malignancy not well visualized by CT. No adenopathy or metastasis. OSH labs: 05/23/18 Alb: 1.7 Tbili: 4.1 Na 131 Cr: 1.32 AST/ALT: 202/43 INR: 1.4 Hgb/Hct<Plt: 12/21<75 Iron studies: low iron/tibc/sat with a normal ferritn Past Medical History: Past Medical History: Diagnosis Date Anemia Anemia Anxiety Arthritis Peptic ulcer Substance abuse Transfusion history Past Surgical History: Past Surgical History: Procedure Laterality Date CHOLECYSTECTOMY ESOPHAGOGASTRODUODENOSCOPY N/A 12/22/2018 Surgeon: Brady Bailey MD; Location: [facility] HB EGD LESION ABLATION 06/2018 HERNIA REPAIR Social History: Social History Socioeconomic History Marital status: Spouse name: Not on file Number of children: 2 Years of education: high school Highest education level: Not on file Occupational History Not on file Social Needs Financial resource strain: Not on file Food insecurity: Worry: Often true Inability: Not on file Transportation needs: Medical: Not on file Non-medical: Not on file Tobacco Use Smoking status: Heavy Tobacco Smoker Packs/day: 10.00 Years: 40.00 Pack years: 400.00 Types: Cigarettes Smokeless tobacco: Never Used Substance and Sexual Activity Alcohol use: Not on file Comment: stopped March 2019 Drug use: Not Currently Types: Marijuana Comment: as teenager Sexual activity: Not Currently Partners: Female Lifestyle Physical activity: Days per week: Not on file Minutes per session: Not on file Stress: Not on file Relationships Social connections: Talks on phone: Not on file Gets together: Not on file Attends buddhism service: Not on file Active member of [...] on file Social History Narrative 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 Had DUI in the then go another in 2017 which caused loss of employment. 2 sons. One he has been out of touch with for over 10 yrs and the other [place] has [place] good relationship with his Dad Family History: No family history on file. Current Medications: Current Outpatient Medications Medication Sig Dispense Refill potassium gluconate 500 mg (83 mg) Tab Take 500 mg by mouth as needed for Other (Cramping per patient). spironolactone 50 mg tablet Take 1 tablet by mouth 2 (two) times daily. 60 tablet 5 traMADol 50 mg tablet Take 1 tablet by mouth every 6 (six) hours as needed for Pain (scale 7-10). 15 tablet 0 omeprazole 40 mg capsule Take 1 capsule by mouth 2 (two) times daily for 90 days. 180 capsule 0 MELATONIN, BULK, MISC zolpidem tartrate (AMBIEN ORAL) Take by mouth. naproxen 500 mg tablet Take 1 tablet by mouth 2 (two) times daily with meals. 60 tablet 2 potassium (POTASSIMIN ORAL) Take by mouth. No current facility-administered medications for this visit. Allergies: Sulfa (sulfonamide antibiotics) Review of Systems (-)=Negative,(+)=Positive General: (-) fever, (-) chills, (+) weight loss, (-) weight gain, (-) fatigue, ( -) malaise Skin: (-) rash, (-) lesion HEENT: (-) headache, (-) change in vision, (-) sore throat Neck: (-) pain, (-) difficulty swallowing, (-) mass Heme: (-) bleeding disorder Resp: (-) cough, (-) shortness of breath, (-) dyspnea on exertion Cardio: (-) chest pain, (-) palpitations, (-) syncope (+) edema GI: (-) abdominal pain, (-) nausea, (-) vomiting, (-) diarrhea, (-) constipation , (-) melena, (-) hematochezia, (-) hematemesis : (-) dysuria, (-) hematuria Endo: (-) diabetes, (-) renal insufficiency, (-) thyroid disease Neuro: (-) numbness, (-) tingling, (-) weakness Back: (-) pain, (-)spasms JULIA: (-) muscle pain, (-) joint pain Psych: negative Physical Exam: BP 112/60 | Resp 20 | Ht 5' 8" (1.727 m) | Wt 327 lb 11.2 oz (148.6 kg) | BMI 49.83 kg/m Body mass index is 49.83 kg/m. General: alert and oriented x 4 (person, place, date/time and situation); no apparent distress, obese HEENT: pupils equal, round, reactive to light; extraocular movements intact; oropharynx clear; moistmucous membranes, no oral ulcers Neck: supple, no lymphadenopathy Lungs: clear to auscultation bilaterally Cardio: S1, S2 normal; no murmurs, rubs or gallops Abdomen: Obese and non-distended on inspection, soft with no tenderness to palpation, no ascites or Hepatomegaly on percussion, and bowel sounds: present Extremities: no clubbing, cyanosis. BL LE edema Skin: no rashes. BL LE edema Neuro: cranial nerves II through XII grossly intact; sensation grossly intact; muscle strength 5 outof 5 in all four extremities LABS: I have reviewed the patient's labs. Significant abnormals are anemia, thrombocytopenia, hypoalbuminemia, elevated creatinine, hyponatremia. Computed MELD-Na score unavailable. Necessary lab results were not found in the last year. Computed MELD score unavailable. Necessary lab results were not found in the last year. ASSESSMENT/PLAN Fred Barragan is a 53 year old Black or male with past medical history ofOSA, (bipap) chronic back with NSAID use, CKD, insomnia, HCV cirrhosis, hypoalbuminemia, thrombocytopenia, ETOH use, tobacco use, seen in clinic for follow-up for esophageal mass. -Patient was admitted to outside hospital in 05/2018 for anemia and melena, reported 2/2 bleeding AVMs which were treated. It was reported to him that there was concern for esophageal mass on EGD and he would need repeat EGD w biopsies. CT imaging from OSH without esophageal findings on the report. -We evaluated patient with EGD and found poorly differentiated adenocarcinoma in the background of barretts. -Patient will need inpatient evaluation to complete his staging work-up. Please provide IV anxiolytics for CT imaging. Please also consult Oncology for assistance with staging and eventual case book for his treatment. Esophageal adenocarcinoma Chiang's esophagus Anemia, normocytic -CT chest/Abd/pelvis w contrast -Oncology consultation once admitted HCV, cirrhosis Thrombocytopenia Hypoalbuminemia -CBC, CMP, INR -AFP Disposition: Admit patient to [facility]. Case discussed with Dr. Howard who has accepted admission. Please obtain imaging for staging and consult Oncology for inpatient work-up. Bed control is preparing his admission and have an available bed and will call him when to arrive at the hospital. This patient has been discussed with Dr. Enid Bravo M.D. PGY-6 Physician Medical Billing Instructor Fellow Gastroenterology #:[id number] Pager#:[phone] documented in this encounter Plan of Treatment Date Type Specialty Care Team Description 06/07/2019 Office Visit Gastroenterology James Bravo MD [address] [place] [address] [phone] Health Maintenance Due Date Last Done Comments HEPATITIS C (HCV) SCREEN 1965 PNEUMOCOCCAL 0-64 YEARS COMBINED SERIES (1 of 3 - 1970 PCV13) DTaP,Tdap,and Td Vaccines (1 - Tdap) 1983 COLONOSCOPY 2014 Zoster Recombinant Vaccine (SHINGRIX) (1 of 2) 2014 INFLUENZA VACCINE (#1) 2019 documented as of this encounter Results Not on filedocumented in this encounter Visit Diagnoses Diagnosis Malignant neoplasm of lower third of esophagus - Primary documented in this encounter Insurance Payer Benefit Plan Subscriber ID Effective Phone Address Type / Group Dates [place]. [id number] [address] [address] C I H C ent [address] [place] [address] (Home) [place] [address] documented as of this encounter
--- OUTSIDE RECORDS SUMMARY | 2019-04-27 13:26 | XMS REPORT | Summary of Care ---
:1965 Author Organization [facility] Address [address] [place] [address] Care Team Providers Name Role Phone Annetta Ventura [facility] Primary Care Provider Reason for Visit Reason Comments Cancer (Routine) Status Reason Specialty Diagnoses / Procedures Referred By Referred To Contact Contact Closed Gastroenterology Diagnoses Esophageal mass Annetta Ventura, Procedures CONSULT/REFERRAL GASTROENTEROLOGY [address] [address] Encounter Details Date Type Department Care Team Description 02/08/2019 Office Visit [facility] Karlo Rossi [address] [place] [address] [id number] [place], [place] [phone] Malignant neoplasm GASTROENTEROLOGY -James Umana MD [address] [place] [address] [phone] of lower third of [facility] esophagus (Primary 2240 [facility]) [address] [place] [phone] Allergies Active Allergy Reactions Severity Noted Date [...] Overview: Added automatically from request for surgery [id number] Upper GI bleeding 11/12/2018 Iron deficiency anemia [...] CDT documented in this encounter Progress Notes James Bravo MD - 02/08/2019 4:00 PM CDT Gastroenterology [...] mass History of Present IllnessWe are seeing Fred Barragan a 53 year old, male, with PMHx [...] EGD: 12/22/18 - Esophagogastric landmarks identified. - [place]-colored mucosa suspicious for long-segment Chiang's esophagus. 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 Had DUI in the then go another in 2017 which caused loss of employment. 2 sons. One he has been out of touch with for over 10 yrs and the other lives in [place] has a good relationship with his Dad [...] CMP, INR -AFP Disposition: Admit patient to [facility]. Case discussed with Dr. Howard who has accepted admission. Please obtain imaging for staging and consult Oncology for inpatient work-up. Bed control is preparing his admission and have an available bed and will call him when to arrive at the hospital. This patient has been discussed with Dr. Enid Bravo M.D. PGY-6 Physician Lock Plater Fellow Gastroenterology Dr#:[id number] Pager#:[phone] documented in this encounter Plan of Treatment Date Type Specialty Care Team Description 06/07/2019 Office Visit Gastroenterology James Bravo MD [address] [place] [address] Health Maintenance Due Date Last Done [...] Group Dates BARAK CO. I BARAK COLaisha [id number] 2018-[facility] [place] [address] C I H C ent [address] [facility] [place] [address] ([place]) [place] [address] documented as of this encounter
--- OUTSIDE RECORDS SUMMARY | 2019-04-27 13:26 | XMS REPORT | Summary of Care ---
:1965 Author Organization [facility] Address [address] [place] [address] Care Team Providers Name Role Phone Annetta Ventura Primary Care Provider Encounter Details Date Type Department Care Team Description 02/05/2019 Letter (Out) [facility] Unknown, Attending Allergies Active Allergy Reactions Severity Noted Date Comments Sulfa (Sulfonamide Antibiotics) Swelling 11/12/2018 documented as of this encounter (statuses as of 02/05/2019) Medications Medication Sig Dispensed Refills Start Date [...] as of this encounter (statuses as of 02/05/2019) Active Problems Problem Noted Date Esophageal mass 12/01/2018 Overview: Added automatically from request for surgery [id number] Upper GI bleeding 11/12/2018 Iron deficiency anemia due to chronic blood loss 11/12/2018 SHAKIR treated with BiPAP 11/12/2018 Alcohol abuse 11/12/2018 documented as of this encounter (statuses as of 02/05/2019) Social History Tobacco Use Types Packs/Day Years [...] 02/08/2019 Office Visit Gastroenterology Karlo Rossi 301 [facility] [id number] [place], [place] [phone] James Bravo MD 301 [place], [place] [phone] 06/07/2019 Office Visit Gastroenterology James Bravo MD 301 [place], [place] [phone] Health Maintenance Due Date Last Done Comments [...] Group Dates BARAK WILHELM I BARAK WILHELM [id number] 2018-Pres [phone] [facility] C I H C ent 20 [facility] [place] [address] BARAK CANCINO [id number] 2018-Presmarika [phone] [facility] PRIMARY CARE PRIMARY CARE nt [address] [place] [address] documented as of this encounter
--- OUTSIDE RECORDS SUMMARY | 2019-04-27 13:26 | XMS REPORT | Summary of Care ---
:1965 Author Organization [facility] Address [address] [place] [address] Care Team Providers Name Role Phone Annetta Ventura Primary Care Provider Reason for Visit Reason Comments Referral/consult Encounter Details Date Type Department Care Team Description 02/05/2019 Telephone [facility] GASTROENTEROLOGY James Bravo Referral/ consult -[facility] MD Jaspreet [address] [place] [address] [phone] Allergies Active Allergy Reactions Severity Noted Date [...] Overview: Added automatically from request for surgery [id number] Upper GI bleeding 11/12/2018 Iron deficiency anemia [...] 02/08/2019 Office Visit Gastroenterology Karlo Rossi 301 [facility] JH1726 [place] [address] [phone] James Bravo MD 301 [place], [place] [phone] 06/07/2019 Office Visit Gastroenterology James Bravo MD 301 [place], [place] [phone] Health Maintenance Due Date Last Done Comments [...] Address Type / Group Dates BARAK WILHELM [id number] [address]-[place] [address] C I H C ent 20 [place] [address] BARAK CANCINO [id number] 2018-Prese [phone] [facility] PRIMARY CARE PRIMARY CARE nt [address] [place] [address] documented as of this encounter
--- OUTSIDE RECORDS SUMMARY | 2019-04-27 13:26 | XMS REPORT | Summary of Care ---
:1965 Author Organization [facility] Address [address] [place] [address] Care Team Providers Name Role Phone Annetta Ventura [facility] Primary Care Provider Reason for Visit Reason Comments Cancer (Routine) Status Reason Specialty Diagnoses / Procedures Referred By Referred To Contact Contact Closed Gastroenterology Diagnoses Esophageal mass Annetta Ventura, Procedures CONSULT/REFERRAL GASTROENTEROLOGY [address] [address] Encounter Details Date Type Department Care Team Description 02/08/2019 Office Visit [facility] Karlo Rossi [address] [place] [address] [id number] [place], [place] [phone] Malignant neoplasm GASTROENTEROLOGY -James Umana MD [address] [place] [address] [phone] of lower third of [facility] esophagus (Primary 2240 [facility]) [address] [place] [phone] Allergies Active Allergy Reactions Severity Noted Date [...] Overview: Added automatically from request for surgery [id number] Upper GI bleeding 11/12/2018 Iron deficiency anemia [...] EGD: 12/22/18 - Esophagogastric landmarks identified. - [place]-colored mucosa suspicious for long-segment Chiang's esophagus. 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 Had [...] CMP, INR -AFP Disposition: Admit patient to [facility]. Case discussed with Dr. Howard who has accepted admission. Please obtain imaging for staging and consult Oncology for inpatient work-up. Bed control is preparing his admission and have an available bed and will call him when to arrive at the hospital. This patient has been discussed with Dr. Enid Bravo M.D. PGY-6 Physician Bin Piler Fellow Gastroenterology Dr#:[id number] Pager#:[phone] documented in this encounter Plan of Treatment Date Type Specialty Care Team Description 06/07/2019 Office Visit Gastroenterology James Bravo MD [address] [place] [address] Health Maintenance Due Date Last Done [...] Group Dates BARAK CO. I BARAK COLaisha [id number] 2018-[facility] [place] [address] C I H C ent [address] [facility] [place] [address] ([place]) [place] [address] documented as of this encounter
--- OUTSIDE RECORDS SUMMARY | 2019-04-27 13:26 | XMS REPORT | Summary of Care ---
:1965 Author Organization [facility] Address [address] [place] [id number] Care Team Providers Name Role Phone Annetta Ventura Primary Care Provider Reason for Visit Reason Comments Appointment Encounter Details Date Type Department Care Team Description 01/19/2019 Telephone [facility] GA[facility] James Bravo Appointment -[facility] MD Jaspreet [address] [place] [address] [place] [phone] Allergies Active Allergy Reactions Severity Noted Date [...] Overview: Added automatically from request for surgery [id number] Upper GI bleeding 11/12/2018 Iron deficiency anemia [...] 02/08/2019 Office Visit Gastroenterology Karlo Rossi 301 [facility] [id number] [place], [place] [id number] James Bravo MD [address] [place], [place] [phone] 06/07/2019 Office Visit Gastroenterology James Bravo MD [address] [place] [address] [phone] Health Maintenance Due Date Last Done Comments [...] Group Dates [place] [place]. I BARAK WILHELM [id number] [address] [place] [address] [facility] ent [address] [place] [address] BARAK CANCINO [id number] 2018-Pres[place] [phone] [facility] PRIMARY CARE PRIMARY CARE nt [address] [place] [address] documented as of this encounter
--- OUTSIDE RECORDS SUMMARY | 2019-04-27 13:26 | XMS REPORT | Summary of Care ---
:1965 Author Organization [facility] Address [address] [place] [address] Care Team Providers Name Role Phone Annetta Ventura Primary Care Provider Reason for Visit Reason Comments Assessment Encounter Details Date Type Department Care Team Description 02/08/2019 Telephone [facility] James Bravo Assessment -[facility] MD Jaspreet [address] [place] [address] [place] [phone] Allergies Active Allergy Reactions Severity Noted Date [...] Overview: Added automatically from request for surgery [id number] Upper GI bleeding 11/12/2018 Iron deficiency anemia [...] 02/08/2019 Office Visit Gastroenterology Karlo Rossi 301 [facility] [id number] [place], [place] [id number] James Bravo MD [address] [place], [place] [phone] 06/07/2019 Office Visit Gastroenterology James Bravo MD [address] [place], [place] [phone] Health Maintenance Due Date Last Done Comments [...] Group Dates [place] [place]. I BARAK WILHELM [id number] [address]-[place] [address] [facility] C I H [facility] ent [address] [place] [address] BARAK CANCINO [id number] 2018-Pres [phone] [facility] PRIMARY CARE PRIMARY CARE nt [address] [place] [address] documented as of this encounter
--- OUTSIDE RECORDS SUMMARY | 2019-04-27 13:27 | XMS REPORT | Summary of Care ---
:1965 Author Organization [facility] Address [address] [place] [id number] Care Team Providers Name Role Phone Annetta Ventura Primary Care Provider Reason for Referral (Routine) Status Reason Specialty Diagnoses / Referred By Referred To Procedures Contact Contact New Request TS-THORACIC Diagnoses Malignant neoplasm of lower third of esophagus Cong Meza SURGERY Procedures Discharge Follow-Up: Specialty Service TS-THORACIC SURGERY (CARDIOTHORACIC VASCULAR SURGERY); 2 Weeks MD Suzanna (CARDIOTHORACIC [address] VASCULAR SURGERY) Dr. Rollins [address] [place] [address] (Routine) Status Reason Specialty Diagnoses / Referred By Referred To Procedures Contact Contact New Request IM-MEDICAL Diagnoses Malignant neoplasm of lower third of esophagus Cong Meza ONCOLOGY Procedures Discharge Follow-Up: Specialty Service IM-MEDICAL ONCOLOGY; 2 Weeks MD Suzanna [address] Rollins [address] [place] [phone] (Routine) Status Reason Specialty Diagnoses / Referred By Contact Referred To Procedures Contact New Request Diagnoses Malignant neoplasm of lower third of esophagus Efrem Deleon MD Internal Medicine Procedures Discharge Follow-up: PCP INTERNAL MEDICINE, ; [address] [place] [id number] [place] [address] MRI/CAT Scan (EL) Status Reason Specialty Diagnoses / Referred By Referred To Procedures Contact Contact New Request Diagnostic Diagnoses Malignant neoplasm of lower third of esophagus Cong Meza Radiology Procedures CT HEAD WO CONTRAST MD Suzanna [address] Abad [place] [phone] MRI/CAT Scan (EL) Status Reason Specialty Diagnoses / Referred By Referred To Procedures Contact Contact New Request Diagnostic Diagnoses Malignant neoplasm of lower third of esophagus Cong Meza Radiology Procedures CT THORAX W CONTRAST MD Suzanna [address] [place] [address] MRI/CAT Scan (EL) Status Reason Specialty Diagnoses / Referred By Referred To Procedures Contact Contact New Request Diagnostic Diagnoses Malignant neoplasm of lower third of esophagus Cong Meza Radiology Procedures CT ABDOMEN PELVIS W CONTRAST MD Suzanna [address] Rollins [address] [place] [address] MRI/CAT Scan (EL) Status Reason Specialty Diagnoses / Referred By Referred To Procedures Contact Contact New Request Diagnostic Diagnoses Malignant neoplasm of lower third of esophagus Cong Meza Radiology Procedures CT HEAD WO CONTRAST MD Suzanna [address] Rollins [address] [place] [address] MRI/CAT Scan (EL) Status Reason Specialty Diagnoses / Referred By Referred To Procedures Contact Contact New Request Diagnostic Diagnoses Malignant neoplasm of lower third of esophagus Cong Meza Radiology Procedures CT THORAX W CONTRAST MD Suzanna [address] Abad [place] [phone] MRI/CAT Scan (EL) Status Reason Specialty Diagnoses / Referred By Referred To Procedures Contact Contact New Request Diagnostic Diagnoses Malignant neoplasm of lower third of esophagus Cong Meza Radiology Procedures CT ABDOMEN PELVIS W ZHAO Briseno MD [address] Rollins [address] [place], [place] [id number] Reason for Visit Auth/Cert Status Reason Specialty Diagnoses / Referred By Referred To Procedures Contact Contact Medicine - Diagnoses Esophageal cancer Karuna 10c Inpatient only [address] [place] [address] Encounter Details Date Type Department Care Team Description 02/09/2019 - Hospital Encounter Medicine (KARUNA 10C) Cong Meza MD [address] Rollins [address] [place] [address] Esophageal cancer 02/13/2019 712 [facility] Lee, Meryl [address] [place] [address] [place] [address] Allergies Active Allergy Reactions Severity Noted Date Comments Sulfa (Sulfonamide Antibiotics) Swelling 11/12/2018 documented as of this encounter (statuses as of 02/13/2019) Medications Medication Sig Dispensed Refills Start Date End Date Status zolpidem tartrate Take 10 mg by 0 Active (AMBIEN ORAL) mouth at bedtime. MELATONIN, BULK, 0 Active MISC omeprazole 40 mg Take 1 180 capsule 0 12/22/2018 Active capsuleIndications: capsule by 9 Esophageal mass, mouth 2 (two) Upper GI bleeding, times daily Iron deficiency for 90 days. anemia due to chronic blood loss traMADol 50 mg Take 1 tablet 15 tablet 0 01/19/2019 Active tabletIndications: by mouth Pitting edema every 6 (six) hours as needed for Pain (scale 7-10). phytonadione, vit 100 mg daily. 0 Active K1, (VITAMIN K1 MISC) torsemide 20 mg Take 40 mg by 0 Active tablet mouth 2 (two) times daily. spironolactone 100 Take 1 tablet 30 tablet 1 02/14/2019 Active mg by mouth tabletIndications: daily. Malignant neoplasm of lower third of esophagus potassium Take by 0 Discontinued (POTASSIMIN ORAL) mouth. 9 naproxen 500 mg Take 1 tablet 60 tablet 2 11/13/2018 Discontinued tabletIndications: by mouth 2 9 Chronic midline low (two) times back pain without daily with sciatica meals. potassium gluconate Take 500 mg 0 Discontinued 500 mg (83 mg) Tab by mouth as 9 needed for Other (Cramping per patient). spironolactone 50 mg Take 1 tablet 60 tablet 5 12/31/2018 Discontinued tabletIndications: by mouth 2 9 Pedal edema (two) times daily. phytonadione, once now. 0 Discontinued vitamin K1, (VITAMIN 9 K) 1 mg/0.5 mL injection documented as of this encounter (statuses as of 02/13/2019) Active Problems Problem Noted Date Esophageal cancer 02/09/2019 Morbid obesity with body mass index of 40.0-49.9 02/09/2019 Malignant neoplasm of lower third of esophagus 02/08/2019 Overview: Added automatically from request for surgery [id number] Esophageal mass 12/01/2018 Overview: Added automatically from request for surgery [id number] Upper GI bleeding 11/12/2018 Iron deficiency anemia due to chronic blood loss 11/12/2018 SHAKIR treated with BiPAP 11/12/2018 Alcohol abuse 11/12/2018 documented as of this encounter (statuses as of 02/13/2019) Social History Tobacco Use Types Packs/Day Years Used Date Heavy Tobacco Smoker Cigarettes 10 40 Started: 1980 Smokeless Tobacco: Never Used Comments: Patient states he smoked 1.5ppd from 1980 to 2010; since then he has steadily cut down and is now smoking 3-4 cigarrettes per day (02/11/19) Alcohol Use Drinks/Week oz/Week Comments Not Asked 8 Shots of liquor 4.8 stopped March 2019, prior to this, he was drinking 2 "large glasses of liquor" and 1 glass of wine per week Food Insecurity Answer Date Recorded Within the [...] Sign Reading Time Taken Comments Blood Pressure 121/56 02/13/2019 12:00 PM CDT Pulse 79 02/13/2019 12:00 PM CDT Temperature 36.4 C (97.6 F) 02/13/2019 12:00 PM CDT Respiratory Rate 18 02/13/2019 12:00 PM CDT Oxygen Saturation 96% 02/13/2019 12:00 PM CDT Inhaled Oxygen Concentration - - Weight 148.8 kg (328 lb) 02/12/2019 12:20 PM CDT Height 180.3 cm (5' 11") 02/12/2019 12:20 PM CDT Body Mass Index 45.75 02/12/2019 12:20 PM CDT documented in this encounter Discharge Instructions AttachmentsThe following attachments cannot be sent through Care Everywhere.Spironolactone tablets (Malian)Diet, Discharge Instructions for Eating a Low-Salt (Malian)Hepatitis C, Discharge Instructions (Malian) Cirrhosis of the Liver, Discharge Instructions for (Malian)documented in this encounter Progress Notes Efrem Deleon MD - 02/12/2019 5:37 AM CDT I personally examined the patient on 02/12/19 and have verified the medical student documentation and/or findings, including the history, physical exam, and medical decision making. Additionally, I have personally performed or re- performed the physical exam and medical decision making activities of this patient's evaluation and management service. Efrem Deleon MD Internal Medicine PGY-1 [facility] Team Pager #: [phone] [facility] Team Progress Note Date of Service: 02/12/2019 05:47 Days Since Admission: 3 [id number] ID: Fred Barragan is a 53 year old male admitted for esophageal mass. 24 Hour Events: -NAEO -NPO last night SUBJECTIVE: Today, the patient was walking around his room without complaints. The patients reports the presenceof leg swelling which is unchanged for 6 years and the absence of fever, cough, dysphagia. OBJECTIVE: Vitals: Temp: [36.6 C (97.8 F)-36.9 C (98.5 F)] Pulse: [71-78] Resp: [20] BP: (105-133)/(54-79) Oxygen delivery: room air, SpO2 95% Intake/Output: Intake/Output Summary (Last 24 hours) at 02/12/2019 0547 Last data filed at 02/11/2019 2200 Gross per 24 hour Intake Output 2100 ml Net -2100 ml Physical Exam: General: alert and oriented x3; no apparent distress HEENT: NCAT; PERRLA; EOMI Cardio: regular rate and rhythm with no rubs, murmurs, or gallops Lungs: clear to ascultation with no wheezes, rales, or rhonchi Abdomen: soft, non-tender, non-distended with normoactive bowel sounds Extremities: no appreciable sacral edema; no new rashes, +3 pitting edema b/l Skin: normal color, texture and turgor with no lesions on inspection of exposed areas Neuro: no focal deficits LABS/IMAGING: LABS: CBC: Recent Labs 01/19/192 02/09/19 1736 WBC 4.80 4.53 HGB 8.0* 8.4* MCV 91.7 89.5 PLT 136* 313 BMP: Recent Labs 01/19/19172102/09/19173502/10/19 0615 NA 141 138 138 K 3.7 5.0 4.2 MG -- -- 2.1 CA 8.7 8.8 8.4* CL 111* 107 111* BUN 15 37* 34* CREAT 1.17 1.54* 1.24 GLU 131* 97 97 TCO2 20* 21* 21* LFTs: Recent Labs 01/19/19172102/09/19 1736 ALB 3.0* 3.0* TPRO 8.7* 8.9* BILIT 1.2* 1.4* BILIUNCON -- 0.7 BILICONJ -- 0.0 ALT 18 13 AST 82* 56* ALKPHOS 189* 227* Coagulation Panel: Recent Labs 02/09/19 1736 PTINR 1.3 PTPAT 14.8* APTTPAT 38* Additional Labs: Other CMP on 02/10/2019 02/09/2019 17:36 TOTAL BILI 1.4 (H) BILI UNCON 0.7 BILI CONJ 0.0 CALCIUM 8.8 T PROTEIN 8.9 (H) ALBUMIN 3.0 (L) AFP 5.2 Imaging: CT Abdomen Pelvis w. contrast on 02/09/19: IMPRESSION 1. No evidence of metastatic disease within the abdomen or pelvis. 2. Small serpiginous densities within the anterior mesentery adjacent to the anterior abdominal wall likely represent small portosystemic collaterals rather than true nodularity. No evidence of carcinomatosis at this time. 3. Cirrhotic morphology with splenomegaly and prominent left upper quadrant portosystemic collaterals including splenorenal shunt. 4. Nonobstructive left nephrolithiasis. CT Head w/o contrast on 02/09/19: IMPRESSION Normal CT head. No evidence of intracranial metastatic disease within the limitations of CT CT Thorax w. contrast on 02/09/19: IMPRESSION 1. Asymmetric wall thickening of the distal esophagus extending to the GE junction, consistent with the known history of prostatic cancer. 2. Mildly prominent subcarinal lymph node, may be reactive or metastatic. 3. Evaluation of the lung parenchyma is limited due to extensive motion artifact. However, there is no evidence of gross metastatic disease. Consults: -Oncology -CT Surgery -Gastroenterology ASSESSMENT/PLAN Fred Barragan is a 53 year old male admitted to the hospital with: Esophageal adenocarcinoma Chiang's esophagus Normocytic anemia HCV cirrhosis (MELDNa- 17) Thrombocytopenia hypoalbuminemia Comment: Patient admitted from GI clinic for cancer staging imaging with previously failed attempts due to claustrophobia on CT. Mass found on 06/2018 hospitalization for hematemesis during EGD which was suspicious for invasive carcinoma. Oncology and CT surgery recommending EUS to evaluate suspicioussubcarinal mass seen on CT. Radiation oncology consulted. GI consulted , pending EGD today in AM. -low salt diet -omeprazole 40mg PO BID -increase spironolactone 1000mg PO QD -increase lasix to IV 80mg QAM + 40QPM -tramadol 50mg PO Q6H PRN (if needed) -zolpidem 10mg PO QHS -benadryl 50mg po BID PRN -echocardiogram with doppler for HF -consult GI for EUS biopsy for tumor staging today, was NPO since midnight. -patient will be presented at tumor boards on 02/17/19 Pain: Controlled- Tylenol Prophylaxis: DVT- heparin Stress Ulcer: pantoprazole Code Status: addressed- full DISPOSITION: Anticipated Discharge Date: 2+ Discharge To: Home Barriers to Discharge: Primary diagnosis Lc Hutton, 4 [facility] 02/12/2019 05:47 END OF DAILY PROGRESS NOTE Hospital Course: Fred Barragan is a 53 year old male with a PMH of SHAKIR, (bipap) chronic back with NSAID use, CKD, insomnia, HCVcirrhosis, hypoalbuminemia, thrombocytopenia, ETOH use, tobacco use who presented for evaluation of esophageal cancer. Patient was initially told of his esophageal mass in 06/2018 afteran EGD for UGI bleed at [facility]. He was unfortunately lost to follow up however received another EGD in 11/2018 which showed an ulcerating mass in the lower third of the esophagus which was revealed to be poorly differentiated invasive carcinoma. He was unable to receive CT imaging for staging due tosevere claustrophobia and was admitted directly to [facility] from GI clinic for cancer staging with IV sedation and oncology evaluation. CT surgery and medical oncology consulted and recommend GI eval for EUS tumor staging and possible radiation oncology evaluation. Patient will be presented at thoracic tumor board on 02/17/19. MEDICATIONS: Scheduled meds: furosemide 40 mg Q12H spironolactone 100 mg DAILY heparin 5,000 Units Q12H omeprazole 40 mg BID zolpidem 10 mg QHS IV meds: PRN meds: diphenhydrAMINE 50 mg BIDPRN ondansetron 4 mg Q6HPRN traMADol 50 mg Q6HPRN Associated attestation - Cong Meza MD - 02/13/2019 12:34 PM CDTI discussed this patient in detail with Dr. Deleon, including the patient?s history , exam findings, assessment and plan. I independently performed relevant portions of history and exam and jointly participated in the decision making process. Please see resident?s note for details. I agree with the resident's note as written. Cong Meza M.D., 02/13/2019 12:33 Industrial Maintenance Repairer Helper [facility] Department of Internal Medicine Lex Alvarado DO - 02/11/2019 5:52 AM CDT I personally examined the patient on 02/11/19 and have verified the medical student documentation and/or findings, including the history, physical exam, and medical decision making. Additionally, I have personally performed or re- performed the physical exam and medical decision making activities of this patient's evaluation and management service. Lex Alvarado D.O. Department of Internal Medicine PGY-2, Liz Art Doctor's Number: [id number] Liz Team Progress Note Date of Service: 02/11/2019 05:54 Days Since Admission: 1 Room: [place] [id number] ID: Fred Barragan is a 53 year old male admitted for esophageal mass. 24 Hour Events: -NAEO SUBJECTIVE: Today, the patient was sleeping comfortably this morning. The patients reports the presence of leg swelling which is unchanged for 6 years and the absence of fever, cough, dysphagia. OBJECTIVE: Vitals: Temp: [36.2 C (97.1 F)-36.9 C (98.4 F)] Pulse: [69-84] Resp: [20] BP: (111-135)/(55-80) Oxygen delivery: room air, SpO2 98% Intake/Output: Intake/Output Summary (Last 24 hours) at 02/11/2019 0554 Last data filed at 02/10/2019 1131 Gross per 24 hour Intake Output 2200 ml Net -2200 ml Physical Exam: General: alert and oriented x3; no apparent distress HEENT: NCAT; PERRLA; EOMI Cardio: regular rate and rhythm with no rubs, murmurs, or gallops Lungs: clear to ascultation with no wheezes, rales, or rhonchi Abdomen: soft, non-tender, non-distended with normoactive bowel sounds Extremities: no appreciable sacral edema; no new rashes, +3 pitting edema b/l Skin: normal color, texture and turgor with no lesions on inspection of exposed areas Neuro: no focal deficits LABS/IMAGING: LABS: CBC: Recent Labs 01/19/19172102/09/191735 WBC 4.80 4.53 HGB 8.0* 8.4* MCV 91.7 89.5 PLT 136* 313 BMP: Recent Labs 01/19/19172102/09/19173502/10/19 0615 NA 141 138 138 K 3.7 5.0 4.2 MG -- -- 2.1 CA 8.7 8.8 8.4* CL 111* 107 111* BUN 15 37* 34* CREAT 1.17 1.54* 1.24 GLU 131* 97 97 TCO2 20* 21* 21* LFTs: Recent Labs 01/19/19172102/09/191735 ALB 3.0* 3.0* TPRO 8.7* 8.9* BILIT 1.2* 1.4* BILIUNCON -- 0.7 BILICONJ -- 0.0 ALT 18 13 AST 82* 56* ALKPHOS 189* 227* Coagulation Panel: Recent Labs 02/09/19 1736 PTINR 1.3 PTPAT 14.8* APTTPAT 38* Additional Labs: Other CMP on 02/10/2019 02/09/2019 17:36 TOTAL BILI 1.4 (H) BILI UNCON 0.7 BILI CONJ 0.0 CALCIUM 8.8 T PROTEIN 8.9 (H) ALBUMIN 3.0 (L) AFP 5.2 Imaging: CT Abdomen Pelvis w. contrast on 02/09/19: IMPRESSION 1. No evidence of metastatic disease within the abdomen or pelvis. 2. Small serpiginous densities within the anterior mesentery adjacent to the anterior abdominal wall likely represent small portosystemic collaterals rather than true nodularity. No evidence of carcinomatosis at this time. 3. Cirrhotic morphology with splenomegaly and prominent left upper quadrant portosystemic collaterals including splenorenal shunt. 4. Nonobstructive left nephrolithiasis. CT Head w/o contrast on 02/09/19: IMPRESSION Normal CT head. No evidence of intracranial metastatic disease within the limitations of CT CT Thorax w. contrast on 02/09/19: IMPRESSION 1. Asymmetric wall thickening of the distal esophagus extending to the GE junction, consistent with the known history of prostatic cancer. 2. Mildly prominent subcarinal lymph node, may be reactive or metastatic. 3. Evaluation of the lung parenchyma is limited due to extensive motion artifact. However, there is no evidence of gross metastatic disease. Consults: -Oncology -CT Surgery -Gastroenterology ASSESSMENT/PLAN Fred Barragan is a 53 year old male admitted to the hospital with: Esophageal adenocarcinoma Chiang's esophagus Normocytic anemia HCV cirrhosis (MELDNa- 15) Thrombocytopenia hypoalbuminemia Comment: Patient admitted from GI clinic for cancer staging imaging with previously failed attempts due to claustrophobia on CT. Mass found on 06/2018 hospitalization for hematemesis during EGD which was suspicious for invasive carcinoma. Oncology and CT surgery recommending EUS to evaluate suspicioussubcarinal mass seen on CT. GI consulted, pending EGD in AM. -consult GI for EUS biopsy for tumor staging tomorrow -patient will be presented at tumor boards on 02/17/19 -low salt diet -omeprazole 40mg PO BID -increase spironolactone 1000mg PO QD -lasix IV 40mg BID -tramadol 50mg PO Q6H PRN (if needed) -zolpidem 10mg PO QHS Pain: Controlled- Tylenol Prophylaxis: DVT- heparin Stress Ulcer: pantoprazole Code Status: addressed- full DISPOSITION: Anticipated Discharge Date: 2+ Discharge To: Home Barriers to Discharge: Primary diagnosis Lc Hutton, MS4 [facility] 02/11/2019 05:54 END OF DAILY PROGRESS NOTE Hospital Course: Fred Barragan is a 53 year old male with a PMH of SHAKIR, (bipap) chronic back with NSAID use, CKD, insomnia, HCVcirrhosis, hypoalbuminemia, thrombocytopenia, ETOH use, tobacco use who presented for evaluation of esophageal cancer. Patient was initially told of his esophageal mass in 06/2018 afteran EGD for UGI bleed at [facility]. He was unfortunately lost to follow up however received another EGD in 11/2018 which showed an ulcerating mass in the lower third of the esophagus which was revealed to be poorly differentiated invasive carcinoma. He was unable to receive CT imaging for staging due tosevere claustrophobia and was admitted directly to [facility] from GI clinic for cancer staging with IV sedation and oncology evaluation. CT surgery and medical oncology consulted and recommend GI eval for EUS tumor staging and possible radiation oncology evaluation. Patient will be presented at thoracic tumor board on 02/17/19. MEDICATIONS: Scheduled meds: heparin 5,000 Units Q12H omeprazole 40 mg BID spironolactone 50 mg DAILY torsemide 40 mg BID zolpidem 10 mg QHS IV meds: PRN meds: ondansetron 4 mg Q6HPRN traMADol 50 mg Q6HPRN Associated attestation - Cong Meza MD - 02/11/2019 3:48 PM CDTI personally examined the patient and agree with Dr. Alvarado's note as written , including any changes or additions that the resident may have made to medical student's note. I actively participated in the decision making process. Please see the resident's note for additional details. Cong Meza MD 02/11/2019 15:48 Industrial Maintenance Repairer Helper Department of Internal Medicine Cedric Herrera, RN - 02/10/2019 1:34 PM CDTCare Management Note 02/10/19 1:34 PM Called [facility] [place], [place] Sm[employer] Stucco Resurfacer is on maternity leave, Doug [phone] states he was removed on February 03 2019 due to unemployment income pushing him over the limit.He did not report his income and as a result will no be allowed to apply until 08/2019. Referred to [facility] and working with team if case booking is required. Faxed over patients documents required for Casebook. Patient working on application completed 02/10/19 and emailed to case book coordinator Sent casebook request to oncology team via email NAVEEN Bloom, RN Interlocking Installer [email or web address] O:[phone] F:[phone] edric Herrera RN - 02/10/2019 1:34 PM CDTCare Management Social Functional Assessment Patient Name: Fred Barragan Age: [age] year old Sex: male Previous admit date: N/A Current diagnosis and co-morbidities: Esophageal cancer Readmission Questions: Was patient discharged from any acute care hospital within the last 30 days: No Social Functional Assessment: Primary language spoken/preferred: Malian Mental Status: Alert & Oriented to Person,Place & Time Information given by: Self Patient's support system: Other Name and number of support system: Donna Talamantes [phone] life partner Primary Client Consultant: Self MPOA: No Living Arrangement: Home: single story Address of living arrangement : [address] [place] [address] Persons living in home: Same as support system Barriers to returning home: None Baseline functional status- ambulation: Independent Functional status-baseline personal care: Independent Baseline functional status- driving: Independent Baseline functional status- grocery shopping: Independent Functional status-baseline housekeeping: Independent Functional status-baseline meal prep: Independent Current functional status same as prior: Yes Do you have a PCP?: Yes Name of PCP: Annetta Ventura FNP Home Health Care Agency: No Provider Services: No DME Company: No Equipment: CPAP(bp cuff, scale) Hemodialysis: No Community resources utilized: [facility] Funding Resources: [facility] where meds [facility]: Other Other pharmacy: [id number] - [place], [place] - [address] Anticipated services prior to disharge: Consult;Continue Medical Eval;Lab Values ;MRI/CT/US;Reassess prior to discharge Expected mode of discharge transportation: Personal vehicle;Same as support system Additional info required for discharge planning: Pending medical evaluation Recommended discharge plan: Home SFA Complete: Social Functional Assessment complete: Yes Alcohol Use Screening (AUDIT-C) How often do you have a drink containing alcohol?: Never SCORE: 0 Role of Care Management explained. NAVEEN Bloom, RN Interlocking Installer [email or web address] O:[phone] F:[phone] Cedric Duran RN - 02/10/2019 9:02 AM CDTCare Management Note 02/10/19 9:02 AM Attempted SFA, patient too sleepy to answer questions, will follow up NAVEEN Bloom, RN Interlocking Installer [email or web address] O:[phone] F:[phone] Efrem Vazquez MD - 02/10/2019 6:40 AM CDT I personally examined the patient on 02/10/19 and have verified the medical student documentation and/or findings, including the history, physical exam, and medical decision making. Additionally, I have personally performed or re- performed the physical exam and medical decision making activities of this patient's evaluation and management service. Efrem Deleon MD Internal Medicine PGY-1 Liz Team Pager #: [phone] Liz Team Progress Note Date of Service: 02/10/2019 17:29 Days Since Admission: 0 [id number] ID: Fred Barragan is a 53 year old male admitted for esophageal mass. 24 Hour Events: -NAEO SUBJECTIVE: Today, the patient was sleeping comfortably this morning. The patients reports the presence of leg swelling which is unchanged for 6 years and the absence of fever, cough, dysphagia. OBJECTIVE: Vitals: Temp: [36.2 C (97.1 F)-36.9 C (98.4 F)] Pulse: [70-86] Resp: [20] BP: (111-136)/(55-73) Oxygen delivery: room air, SpO2 95% Intake/Output: Intake/Output Summary (Last 24 hours) at 02/10/2019 172 Last data filed at 02/10/2019 1131 Gross per 24 hour Intake Output 3150 ml Net -3150 ml Physical Exam: General: alert and oriented x3; no apparent distress HEENT: NCAT; PERRLA; EOMI Cardio: regular rate and rhythm with no rubs, murmurs, or gallops Lungs: clear to ascultation with no wheezes, rales, or rhonchi Abdomen: soft, non-tender, non-distended with normoactive bowel sounds Extremities: no appreciable sacral edema; no new rashes, +3 pitting edema b/l Skin: normal color, texture and turgor with no lesions on inspection of exposed areas Neuro: no focal deficits LABS/IMAGING: LABS: CBC: Recent Labs 01/19/19172102/09/191735 WBC 4.80 4.53 HGB 8.0* 8.4* MCV 91.7 89.5 PLT 136* 313 BMP: Recent Labs 01/19/19172102/09/19173502/10/19 0615 NA 141 138 138 K 3.7 5.0 4.2 MG -- -- 2.1 CA 8.7 8.8 8.4* CL 111* 107 111* BUN 15 37* 34* CREAT 1.17 1.54* 1.24 GLU 131* 97 97 TCO2 20* 21* 21* LFTs: Recent Labs 01/19/19172102/09/191735 ALB 3.0* 3.0* TPRO 8.7* 8.9* BILIT 1.2* 1.4* BILIUNCON -- 0.7 BILICONJ -- 0.0 ALT 18 13 AST 82* 56* ALKPHOS 189* 227* Coagulation Panel: Recent Labs 02/09/19 1736 PTINR 1.3 PTPAT 14.8* APTTPAT 38* Additional Labs: Other CMP on 02/10/2019 02/09/2019 17:36 TOTAL BILI 1.4 (H) BILI UNCON 0.7 BILI CONJ 0.0 CALCIUM 8.8 T PROTEIN 8.9 (H) ALBUMIN 3.0 (L) AFP 5.2 Imaging: CT Abdomen Pelvis w. contrast on 02/09/19: IMPRESSION 1. No evidence of metastatic disease within the abdomen or pelvis. 2. Small serpiginous densities within the anterior mesentery adjacent to the anterior abdominal wall likely represent small portosystemic collaterals rather than true nodularity. No evidence of carcinomatosis at this time. 3. Cirrhotic morphology with splenomegaly and prominent left upper quadrant portosystemic collaterals including splenorenal shunt. 4. Nonobstructive left nephrolithiasis. CT Head w/o contrast on 02/09/19: IMPRESSION Normal CT head. No evidence of intracranial metastatic disease within the limitations of CT CT Thorax w. contrast on 02/09/19: IMPRESSION 1. Asymmetric wall thickening of the distal esophagus extending to the GE junction, consistent with the known history of prostatic cancer. 2. Mildly prominent subcarinal lymph node, may be reactive or metastatic. 3. Evaluation of the lung parenchyma is limited due to extensive motion artifact. However, there is no evidence of gross metastatic disease. Consults: -Oncology -CT Surgery ASSESSMENT/PLAN Fred Barragan is a 53 year old male admitted to the hospital with: Esophageal adenocarcinoma Chiang's esophagus Normocytic anemia HCV cirrhosis Thrombocytopenia hypoalbuminemia Comment: Patient admitted from GI clinic for cancer staging imaging with previously failed attempts due to claustrophobia on CT. Mass found on 06/2018 hospitalization for hematemesis during EGD which was suspicious for invasive carcinoma. Consulted oncology. Will consult CT surgery in morning. -low salt diet -omeprazole 40mg PO BID -spironolactone 50mg PO QD -torsemide 40mg PO BID -tramadol 50mg PO Q6H PRN (if needed) -zolpidem 10mg PO QHS -consult oncology, f/u with recs -consult CT surgery in AM Pain: Controlled- Tylenol Prophylaxis: DVT- heparin Stress Ulcer: pantoprazole Code Status: addressed- full DISPOSITION: Anticipated Discharge Date: 2+ Discharge To: Home Barriers to Discharge: Primary diagnosis Lc Hutton, 4 [facility] 02/10/2019 17:29 END OF DAILY PROGRESS NOTE Hospital Course: Fred Barragan is a 53 year old male with a PMH of SHAKIR, (bipap) chronic back with NSAID use, CKD, insomnia, HCVcirrhosis, hypoalbuminemia, thrombocytopenia, ETOH use, tobacco use who presented for evaluation of esophageal cancer. Patient was initially told of his esophageal mass in 06/2018 afteran EGD for UGI bleed at [facility]. He was unfortunately lost to follow up however received another EGD in 11/2018 which showed an ulcerating mass in the lower third of the esophagus which was revealed to be poorly differentiated invasive carcinoma. He was unable to receive CT imaging for staging due tosevere claustrophobia and was admitted directly to [facility] from GI clinic for cancer staging with IV sedation and oncology evaluation. MEDICATIONS: Scheduled meds: heparin 5,000 Units Q12H omeprazole 40 mg BID spironolactone 50 mg DAILY torsemide 40 mg BID zolpidem 10 mg QHS IV meds: PRN meds: traMADol 50 mg Q6HPRN Associated attestation - Cong Meza MD - 02/11/2019 3:15 PM CDTI personally examined the patient and agree with Dr. Deleon's note as written, including any changes or additions that the resident may have made to medical student's note. I actively participated in the decision making process. Please see the resident's note for additional details. Cong Meza MD 02/11/2019 15:15 [employer] Department of Internal Medicine documented in this encounter Plan of Treatment Date Type Specialty Care Team Description 06/07/2019 Office Visit Gastroenterology James Bravo MD [address] [place] [address] [phone] Name Type Priority Associated Diagnoses Order Schedule CBC WITH DIFF LAB Routine ONCE for 1 Occurrences starting 02/10/2019 until 02/10/2019 CBC WITH DIFFERENTIAL LAB Routine Once for 1 Occurrences starting 02/10/2019 until 02/10/2019 Health Maintenance Due Date Last Done Comments HEPATITIS C (HCV) SCREEN 1965 PNEUMOCOCCAL 0-64 YEARS COMBINED SERIES (1 of 3 - 1970 PCV13) DTaP,Tdap,and Td Vaccines (1 - Tdap) 1983 COLONOSCOPY 2014 Zoster Recombinant Vaccine (SHINGRIX) (1 of 2) 2014 INFLUENZA VACCINE (#1) 2019 documented as of this encounter Procedures Procedure Name Priority Date/Time Associated Comments Diagnosis POCT GLUCOSE Routine 02/13/2019 8:19 Results for this (AUTOMATED) AM CDT procedure are in the results section. PROFILE / HEMOGRAM Routine 02/13/2019 5:51 Results for this AM CDT procedure are in the results section. BASIC METABOLIC PANEL Routine 02/13/2019 5:51 Results for this (NA, K, CL, CO2, AM CDT procedure are in GLUCOSE, BUN, the results CREATININE, CA) section. UPPER EUS (ENDO) Routine 02/12/2019 12:44 PM CDT PROTHROMBIN TIME / Routine 02/12/2019 9:22 Results for this INR AM CDT procedure are in the results section. PROFILE / HEMOGRAM Routine 02/12/2019 9:21 Results for this AM CDT procedure are in the results section. COMP. METABOLIC PANEL Routine 02/12/2019 9:21 Results for this (74944) AM CDT procedure are in the results section. BASIC METABOLIC PANEL Add-on 02/10/2019 6:15 Results for this (NA, K, CL, CO2, AM CDT procedure are in GLUCOSE, BUN, the results CREATININE, CA) section. MAGNESIUM Routine 02/10/2019 6:15 Results for this AM CDT procedure are in the results section. CT THORAX W CONTRAST EL 02/09/2019 8:50 Malignant neoplasm Results for this PM CDT of lower third of procedure are in esophagus the results section. CT HEAD WO CONTRAST EL 02/09/2019 8:50 Malignant neoplasm Results for this PM CDT of lower third of procedure are in esophagus the results section. CT ABDOMEN PELVIS W EL 02/09/2019 8:50 Malignant neoplasm Results for this CONTRAST PM CDT of lower third of procedure are in esophagus the results section. URINALYSIS [facility] 02/09/2019 6:14 Results for this PM CDT procedure are in the results section. CBC WITH DIFFERENTIAL EL 02/09/2019 5:36 Results for this PM CDT procedure are in the results section. ACTIVATED PARTIAL EL 02/09/2019 5:36 Results for this THRMPLAS TA PM CDT procedure are in the results section. PROTHROMBIN TIME / EL 02/09/2019 5:36 Results for this INR PM CDT procedure are in the results section. CBC WITH DIFF EL 02/09/2019 5:36 Results for this PM CDT procedure are in the results section. ALPHA FETOPROTEIN Routine 02/09/2019 5:36 Results for this PM CDT procedure are in the results section. BASIC METABOLIC PANEL [facility] 02/09/2019 5:36 Results for this (NA, K, CL, CO2, PM CDT procedure are in GLUCOSE, BUN, the results CREATININE, CA) section. HEPATIC FUNCTION [facility] 02/09/2019 5:36 Results for this PANEL (44144) PM CDT procedure are in (ALB,T.PRO,BILI the results T,BU/BC,ALT,AST,ALK section. PHOS) documented in this encounter Results POCT GLUCOSE (AUTOMATED) (02/13/2019 8:19 AM CDT) Pathologist [facility] POCT GLU 99 70 - 110 mg/dL [facility] Specimen Blood Performing Organization Address City/State/Zipcode Phone Number [facility] CLIA: [id number], [address] [place] [address] [facility] BASIC METABOLIC PANEL (NA, K, CL, CO2, GLUCOSE, BUN, CREATININE, CA) (2018 5:51 AM CDT) NA 135 135 - 145 [facility] mmol/L SERVICES K 3.9 3.5 - 5.0 [facility] mmol/L SERVICES CL 106 98 - 108 mmol/L [facility] SERVICES CO2 TOTAL 21 (L) 23 - 31 mmol/L [facility] AGAP 8 2 - 16 [facility] BUN 26 (H) 7 - 23 mg/dL [facility] GLUCOSE 93 70 - 110 mg/dL [facility] CREATININE 1.18 0.60 - 1.25 [facility] mg/dL SERVICES CALCIUM 8.9 8.6 - 10.6 [facility] mg/dL SERVICES eGFR Calculation 64.3 mL/min/1.73m2 [facility] (Non-) SERVICES eGFR Calculation 78.0 mL/min/1.73m2 [facility] () SERVICES Specimen Blood - WRIST, RIGHT Narrative Performed At Association of Glomerular Filtration Rate (GFR) and Staging [facility] SERVICES of Kidney Disease* + + + + | GFR (mL/min/1.73 m2)| With Kidney Damage|Without Kidney Damage + + + + |>90|Stage one| Normal + + + + |60-89|Stage two| Decreased GFR + + + + |30-59|Stage three| Stage three + + + + |15-29|Stage four | Stage four + + + + |<15 (or dialysis)|Stage five | Stage five + + + + *Each stage assumes the associated GFR [...] tests). Performing Organization Address City/State/Zipcode Phone Number [facility] CLIA: [id number], [address] [place] [phone] [facility] PROFILE / HEMOGRAM (02/13/2019 5:51 AM CDT) WBC 4.60 4.20 - 10.70 [facility] 10*3/L SERVICES RBC 2.91 (L) 4.26 - 5.52 [facility] 10*6/L SERVICES HGB 7.8 (L) 12.2 - 16.4 g/dL [facility] SERVICES HCT 25.2 (L) 38.4 - 49.3 % [facility] SERVICES MCH 26.8 26.1 - 32.7 pg [facility] SERVICES MCV 86.6 81.7 - 95.6 fL [facility] SERVICES MCHC 31.0 (L) 31.2 - 35.0 g/dL [facility] SERVICES PLT 122 (L) 150 - 328 10*3/L [facility] SERVICES MPV 10.3 9.8 - 13.0 fL [facility] SERVICES RDW-CV 20.8 (H) 12.1 - 15.4 % [facility] SERVICES RDW-SD 66.3 (H) 38.5 - 51.6 fL [facility] SERVICES NRBC x10^3 <0.01 10*3/L [facility] SERVICES NRBC/100 WBC 0.0 0.0 - 10.0 /100 [facility] WBCs SERVICES IPF % 1.2 - 10.7 % [facility] SERVICES Specimen Blood - WRIST, RIGHT Performing Organization Address City/State/Zipcode Phone Number [facility] CLIA: [id number], [address] [place] [phone] [facility] PROTHROMBIN TIME / INR (02/12/2019 9:22 AM CDT) PROTIME PATIENT 15.1 (H) 10.1 - 12.6 [facility] Seconds SERVICES INR 1.4Comment: Normal [facility] INR <1.1; Warfarin SERVICES Therapeutic range 2.0 to 3.0 or 2.5 to 3.5, depending upon the indications. Specimen Blood - ARM, LEFT Performing Organization Address [facility] Phone Number [facility] CLIA: [id number], [address] [place] [phone] [facility] COMP. METABOLIC PANEL ([id number]) (02/12/2019 9:21 AM CDT) NA 135 135 - 145 [facility] mmol/L SERVICES K 4.1 3.5 - 5.0 [facility] mmol/L SERVICES CL 104 98 - 108 mmol/L [facility] SERVICES CO2 TOTAL 23 23 - 31 mmol/L [facility] SERVICES AGAP 8 2 - 16 [facility] SERVICES BUN 30 (H) 7 - 23 mg/dL [facility] SERVICES GLUCOSE 93 70 - 110 mg/dL [facility] SERVICES CREATININE 1.36 (H) 0.60 - 1.25 [facility] mg/dL SERVICES TOTAL BILI 1.1 0.1 - 1.1 mg/dL [facility] SERVICES CALCIUM 9.0 8.6 - 10.6 [facility] mg/dL SERVICES T PROTEIN 8.8 (H) 6.3 - 8.2 g/dL [facility] SERVICES ALBUMIN 3.0 (L) 3.5 - 5.0 g/dL [facility] SERVICES ALK PHOS 178 (H) 34 - 122 U/L [facility] ALT(SGPT) 16 9 - 51 U/L [facility] AST(SGOT) 50 (H) 13 - 40 U/L [facility] SERVICES eGFR Calculation 54.6 mL/min/1.73m2 [facility] (Non- SERVICES Gabonese) eGFR Calculation 66.2 mL/min/1.73m2 [facility] () SERVICES Specimen Blood - ARM, LEFT Narrative Performed At [facility] of Glomerular Filtration Rate (GFR) and Staging [facility] SERVICES of Kidney Disease* + + + + | GFR (mL/min/1.73 m2)| With Kidney Damage|Without Kidney Damage + + + + |>90|Stage one| Normal + + + + |60-89|Stage two| Decreased GFR + + + + |30-59|Stage three| Stage three + + + + |15-29|Stage four | Stage four + + + + |<15 (or dialysis)|Stage five | Stage five + + + + *Each stage assumes the associated GFR [...] tests). Performing Organization Address City/State/Zipcode Phone Number [facility] CLIA: [id number], [address] [place] [address] [phone] PROFILE / HEMOGRAM (02/12/2019 9:21 AM CDT) WBC 5.00 4.20 - 10.70 [facility] 10*3/L SERVICES RBC 3.24 (L) 4.26 - 5.52 [facility] 10*6/L SERVICES HGB 8.5 (L) 12.2 - 16.4 g/dL [facility] SERVICES HCT 28.0 (L) 38.4 - 49.3 % [facility] SERVICES MCH 26.2 26.1 - 32.7 pg [facility] SERVICES MCV 86.4 81.7 - 95.6 fL [facility] SERVICES MCHC 30.4 (L) 31.2 - 35.0 g/dL [facility] SERVICES PLT 150 150 - 328 10*3/L [facility] SERVICES MPV 10.6 9.8 - 13.0 fL [facility] SERVICES RDW-CV 20.6 (H) 12.1 - 15.4 % [facility] SERVICES RDW-SD 65.8 (H) 38.5 - 51.6 fL [facility] SERVICES NRBC x10^3 <0.01 10*3/L [facility] SERVICES NRBC/100 WBC 0.0 0.0 - 10.0 /100 [facility] WBCs SERVICES IPF % 1.2 - 10.7 % [facility] SERVICES Specimen Blood - ARM, LEFT Performing Organization Address City/State/Zipcode Phone Number [facility] CLIA: [id number], [address] [place] [address] [facility] BASIC METABOLIC PANEL (NA, K, CL, CO2, GLUCOSE, BUN, CREATININE, CA) (2018 6:15 AM CDT) NA 138 135 - 145 [facility] mmol/L SERVICES K 4.2Comment: 3.5 - 5.0 [facility] Slight hemolysis mmol/L SERVICES CL 111 (H) 98 - 108 [facility] mmol/L SERVICES CO2 TOTAL 21 (L) 23 - 31 [facility] mmol/L SERVICES AGAP 6 2 - 16 [facility] SERVICES BUN 34 (H)Comment: 7 - 23 mg/dL [facility] Slight hemolysis SERVICES GLUCOSE 97 70 - 110 [facility] mg/dL SERVICES CREATININE 1.24 0.60 - 1.25 [facility] mg/dL SERVICES CALCIUM 8.4 (L) 8.6 - 10.6 [facility] mg/dL SERVICES eGFR Calculation 60.8 mL/min/1.73m2 [facility] (Non- SERVICES Gabonese) eGFR Calculation 73.6 mL/min/1.73m2 [facility] () SERVICES Specimen Blood - LINE, VENOUS Narrative Performed At [facility] of Glomerular Filtration Rate (GFR) and Staging [facility] SERVICES of Kidney Disease* + + + + | GFR (mL/min/1.73 m2)| With Kidney Damage|Without Kidney Damage + + + + |>90|Stage one| Normal + + + + |60-89|Stage two| Decreased GFR + + + + |30-59|Stage three| Stage three + + + + |15-29|Stage four | Stage four + + + + |<15 (or dialysis)|Stage five | Stage five + + + + *Each stage assumes the associated GFR [...] tests). Performing Organization Address City/State/Zipcode Phone Number [facility] CLIA: [id number], [address] [place] [phone] [facility] Magnesium Serum (02/10/2019 6:15 AM CDT) [facility] MAGNESIUM 2.1Comment: Slight 1.7 - 2.4 mg/dL [facility] hemolysis SERVICES Specimen Blood - LINE, VENOUS Performing Organization Address [facility] Phone Number [facility] CLIA: [id number], [address] [place] [phone] [facility] CT HEAD WO CONTRAST (02/09/2019 8:50 PM CDT) Specimen Impressions Performed At PACS/VR/DOSE Normal CT head. No evidence of intracranial metastatic disease within the limitations of CT Narrative Performed At * * * * * * * * ORIGINAL REPORT * * * * * * * * PACS/VR/DOSE CT HEAD WO CONTRAST HISTORY: Male 53 years cancer staging COMPARISON: None TECHNIQUE: Routine CT head without contrast FINDINGS: The ventricles and cerebral sulci are normal in caliber and configuration. No hydrocephalus, midline shift or pathological extra-axial fluid collection is present. The basal cisterns are unremarkable. No acute intracranial hemorrhage or mass effect is present. The sibley-white matter differentiation is preserved. No parenchymal attenuation abnormality is present. The calvarium and skull base are unremarkable. The mastoid air cells and visualized paranasal air sinuses are clear. Procedure Note [facility], Radiant Results Inft User - 02/09/2019 11:05 PM CDT * * * * * * * * ORIGINAL REPORT * * * * * * * * CT HEAD WO CONTRAST HISTORY: Male 53 years cancer staging COMPARISON: None TECHNIQUE: Routine CT head without contrast FINDINGS: The ventricles and cerebral sulci are normal in caliber and configuration. No hydrocephalus, midline shift or pathological extra-axial fluid collection is present. The basal cisterns are unremarkable. No acute intracranial hemorrhage or mass effect is present. The sibley-white matter differentiation is preserved. No parenchymal attenuation abnormality is present. The calvarium and skull base are unremarkable. The mastoid air cells and visualized paranasal air sinuses are clear. IMPRESSION Normal CT head. No evidence of intracranial metastatic disease within the limitations of CT Performing Organization Address City/State/Zipcode Phone Number PACS/VR/DOSE CT THORAX W CONTRAST (02/09/2019 8:50 PM CDT) Specimen Impressions Performed At PACS/VR/DOSE 1.Asymmetric wall thickening of the distal esophagus extending to the GE junction, consistent with the known history of prostatic cancer. 2.Mildly prominent subcarinal lymph node, likely reactive. 3.Evaluation of the lung parenchyma is limited due to extensive motion artifact. However, there is no evidence of gross metastatic disease. 4.There are groundglass attenuation of the lungs likely consistent with mild pulmonary edema. Enlarged pulmonary conus concerning for pulmonary arterial hypertension. Allyson Coyne MD., have reviewed this study and agree with the above report. Narrative Performed At * * * * * * * * ORIGINAL REPORT * * * * * * * * PACS/VR/DOSE PROCEDURE: CT CHEST WITH CONTRAST - CHEST PROTOCOL CLINICAL INDICATION: 53-year-old male with recently diagnosed bladder cancer. Neoplasm: esophagus, staging COMPARISON: Chest radiograph dated 01/19/2019. TECHNIQUE:Helical CT was performed of the chest (lung apices to bases) was performed after uncomplicated injection of 120 mL of Omnipaque 350 IV. Images were reconstructed at 1.25 mm slice thickness. MIP and coronal & sagittal MPR images were generated and reviewed.(DFOV=50 cm) FINDINGS: Lower neck/thyroid: Unremarkable. Lungs: Evaluation of the lung parenchyma is limited due to motion artifact. No gross metastatic disease is identified. Scattered subsegmental atelectasis present. Diffuse groundglass attenuation of the lungs likely consistent with mild pulmonary edema Central airway: Weblike tracheal secretions are seen. A small meningocele is partially visualized on the right side of the neck. Pleura: No pleural effusion, thickening or pneumothorax. Thoracic aorta and great vessels:Normal in diameter. Pulmonary arteries: The pulmonary artery is mildly dilated at 3.5 cm, can be seen in pulmonary hypertension. Heart and pericardium: No detectable coronary arterial calcification. Cardiomegaly. Unremarkable pericardium. Lymph nodes: A 1.2 cm subcarinal lymph node is present (6:102). Mediastinum: Asymmetric mural thickening is noted in the distal esophagus (6:185) extending to the GE junction. Thoracic spine and chest wall: Unremarkable, with normal thoracic vertebral body heights. Cortical irregularity is seen in the right humerus (6:63, 604:146) that savored to represent motion artifact. No surrounding soft tissue swelling is identified. Other Lines/Tubes/Devices/Hardware: None Visualized upper abdomen:Prior cholecystectomy. Cirrhotic morphology of the liver and splenomegaly. Please refer to the concurrently performed and separately dictated CT of the abdomen. Procedure Note [facility], Radiant Results Inft User - 02/10/2019 10:48 PM CDT * * * * * * * * ORIGINAL REPORT * * * * * * * * PROCEDURE: CT CHEST WITH CONTRAST - CHEST PROTOCOL CLINICAL INDICATION: 53-year-old male with recently diagnosed bladder cancer. Neoplasm: esophagus, staging COMPARISON: Chest radiograph dated 01/19/2019. TECHNIQUE: Helical CT was performed of the chest (lung apices to bases) was performed after uncomplicated injection of 120 mL of Omnipaque 350 IV. Images were reconstructed at 1.25 mm slice thickness. MIP and coronal & sagittal MPR images were generated and reviewed. (DFOV=50 cm) FINDINGS: Lower neck/thyroid: Unremarkable. Lungs: Evaluation of the lung parenchyma is limited due to motion artifact. No gross metastatic disease is identified. Scattered subsegmental atelectasis present. Diffuse groundglass attenuation of the lungs likely consistent with mild pulmonary edema Central airway: Weblike tracheal secretions are seen. A small meningocele is partially visualized on the right side of the neck. Pleura: No pleural effusion, thickening or pneumothorax. Thoracic aorta and great vessels: Normal in diameter. Pulmonary arteries: The pulmonary artery is mildly dilated at 3.5 cm, can be seen in pulmonary hypertension. Heart and pericardium: No detectable coronary arterial calcification. Cardiomegaly. Unremarkable pericardium. Lymph nodes: A 1.2 cm subcarinal lymph node is present (6:102). Mediastinum: Asymmetric mural thickening is noted in the distal esophagus (6:185) extending to the GE junction. Thoracic spine and chest wall: Unremarkable, with normal thoracic vertebral body heights. Cortical irregularity is seen in the right humerus (6:63, 604:146) that savored to represent motion artifact. No surrounding soft tissue swelling is identified. Other Lines/Tubes/Devices/Hardware: None Visualized upper abdomen: Prior cholecystectomy. Cirrhotic morphology of the liver and splenomegaly. Please refer to the concurrently performed and separately dictated CT of the abdomen. IMPRESSION 1. Asymmetric wall thickening of the distal esophagus extending to the GE junction, consistent with the known history of prostatic cancer. 2. Mildly prominent subcarinal lymph node, likely reactive. 3. Evaluation of the lung parenchyma is limited due to extensive motion artifact. However, there is no evidence of gross metastatic disease. 4. There are groundglass attenuation of the lungs likely consistent with mild pulmonary edema. Enlarged pulmonary conus concerning for pulmonary arterial hypertension. I, Ivelisse Mcdaniel MD., have reviewed this study and agree with the above report. Performing Organization Address City/State/Zipcode Phone Number PACS/VR/DOSE CT ABDOMEN PELVIS W CONTRAST (02/09/2019 8:50 PM CDT) Specimen Impressions Performed At 1.No evidence of metastatic disease within the abdomen or pelvis. PACS/VR/DOSE 2.Small serpiginous densities within the anterior mesentery adjacent to the anterior abdominal wall likely represent small portosystemic collaterals rather than true nodularity. No evidence of carcinomatosis at this time. 3.Cirrhotic morphology with splenomegaly and prominent left upper quadrant portosystemic collaterals including splenorenal shunt. 4.Nonobstructive left nephrolithiasis. Narrative Performed At * * * * * * * * ORIGINAL REPORT * * * * * * * * PACS/VR/DOSE CT ABDOMEN AND PELVIS WITH CONTRAST REASON FOR STUDY: 53-year-old male with recent unintentional weight loss, history of gastric AVM and recently diagnosed poorly differentiated invasive esophageal carcinoma superimposed on Chiang's esophagus. COMPARISON: None available. TECHNIQUE: Multidetector axial CT images from lung bases through proximal thighs after IV administration of nonionic iodinated contrast material. Coronal and sagittal MPR images also generated. INTRAVENOUS CONTRAST ADMINISTRATION (mL Omnipaque 350): 120. Total DLP: 2828 mGy*cm FINDINGS: Evaluation is limited due to patient body habitus, suboptimal penetration, beam hardening artifact from hand positioning and single phase imaging. Lower chest: Please see separately dictated CT chest report for intrathoracic findings. ABDOMEN AND PELVIS Liver: Cirrhotic configuration with micronodular surface contour, left lobe hypertrophy and extensive left upper quadrant portosystemic collaterals with a large splenorenal shunt. No focal hepatic lesions identified within the above limitations. Biliary Tract/GB: Post cholecystectomy without any definite biliary ductal dilatation. Spleen: Splenomegaly with spleen measuring 13.8 cm in AP dimension. Pancreas: Within normal limits. Adrenals: Within normal limits. Kidneys: Kidneys enhance symmetrically. No hydronephrosis. Left lower renal pole nonobstructive calculus measuring up to 1.6 cm. Bowel: Diffuse colonic diverticulosis without CT evidence of acute diverticulitis. Diverticulosis most prominent within the rectosigmoid region. Known esophageal carcinoma is not well visualized. Peritoneum: Prominence of small to trace portosystemic collaterals within the anterior mesentery. No definite nodularity identified. Vasculature: Patent main portal and splenic veins. Right upper quadrant portosystemic and mesenteric collaterals as above. Lymph Nodes: No abdominal or pelvic lymphadenopathy. Mild prominence of left aortic retroperitoneal lymph nodes with the largest one measuring less than 1 cm short axis.. Pelvic organs: Urinary bladder is normal for the degree of distention. Abdominal/Pelvic Wall: Small right fat-containing inguinal hernia. Small collateral vessel and fat-containing umbilical hernia measures 3.4 cm at its base. BONES: No aggressive osseous abnormality. Small amount of fluid in the subcutaneous fascial planes of lower back. Additionally, there is moderate stranding along bilateral anterolateral abdominal soft tissues. 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 COMPARISON: None available. TECHNIQUE: Multidetector axial CT images from lung bases through proximal thighs after IV administration of nonionic iodinated contrast material. Coronal and sagittal MPR images also generated. INTRAVENOUS CONTRAST ADMINISTRATION (mL Omnipaque 350): 120. Total DLP: 2828 mGy*cm FINDINGS: Evaluation is limited due to patient body habitus, suboptimal penetration, beam hardening artifact from hand positioning and single phase imaging. Lower chest: Please see separately dictated CT chest report for intrathoracic findings. ABDOMEN AND PELVIS Liver: Cirrhotic configuration with micronodular surface contour, left lobe hypertrophy and extensive left upper quadrant portosystemic collaterals with a large splenorenal shunt. No focal hepatic lesions identified within the above limitations. Biliary Tract/GB: Post cholecystectomy without any definite biliary ductal dilatation. Spleen: Splenomegaly with spleen measuring 13.8 cm in AP dimension. Pancreas: Within normal limits. Adrenals: Within normal limits. Kidneys: Kidneys enhance symmetrically. No hydronephrosis. Left lower renal pole nonobstructive calculus measuring up to 1.6 cm. Bowel: Diffuse colonic diverticulosis without CT evidence of acute diverticulitis. Diverticulosis most prominent within the rectosigmoid region. Known esophageal carcinoma is not well visualized. Peritoneum: Prominence of small to trace portosystemic collaterals within the anterior mesentery. No definite nodularity identified. Vasculature: Patent main portal and splenic veins. Right upper quadrant portosystemic and mesenteric collaterals as above. Lymph Nodes: No abdominal or pelvic lymphadenopathy. Mild prominence of left aortic retroperitoneal lymph nodes with the largest one measuring less than 1 cm short axis.. Pelvic organs: Urinary bladder is normal for the degree of distention. Abdominal/Pelvic Wall: Small right fat-containing inguinal hernia. Small collateral vessel and fat-containing umbilical hernia measures 3.4 cm at its base. BONES: No aggressive osseous abnormality. Small amount of fluid in the subcutaneous fascial planes of lower back. Additionally, there is moderate stranding along bilateral anterolateral abdominal soft tissues. IMPRESSION 1. No evidence of metastatic disease within the abdomen or pelvis. 2. Small serpiginous densities within the anterior mesentery adjacent to the anterior abdominal wall likely represent small portosystemic collaterals rather than true nodularity. No evidence of carcinomatosis at this time. 3. Cirrhotic morphology with splenomegaly and prominent left upper quadrant portosystemic collaterals including splenorenal shunt. 4. Nonobstructive left nephrolithiasis. Performing Organization Address City/[facility] Phone Number PACS/VR/DOSE Urinalysis (02/09/2019 6:14 PM CDT) Pathologist [facility] APPEARANCE Clear Clear [facility] COLOR Yellow Yellow [facility] PH 7.0 4.8 - 8.0 [facility] SP GRAVITY 1.012 1.003 - 1.030 [facility] GLU U QUAL Normal Normal [facility] BLOOD Negative Negative [facility] KETONES Negative Negative [facility] PROTEIN Negative Negative [facility] UROBILIN 4.0 mg/dL (A) Normal [facility] BILIRUBIN Negative Negative [facility] NITRITE Negative Negative [facility] LEUK OCTAVIO Negative Negative [facility] RBC/HPF 1 0 - 3 HPF [facility] WBC/HPF <1 0 - 5 HPF [facility] BACTERIA Negative Negative [facility] Specimen Urine - URINE, CLEAN CATCH Performing Organization Address [facility] Phone Number [facility] CLIA: [id number], [address] [place] [address] [facility] ALPHA FETOPROTEIN (02/09/2019 5:36 PM CDT) Pathologist [facility] AFP 5.2 <=7.5 ng/mL [facility] Specimen Blood - ARM, RIGHT Narrative Performed At Biotin has been reported to cause a negative bias, interpret [facility] results relative to patient's use of biotin. Performing Organization Address [facility] Phone Number [facility] CLIA: [id number], [address] [place] [phone] [facility] CBC WITH DIFFERENTIAL (02/09/2019 5:36 PM CDT) Pathologist [facility] WBC 4.53 4.20 - 10.70 [facility] 10*3/L SERVICES RBC 3.05 (L) 4.26 - 5.52 [facility] 10*6/L SERVICES HGB 8.4 (L) 12.2 - 16.4 [facility] g/dL SERVICES HCT 27.3 (L) 38.4 - 49.3 % [facility] MCV 89.5 81.7 - 95.6 fL [facility] MCH 27.5 26.1 - 32.7 pg [facility] MCHC 30.8 (L) 31.2 - 35.0 [facility] g/dL SERVICES RDW-SD 71.6 (H) 38.5 - 51.6 fL [facility] RDW-CV 23.3 (H) 12.1 - 15.4 % [facility] PLT 313 150 - 328 [facility] 10*3/L SERVICES MPV 13.4 (H) 9.8 - 13.0 fL [facility] NRBC/100 WBC 0.0 0.0 - 10.0 /100 [facility] WBCs SERVICES NRBC x10^3 <0.01 10*3/L [facility] GRAN MAT (NEUT) % 54.4 % [facility] IMM GRAN % 0.20 % [facility] LYMPH % 30.2 % [facility] MONO % 6.8 % [facility] EOS % 7.1 % [facility] BASO % 1.3 % [facility] GRAN MAT x10^3(ANC) 2.46 1.99 - 6.95 [facility] 10*3/uL SERVICES IMM GRAN x10^3 <0.03 0.00 - 0.06 [facility] 10*3/uL SERVICES LYMPH x10^3 1.37 1.09 - 3.23 [facility] 10*3/uL SERVICES MONO x10^3 0.31 (L) 0.36 - 1.02 [facility] 10*3/uL SERVICES EOS x10^3 0.32 0.06 - 0.53 [facility] 10*3/uL SERVICES BASO x10^3 0.06 0.01 - 0.09 [facility] 10*3/uL SERVICES Specimen Blood - ARM, RIGHT Performing Organization Address City/State/Zipcode Phone Number [facility] CLIA: [id number], [address] [place] [phone] [facility] aPTT (02/09/2019 5:36 PM CDT) APTT Patient 38 (H) 26 - 36 Seconds [facility] Specimen Blood - ARM, RIGHT Performing Organization Address City/State/Zipcode Phone Number [facility] CLIA: [id number], [address] [place] [phone] [facility] Prothrombin Time / INR (02/09/2019 5:36 PM CDT) PROTIME PATIENT 14.8 (H) 10.1 - 12.6 [facility] Seconds SERVICES INR 1.3Comment: Normal [facility] INR <1.1; Warfarin SERVICES Therapeutic range 2.0 to 3.0 or 2.5 to 3.5, depending upon the indications. Specimen Blood - ARM, RIGHT Performing Organization Address [facility] Phone Number [facility] CLIA: [id number], [address] [place] [address] [phone] [facility] BASIC METABOLIC PANEL (NA, K, CL, CO2, GLUCOSE, BUN, CREATININE, CA) (2018 5:36 PM CDT) NA 138 135 - 145 [facility] mmol/L SERVICES K 5.0Comment: 3.5 - 5.0 [facility] Slight hemolysis mmol/L SERVICES CL 107 98 - 108 [facility] mmol/L SERVICES CO2 TOTAL 21 (L) 23 - 31 [facility] mmol/L SERVICES AGAP 10 2 - 16 [facility] BUN 37 (H)Comment: 7 - 23 mg/dL [facility] Slight hemolysis SERVICES GLUCOSE 97 70 - 110 [facility] mg/dL SERVICES CREATININE 1.54 (H) 0.60 - 1.25 [facility] mg/dL SERVICES CALCIUM 8.8 8.6 - 10.6 [facility] mg/dL SERVICES eGFR Calculation 47.3 mL/min/1.73m2 [facility] (Non- SERVICES Gabonese) eGFR Calculation 57.3 mL/min/1.73m2 [facility] () SERVICES Specimen Blood - ARM, RIGHT Narrative Performed At Association of Glomerular Filtration Rate (GFR) and Staging [facility] of Kidney Disease* + + + + | GFR (mL/min/1.73 m2)| With Kidney Damage|Without Kidney Damage + + + + |>90|Stage one| Normal + + + + |60-89|Stage two| Decreased GFR + + + + |30-59|Stage three| Stage three + + + + |15-29|Stage four | Stage four + + + + |<15 (or dialysis)|Stage five | Stage five + + + + *Each stage assumes the associated GFR [...] abnormalities in imaging tests). Performing Organization Address City/[facility] Phone Number [facility] CLIA: [id number], [address] [place] [address] [facility] HEPATIC FUNCTION PANEL (19454) (ALB,T.PRO,BILI T,BU/BC,ALT,AST,ALK PHOS) (2018 5:36 PM CDT) TOTAL BILI 1.4 (H) 0.1 - 1.1 mg/dL [facility] BILI UNCON 0.7 0.1 - 1.1 mg/dL [facility] BILI CONJ 0.0 0.0 - 0.3 mg/dL [facility] T PROTEIN 8.9 (H) 6.3 - 8.2 g/dL [facility] ALBUMIN 3.0 (L) 3.5 - 5.0 g/dL [facility] ALK PHOS 227 (H) 34 - 122 U/L [facility] ALT(SGPT) 13 9 - 51 U/L [facility] AST(SGOT) 56 (H) 13 - 40 U/L [facility] Specimen Blood - ARM, RIGHT Performing Organization Address [facility] Phone Number [facility] CLIA: [id number], [address] [place] [address] [facility] documented in this encounter Visit Diagnoses Diagnosis Malignant neoplasm of lower third of esophagus - Primary Localized edema Edema documented in this encounter Administered Medications Medication Order MAR Action Action Date Dose Rate Site diphenhydrAMINE (BENADRYL) capsule Given 02/12/2019 10:54 PM CDT 50 mg 50 mg 50 mg, Oral, BIDPRN, Starting Fri02/11/19 at 2057, Until Discontinued, Routine, Itching, Congestion/Allergies furosemide (LASIX) injection 40 mg Given 02/12/2019 5:22 PM CDT 40 mg 40 mg, Slow IV Push, QPM, First dose on Fri02/12/19 at 1700, Until Discontinued, Routine furosemide (LASIX) injection 80 mg Given 02/13/2019 8:48 AM CDT 80 mg 80 mg, Slow IV Push, QAM, First dose on Fri02/13/19 at 0900, Until Discontinued, Routine omeprazole (PRILOSEC) capsule 40 mg Given 02/13/2019 8:48 AM CDT 40 mg 40 mg, Oral, BID, First dose on Fri02/09/19 at 2000, Until Discontinued Given 02/12/2019 9:01 PM CDT 40 mg Given 02/12/2019 7:54 AM CDT 40 mg ondansetron (ZOFRAN (PF)) injection 4 mg 4 mg, Slow IV Push, Q6HPRN, Starting Fri02/11/19 at 0011, Until Discontinued, Routine, Nausea and Vomiting (N/V) spironolactone (ALDACTONE) tablet 100 mg Given 02/13/2019 8:48 AM CDT 100 mg 100 mg, Oral, DAILY, First dose on Fri02/12/19 at 0900, Until Discontinued, Routine Given 02/12/2019 7:54 AM CDT 100 mg traMADol (ULTRAM) tablet 50 mg Given 02/12/2019 9:01 PM CDT 50 mg 50 mg, Oral, Q6HPRN, Starting Fri02/09/19 at 1639, Until Discontinued, Routine, Pain (scale 7-10) Given 02/11/2019 8:30 PM CDT 50 mg Given 02/10/2019 9:12 PM CDT 50 mg zolpidem (AMBIEN) tablet 10 mg Given 02/12/2019 10:54 PM CDT 10 mg 10 mg, Oral, QHS, First dose on Fri02/09/19 at 2100, Until Discontinued Given 02/11/2019 11:41 PM CDT 10 mg Given 02/11/2019 12:09 AM CDT 10 mg Medication Order MAR Action Action Date Dose Rate Site diphenhydrAMINE (BENADRYL) capsule Given 02/09/2019 11:33 PM CDT 50 mg 50 mg 50 mg, Oral, ONCE NOW, 1 dose, Fri02/09/19 at 2300, EL diphenhydrAMINE (BENADRYL) capsule 50 mg Given 02/11/2019 10:31 PM CDT 50 mg 50 mg, Oral, ONCE NOW, 1 dose, Fri02/11/19 at 2200, Routine furosemide (LASIX) injection 40 mg Given 02/12/2019 7:55 AM CDT 40 mg 40 mg, Slow IV Push, Q12H, First dose on Fri02/11/19 at 1045, Until Discontinued, Routine Given 02/11/2019 8:30 PM CDT 40 mg Given 02/11/2019 11:53 AM CDT 40 mg iohexol (OMNIPAQUE 350 BULK-150 mL) Given 02/09/2019 8:45 PM CDT 120 mL injection 120 mL 120 mL, Intravenous, ONCE, 1 dose, Fri02/09/19 at 2100, Routine LORazepam (ATIVAN) injection 2 mg Given by Provider 02/09/2019 9:34 PM CDT 2 mg 2 mg, Slow IV Push, BIDPRN, Starting Fri02/09/19 at 1755, Until Fri02/10/19 at 1140, Routine, Anxiety proCHLORperazine (COMPAZINE) 5 mg in NaCl 0.9% Given 02/11/2019 1:17 AM CDT 5 mg (NS) piggyback 5 mg, IV Piggyback, ONCE NOW, 1 dose, Saritha 02/11/19 at 0015, 50 mL spironolactone (ALDACTONE) tablet 50 mg Given 02/11/2019 8:40 AM CDT 50 mg 50 mg, Oral, DAILY, First dose on Fri02/10/19 at 0900, Until Discontinued, Routine Given 02/10/2019 8:16 AM CDT 50 mg torsemide (DEMADEX) tablet 40 mg Given 02/11/2019 8:40 AM CDT 40 mg 40 mg, Oral, BID, First dose on Fri02/09/19 at 2000, Until Discontinued, Routine Given 02/11/2019 12:07 AM CDT 20 mg Given 02/10/2019 8:42 PM CDT 20 mg documented in this encounter
--- OUTSIDE RECORDS SUMMARY | 2019-04-27 13:28 | XMS REPORT | Summary of Care ---
:1965 Author Organization [facility] Address [address] [place] [address] Care Team Providers Name Role Phone Annetta Ventura Primary Care Provider Encounter Details Date Type Department Care Team Description 02/17/2019 Multidisciplinary [facility] Keith Hartmann MBBS Conference Hematology / [address] [place] [address] [facility] [phone] [place] [address] Drive, [address]rd [place] [address] Allergies Active Allergy Reactions Severity Noted Date Comments Sulfa (Sulfonamide Antibiotics) Swelling 11/12/2018 documented as of this encounter (statuses as of 02/19/2019) Medications Medication Sig Dispensed Refills Start Date End Date Status MELATONIN, BULK, MISC 0 Active omeprazole 40 mg Take 1 capsule 180 capsule 0 12/22/2018 03/22/2019 Active capsuleIndications: by mouth 2 Esophageal mass, Upper (two) times GI bleeding, Iron daily for 90 deficiency anemia due days. to chronic blood loss phytonadione, vit K1, 100 mg daily. 0 Active (VITAMIN K1 MISC) torsemide 20 mg tablet Take 40 mg by 0 Active mouth 2 (two) times daily. spironolactone 100 mg Take 1 tablet 30 tablet 1 02/14/2019 Active tabletIndications: by mouth Malignant neoplasm of daily. lower third of esophagus traMADol 50 mg Take 1 tablet 30 tablet 0 02/14/2019 Active tabletIndications: by mouth every Pitting edema 6 (six) hours as needed for Pain (scale 7-10). zolpidem (AMBIEN) 10 Take 1 tablet 30 tablet 1 02/14/2019 Active mg tabletIndications: by mouth at Malignant neoplasm of bedtime. lower third of esophagus documented as of this encounter (statuses as of 02/19/2019) Active Problems Problem Noted Date Esophageal cancer 02/09/2019 Morbid obesity with body mass index of 40.0-49.9 02/09/2019 Malignant neoplasm of lower third of esophagus 02/08/2019 Overview: Added automatically from request for surgery [id number] Esophageal mass 12/01/2018 Overview: Added automatically from request for surgery [id number] Upper GI bleeding 11/12/2018 Iron deficiency anemia due to chronic blood loss 11/12/2018 SHAKIR treated with BiPAP 11/12/2018 Alcohol abuse 11/12/2018 documented as of this encounter (statuses as of 02/19/2019) Social History Tobacco Use Types Packs/Day Years [...] Treatment Date Type Specialty Care Team Description 02/26/2019 Office Visit Thoracic Surgery Vish Oliver MD [address] [place] [phone] 06/07/2019 Office Visit Gastroenterology James Bravo MD [address] [place] [address] [phone] Health Maintenance Due Date Last Done Comments HEPATITIS C (HCV) SCREEN 1965 PNEUMOCOCCAL 0-64 YEARS COMBINED SERIES (1 of 3 - 1970 PCV13) DTaP,Tdap,and Td Vaccines (1 - Tdap) 1983 COLONOSCOPY 2014 Zoster Recombinant Vaccine (SHINGRIX) (1 of 2) 2014 INFLUENZA VACCINE (#1) 2019 documented as of this encounter Results Not on filedocumented in this encounter
--- OUTSIDE RECORDS SUMMARY | 2019-04-27 13:28 | XMS REPORT | Summary of Care ---
:1965 Author Organization [facility] Address [address] [place] [address] Care Team Providers Name Role Phone Annetta Ventura Primary Care Provider Encounter Details Date Type Department Care Team Description 02/17/2019 Multidisciplinary [facility] Keith Hartmann MBBS Conference Hematology / [address] [place] [address] [facility] [phone] [place] [address] Drive, [address] [place] [address] Allergies Active Allergy Reactions Severity Noted Date Comments Sulfa (Sulfonamide Antibiotics) Swelling 11/12/2018 documented as of this encounter (statuses as of 02/17/2019) Medications Medication Sig Dispensed Refills Start Date [...] as of this encounter (statuses as of 02/17/2019) Active Problems Problem Noted Date Esophageal cancer 02/09/2019 Morbid obesity with body mass index of 40.0-49.9 02/09/2019 Malignant neoplasm of lower third of esophagus 02/08/2019 Overview: Added automatically from request for surgery [id number] Esophageal mass 12/01/2018 Overview: Added automatically from request for surgery [id number] Upper GI bleeding 11/12/2018 Iron deficiency anemia due to chronic blood loss 11/12/2018 SHAKIR treated with BiPAP 11/12/2018 Alcohol abuse 11/12/2018 documented as of this encounter (statuses as of 02/17/2019) Social History Tobacco Use Types Packs/Day Years [...] 06/07/2019 Office Visit Gastroenterology James Bravo MD [address] [place] [phone] Health Maintenance Due Date Last Done Comments [...] Phone Address Type Group Dates BARAK CANCINO [id number] 2018-[place] [phone] [facility]IMARY [facility] PRIMARY CARE nt [address] [place] [address] documented as of this encounter
--- OUTSIDE RECORDS SUMMARY | 2019-04-27 13:28 | XMS REPORT | Summary of Care ---
:1965 Author Organization [facility] Address [address] [place] [address] Care Team Providers Name Role Phone Annetta Ventura Primary Care Provider Encounter Details Date Type Department Care Team Description 02/17/[address] [facility] Keith Hartmann MBBS Conference Hematology / [address] [place] [address] [facility] [phone] [place] [address] Drive, [address] [place] [address] Allergies Active Allergy Reactions Severity [...] Overview: Added automatically from request for surgery [id number] Esophageal mass 12/01/2018 Overview: Added automatically from request for surgery [id number] Upper GI bleeding 11/12/2018 Iron deficiency anemia [...] 06/07/2019 Office Visit Gastroenterology James Bravo MD [address] [place] [address] [phone] Health Maintenance Due Date Last Done Comments [...] Phone Address Type Group Dates BARAK CANCINO [id number] 2018-[place] [phone] [facility] PRIMARY CARE PRIMARY CARE nt [address] [place] [address] documented as of this encounter
[2019-04-27 14:31] LABS: Absolute Lymphocytes (CBC) 1.7 K/uL (0.7-4.9); Basophils % 1.4 % (0-1.3); Lymphocytes % 22.7 % (15.3-44.8); MPV 8.5 fL (7.6-11.3); RBC Red Blood Cell Count 2.21 M/uL (4.33-5.43)
[2019-04-27 14:43] LABS: Bilirubin Direct 1.1 mg/dL (0-0.2); Bilirubin Total 1.8 mg/dL (0.2-1.0); Potassium 3.4 mmol/L (3.5-5.1); Protein, Total 8.3 g/dL (6.4-8.2)
[2019-04-27 14:44] LABS: Hematocrit 18.8 % (39.6-49.0)
[2019-04-27 14:45] LABS: Protime INR 1.63
[2019-04-27 14:55] LABS: Magnesium 1.9 mg/dL (1.8-2.4); NT PRO-BNP 255 pg/mL (<125); Troponin (Emerg Dept Use Only) < 0.02 ng/mL (0.0-0.045)
--- NOTE | 2019-04-27 15:16 | RAD REPORT ---
EXAM DESCRIPTION: RAD - Chest Single View - 04/27/2019 2:45 pm CLINICAL HISTORY: Cough, abdominal distension COMPARISON: September 25, 2018 TECHNIQUE: AP portable chest image was obtained 1442 hours . FINDINGS: Interstitial pattern is accentuated by large body habitus, portable technique and shallow inspiration. Pattern is similar to comparison. Interstitial edema and infiltrate can be masked in thi s setting. No focal mass or consolidation. Heart and vasculature are normal. No measurable pleural effusion and no pneumothorax. No acute bony abnormality seen. No acute aortic findings suspected. IMPRESSION: Prominent but stable interstitial pattern throughout both lung gutierrez. Interstitial edema and infiltrates can be masked in this setting.
--- NOTE | 2019-04-27 15:39 | RAD REPORT ---
EXAM DESCRIPTION: US - Extrem Venous W Compress Guido - 04/27/2019 3:19 pm CLINICAL HISTORY: Bilateral lower extremity pain and swelling COMPARISON: None. TECHNIQUE: Real-time sonographic evaluation of the bilateral lower extremity common femoral, superfi cial femoral, popliteal and posterior tibial veins was performed. FINDINGS: Normal compressibility, flow augmentation, phasic flow and spontaneous flow are identified in the left and right lower extremity common femoral, superficial femoral, popliteal and posterior t ibial veins. No intraluminal filling defects seen. IMPRESSION: No DVT in either lower extremity.
[2019-04-27] MEDS ORDERED: NA CHLORIDE 0.9% 1,000 ML ONE (15:57)
[2019-04-27] MEDS ORDERED: PANTOPRAZOLE 40 MG INJ ONE (15:57)
[2019-04-27] MEDS ORDERED: NA CHLORIDE 0.9% 250 ML ONE ×2 (15:57→20:12)
--- NOTE | 2019-04-27 16:00 | RAD REPORT ---
EXAM DESCRIPTION: CT - Chest Abd Pelvis Wo Con - 04/27/2019 3:33 pm CLINICAL HISTORY: Chest pain;Abdominal distention, recent surgery for esophageal carcinoma COMPARISON: None. TECHNIQUE: During dynamic enhancement using 100 milliliters nonionic IV contrast, axial 5 millimeter thick images of the chest, abdomen and pelvis were obtained. Biphasic technique was utilized through the abdomen. Oral contrast was administered. All CT scans are performed using dose optimization technique as appropriate and may include automated exposure control or mA/KV adjustment according to patient size. FINDINGS: A 10 millimeter nodule is present in the posterior gutter on the right. There is atelectas is in this region as well. No other significant lung parenchymal process. There is some minimal pleur al thickening or nodularity present in the right lung field. No pneumothorax. Patient is status post esophageal carcinoma resection. Patient appears to be status post gastric pull-through with anastomos is in the mid esophagus level. In the posteromedial right lower lung field small pleural fluid collec tion is present. There is fluid/soft tissue attenuation that extends through the night inner costal s pace posteriorly into the subcutaneous soft tissues. This is approximately 6-7 cm in size in the subc utaneous fatty tissues. No air within this collection. No foreign body. Mediastinal and hilar regions show no mass or lymphadenopathy. No significant cardiac finding. No focal liver lesion on noncontrast imaging. Left lobe is relatively prominent. Liver capsule is sli ghtly nodular. A component of cirrhosis or diffuse hepatic parenchymal disease suspected. No splenic abnormality. No pancreatic abnormality peer cholecystectomy clips are present with no biliary tree di latation. No hydronephrosis. A nonobstructing 13 millimeter calcification is present mid left kidney. No adrena l abnormalities. Mostly contracted urinary bladder shows no suspicious finding. No gastric wall thickening or gastric wall mass. The gastric esophageal anastomosis is not grossly ab normal. No large or small bowel dilatation. No acute colon process suspected. All of the ingested oral contra st is in the colon. It is unknown if the contrast was given for this examination or was received prev iously. No extravasation of contrast. No free air or free fluid. No pneumatosis. No mass or bulky lymphadenopathy. Periumbilical fat fille d ventral hernias are present. Stranding is seen in the fatty tissues from laparoscopic access sites. No significant bone or vascular finding. IMPRESSION: A 6-7 centimeter fluid or old blood collection is present in the posterior right fatty t issues of the lower chest. This is related to the recent surgery. This collection extends towards the ninth inner costal space. There is pleural fluid in the right base. Findings may all reflect normal postoperative fluid and a small amount of blood. Abscess is not confi rmed based on CT criteria. The esophageal gastric anastomotic site is not grossly abnormal. Oral contrast is present in the colo n. It is unknown if the patient received PO contrast for this examination or if the contrast is from a prior diagnostic study. The appearance of the liver suggest cirrhosis or hepatic parenchymal disease.
--- NOTE | 2019-04-27 16:29 | EDPHYS ---
Physician Documentation [facility] Shira Name: Fred Barragan III Age: 53 yrs Sex: Male : 1965 Arrival Date: 04/27/2019 Time: 13:34 Bed 30 Private MD: ED Physician Shree Malik HPI: 04/27 14:30 This 53 yrs old Black Male presents to ER via EMS with complaints of wound drainage cheryl abdominal , right foot pain, eschar. 14:30 The patient presents with decreased range of motion, pain, that is acute. The cheryl complaints affect the lateral aspect of right foot, right heel, medial aspect of right foot and dorsum of right foot. Context: resulted from an unknown cause, the patient is not able to bear weight, the patient is not able to ambulate. Onset: The symptoms/episode began/occurred 6 day(s) ago. Modifying factors: The symptoms are alleviated by nothing. the symptoms are aggravated by nothing. Associated signs and symptoms: The patient has no apparent associated signs or symptoms. The patient or guardian reports chest pain that is located primarily in the anterior chest wall. The patient presents with abdominal pain in the upper abdomen, 2 wounds, drainage. Historical: - Allergies: 13:41 Sulfa (Sulfonamide Antibiotics); mg2 - Home Meds: 13:41 Zolpidem Tartrate Oral [Active]; Furosemide Oral [Active]; Tramadol Oral [Active]; mg2 - PMHx: 13:41 chronic leg swelling; Chronic pain; Sleep Apnea; liver cirrhosis; esophageal Cancer; mg2 - PSHx: 13:41 Hernia repair; Cholecystectomy; mg2 - Immunization history:: Flu vaccine is not up to date. - Social history:: Smoking status: Patient/guardian denies using tobacco, Patient/guardian denies using alcohol, street drugs, IV drugs. - Ebola Screening: : No symptoms or risks identified at this time. - Family history:: not pertinent. ROS: 14:30 Constitutional: Negative for fever, chills, and weight loss, Eyes: Negative for injury, cheryl pain, redness, and discharge, ENT: Negative for injury, pain, and discharge, Neck: Negative for injury, pain, and swelling, Cardiovascular: Negative for chest pain, palpitations, and edema, Respiratory: Negative for shortness of breath, cough, wheezing, and pleuritic chest pain, Back: Negative for injury and pain, : Negative for injury, bleeding, discharge, and swelling, MS/Extremity: Negative for injury and deformity, Neuro: Negative for headache, weakness, numbness, tingling, and seizure, Psych: Negative for depression, anxiety, suicide ideation, homicidal ideation, and hallucinations, Allergy/Immunology: Negative for hives, rash, and allergies, Endocrine: Negative for neck swelling, polydipsia, polyuria, polyphagia, and marked weight changes, Hematologic/Lymphatic: Negative for swollen nodes, abnormal bleeding, and unusual bruising. 14:30 Abdomen/GI: Positive for abdominal pain. 14:30 MS/extremity: Positive for decreased range of motion, laceration, pain, swelling, tenderness, of the ball of right foot. Exam: 14:30 Constitutional: This is a well developed, well nourished patient who is awake, alert, cheryl and in no acute distress. Head/Face: Normocephalic, atraumatic. Eyes: Pupils equal round and reactive to light, extra-ocular motions intact. Lids and lashes normal. Conjunctiva and sclera are non-icteric and not injected. Cornea within normal limits. Periorbital areas with no swelling, redness, or edema. ENT: Nares patent. No nasal discharge, no septal abnormalities noted. Tympanic membranes are normal and external auditory canals are clear. Oropharynx with no redness, swelling, or masses, exudates, or evidence of obstruction, uvula midline. Mucous membranes moist. Neck: Trachea midline, no thyromegaly or masses palpated, and no cervical lymphadenopathy. Supple, full range of motion without nuchal rigidity, or vertebral point tenderness. No Meningismus. Chest/axilla: Normal chest wall appearance and motion. Nontender with no deformity. No lesions are appreciated. Cardiovascular: Regular rate and rhythm with a normal S1 and S2. No gallops, murmurs, or rubs. Normal PMI, no JVD. No pulse deficits. Respiratory: Lungs have equal breath sounds bilaterally, clear to auscultation and percussion. No rales, rhonchi or wheezes noted. No increased work of breathing, no retractions or nasal flaring. Back: No spinal tenderness. No costovertebral tenderness. Full range of motion. Male : Normal genitalia with no discharge or lesions. Neuro: Awake and alert, GCS 15, oriented to person, place, time, and situation. Cranial nerves II-XII grossly intact. Motor strength 5/5 in all extremities. Sensory grossly intact. Cerebellar exam normal. Normal gait. Psych: Awake, alert, with orientation to person, place and time. Behavior, mood, and affect are within normal limits. 14:30 Abdomen/GI: Inspection: distension, Bowel sounds: normal, Palpation: mild abdominal tenderness, in the right upper quadrant and right lower quadrant, Liver: no appreciated palpable abnormalities, Hernia: not appreciated. Vital Signs: 13:37 BP 135 / 69; Pulse 94; Resp 18; Temp 98.4; Pulse Ox 99% on R/A; Weight 147.42 kg; mg2 Height 5 ft. 11 in. (180.34 cm); Pain 6/10; 15:00 BP 114 / 62; Pulse 91; Resp 18; Pulse Ox 99% on R/A; mg2 17:00 BP 113 / 58; Pulse 82; Resp 18; Pulse Ox 98% on R/A; mg2 18:46 BP 114 / 64; Pulse 78; Resp 18; Temp 97.4; Pulse Ox 98% on R/A; mg2 19:30 BP 115 / 89; Pulse 79; Resp 18; Pulse Ox 98% on R/A; mg2 20:42 BP 96 / 56; Pulse 84; Resp 18; Temp 98; Pulse Ox 98% on R/A; mg2 13:37 Body Mass Index 45.33 (147.42 kg, 180.34 cm) mg2 MDM: 13:50 Patient medically screened. [facility] 14:34 Data reviewed: vital signs, nurses notes, lab test result(s), EKG, radiologic studies, [facility] CT scan, plain films. 04/27 14:13 Order name: Basic Metabolic Panel; Complete Time: 15:47 mg2 04/27 14:13 Order name: CBC with Diff; Complete Time: 15:47 mg2 04/27 14:13 Order name: Creatinine for Radiology; Complete Time: 15:47 mg2 04/27 14:13 Order name: Hepatic Function; Complete Time: 15:47 mg2 04/27 14:13 Order name: Lipase; Complete Time: 15:47 mg2 04/27 14:28 Order name: Magnesium; Complete Time: 15:47 cheryl 04/27 14:28 Order name: NT PRO-BNP; Complete Time: 15:47 cheryl 04/27 14:28 Order name: PT-INR; Complete Time: 15:47 [facility] 04/27 14:28 Order name: Troponin (emerg Dept Use Only); Complete Time: 15:47 [facility] 04/27 14:28 Order name: Blood Culture Adult (2) [facility] 04/27 14:28 Order name: Type And Screen [facility] 04/27 14:28 Order name: Urine Culture [facility] 04/27 14:35 Order name: AMMONIA; Complete Time: 16:46 [facility] 04/27 14:48 Order name: Bb Add On bd 04/27 14:13 Order name: IV Saline Lock; Complete Time: 14:13 [facility] 04/27 14:13 Order name: Labs collected and sent; Complete Time: 14:13 [facility] 04/27 14:28 Order name: XRAY Chest (1 view); Complete Time: 15:47 [facility] 04/27 14:28 Order name: EKG; Complete Time: 14:29 [facility] 04/27 14:28 Order name: Cardiac monitoring; Complete Time: 15:57 [facility] 04/27 14:28 Order name: EKG - Nurse/Tech; Complete Time: 15:57 [facility] 04/27 14:28 Order name: O2 Per Protocol; Complete Time: 15:57 [facility] 04/27 14:30 Order name: US Extremity Venous W Compression Guido; Complete Time: 15:47 [facility] 04/27 14:57 Order name: Packed RBC Leukored [facility] 04/27 15:10 Order name: Chest Abd Pelvis Wo Con; Complete Time: 16:14 [facility] 04/27 18:12 Order name: Urine Dipstick--Ancillary (enter results) sp 04/27 14:28 Order name: O2 Sat Monitoring; Complete Time: 15:57 [facility] 04/27 14:28 Order name: Wound dressing; Complete Time: 15:13 [facility] 04/27 14:28 Order name: Urine Dipstick-Ancillary (obtain specimen); Complete Time: 19:00 [facility] 04/27 14:28 Order name: IV Saline Lock - Large Bore; Complete Time: 16:06 [facility] 04/27 14:44 Order name: Transfuse; Complete Time: 18:59 [facility] Administered Medications: 16:05 Drug: ProTONIX 40 mg Route: IVP; Site: left forearm; mg2 19:00 Follow up: Response: No adverse reaction mg2 16:06 Drug: NS 0.9% 1000 ml Route: IV; Rate: 125 ml/hr; Site: left forearm; mg2 20:00 Follow up: Response: No adverse reaction; IV Status: Infusion continued upon transfer; mg2 IV Intake: 500ml 17:50 Drug: Tylenol 650 mg Route: PO; mg2 20:42 Follow up: Response: No adverse reaction mg2 17:50 Drug: Benadryl 12.5 mg Route: IVP; Site: left forearm; mg2 20:41 Follow up: Response: No adverse reaction mg2 Disposition: 04/27/19 16:29 Transfer ordered to [facility]. 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 - Reason for transfer: Higher level of care. - Accepting physician is to [facility], surgery. - Condition is Stable. - Problem is new. - Symptoms have improved. Signatures: Dispatcher [employer] [facility] Shree Malik MD MD cha Gardose, Michele, RN RN mg2 Corrections: (The following items were deleted from the chart) 15:10 14:30 Chest Abdomen Pelvis W Con+CT.RAD.BRZ ordered. [facility] 21:00 16:29 04/27/2019 16:29 Transfer ordered to [facility]. 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 Reason for transfer: Higher level of care. Accepting physician is to [facility], surgery. Condition is Stable. Problem is new. Symptoms have improved. cheryl
--- NOTE | 2019-04-27 16:29 | ER ---
Nurse's Notes [facility] Fausto Name: Fred Barragan III Age: 53 yrs Sex: Male : 1965 Arrival Date: 04/27/2019 Time: 13:34 Bed 30 Private MD: Diagnosis: Pleural effusion in conditions classified elsewhere-with 6-7cm fluid collection right lower chest wall;Non-pressure chronic ulcer of other part of right foot-eschar;Edema, unspecified;Anemia, unspecified Presentation: 04/27 13:34 Presenting complaint: EMS states: 2 weeks ago he was at [facility] for a surgery mg2 (removal of esophageal Cancer). now he is complaining of pain and dark yellow drainage in the post-op site and also pain in the right foot. BGL 164. Vomiting 2 hours ago. Transition of care: patient was not received from another setting of care. Onset of symptoms was April 27, 2019. Risk Assessment: Do you want to hurt yourself or someone else? Patient reports no desire to harm self or others. Initial Sepsis Screen: Does the patient meet any 2 criteria? No. Patient's initial sepsis screen is negative. Does the patient have a suspected source of infection? No. Patient's initial sepsis screen is negative. Care prior to arrival: None. 13:34 Method Of Arrival: EMS: [facility] mg2 13:34 Acuity: BATOOL 3 mg2 Historical: - Allergies: 13:41 Sulfa (Sulfonamide Antibiotics); mg2 - Home Meds: 13:41 Zolpidem Tartrate Oral [Active]; Furosemide Oral [Active]; Tramadol Oral [Active]; mg2 - PMHx: 13:41 chronic leg swelling; Chronic pain; Sleep Apnea; liver cirrhosis; esophageal Cancer; mg2 - PSHx: 13:41 Hernia repair; Cholecystectomy; mg2 - Immunization history:: Flu vaccine is not up to date. - Social history:: Smoking status: Patient/guardian denies using tobacco, Patient/guardian denies using alcohol, street drugs, IV drugs. - Ebola Screening: : No symptoms or risks identified at this time. - Family history:: not pertinent. Screenin:46 Abuse screen: Denies threats or abuse. Denies injuries from another. Nutritional mg2 screening: No deficits noted. Tuberculosis screening: No symptoms or risk factors identified. Fall Risk Gait- Weak (10 pts.). Assessment: 13:47 General: Appears in no apparent distress. comfortable, Behavior is calm, cooperative. mg2 Pain: Complains of pain in abdomen and right foot Pain does not radiate. Pain currently is 5 out of 10 on a pain scale. Quality of pain is described as aching, Pain began gradually. Neuro: Level of Consciousness is awake, alert, obeys commands, Oriented to person, place, time, situation. Cardiovascular: Capillary refill < 3 seconds Patient's skin is warm and dry. Respiratory: Airway is patent Respiratory effort is even, unlabored, Respiratory pattern is regular, symmetrical. GI: Reports vomiting, post op pain. : No signs and/or symptoms were reported regarding the genitourinary system. EENT: No signs and/or symptoms were reported regarding the EENT system. Derm: Wound noted right foot, and abdomen. Musculoskeletal: Circulation, motion, and sensation intact. Swelling present in right foot and left foot Reports pain in right foot. 15:12 Reassessment: patient in ultrasound now,. mg2 18:47 Reassessment: Patient appears in no apparent distress at this time. Patient and/or mg2 family updated on plan of care and expected duration. Pain level reassessed. Patient is alert, oriented x 3, equal unlabored respirations, skin warm/dry/pink. 19:20 Reassessment: Patient appears in no apparent distress at this time. Patient and/or mg2 family updated on plan of care and expected duration. Pain level reassessed. Patient is alert, oriented x 3, equal unlabored respirations, skin warm/dry/pink. 20:00 Reassessment: Patient appears in no apparent distress at this time. report given to robert Alvarado RN of [facility]. 20:44 Reassessment: patient in good condition. Blood transfusion ongoing. no reactions noted mg2 in ed. both IV intact. Vital Signs: 13:37 BP 135 / 69; Pulse 94; Resp 18; Temp 98.4; Pulse Ox 99% on R/A; Weight 147.42 kg; mg2 Height 5 ft. 11 in. (180.34 cm); Pain 6/10; 15:00 BP 114 / 62; Pulse 91; Resp 18; Pulse Ox 99% on R/A; mg2 17:00 BP 113 / 58; Pulse 82; Resp 18; Pulse Ox 98% on R/A; mg2 18:46 BP 114 / 64; Pulse 78; Resp 18; Temp 97.4; Pulse Ox 98% on R/A; mg2 19:30 BP 115 / 89; Pulse 79; Resp 18; Pulse Ox 98% on R/A; mg2 20:42 BP 96 / 56; Pulse 84; Resp 18; Temp 98; Pulse Ox 98% on R/A; mg2 13:37 Body Mass Index 45.33 (147.42 kg, 180.34 cm) mg2 ED Course: 13:34 Patient arrived in ED. mg2 13:37 Triage completed. mg2 13:42 Arm band placed on Patient placed. mg2 13:43 Hesham Gatica, RN is Primary Nurse. mg2 13:47 No provider procedures requiring assistance completed. mg2 13:49 Shree Malik MD is Attending Physician. cheryl 13:50 Patient has correct armband on for positive identification. mg2 14:15 Inserted saline lock: 22 gauge in right forearm, using aseptic technique. Blood mg2 collected. 14:44 XRAY Chest (1 view) In Process Unspecified. EDMS 15:18 US Extremity Venous W Compression Guido In Process Unspecified. EDMS 15:33 Chest Abd Pelvis Wo Con In Process Unspecified. EDMS 16:01 EKG done, by vascular ultrasound technologist. reviewed by Shree Malik MD. sm3 16:15 Inserted saline lock: 20 gauge in left forearm, using aseptic technique. Blood mg2 collected. 19:20 Patient transferred, IV remains in place. mg2 Administered Medications: 16:05 Drug: ProTONIX 40 mg Route: IVP; Site: left forearm; mg2 19:00 Follow up: Response: No adverse reaction mg2 16:06 Drug: NS 0.9% 1000 ml Route: IV; Rate: 125 ml/hr; Site: left forearm; mg2 20:00 Follow up: Response: No adverse reaction; IV Status: Infusion continued upon transfer; mg2 IV Intake: 500ml 17:50 Drug: Tylenol 650 mg Route: PO; mg2 20:42 Follow up: Response: No adverse reaction mg2 17:50 Drug: Benadryl 12.5 mg Route: IVP; Site: left forearm; mg2 20:41 Follow up: Response: No adverse reaction mg2 Medication: 18:48 Blood products: PRBCs X 1 unit given. See transfusion record. mg2 20:15 Blood products: PRBCs X 1 unit given. See transfusion record. mg2 Intake: 20:00 IV: 500ml; Total: 500ml. mg2 Outcome: 16:29 ER care complete, transfer ordered by MD. luna 20:43 Transferred by ground EMS to [facility], Transfer form mg2 completed. 20:43 Condition: stable 20:43 Instructed on the need for transfer, Demonstrated understanding of instructions. 21:00 Patient left the ED. mg2 Signatures: Dispatcher [employer] [facility] Shree Malik MD MD cha Gardose, Michele, LUKASZ RN mg2 Felicity Farooq sm3 Corrections: (The following items were deleted from the chart) 13:38 13:34 Presenting complaint: EMS states: 2 weeks ago he was at [facility] for a mg2 surgery (removal of esophageal Cancer). now he is complaining of pain and dark yellow drainage in the post-op site and also pain in the right foot. BGL 164. mg2
--- NOTE | 2019-04-27 16:30 | EKG ---
Test Date: 2019-04-27 Test Time: 15:49:10 Pediatric Speech Language Pathologist: JEREMIAH MEASUREMENT RESULTS: Intervals: Rate: 84 AL: 148 QRSD: 110 QT: 392 QTc: 463 [place]: P: 58 AL: 148 QRS: 11 T: 43 INTERPRETIVE STATEMENTS: Sinus rhythm with premature atrial complexes Otherwise normal ECG Compared to ECG 09/25/2018 15:28:34 Sinus tachycardia no longer present Electronically Signed On 04-27-19 16:29:49 PHOSPHORUS PROCESSING SUPERVISOR by Radhames Jay
[2019-04-27] MEDS ORDERED: ACETAMINOPHEN 325 MG TABLET ONE (17:20)
[2019-04-27] MEDS ORDERED: DIPHENHYDRAMINE 50 MG/ML VIAL ONE (17:20)
[2019-04-27 20:28] LABS: Urine Blood NEGATIVE (NEG); Urine Glucose NEGATIVE (NEG); Urine Protein NEGATIVE (NEG); Urine pH 6.5 (5.0-7.0)
[2019-04-27 22:12] VITALS: O2SAT 98
[2019-04-27 22:15] VITALS: BP 96/56; TEMP 98
== END 2019-04-27 21:00 | disposition short-term general hospital (02) ==
LOC: ER 13:19
DX: L97.519 Non-pressure chronic ulcer of other part of right foot with unspecified severity (principal); J91.8 Pleural effusion in other conditions classified elsewhere; R60.9 Edema, unspecified; D64.9 Anemia, unspecified; Z85.01 Personal history of malignant neoplasm of esophagus; Z88.2 Allergy status to sulfonamides
CPT/HCPCS: 36415; 36430; 71045; 71250; 74176; 80048; 80076; 81003; 82140; 83690; 83735; 83880; 84484; 85025; 85610; 86850; 86900; 86901; 87040; 87086; 87088; 93005; 93970; 96361; 96374; 96375; 99285; C9113; J1200; J7030; P9016

== ENCOUNTER 2019-05-20 10:42 | Emergency (ER) | payer SELFPAY ==
--- OUTSIDE RECORDS SUMMARY | 2019-05-20 10:46 | XMS REPORT ---
:1965 [facility] [address]andy[facility] [address] [place] [address] Care Team Providers Name Role Phone RADHAMES [...] 1.2 mg/dL 0.6-1.3 TESTED AT [facility] [address]200 kasq=0522) [facility] [address] POC-EGFR (BEAKER) (test 76 mL/min/1.73M2 amuz=0825) IMMUNOFIXATION ELECTROPHORESIS (TARAH)2018-06-01 15:26:00 Test Item Value Reference Range Comments IMMUNOGLOBULIN G (IGG) (BEAKER) > mg/dL 540-1,822 (test awon=904) IMMUNOGLOBULIN A (IGA) (BEAKER) 1158 mg/dL 63-484 (test jzdx=224) IMMUNOGLOBULIN M (IGM) (BEAKER) 324 mg/dL 22-293 (test kigd=843) SERUM TARAH ID (BEAKER) (test No monoclonal proteins popf=2808) detected. Polyclonal elevation of immunoglobulins. [id number] (BEAKER) Gabby Dover MD (test csod=2401) (electronic signature) PROTEIN ELECTROPHORESIS, [id number] 12:02:00 Test Item Value Reference Range Comments ALBUMIN FRACTION (BEAKER) 2.0 gm/dL 3.5-5.5 (test frmw=577) ALPHA 1 FRACTION (BEAKER) 0.2 gm/dL 0.2-0.4 (test rifo=278) ALPHA 2 FRACTION (BEAKER) 0.4 gm/dL 0.5-0.9 (test zezf=678) BETA FRACTION (BEAKER) (test 1.1 gm/dL 0.6-1.1 crdt=463) GAMMA GLOBULIN FRACTION 4.7 gm/dL 0.7-1.7 (BEAKER) (test vqwt=054) INTERPRETATION-119 (BEAKER) Beta-gamma bridging and large (test epyd=1861) polyclonal elevation of gamma globulins, consistent with cirrhosis and HCV infection. Serum TARAH ordered to exclude presence of underlying monoclonal bands. [id number] (KATYA) Gabby Dover MD (test alxi=8487) (electronic signature) PROTEIN TOTAL SERUM, SPEP 8.4 gm/dL 6.0-8.3 (BEAKER) (test dkdn=6165) TISSUE [id number] 15:09:00Surgical Pathology Report Case: [id number] Authorizing Provider: Radhames Saunders, Collected: 05/22/2018 Janell GAINES OrderingLocation: [address] Received: 2017 0840 Service Pathologist: Christian Parada MD Specimens: A) -Esophagus, Esophageal Nodule @ 37cm B) - Esophagus, @ 38cm R/O Barretts A. 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 ESOPHAGUS, 38 CM, BIOPSY- NO TISSUE IDENTIFIED (SEE COMMENT) Signing Pathologist Direct Phone Line: [phone] signed by Christian Parada MD on 05/29/2018 at 3:09 PMB. No tissue was identified microscopically and may not have survived the processing.[id number], [id number], [id number] x 2The case was received two parts.Part [...] stains. Immunohistochemistry technical testing was performed at [facility] where it was developed and [...] testing.Block ACDX2-positiveCAM5.2- positiveSynaptophysin- negativecontrols are adequate.HEMOGLOBIN AND [id number] 14:58:00 Test Item Value Reference Range Comments HEMOGLOBIN (BEAKER) (test rmcg=976) 7.8 GM/DL 13.7-17.5 HEMATOCRIT (BEAKER) (test wlhz=878) 24.4 % 40.1-51.0 Send after transfusion is completedCOMPREHENSIVE METABOLIC [id number] 07:05 :00 Test Item Value Reference Range Comments TOTAL PROTEIN (BEAKER) 8.2 gm/dL 6.0-8.3 (test nbjh=685) ALBUMIN (BEAKER) (test 1.7 g/dL 3.5-5.0 awiw=6647) ALKALINE PHOSPHATASE 158 U/L 40-150 (BEAKER) (test kipm=708) BILIRUBIN TOTAL (BEAKER) 4.1 mg/dL 0.2-1.2 (test mzpq=018) SODIUM (BEAKER) (test 131 meq/L 136-145 mmxh=829) POTASSIUM (BEAKER) (test 3.3 meq/L 3.5-5.1 fgif=708) CHLORIDE (BEAKER) (test 99 meq/L 98-107 kxxn=934) CO2 (BEAKER) (test 28 meq/L 22-29 ljws=558) BLOOD UREA NITROGEN 17 mg/dL 7-21 (BEAKER) (test qycm=140) CREATININE (BEAKER) (test 1.32 mg/dL 0.57-1.25 sakh=660) GLUCOSE RANDOM (BEAKER) 115 mg/dL 70-105 (test rnuf=400) CALCIUM (BEAKER) (test 7.9 mg/dL 8.4-10.2 uktz=148) AST (SGOT) (BEAKER) (test 202 U/L 5-34 hiba=130) ALT (SGPT) (BEAKER) (test 43 U/L 6-55 etze=142) EGFR (BEAKER) (test 69 mL/min/1.73 sq m ESTIMATED GFR IS NOT njdl=9012) ACCURATE CREATININE CLEARANCE IN PREDICTING GLOMERULAR FILTRATION RATE. ESTIMATED GFR IS NOT APPLICABLE FOR DIALYSIS PATIENTS. Specimen slightly [id number] 07:02:00 Test Item Value Reference Range Comments PHOSPHORUS (BEAKER) (test lpsm=201) 2.9 mg/dL 2.3-4.7 [id number] 07:02:00 Test Item Value Reference Range Comments MAGNESIUM (BEAKER) (test olww=909) 1.5 mg/dL 1.6-2.6 CALCIUM, [id number] 05:25:00 Test Item Value Reference Range Comments CALCIUM IONIZED (BEAKER) (test canr=930) 0.90 mmol/L 1.12-1.27 PH, BLOOD (BEAKER) (test mtis=8374) 7.48 CBC W/PLT COUNT & AUTO [id number] 04:43:00 Test Item Value Reference Range Comments WHITE BLOOD CELL COUNT (BEAKER) (test atbf=670) 6.5 K/ L 3.5-10.5 RED BLOOD CELL COUNT (BEAKER) (test mufl=668) 2.28 M/ L 4.63-6.08 HEMOGLOBIN (BEAKER) (test aqnu=315) 7.0 GM/DL 13.7-17.5 HEMATOCRIT (BEAKER) (test dpzo=537) 22.2 % 40.1-51.0 MEAN CORPUSCULAR VOLUME (BEAKER) (test hrtw=498) 97.4 fL 79.0-92.2 MEAN CORPUSCULAR HEMOGLOBIN (BEAKER) (test 30.7 pg 25.7-32.2 txrf=746) MEAN CORPUSCULAR HEMOGLOBIN CONC (BEAKER) (test 31.5 GM/DL 32.3-36.5 dazg=513) RED CELL DISTRIBUTION WIDTH (BEAKER) (test 18.6 % 11.6-14.4 xenn=569) PLATELET COUNT (BEAKER) (test tbwm=439) 75 K/CU MM 150-450 MEAN PLATELET VOLUME (BEAKER) (test wdio=847) 12.1 fL 9.4-12.4 NUCLEATED RED BLOOD CELLS (BEAKER) (test 0 /100 WBC 0-0 nxkf=764) NEUTROPHILS RELATIVE PERCENT (BEAKER) (test 65 % ajgd=965) LYMPHOCYTES RELATIVE PERCENT (BEAKER) (test 19 % kriz=288) MONOCYTES RELATIVE PERCENT (BEAKER) (test 7 % rjdn=713) EOSINOPHILS RELATIVE PERCENT (BEAKER) (test 7 % vquv=672) BASOPHILS RELATIVE PERCENT (BEAKER) (test 1 % cthq=179) NEUTROPHILS ABSOLUTE COUNT (BEAKER) (test 4.20 K/ L 1.78-5.38 pdbb=826) LYMPHOCYTES ABSOLUTE COUNT (BEAKER) (test 1.25 K/ L 1.32-3.57 ldge=043) MONOCYTES ABSOLUTE COUNT (BEAKER) (test awpk=350) 0.42 K/ L 0.30-0.82 EOSINOPHILS ABSOLUTE COUNT (BEAKER) (test 0.45 K/ L 0.04-0.54 efox=289) BASOPHILS ABSOLUTE COUNT (BEAKER) (test osjz=007) 0.07 K/ L 0.01-0.08 IMMATURE GRANULOCYTES-RELATIVE PERCENT (BEAKER) 1 % 0-1 (test jeqy=4999) HEPATITIS C PCR, [id number] 19:37:00 Test Item Value Reference Range Comments HCV NUMERIC RESULT (BEAKER) (test khjs=6298) 050943 IU/mL <15 This test uses a Real-Time Polymerase Chain Reaction (RT-PCR) methodology and was performed using [employer] Ampliprep/[employer] TaqMan HCV test kit version 2.0 ( [employer]).Reportable range for this assay is 15 - 100,000, 000 IU per mL (1.18 - 8.00 Log IU/mL).[id number] 19:02:00 Test Item Value Reference Range Comments POTASSIUM (BEAKER) (test ypyx=346) 3.4 meq/L 3.5-5.1 [id number] 19:02:00 Test Item Value Reference Range Comments MAGNESIUM (BEAKER) (test faii=502) 1.7 mg/dL 1.6-2.6 callURINE PROTEIN ELECTROPHORESIS, [id number] 14:29:00 Test Item Value Reference Range Comments PROTEIN, URINE (BEAKER) (test 14 mg/dL 0-14 ayoh=8457) ALBUMIN URINE ELP (BEAKER) 18.9 % (test uoip=4283) GAMMA GLOBULIN URINE (BEAKER) 81.1 % (test fzmd=6259) UPEP, ID-438 (BEAKER) (test No monoclonal bands detected. fubu=0761) [id number]-403 (BEAKER) Gabby Dover MD (test mvxv=9988) (electronic signature) [id number] 13:17:00 Test Item Value Reference Range Comments MAGNESIUM (BEAKER) (test qlfr=450) 1.3 mg/dL 1.6-2.6 VITAMIN B12 AND [id number] 10:07:00 Test Item Value Reference Range Comments VITAMIN B12 (BEAKER) (test czhu=896) > pg/mL 213-816 FOLATE (BEAKER) (test ddid=157) 7.0 ng/mL >=7.0 HEMOGLOBIN [id number] 09:56:00 Test Item Value Reference Range Comments HEMOGLOBIN A1C (BEAKER) (test zdic=530) 5.0 % 4.3-6.1 [id number] 07:07:00 Test Item Value Reference Range Comments FERRITIN (BEAKER) (test eitr=798) 48 ng/mL 5-275 CALCIUM, [id number] 06:47:00 Test Item Value Reference Range Comments CALCIUM IONIZED (BEAKER) (test dkeh=515) 0.92 mmol/L 1.12-1.27 PH, BLOOD (BEAKER) (test keqp=4840) 7.45 [id number] 06:16:00 Test Item Value Reference Range Comments MAGNESIUM (BEAKER) (test jmui=385) 1.0 mg/dL 1.6-2.6 HEPATITIS PANEL, [id number] 05:47:00 Test Item Value Reference Range Comments HEPATITIS A IGM ANTIBODY (BEAKER) (test Nonreactive Nonreactive hmei=453) HEPATITIS B CORE IGM ANTIBODY (BEAKER) (test Nonreactive Nonreactive zhln=050) HEPATITIS C ANTIBODY (BEAKER) (test mtar=311) Reactive Nonreactive HEPATITIS B SURFACE ANTIGEN (2) (BEAKER) (test Nonreactive Nonreactive ymfm=8268) TSH/FREE T4 IF [id number] 05:40:00 Test Item Value Reference Range Comments THYROID STIMULATING HORMONE (BEAKER) (test 0.54 uIU/mL 0.35-4.94 pzpz=558) HIV-1 ANTIGEN WITH HIV-1/2 [id number] 05:40:00 Test Item Value Reference Range Comments HIV-1 ANTIGEN WITH HIV 1\\T\\2 ANTIBODY (2) Nonreactive Nonreactive (BEAKER) (test eyfq=0219) CBC W/PLT COUNT & AUTO [id number] 05:25:00 Test Item Value Reference Range Comments WHITE BLOOD CELL COUNT (BEAKER) (test emdo=423) 8.2 K/ L 3.5-10.5 RED BLOOD CELL COUNT (BEAKER) (test vsbi=614) 2.49 M/ L 4.63-6.08 HEMOGLOBIN (BEAKER) (test ljwv=697) 7.8 GM/DL 13.7-17.5 HEMATOCRIT (BEAKER) (test queb=246) 24.3 % 40.1-51.0 MEAN CORPUSCULAR VOLUME (BEAKER) (test tutc=665) 97.6 fL 79.0-92.2 MEAN CORPUSCULAR HEMOGLOBIN (BEAKER) (test 31.3 pg 25.7-32.2 jofm=745) MEAN CORPUSCULAR HEMOGLOBIN CONC (BEAKER) (test 32.1 GM/DL 32.3-36.5 zygs=107) RED CELL DISTRIBUTION WIDTH (BEAKER) (test 19.0 % 11.6-14.4 lvda=495) PLATELET COUNT (BEAKER) (test ywru=315) 75 K/CU MM 150-450 MEAN PLATELET VOLUME (BEAKER) (test nrtj=782) 11.9 fL 9.4-12.4 NUCLEATED RED BLOOD CELLS (BEAKER) (test 0 /100 WBC 0-0 rrqm=654) NEUTROPHILS RELATIVE PERCENT (BEAKER) (test 69 % mxze=526) LYMPHOCYTES RELATIVE PERCENT (BEAKER) (test 18 % opwf=881) MONOCYTES RELATIVE PERCENT (BEAKER) (test 7 % vjqu=631) EOSINOPHILS RELATIVE PERCENT (BEAKER) (test 4 % rrli=608) BASOPHILS RELATIVE PERCENT (BEAKER) (test 1 % joeo=280) NEUTROPHILS ABSOLUTE COUNT (BEAKER) (test 5.70 K/ L 1.78-5.38 mkuv=202) LYMPHOCYTES ABSOLUTE COUNT (BEAKER) (test 1.46 K/ L 1.32-3.57 mrxh=625) MONOCYTES ABSOLUTE COUNT (BEAKER) (test gcsy=674) 0.54 K/ L 0.30-0.82 EOSINOPHILS ABSOLUTE COUNT (BEAKER) (test 0.34 K/ L 0.04-0.54 yqkw=311) BASOPHILS ABSOLUTE COUNT (BEAKER) (test ldxt=493) 0.07 K/ L 0.01-0.08 IMMATURE GRANULOCYTES-RELATIVE PERCENT (BEAKER) 1 % 0-1 (test ylti=2055) PTH, [id number] 05:24:00 Test Item Value Reference Range Comments PARATHYROID HORMONE INTACT (BEAKER) (test 213.8 pg/mL 8.5-72.5 lypi=039) B-TYPE NATRIURETIC FACTOR (BNP)2018-05-22 05:24:00 Test Item Value Reference Range Comments B-TYPE NATRIURETIC PEPTIDE (BEAKER) (test 213 pg/mL 0-100 uzfx=500) IRON, TIBC, % SAT. (WITHOUT FERRITIN)2018-05-22 05:23:00 Test Item Value Reference Range Comments IRON (BEAKER) (test gvbr=016) 32.0 ug/dL 40.0-160.0 TOTAL IRON BINDING CAPACITY (BEAKER) (test 235 ug/dL 250-450 tita=047) IRON % SATURATION (2) (BEAKER) (test erbf=5336) 14 % 20-55 [id number] 05:19:00 Test Item Value Reference Range Comments PHOSPHORUS (BEAKER) (test ibhz=332) 3.0 mg/dL 2.3-4.7 URIC [id number] 05:19:00 Test Item Value Reference Range Comments URIC ACID (BEAKER) (test tkfh=205) 13.9 mg/dL 2.6-7.2 Specimen moderately ictericCOMPREHENSIVE METABOLIC [id number] 05:19:00 Test Item Value Reference Range Comments TOTAL PROTEIN (BEAKER) 8.6 gm/dL 6.0-8.3 (test wzvv=011) ALBUMIN (BEAKER) (test 1.8 g/dL 3.5-5.0 itap=6721) ALKALINE PHOSPHATASE 178 U/L 40-150 (BEAKER) (test kkpe=091) BILIRUBIN TOTAL (BEAKER) 4.7 mg/dL 0.2-1.2 (test tidc=578) SODIUM (BEAKER) (test 131 meq/L 136-145 yeup=381) POTASSIUM (BEAKER) (test 3.2 meq/L 3.5-5.1 yvdj=148) CHLORIDE (BEAKER) (test 98 meq/L 98-107 yvoz=701) CO2 (BEAKER) (test 28 meq/L 22-29 lqdx=108) BLOOD UREA NITROGEN 18 mg/dL 7-21 (BEAKER) (test mhpw=313) CREATININE (BEAKER) (test 1.38 mg/dL 0.57-1.25 rcll=491) GLUCOSE RANDOM (BEAKER) 116 mg/dL 70-105 (test ttgr=904) CALCIUM (BEAKER) (test 7.9 mg/dL 8.4-10.2 remi=916) AST (SGOT) (BEAKER) (test 207 U/L 5-34 xmot=880) ALT (SGPT) (BEAKER) (test 42 U/L 6-55 izdm=708) EGFR (BEAKER) (test 65 mL/min/1.73 sq m ESTIMATED GFR IS NOT lwrc=6975) ACCURATE CREATININE CLEARANCE IN PREDICTING GLOMERULAR FILTRATION RATE. ESTIMATED GFR IS NOT APPLICABLE FOR DIALYSIS PATIENTS. Specimen moderately ictericHEMOGLOBIN AND [id number] 20:27:00 Test Item Value Reference Range Comments HEMOGLOBIN (BEAKER) (test cvxg=659) 7.2 GM/DL 13.7-17.5 HEMATOCRIT (BEAKER) (test rhct=760) 22.7 % 40.1-51.0 EOSINOPHIL SMEAR, [id number] 19:56:00 Test Item Value Reference Range Comments EOSINOPHIL SMEAR, URINE (BEAKER) Rare EOS=less than 5% WBCs No EOS seen (test jrkk=3479) seen are EOS SODIUM, RANDOM [id number] 19:42:00 Test Item Value Reference Range Comments SODIUM URINE (BEAKER) (test klwf=857) 20 meq/L Reference Range: No NormalsURINALYSIS W/ [id number] 19:41:00 Test Item Value Reference Range Comments COLOR (BEAKER) (test fatc=819) Yellow CLARITY (BEAKER) (test hnjr=472) Clear SPECIFIC GRAVITY UA (BEAKER) (test gugn=778) 1.010 1.001-1.035 PH UA (BEAKER) (test xmrl=223) 6.0 5.0-8.0 PROTEIN UA (BEAKER) (test muir=774) Negative Negative GLUCOSE UA (BEAKER) (test skar=159) Negative Negative KETONES UA (BEAKER) (test youy=439) Negative Negative BILIRUBIN UA (BEAKER) (test ivel=418) Positive Negative BLOOD UA (BEAKER) (test fpmx=311) Moderate Negative NITRITE UA (BEAKER) (test ixlo=979) Negative Negative LEUKOCYTE ESTERASE UA (BEAKER) (test ancr=831) Negative Negative UROBILINOGEN UA (BEAKER) (test enbv=379) 3.0 mg/dL 0.2-1.0 RBC UA (BEAKER) (test hqbf=734) 32 /HPF WBC UA (BEAKER) (test qprb=287) 0 /HPF SQUAMOUS EPITHELIAL (BEAKER) (test cupo=756) < /HPF HYALINE CASTS (BEAKER) (test ncyd=338) 5 /LPF SOURCE(BEAKER) (test sewu=1302) CREATININE, RANDOM [id number] 19:33:00 Test Item Value Reference Range Comments CREATININE URINE (BEAKER) (test ycxq=232) 102.4 mg/dL Reference Range: No NormalsPROTEIN, RANDOM [id number] 19:33:00 Test Item Value Reference Range Comments PROTEIN, URINE (BEAKER) (test kfow=7152) 14 mg/dL 0-14 B-TYPE NATRIURETIC FACTOR (BNP)2018-05-21 13:34:00 Test Item Value Reference Range Comments B-TYPE NATRIURETIC PEPTIDE (BEAKER) (test 110 pg/mL 0-100 depw=516) URIC [id number] 13:29:00 Test Item Value Reference Range Comments URIC ACID (BEAKER) (test ekgq=764) 13.0 mg/dL 2.6-7.2 Specimen moderately ictericBASIC METABOLIC [id number] 06:49:00 Test Item Value Reference Range Comments SODIUM (BEAKER) (test 132 meq/L 136-145 nqdp=549) POTASSIUM (BEAKER) (test 2.9 meq/L 3.5-5.1 qhhm=539) CHLORIDE (BEAKER) (test 97 meq/L 98-107 pkwx=920) CO2 (BEAKER) (test 24 meq/L 22-29 pacx=035) BLOOD UREA NITROGEN 18 mg/dL 7-21 (BEAKER) (test ihkp=978) CREATININE (BEAKER) (test 1.34 mg/dL 0.57-1.25 ehlu=891) GLUCOSE RANDOM (BEAKER) 159 mg/dL 70-105 (test fedm=598) CALCIUM (BEAKER) (test 7.7 mg/dL 8.4-10.2 jidy=779) EGFR (BEAKER) (test 67 mL/min/1.73 sq m ESTIMATED GFR IS NOT oahb=7827) ACCURATE CREATININE CLEARANCE IN PREDICTING GLOMERULAR FILTRATION RATE. ESTIMATED GFR IS NOT APPLICABLE FOR DIALYSIS PATIENTS. Specimen slightly ictericHEPATIC FUNCTION [id number] 06:47:00 Test Item Value Reference Range Comments TOTAL PROTEIN (BEAKER) (test fqht=997) 9.4 gm/dL 6.0-8.3 ALBUMIN (BEAKER) (test ebes=3460) 2.0 g/dL 3.5-5.0 BILIRUBIN TOTAL (BEAKER) (test ylek=940) 4.3 mg/dL 0.2-1.2 BILIRUBIN DIRECT (BEAKER) (test jafz=919) 3.1 mg/dL 0.1-0.5 ALKALINE PHOSPHATASE (BEAKER) (test rcif=568) 218 U/L 40-150 AST (SGOT) (BEAKER) (test zzar=738) 210 U/L 5-34 ALT (SGPT) (BEAKER) (test sjwz=657) 44 U/L 6-55 Specimen slightly ictericCBC W/PLT COUNT & AUTO [id number] 06:27 :00 Test Item Value Reference Range Comments WHITE BLOOD CELL COUNT (BEAKER) (test mzxx=796) 9.7 K/ L 3.5-10.5 RED BLOOD CELL COUNT (BEAKER) (test urcv=396) 2.42 M/ L 4.63-6.08 HEMOGLOBIN (BEAKER) (test nbsz=122) 7.5 GM/DL 13.7-17.5 HEMATOCRIT (BEAKER) (test qxzd=743) 23.7 % 40.1-51.0 MEAN CORPUSCULAR VOLUME (BEAKER) (test ybbs=760) 97.9 fL 79.0-92.2 MEAN CORPUSCULAR HEMOGLOBIN (BEAKER) (test 31.0 pg 25.7-32.2 itcz=727) MEAN CORPUSCULAR HEMOGLOBIN CONC (BEAKER) (test 31.6 GM/DL 32.3-36.5 ogtd=212) RED CELL DISTRIBUTION WIDTH (BEAKER) (test 19.0 % 11.6-14.4 dlkf=098) PLATELET COUNT (BEAKER) (test pcvt=713) 74 K/CU MM 150-450 MEAN PLATELET VOLUME (BEAKER) (test ygun=028) 11.9 fL 9.4-12.4 NUCLEATED RED BLOOD CELLS (BEAKER) (test 0 /100 WBC 0-0 arut=503) NEUTROPHILS RELATIVE PERCENT (BEAKER) (test 79 % knaw=847) LYMPHOCYTES RELATIVE PERCENT (BEAKER) (test 11 % ofnf=589) MONOCYTES RELATIVE PERCENT (BEAKER) (test 6 % gxuk=923) EOSINOPHILS RELATIVE PERCENT (BEAKER) (test 1 % rnwq=371) BASOPHILS RELATIVE PERCENT (BEAKER) (test 1 % brik=579) NEUTROPHILS ABSOLUTE COUNT (BEAKER) (test 7.63 K/ L 1.78-5.38 gstp=111) LYMPHOCYTES ABSOLUTE COUNT (BEAKER) (test 1.02 K/ L 1.32-3.57 adyr=341) MONOCYTES ABSOLUTE COUNT (BEAKER) (test eldk=612) 0.60 K/ L 0.30-0.82 EOSINOPHILS ABSOLUTE COUNT (BEAKER) (test 0.07 K/ L 0.04-0.54 quxb=031) BASOPHILS ABSOLUTE COUNT (BEAKER) (test ghpz=273) 0.06 K/ L 0.01-0.08 IMMATURE GRANULOCYTES-RELATIVE PERCENT (BEAKER) 4 % 0-1 (test dbga=5953) PROTHROMBIN TIME/[id number] 06:27:00 Test Item Value Reference Range Comments PROTIME (BEAKER) (test ehub=594) 19.1 seconds 11.7-14.7 INR (BEAKER) (test achh=693) 1.6 <=5.9 RECOMMENDED COUMADIN/WARFARIN INR THERAPY RANGESSTANDARD DOSE: 2.0 - 3.0 Includes: PROPHYLAXIS forvenous thrombosis, systemic embolization; TREATMENT for venous thrombosis and/or pulmonary embolus.HIGH RISK: Target INR is 2.5-3.5 for patients with mechanical heart valves.URINALYSIS W/ [id number] 06 :12:00 Test Item Value Reference Range Comments COLOR (BEAKER) (test gpvl=962) Yellow CLARITY (BEAKER) (test emdz=790) Clear SPECIFIC GRAVITY UA (BEAKER) (test hgbx=266) 1.008 1.001-1.035 PH UA (BEAKER) (test bcvo=990) 6.0 5.0-8.0 PROTEIN UA (BEAKER) (test mpiv=887) Negative Negative GLUCOSE UA (BEAKER) (test fckh=884) Negative Negative KETONES UA (BEAKER) (test tbic=809) Negative Negative BILIRUBIN UA (BEAKER) (test iidt=501) Negative Negative BLOOD UA (BEAKER) (test bluf=955) Moderate Negative NITRITE UA (BEAKER) (test vkxb=809) Negative Negative LEUKOCYTE ESTERASE UA (BEAKER) (test okyw=153) Negative Negative UROBILINOGEN UA (BEAKER) (test sbxx=354) 0.2 mg/dL 0.2-1.0 RBC UA (BEAKER) (test oczl=836) 15 /HPF WBC UA (BEAKER) (test odxc=885) 2 /HPF MUCUS (BEAKER) (test gneu=9373) Rare SQUAMOUS EPITHELIAL (BEAKER) (test zvnh=160) < /HPF HYALINE CASTS (BEAKER) (test oica=294) 20 /LPF AMORPHOUS CRYSTALS (BEAKER) (test xlxe=0899) Rare SOURCE(BEAKER) (test pvlo=6788) Urine, Voided
[2019-05-20] MEDS ORDERED: NA CHLORIDE 0.9% 1,000 ML ONE (11:24)
[2019-05-20] MEDS ORDERED: ONDANSETRON 4 MG/2 ML VIAL ONE (11:24)
--- NOTE | 2019-05-20 11:38 | RAD REPORT ---
EXAM DESCRIPTION: RAD - Chest Single View - 05/20/2019 11:32 am CLINICAL HISTORY: CHEST PAIN Chest pain. COMPARISON: Chest Single View dated 04/27/2019; Chest Single View dated 09/25/2018; Chest Single View dated 05/20/2018; CHEST PA AND LAT 2 VIEW dated 09/27/2014 FINDINGS: Portable technique limits examination quality. The lungs are grossly clear. The heart is normal in size. No displaced fractures. IMPRESSION: No acute intrathoracic process suspected.
[2019-05-20 11:51] LABS: Absolute Lymphocytes (CBC) 1.2 K/uL (0.7-4.9); Basophils % 0.8 % (0-1.3); Hematocrit 25.4 % (39.6-49.0); Lymphocytes % 20.9 % (15.3-44.8); MPV 8.3 fL (7.6-11.3)
[2019-05-20 12:40] LABS: Potassium 3.9 mmol/L (3.5-5.1); Troponin (Emerg Dept Use Only) 0.03 ng/mL (0.0-0.045)
--- NOTE | 2019-05-20 12:42 | EKG ---
Test Date: 2019-05-20 Test Time: 11:20:32 Mail Processing Associate: DUDLEY MEASUREMENT RESULTS: Intervals: Rate: 89 MA: 140 QRSD: 96 QT: 376 QTc: 457 [place]: P: MA: 140 QRS: 13 T: -19 INTERPRETIVE STATEMENTS: Normal sinus rhythm ST & T wave abnormality, consider anterior ischemia Abnormal ECG Compared to ECG 04/27/2019 15:49:10 ST (T wave) deviation now present Possible ischemia now present Atrial premature complex(es) no longer present Electronically Signed On 05-20-19 12:41:17 GROUP SUPERVISOR YARD by Radhames Jay
--- NOTE | 2019-05-20 13:25 | RAD REPORT ---
EXAM DESCRIPTION: CT - Chest For Pe Angio - 05/20/2019 1:10 pm CLINICAL HISTORY: Chest pain COMPARISON: April 2019 cat scan TECHNIQUE: Dynamically enhanced axial 3 mm thick images of the chest were obtained during administra tion of <100> mL Isovue 370 IV contrast. Coronal and oblique reconstruction images were generated and reviewed. Exam utilizes a protocol for optimal evaluation of pulmonary arterial tree. Maximum intensity projections 3D imaging was utilized All CT scans are performed using dose optimization technique as appropriate and may include automated exposure control or mA/KV adjustment according to patient size. FINDINGS: A pulmonary embolus is not seen. A thoracic aortic aneurysm is not noted. A pleural effusion is not seen. A pericardial effusion is not seen. A lung consolidation is not present. Postsurgical changes of a gastric pull-through are present. 4.7 centimeter fluid collection within the right lower posterior chest has decreased in size currentl y measuring 4.7 centimeters. Previously it measured 6.7 centimeters. IMPRESSION: Negative for a pulmonary embolism. 4.7 centimeter fluid collection within the right lower posterior chest has decreased in size. It may represent a hematoma.
--- NOTE | 2019-05-20 14:44 | ER ---
Nurse's Notes [facility] [place] Name: Fred Barragan III Age: 54 yrs Sex: Male : 1965 Arrival Date: 05/20/2019 Time: 10:45 Bed 7 Private MD: Diagnosis: Vomiting;Chest pain, unspecified;Dehydration Presentation: 05/20 10:57 Presenting complaint: Patient states: left sided chest pain that lasted for about 45 sv mins earlier today and is currently intermittent, vomiting and generalized weakness since 05/07/19 after having gastric surgery d/t having esophageal cancer. Transition of care: patient was not received from another setting of care. Onset of symptoms was May 07, 2019. Risk Assessment: Do you want to hurt yourself or someone else? Patient reports no desire to harm self or others. Initial Sepsis Screen: Does the patient meet any 2 criteria? RR > 20 per min. No. Patient's initial sepsis screen is negative. Does the patient have a suspected source of infection? No. Patient's initial sepsis screen is negative. Care prior to arrival: None. 10:57 Method Of Arrival: Ambulatory sv 10:57 Acuity: BATOOL 3 sv Triage Assessment: 10:57 General: Appears in no apparent distress. uncomfortable, Behavior is cooperative, sv appropriate for age, anxious. Pain: Complains of pain in anterior aspect of left upper chest and left breast Pain currently is 6 out of 10 on a pain scale. Quality of pain is described as sharp, Pain began 2 hours ago. Is intermittent. Neuro: Level of Consciousness is awake, alert, obeys commands, Oriented to person, place, time, situation, Moves all extremities. Full function Gait is steady, Speech is normal, Reports weakness. Respiratory: Airway is patent Respiratory effort is even, unlabored, Respiratory pattern is regular, symmetrical. GI: Abdomen is round Reports intolerance of food, nausea, vomiting. Derm: Skin is normal. Musculoskeletal: Range of motion: intact in all extremities. Historical: - Allergies: 11:01 Sulfa (Sulfonamide Antibiotics); sv - PMHx: 11:01 chronic leg swelling; Chronic pain; esophageal Cancer; Liver cirrhosis; Sleep Apnea; sv - PSHx: 11:01 Hernia repair; Cholecystectomy; sv - Immunization history:: Adult Immunizations up to date, Flu vaccine is up to date. - Social history:: Smoking status: Patient uses tobacco products, denies chronic smoking, but will smoke occasionally. - Ebola Screening: : No symptoms or risks identified at this time. - Family history:: not pertinent. - Hospitalizations: : No recent hospitalization is reported. Screenin:01 Abuse screen: Denies threats or abuse. Denies injuries from another. Nutritional sv screening: On gastric surgery diet, boost Difficulty chewing/swallowing? No Had unintentional weight loss of 10 pounds or more. Has had N/V for 3 or more days Intervention for positive screen: ED Physician notified. Tuberculosis screening: No symptoms or risk factors identified. Fall Risk None identified. Assessment: 11:32 Reassessment: Patient appears in no apparent distress at this time. No changes from sv previously documented assessment. Patient and/or family updated on plan of care and expected duration. Pain level reassessed. Patient is alert, oriented x 3, equal unlabored respirations, skin warm/dry/pink. 12:45 Reassessment: Patient appears in no apparent distress at this time. No changes from sv previously documented assessment. Patient and/or family updated on plan of care and expected duration. Pain level reassessed. Patient is alert, oriented x 3, equal unlabored respirations, skin warm/dry/pink. 14:08 Reassessment: Pt given water for the PO challenge. sv 14:45 Reassessment: Dr Welch at the bedside. sv 15:04 Reassessment: Dr Welch stated that pt is requesting a popsicle, pt given Romansh ice sv cream to try and eat. Informed pt that he is up for discharge. 15:26 Reassessment: Pt able to keep half of the indonesian ice cream down without vomiting. sv Vital Signs: 11:01 BP 148 / 84; Pulse 90; Resp 21; Temp 98.1; Pulse Ox 100% ; Weight 131.54 kg; Height 5 sv ft. 10 in. (177.80 cm); Pain 6/10; 11:49 BP 137 / 77; Pulse 90; Resp 17; Pulse Ox 100% ; sv 12:46 BP 139 / 83; Pulse 92; Resp 21; Pulse Ox 98% ; sv 13:15 BP 149 / 66; Pulse 94; Resp 19; Pulse Ox 97% ; sv 14:08 BP 132 / 82; Pulse 94; Resp 18; Pulse Ox 100% ; sv 11:01 Body Mass Index 41.61 (131.54 kg, 177.80 cm) sv ED Course: 10:45 Patient arrived in ED. as 10:49 Jess Stewart, RN is Primary Nurse. sv 10:58 Brandon Welch MD is Attending Physician. rn 10:59 Triage completed. sv 11:01 ED physician to see patient. sv 11:01 Arm band placed on. sv 11:01 Patient has correct armband on for positive identification. Placed in gown. Bed in low sv position. Call light in reach. statistics intern on. Pulse ox on. NIBP on. Door closed. Head of bed elevated. 11:13 Warm blanket given. Pillow given. sv 11:15 Inserted saline lock: 20 gauge in right antecubital area, using aseptic technique. sv Blood collected. Flushed right antecubital with 5 ml normal saline. 11:31 X-ray(s) taken. sv 11:34 Awaiting lab results, Awaiting radiology results. sv 11:34 XRAY Chest (1 view) Sent. sv 12:05 Lab(s) recollected, by me, sent to lab. em1 12:43 EKG done, by facility technician. reviewed by Brandon Welch MD. at1 13:[address] via stretcher. md1 13:10 CT Chest For PE Angio In Process Unspecified. EDMS 13:39 Awaiting disposition, Awaiting re-evaluation by ER provider. sv 15:27 No provider procedures requiring assistance completed. IV discontinued, intact, sv bleeding controlled, No redness/swelling at site. Pressure dressing applied. Administered Medications: 11:30 Drug: Zofran 4 mg Route: IVP; Site: right antecubital; sv 12:00 Follow up: Response: No adverse reaction; Nausea is decreased sv 11:30 Drug: NS 0.9% 1000 ml Route: IV; Rate: 1000 ml; Site: right antecubital; sv 12:30 Follow up: Response: No adverse reaction; IV Status: Completed infusion; IV Intake: sv 1000ml Intake: 12:30 IV: 1000ml; Total: 1000ml. sv Outcome: 14:43 Discharge ordered by . rn 15:27 Discharged to home ambulatory. sv 15:27 Condition: stable 15:27 Discharge instructions given to patient, Instructed on discharge instructions, follow up and referral plans. medication usage, Demonstrated understanding of instructions, follow-up care, medications, Prescriptions given X 1. 15:45 Patient left the ED. sv Signatures: Dispatcher [employer] Jess Freeman RN RN sv Martinez, Amelia as Nieto, Roman, MD MD rn Martinez, Brendan [email or web address] Taal Hoew, director professional services EKG Tat1 Carmel Anne md1
--- NOTE | 2019-05-20 14:44 | EDPHYS ---
Physician Documentation [facility] Name: Fred Barragan III Age: 54 yrs Sex: Male : 1965 Arrival Date: 05/20/2019 Time: 10:45 Bed 7 Private MD: ED Physician Brandon Welch HPI: 05/20 12:45 This 54 yrs old Black Male presents to ER via Ambulatory with complaints of Vomiting, rn Weakness. 12:45 The patient presents to the emergency department with nausea, vomiting. Onset: The rn symptoms/episode began/occurred at an unknown time. Possible causes: unknown. The symptoms are aggravated by nothing. The symptoms are alleviated by nothing. Severity of symptoms: At their worst the symptoms were mild in the emergency department the symptoms are unchanged. The patient has experienced similar episodes in the past. The patient has not recently seen a physician. Reports nausea/vomiting and generalized weakness, began in March, following esophageal cancer and surgery where stomach pulled up to replace. Reports has had progressive problems with swallowing/eating since surgery, and told that what somewhat expected and should be on liquid diet. Reports over last few days vomiting worse, then today had single episode of chest pain that resolved on its own. No known heart problems, and had never had before so came in mainly for chest pain, but would like vomiting addressed and weakness addressed as well since he is here. States has not followed up with surgeon from [facility] because does not have a ride. . Historical: - Allergies: 11:01 Sulfa (Sulfonamide Antibiotics); sv - PMHx: 11:01 chronic leg swelling; Chronic pain; esophageal Cancer; Liver cirrhosis; Sleep Apnea; sv - PSHx: 11:01 Hernia repair; Cholecystectomy; sv - Immunization history:: Adult Immunizations up to date, Flu vaccine is up to date. - Social history:: Smoking status: Patient uses tobacco products, denies chronic smoking, but will smoke occasionally. - Ebola Screening: : No symptoms or risks identified at this time. - Family history:: not pertinent. - Hospitalizations: : No recent hospitalization is reported. ROS: 12:45 Constitutional: Negative for fever, chills, and weight loss, Eyes: Negative for injury, rn pain, redness, and discharge, ENT: Negative for injury, pain, and discharge, Neck: Negative for injury, pain, and swelling, Cardiovascular: Negative for palpitations, and edema, Respiratory: Negative for shortness of breath, cough, wheezing, and pleuritic chest pain, Abdomen/GI: Negative for diarrhea, and constipation, MS/Extremity: Negative for injury and deformity, Skin: Negative for injury, rash, and discoloration, Neuro: Negative for headache, numbness, tingling, and seizure. Exam: 12:54 Constitutional: Overweight man, no acute distress Head/Face: Normocephalic, rn atraumatic. Eyes: Pupils equal round and reactive to light, extra-ocular motions intact. Lids and lashes normal. Conjunctiva and sclera are non-icteric and not injected. Cornea within normal limits. Periorbital areas with no swelling, redness, or edema. ENT: dry MM Cardiovascular: Regular rate and rhythm. No pulse deficits. Respiratory: Mild tachypnea with clear bilateral breath sounds. Abdomen/GI: Soft, non-tender, non-distended MS/ Extremity: Pulses equal, no cyanosis. Neurovascular intact. Full, normal range of motion. Equal circumference. Neuro: Awake and alert, GCS 15, oriented to person, place, time, and situation. Cranial nerves II-XII grossly intact. Motor strength 5/5 in all extremities. Sensory grossly intact. Cerebellar exam normal. Vital Signs: 11:01 BP 148 / 84; Pulse 90; Resp 21; Temp 98.1; Pulse Ox 100% ; Weight 131.54 kg; Height 5 sv ft. 10 in. (177.80 cm); Pain 6/10; 11:49 BP 137 / 77; Pulse 90; Resp 17; Pulse Ox 100% ; sv 12:46 BP 139 / 83; Pulse 92; Resp 21; Pulse Ox 98% ; sv 13:15 BP 149 / 66; Pulse 94; Resp 19; Pulse Ox 97% ; sv 14:08 BP 132 / 82; Pulse 94; Resp 18; Pulse Ox 100% ; sv 11:01 Body Mass Index 41.61 (131.54 kg, 177.80 cm) sv MDM: 10:58 Patient medically screened. rn 14:39 Differential diagnosis: esophageal stricture, acid reflux. Data reviewed: vital signs, rn nurses notes, lab test result(s), radiologic studies, CT scan, and as a result, I will discharge patient. Counseling: I had a detailed discussion with the patient and/or guardian regarding: the historical points, exam findings, and any diagnostic results supporting the discharge/admit diagnosis, lab results, radiology results, the need for outpatient follow up, to return to the emergency department if symptoms worsen or persist or if there are any questions or concerns that arise at home. 14:42 ED course: No acute findings on lab work, neg CT PE, tolerated water in ER, no ECg rn change, neg trop. Will dc home and urged to f/u with [facility] for possible esophageal stricture. . 05/20 11:15 Order name: CBC with Diff; Complete Time: 12:19 rn 05/20 11:15 Order name: Basic Metabolic Panel; Complete Time: 12:45 rn 05/20 11:15 Order name: Troponin (emerg Dept Use Only); Complete Time: 12:45 rn 05/20 11:15 Order name: XRAY Chest (1 view) rn 05/20 11:47 Order name: RAD; Complete Time: 12:19 EDMS 05/20 12:54 Order name: CT Chest For PE Angio; Complete Time: 13:52 rn 05/20 11:02 Order name: EKG; Complete Time: 11:03 sv 05/20 11:02 Order name: EKG - Nurse/Tech; Complete Time: 11:20 sv 05/20 11:15 Order name: IV Start; Complete Time: 11:20 rn 05/20 12:01 Order name: Labs - recollect needed; Complete Time: 12:40 bd 05/20 13:57 Order name: PO challenge; Complete Time: 14:06 rn Administered Medications: 11:30 Drug: Zofran 4 mg Route: IVP; Site: right antecubital; sv 12:00 Follow up: Response: No adverse reaction; Nausea is decreased sv 11:30 Drug: NS 0.9% 1000 ml Route: IV; Rate: 1000 ml; Site: right antecubital; sv 12:30 Follow up: Response: No adverse reaction; IV Status: Completed infusion; IV Intake: sv 1000ml Disposition: 05/20/19 14:43 Discharged to Home. Impression: Vomiting, Chest pain, unspecified, Dehydration. - Condition is Stable. - Discharge Instructions: Nonspecific Chest Pain, Dehydration, Adult, Nausea and Vomiting, Adult. - Prescriptions for Zofran ODT 4 mg Oral tablet,disintegrating - place 1 tablet by TRANSLINGUAL route every 8 hours As needed; 20 tablet. - Medication Reconciliation Form, Thank You Letter, Antibiotic Education, Prescription Opioid Use form. - Follow up: Private Physician; When: As needed; Reason: Recheck today's complaints, Re-evaluation by your physician. - Problem is an ongoing problem. - Symptoms have improved. Signatures: Dispatcher [employer] EDMS Azul Thomas Stephanie, RN RN sv Nieto, Roman, MD MD tavern keeper: (The following items were deleted from the chart) 12:54 12:45 Constitutional: Negative for fever, chills, and weight loss, rn rn 15:45 14:43 05/20/2019 14:43 Discharged to Home. Impression: Vomiting; Chest pain, sv unspecified; Dehydration. Condition is Stable. Forms are Medication Reconciliation Form, Thank You Letter, Antibiotic Education, Prescription Opioid Use. Follow up: Private Physician; When: As needed; Reason: Recheck today's complaints, Re-evaluation by your physician. Problem is an ongoing problem. Symptoms have improved. rn
[2019-05-20 17:03] VITALS: TEMP 98.1
[2019-05-20 17:09] VITALS: BP 132/82; O2SAT 100
== END 2019-05-20 15:45 | disposition home or self-care (01) ==
LOC: ER 10:42
DX: E86.0 Dehydration (principal); R07.9 Chest pain, unspecified; Z72.0 Tobacco use; Z88.2 Allergy status to sulfonamides; Z85.01 Personal history of malignant neoplasm of esophagus
CPT/HCPCS: 36415; 71045; 71275; 80048; 84484; 85025; 93005; 96361; 96374; 99285; J2405; J7030; Q9967

== ENCOUNTER 2019-07-10 | Emergency (ER) | payer SELFPAY ==
--- OUTSIDE RECORDS SUMMARY | 2019-07-10 00:06 | XMS REPORT ---
:1965 [facility] [address]Frandy[facility]an Lei [address] [place] [address] Care Team Providers Name Role Phone RADHAMES [...] TESTED AT [facility] 7200 bmgz=0403) [facility] [address] POC-EGFR (BEAKER) (test 76 mL/min/1.73M2 dfhl=1443) IMMUNOFIXATION ELECTROPHORESIS (TARAH)2018-06-01 15:26:00 Test Item Value Reference Range Comments IMMUNOGLOBULIN G (IGG) (BEAKER) > mg/dL 540-1,822 (test kaik=335) IMMUNOGLOBULIN A (IGA) (BEAKER) 1158 mg/dL 63-484 (test lfhv=875) IMMUNOGLOBULIN M (IGM) (BEAKER) 324 mg/dL 22-293 (test qpdk=038) SERUM TARAH ID (BEAKER) (test No monoclonal proteins wpcw=0471) detected. Polyclonal elevation of immunoglobulins. [id number] (BEAKER) Gabby Dover MD (test qrhs=7622) (electronic signature) PROTEIN ELECTROPHORESIS, [id number] 12:02:00 Test Item Value Reference Range Comments ALBUMIN FRACTION (BEAKER) 2.0 gm/dL 3.5-5.5 (test cndh=615) ALPHA 1 FRACTION (BEAKER) 0.2 gm/dL 0.2-0.4 (test sljv=143) ALPHA 2 FRACTION (BEAKER) 0.4 gm/dL 0.5-0.9 (test hsyq=723) BETA FRACTION (BEAKER) (test 1.1 gm/dL 0.6-1.1 pxva=301) GAMMA GLOBULIN FRACTION 4.7 gm/dL 0.7-1.7 (BEAKER) (test pnix=649) INTERPRETATION-119 (BEAKER) Beta-gamma bridging and large (test ebbf=4403) polyclonal elevation of gamma globulins, consistent with cirrhosis and HCV infection. Serum TARAH ordered to exclude presence of underlying monoclonal bands. [id number] (KATYA) Gabby Dover MD (test vdwo=0296) (electronic signature) PROTEIN TOTAL SERUM, SPEP 8.4 gm/dL 6.0-8.3 (BEAKER) (test qnnu=5516) TISSUE [id number] 15:09:00Surgical Pathology Report Case: [id number] Authorizing Provider: Radhames Saunders, Collected: 05/22/2018 Janell GAINES OrderingLocation: [address] Received: 2017 0840 Service Pathologist: Christian Parada MD Specimens: A) -Esophagus, Esophageal Nodule @ 37cm B) - Esophagus, @ 38cm R/O Barretts A. 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 ESOPHAGUS, 38 CM, BIOPSY- NO TISSUE IDENTIFIED (SEE COMMENT) Signing Pathologist Direct Phone Line: [phone] signed by Christian Parada MD on 05/29/2018 at 3:09 PMB. No tissue was identified microscopically and may not have survived the processing.[id number], [id number], [id number] x 2The case was received two parts.Part [...] stains. Immunohistochemistry technical testing was performed at [facility], Pathology Laboratory where it was developed and [...] testing.Block ACDX2-positiveCAM5.2- positiveSynaptophysin- negativecontrols are adequate.HEMOGLOBIN AND [id number] 14:58:00 Test Item Value Reference Range Comments HEMOGLOBIN (BEAKER) (test krnp=082) 7.8 GM/DL 13.7-17.5 HEMATOCRIT (BEAKER) (test tale=907) 24.4 % 40.1-51.0 Send after transfusion is completedCOMPREHENSIVE METABOLIC [id number] 07:05 :00 Test Item Value Reference Range Comments TOTAL PROTEIN (BEAKER) 8.2 gm/dL 6.0-8.3 (test aaae=465) ALBUMIN (BEAKER) (test 1.7 g/dL 3.5-5.0 ohhn=3992) ALKALINE PHOSPHATASE 158 U/L 40-150 (BEAKER) (test dqob=834) BILIRUBIN TOTAL (BEAKER) 4.1 mg/dL 0.2-1.2 (test ezmk=707) SODIUM (BEAKER) (test 131 meq/L 136-145 gmkt=689) POTASSIUM (BEAKER) (test 3.3 meq/L 3.5-5.1 qpsk=405) CHLORIDE (BEAKER) (test 99 meq/L 98-107 kubi=834) CO2 (BEAKER) (test 28 meq/L 22-29 ahpu=929) BLOOD UREA NITROGEN 17 mg/dL 7-21 (BEAKER) (test hnva=651) CREATININE (BEAKER) (test 1.32 mg/dL 0.57-1.25 zqga=534) GLUCOSE RANDOM (BEAKER) 115 mg/dL 70-105 (test yura=479) CALCIUM (BEAKER) (test 7.9 mg/dL 8.4-10.2 wimx=165) AST (SGOT) (BEAKER) (test 202 U/L 5-34 roxv=904) ALT (SGPT) (BEAKER) (test 43 U/L 6-55 lfgv=735) EGFR (BEAKER) (test 69 mL/min/1.73 sq m ESTIMATED GFR IS NOT sjks=9979) ACCURATE CREATININE CLEARANCE IN PREDICTING GLOMERULAR FILTRATION RATE. ESTIMATED GFR IS NOT APPLICABLE FOR DIALYSIS PATIENTS. Specimen slightly [id number] 07:02:00 Test Item Value Reference Range Comments PHOSPHORUS (BEAKER) (test pypt=515) 2.9 mg/dL 2.3-4.7 [id number] 07:02:00 Test Item Value Reference Range Comments MAGNESIUM (BEAKER) (test azyz=237) 1.5 mg/dL 1.6-2.6 CALCIUM, [id number] 05:25:00 Test Item Value Reference Range Comments CALCIUM IONIZED (BEAKER) (test ohrt=012) 0.90 mmol/L 1.12-1.27 PH, BLOOD (BEAKER) (test giue=3406) 7.48 CBC W/PLT COUNT & AUTO [id number] 04:43:00 Test Item Value Reference Range Comments WHITE BLOOD CELL COUNT (BEAKER) (test bstz=954) 6.5 K/ L 3.5-10.5 RED BLOOD CELL COUNT (BEAKER) (test ddsn=683) 2.28 M/ L 4.63-6.08 HEMOGLOBIN (BEAKER) (test mfxv=409) 7.0 GM/DL 13.7-17.5 HEMATOCRIT (BEAKER) (test bzyt=269) 22.2 % 40.1-51.0 MEAN CORPUSCULAR VOLUME (BEAKER) (test dvjh=983) 97.4 fL 79.0-92.2 MEAN CORPUSCULAR HEMOGLOBIN (BEAKER) (test 30.7 pg 25.7-32.2 ekxs=281) MEAN CORPUSCULAR HEMOGLOBIN CONC (BEAKER) (test 31.5 GM/DL 32.3-36.5 tyyw=456) RED CELL DISTRIBUTION WIDTH (BEAKER) (test 18.6 % 11.6-14.4 rcsm=928) PLATELET COUNT (BEAKER) (test efbm=004) 75 K/CU MM 150-450 MEAN PLATELET VOLUME (BEAKER) (test lhzn=668) 12.1 fL 9.4-12.4 NUCLEATED RED BLOOD CELLS (BEAKER) (test 0 /100 WBC 0-0 wjlt=328) NEUTROPHILS RELATIVE PERCENT (BEAKER) (test 65 % nbat=224) LYMPHOCYTES RELATIVE PERCENT (BEAKER) (test 19 % pdeq=038) MONOCYTES RELATIVE PERCENT (BEAKER) (test 7 % kfol=098) EOSINOPHILS RELATIVE PERCENT (BEAKER) (test 7 % bsrn=981) BASOPHILS RELATIVE PERCENT (BEAKER) (test 1 % wkkw=174) NEUTROPHILS ABSOLUTE COUNT (BEAKER) (test 4.20 K/ L 1.78-5.38 waml=034) LYMPHOCYTES ABSOLUTE COUNT (BEAKER) (test 1.25 K/ L 1.32-3.57 awoi=374) MONOCYTES ABSOLUTE COUNT (BEAKER) (test dckf=131) 0.42 K/ L 0.30-0.82 EOSINOPHILS ABSOLUTE COUNT (BEAKER) (test 0.45 K/ L 0.04-0.54 tajz=644) BASOPHILS ABSOLUTE COUNT (BEAKER) (test lxdk=309) 0.07 K/ L 0.01-0.08 IMMATURE GRANULOCYTES-RELATIVE PERCENT (BEAKER) 1 % 0-1 (test upum=0359) HEPATITIS C PCR, [id number] 19:37:00 Test Item Value Reference Range Comments HCV NUMERIC RESULT (BEAKER) (test gzdx=4894) 714913 IU/mL <15 This test uses a Real-Time Polymerase Chain Reaction (RT-PCR) methodology and was performed using [employer] Ampliprep/MARIUSZ TaqMan HCV test kit version 2.0 ( Jr [employer]urnard [employer]).Reportable range for this assay is 15 - 100,000, 000 IU per mL (1.18 - 8.00 Log IU/mL).[id number] 19:02:00 Test Item Value Reference Range Comments POTASSIUM (BEAKER) (test hyql=421) 3.4 meq/L 3.5-5.1 [id number] 19:02:00 Test Item Value Reference Range Comments MAGNESIUM (BEAKER) (test bows=234) 1.7 mg/dL 1.6-2.6 callURINE PROTEIN ELECTROPHORESIS, [id number] 14:29:00 Test Item Value Reference Range Comments PROTEIN, URINE (BEAKER) (test 14 mg/dL 0-14 rukl=1331) ALBUMIN URINE ELP (BEAKER) 18.9 % (test lmmj=3116) GAMMA GLOBULIN URINE (BEAKER) 81.1 % (test diho=4890) UPEP, ID-438 (BEAKER) (test No monoclonal bands detected. dofp=6177) [id number]-[id number]-002 (BEAKER) Gabby Dover MD (test hrxa=0800) (electronic signature) [id number] 13:17:00 Test Item Value Reference Range Comments MAGNESIUM (BEAKER) (test ilwr=629) 1.3 mg/dL 1.6-2.6 VITAMIN B12 AND [id number] 10:07:00 Test Item Value Reference Range Comments VITAMIN B12 (BEAKER) (test ybup=195) > pg/mL 213-816 FOLATE (BEAKER) (test xdfc=478) 7.0 ng/mL >=7.0 HEMOGLOBIN [id number] 09:56:00 Test Item Value Reference Range Comments HEMOGLOBIN A1C (BEAKER) (test kkks=724) 5.0 % 4.3-6.1 [id number] 07:07:00 Test Item Value Reference Range Comments FERRITIN (BEAKER) (test pwhq=828) 48 ng/mL 5-275 CALCIUM, [id number] 06:47:00 Test Item Value Reference Range Comments CALCIUM IONIZED (BEAKER) (test gekp=548) 0.92 mmol/L 1.12-1.27 PH, BLOOD (BEAKER) (test fiky=1757) 7.45 [id number] 06:16:00 Test Item Value Reference Range Comments MAGNESIUM (BEAKER) (test ujcd=749) 1.0 mg/dL 1.6-2.6 HEPATITIS PANEL, [id number] 05:47:00 Test Item Value Reference Range Comments HEPATITIS A IGM ANTIBODY (BEAKER) (test Nonreactive Nonreactive tngu=768) HEPATITIS B CORE IGM ANTIBODY (BEAKER) (test Nonreactive Nonreactive uyke=522) HEPATITIS C ANTIBODY (BEAKER) (test jwqq=398) Reactive Nonreactive HEPATITIS B SURFACE ANTIGEN (2) (BEAKER) (test Nonreactive Nonreactive pbeg=8941) TSH/FREE T4 IF [id number] 05:40:00 Test Item Value Reference Range Comments THYROID STIMULATING HORMONE (BEAKER) (test 0.54 uIU/mL 0.35-4.94 ltna=135) HIV-1 ANTIGEN WITH HIV-1/2 [id number] 05:40:00 Test Item Value Reference Range Comments HIV-1 ANTIGEN WITH HIV 1\\T\\2 ANTIBODY (2) Nonreactive Nonreactive (BEAKER) (test vvys=5352) CBC W/PLT COUNT & AUTO [id number] 05:25:00 Test Item Value Reference Range Comments WHITE BLOOD CELL COUNT (BEAKER) (test prlv=613) 8.2 K/ L 3.5-10.5 RED BLOOD CELL COUNT (BEAKER) (test zwjk=069) 2.49 M/ L 4.63-6.08 HEMOGLOBIN (BEAKER) (test mqed=655) 7.8 GM/DL 13.7-17.5 HEMATOCRIT (BEAKER) (test bdku=613) 24.3 % 40.1-51.0 MEAN CORPUSCULAR VOLUME (BEAKER) (test zopr=393) 97.6 fL 79.0-92.2 MEAN CORPUSCULAR HEMOGLOBIN (BEAKER) (test 31.3 pg 25.7-32.2 gfph=454) MEAN CORPUSCULAR HEMOGLOBIN CONC (BEAKER) (test 32.1 GM/DL 32.3-36.5 ocnm=341) RED CELL DISTRIBUTION WIDTH (BEAKER) (test 19.0 % 11.6-14.4 pggv=752) PLATELET COUNT (BEAKER) (test rgrp=640) 75 K/CU MM 150-450 MEAN PLATELET VOLUME (BEAKER) (test qrow=516) 11.9 fL 9.4-12.4 NUCLEATED RED BLOOD CELLS (BEAKER) (test 0 /100 WBC 0-0 wdyy=726) NEUTROPHILS RELATIVE PERCENT (BEAKER) (test 69 % suis=058) LYMPHOCYTES RELATIVE PERCENT (BEAKER) (test 18 % hqkv=658) MONOCYTES RELATIVE PERCENT (BEAKER) (test 7 % zskr=425) EOSINOPHILS RELATIVE PERCENT (BEAKER) (test 4 % cjev=191) BASOPHILS RELATIVE PERCENT (BEAKER) (test 1 % txud=441) NEUTROPHILS ABSOLUTE COUNT (BEAKER) (test 5.70 K/ L 1.78-5.38 xnoy=997) LYMPHOCYTES ABSOLUTE COUNT (BEAKER) (test 1.46 K/ L 1.32-3.57 wjrg=888) MONOCYTES ABSOLUTE COUNT (BEAKER) (test bgsq=321) 0.54 K/ L 0.30-0.82 EOSINOPHILS ABSOLUTE COUNT (BEAKER) (test 0.34 K/ L 0.04-0.54 ypyq=677) BASOPHILS ABSOLUTE COUNT (BEAKER) (test oniw=960) 0.07 K/ L 0.01-0.08 IMMATURE GRANULOCYTES-RELATIVE PERCENT (BEAKER) 1 % 0-1 (test axuk=3965) PTH, [id number] 05:24:00 Test Item Value Reference Range Comments PARATHYROID HORMONE INTACT (BEAKER) (test 213.8 pg/mL 8.5-72.5 iquy=045) B-TYPE NATRIURETIC FACTOR (BNP)2018-05-22 05:24:00 Test Item Value Reference Range Comments B-TYPE NATRIURETIC PEPTIDE (BEAKER) (test 213 pg/mL 0-100 eayh=331) IRON, TIBC, % SAT. (WITHOUT FERRITIN)2018-05-22 05:23:00 Test Item Value Reference Range Comments IRON (BEAKER) (test uqfa=030) 32.0 ug/dL 40.0-160.0 TOTAL IRON BINDING CAPACITY (BEAKER) (test 235 ug/dL 250-450 ewos=437) IRON % SATURATION (2) (BEAKER) (test yjre=1905) 14 % 20-55 [id number] 05:19:00 Test Item Value Reference Range Comments PHOSPHORUS (BEAKER) (test grrp=896) 3.0 mg/dL 2.3-4.7 URIC [id number] 05:19:00 Test Item Value Reference Range Comments URIC ACID (BEAKER) (test lrme=741) 13.9 mg/dL 2.6-7.2 Specimen moderately ictericCOMPREHENSIVE METABOLIC [id number] 05:19:00 Test Item Value Reference Range Comments TOTAL PROTEIN (BEAKER) 8.6 gm/dL 6.0-8.3 (test ibxi=252) ALBUMIN (BEAKER) (test 1.8 g/dL 3.5-5.0 iwvh=0159) ALKALINE PHOSPHATASE 178 U/L 40-150 (BEAKER) (test afhp=036) BILIRUBIN TOTAL (BEAKER) 4.7 mg/dL 0.2-1.2 (test qvfq=815) SODIUM (BEAKER) (test 131 meq/L 136-145 mwzw=690) POTASSIUM (BEAKER) (test 3.2 meq/L 3.5-5.1 ofwu=211) CHLORIDE (BEAKER) (test 98 meq/L 98-107 dola=726) CO2 (BEAKER) (test 28 meq/L 22-29 kevq=041) BLOOD UREA NITROGEN 18 mg/dL 7-21 (BEAKER) (test dhna=069) CREATININE (BEAKER) (test 1.38 mg/dL 0.57-1.25 tybp=463) GLUCOSE RANDOM (BEAKER) 116 mg/dL 70-105 (test kifx=603) CALCIUM (BEAKER) (test 7.9 mg/dL 8.4-10.2 qiyk=276) AST (SGOT) (BEAKER) (test 207 U/L 5-34 yjrr=923) ALT (SGPT) (BEAKER) (test 42 U/L 6-55 gdup=089) EGFR (BEAKER) (test 65 mL/min/1.73 sq m ESTIMATED GFR IS NOT cdlq=1611) ACCURATE CREATININE CLEARANCE IN PREDICTING GLOMERULAR FILTRATION RATE. ESTIMATED GFR IS NOT APPLICABLE FOR DIALYSIS PATIENTS. Specimen moderately ictericHEMOGLOBIN AND [id number] 20:27:00 Test Item Value Reference Range Comments HEMOGLOBIN (BEAKER) (test fzab=891) 7.2 GM/DL 13.7-17.5 HEMATOCRIT (BEAKER) (test wbnf=835) 22.7 % 40.1-51.0 EOSINOPHIL SMEAR, [id number] 19:56:00 Test Item Value Reference Range Comments EOSINOPHIL SMEAR, URINE (BEAKER) Rare EOS=less than 5% WBCs No EOS seen (test qczx=7848) seen are EOS SODIUM, RANDOM [id number] 19:42:00 Test Item Value Reference Range Comments SODIUM URINE (BEAKER) (test wjac=814) 20 meq/L Reference Range: No NormalsURINALYSIS W/ [id number] 19:41:00 Test Item Value Reference Range Comments COLOR (BEAKER) (test jxwb=817) Yellow CLARITY (BEAKER) (test fisd=088) Clear SPECIFIC GRAVITY UA (BEAKER) (test brwr=791) 1.010 1.001-1.035 PH UA (BEAKER) (test abtd=712) 6.0 5.0-8.0 PROTEIN UA (BEAKER) (test utua=776) Negative Negative GLUCOSE UA (BEAKER) (test oihm=631) Negative Negative KETONES UA (BEAKER) (test vdjb=084) Negative Negative BILIRUBIN UA (BEAKER) (test anlj=429) Positive Negative BLOOD UA (BEAKER) (test qjfr=645) Moderate Negative NITRITE UA (BEAKER) (test uwoo=933) Negative Negative LEUKOCYTE ESTERASE UA (BEAKER) (test jrye=995) Negative Negative UROBILINOGEN UA (BEAKER) (test yggl=064) 3.0 mg/dL 0.2-1.0 RBC UA (BEAKER) (test jjcb=301) 32 /HPF WBC UA (BEAKER) (test wbcw=033) 0 /HPF SQUAMOUS EPITHELIAL (BEAKER) (test obom=190) < /HPF HYALINE CASTS (BEAKER) (test mrko=120) 5 /LPF SOURCE(BEAKER) (test jiif=4227) CREATININE, RANDOM [id number] 19:33:00 Test Item Value Reference Range Comments CREATININE URINE (BEAKER) (test ihes=916) 102.4 mg/dL Reference Range: No NormalsPROTEIN, RANDOM [id number] 19:33:00 Test Item Value Reference Range Comments PROTEIN, URINE (BEAKER) (test brzx=0135) 14 mg/dL 0-14 B-TYPE NATRIURETIC FACTOR (BNP)2018-05-21 13:34:00 Test Item Value Reference Range Comments B-TYPE NATRIURETIC PEPTIDE (BEAKER) (test 110 pg/mL 0-100 tvpj=871) URIC [id number] 13:29:00 Test Item Value Reference Range Comments URIC ACID (BEAKER) (test zcnv=524) 13.0 mg/dL 2.6-7.2 Specimen moderately ictericBASIC METABOLIC [id number] 06:49:00 Test Item Value Reference Range Comments SODIUM (BEAKER) (test 132 meq/L 136-145 fnxz=453) POTASSIUM (BEAKER) (test 2.9 meq/L 3.5-5.1 gaqg=794) CHLORIDE (BEAKER) (test 97 meq/L 98-107 rtqx=771) CO2 (BEAKER) (test 24 meq/L 22-29 uovq=795) BLOOD UREA NITROGEN 18 mg/dL 7-21 (BEAKER) (test xfhl=635) CREATININE (BEAKER) (test 1.34 mg/dL 0.57-1.25 jlsw=025) GLUCOSE RANDOM (BEAKER) 159 mg/dL 70-105 (test lqmw=552) CALCIUM (BEAKER) (test 7.7 mg/dL 8.4-10.2 ppug=453) EGFR (BEAKER) (test 67 mL/min/1.73 sq m ESTIMATED GFR IS NOT hjsm=5906) ACCURATE CREATININE CLEARANCE IN PREDICTING GLOMERULAR FILTRATION RATE. ESTIMATED GFR IS NOT APPLICABLE FOR DIALYSIS PATIENTS. Specimen slightly ictericHEPATIC FUNCTION [id number] 06:47:00 Test Item Value Reference Range Comments TOTAL PROTEIN (BEAKER) (test asng=451) 9.4 gm/dL 6.0-8.3 ALBUMIN (BEAKER) (test exzp=9616) 2.0 g/dL 3.5-5.0 BILIRUBIN TOTAL (BEAKER) (test uauo=221) 4.3 mg/dL 0.2-1.2 BILIRUBIN DIRECT (BEAKER) (test tach=885) 3.1 mg/dL 0.1-0.5 ALKALINE PHOSPHATASE (BEAKER) (test mtvp=516) 218 U/L 40-150 AST (SGOT) (BEAKER) (test tksw=002) 210 U/L 5-34 ALT (SGPT) (BEAKER) (test kjkb=302) 44 U/L 6-55 Specimen slightly ictericCBC W/PLT COUNT & AUTO [id number] 06:27 :00 Test Item Value Reference Range Comments WHITE BLOOD CELL COUNT (BEAKER) (test asjo=507) 9.7 K/ L 3.5-10.5 RED BLOOD CELL COUNT (BEAKER) (test crrh=804) 2.42 M/ L 4.63-6.08 HEMOGLOBIN (BEAKER) (test rgji=001) 7.5 GM/DL 13.7-17.5 HEMATOCRIT (BEAKER) (test agby=029) 23.7 % 40.1-51.0 MEAN CORPUSCULAR VOLUME (BEAKER) (test dbuq=010) 97.9 fL 79.0-92.2 MEAN CORPUSCULAR HEMOGLOBIN (BEAKER) (test 31.0 pg 25.7-32.2 ordl=679) MEAN CORPUSCULAR HEMOGLOBIN CONC (BEAKER) (test 31.6 GM/DL 32.3-36.5 spdx=085) RED CELL DISTRIBUTION WIDTH (BEAKER) (test 19.0 % 11.6-14.4 pvbh=862) PLATELET COUNT (BEAKER) (test bnfw=975) 74 K/CU MM 150-450 MEAN PLATELET VOLUME (BEAKER) (test txsh=318) 11.9 fL 9.4-12.4 NUCLEATED RED BLOOD CELLS (BEAKER) (test 0 /100 WBC 0-0 fsif=671) NEUTROPHILS RELATIVE PERCENT (BEAKER) (test 79 % yran=390) LYMPHOCYTES RELATIVE PERCENT (BEAKER) (test 11 % tnzn=874) MONOCYTES RELATIVE PERCENT (BEAKER) (test 6 % ljoy=950) EOSINOPHILS RELATIVE PERCENT (BEAKER) (test 1 % ohss=886) BASOPHILS RELATIVE PERCENT (BEAKER) (test 1 % wzzk=368) NEUTROPHILS ABSOLUTE COUNT (BEAKER) (test 7.63 K/ L 1.78-5.38 sevd=777) LYMPHOCYTES ABSOLUTE COUNT (BEAKER) (test 1.02 K/ L 1.32-3.57 afqu=633) MONOCYTES ABSOLUTE COUNT (BEAKER) (test dwkm=529) 0.60 K/ L 0.30-0.82 EOSINOPHILS ABSOLUTE COUNT (BEAKER) (test 0.07 K/ L 0.04-0.54 cpkf=294) BASOPHILS ABSOLUTE COUNT (BEAKER) (test jscn=968) 0.06 K/ L 0.01-0.08 IMMATURE GRANULOCYTES-RELATIVE PERCENT (BEAKER) 4 % 0-1 (test rwgt=5985) PROTHROMBIN [id number] 06:27:00 Test Item Value Reference Range Comments PROTIME (BEAKER) (test ivxy=759) 19.1 seconds 11.7-14.7 INR (BEAKER) (test plwl=165) 1.6 <=5.9 RECOMMENDED COUMADIN/WARFARIN INR THERAPY RANGESSTANDARD DOSE: 2.0 - 3.0 Includes: PROPHYLAXIS forvenous thrombosis, systemic embolization; TREATMENT for venous thrombosis and/or pulmonary embolus.HIGH RISK: Target INR is 2.5-3.5 for patients with mechanical heart valves.URINALYSIS W/ [id number] 06 :12:00 Test Item Value Reference Range Comments COLOR (BEAKER) (test qhwk=512) Yellow CLARITY (BEAKER) (test ctim=174) Clear SPECIFIC GRAVITY UA (BEAKER) (test gmfv=098) 1.008 1.001-1.035 PH UA (BEAKER) (test bqmz=633) 6.0 5.0-8.0 PROTEIN UA (BEAKER) (test dwre=412) Negative Negative GLUCOSE UA (BEAKER) (test hjgj=049) Negative Negative KETONES UA (BEAKER) (test msus=538) Negative Negative BILIRUBIN UA (BEAKER) (test lmqc=501) Negative Negative BLOOD UA (BEAKER) (test oygw=820) Moderate Negative NITRITE UA (BEAKER) (test hxrp=481) Negative Negative LEUKOCYTE ESTERASE UA (BEAKER) (test gulq=162) Negative Negative UROBILINOGEN UA (BEAKER) (test mnyp=264) 0.2 mg/dL 0.2-1.0 RBC UA (BEAKER) (test htxv=564) 15 /HPF WBC UA (BEAKER) (test jxeo=139) 2 /HPF MUCUS (BEAKER) (test mzxr=8089) Rare SQUAMOUS EPITHELIAL (BEAKER) (test jfdh=540) < /HPF HYALINE CASTS (BEAKER) (test awon=850) 20 /LPF AMORPHOUS CRYSTALS (BEAKER) (test hrtj=7547) Rare SOURCE(BEAKER) (test pcdj=2031) Urine, Voided
[2019-07-10 01:25] LABS: Absolute Lymphocytes (CBC) 1.2 K/uL (0.7-4.9); Basophils % 0.3 % (0-1.3); MPV 8.8 fL (7.6-11.3); RBC Red Blood Cell Count 2.54 M/uL (4.33-5.43)
[2019-07-10 01:44] LABS: Hematocrit 20.2 % (39.6-49.0)
[2019-07-10 01:51] LABS: Albumin 1.6 g/dL (3.4-5.0); Bilirubin Direct 2.8 mg/dL (0-0.2); Bilirubin Total 4.9 mg/dL (0.2-1.0); Magnesium 1.9 mg/dL (1.8-2.4); Protein, Total 7.8 g/dL (6.4-8.2); Troponin (Emerg Dept Use Only) 0.06 ng/mL (0.0-0.045)
[2019-07-10 02:08] LABS: Platelet Estimate ADEQ; Urine White Blood Cell Casts OK
[2019-07-10 02:09] LABS: Anisocytosis 3+; Blood Morphology Comment NOTED (NOT SEEN); Elliptocytes 1+; Hypochromasia 3+; Poikilocytosis 1+; Target Cells 2+; Teardrop Cell 1+
[2019-07-10] MEDS ORDERED: PANTOPRAZOLE 40 MG INJ ONE (02:17)
[2019-07-10] MEDS ORDERED: NA CHLORIDE 0.9% 250 ML ONE ×3 (02:17→04:57)
[2019-07-10] MEDS ORDERED: KCL 20 MEQ/100 mL IVPB 20 MEQ/100 ML BAG IV ONE ×3 (02:17→06:28)
[2019-07-10] MEDS ORDERED: NA CHLORIDE 0.9% 1,000 ML ONE ×2 (02:17→05:28)
[2019-07-10 02:20] LABS: Protime INR 2.16
--- NOTE | 2019-07-10 02:58 | EDPHYS ---
Physician Documentation [facility] Shira Name: Fred Barragan III Age: 54 yrs Sex: Male : 1965 Arrival Date: 07/10/2019 Time: 00:03 Bed 16 Private MD: ED Physician Shree Malik HPI: 07/10 00:55 This 54 yrs old Black Male presents to ER via EMS with complaints of edema. cp 00:55 The patient presents with pain, swelling, tenderness. The complaints affect the right cp lower leg and left lower leg. Context: resulted from an unknown cause, the patient can fully bear weight. 00:55 Onset: The symptoms/episode began/occurred gradually. Associated signs and symptoms: cp Pertinent negatives fever, numbness, warmth, weakness. Treatment prior to arrival includes: no previous treatment. The patient has experienced similar episodes in the past, a few times. Historical: - Allergies: 00:12 Sulfa (Sulfonamide Antibiotics); rv - PMHx: 00:12 chronic leg swelling; Chronic pain; esophageal Cancer; Liver cirrhosis; Sleep Apnea; rv - PSHx: 00:12 Unable to obtain; rv - Immunization history:: Adult Immunizations up to date. - Coronavirus screen:: The patient has NOT traveled to [place], [place], or [place] in the past 14 days. Proceed with normal triage process as indicated. The patient has NOT had contact with known/suspected case of Coronavirus? Proceed with normal triage procedures. - Social history:: Smoking status: Patient reports the use of cigarette tobacco products. - Ebola Screening: : No symptoms or risks identified at this time. ROS: 01:00 Constitutional: Negative for body aches, chills, fever, poor PO intake. cp 01:00 Eyes: Negative for injury, pain, redness, and discharge. cp 01:00 ENT: Negative for drainage from ear(s), ear pain, sore throat, difficulty swallowing, difficulty handling secretions. 01:00 Cardiovascular: Positive for edema, Negative for chest pain, palpitations. 01:00 Respiratory: Negative for cough, shortness of breath, wheezing. 01:00 Abdomen/GI: Negative for abdominal pain, nausea, vomiting, and diarrhea. 01:00 Skin: Negative for rash. 01:00 Neuro: Negative for altered mental status, dizziness, headache, syncope, weakness. 01:00 All other systems are negative. Exam: 01:05 Constitutional: The patient appears in no acute distress, alert, awake, cp non-diaphoretic, non-toxic, well developed, well nourished, uncomfortable. 01:05 Head/Face: Normocephalic, atraumatic. cp 01:05 Eyes: Periorbital structures: appear normal, Pupils: equal, round, and reactive to light and accomodation, Extraocular movements: intact throughout, Conjunctiva: normal, no exudate, no injection, Sclera: no appreciated abnormality, Lids and lashes: appear normal, bilaterally. 01:05 ENT: External ear(s): are unremarkable, Nose: is normal, Mouth: Lips: moist, Oral mucosa: pink and intact, moist, Posterior pharynx: is normal, airway is patent, no erythema, no exudate. 01:05 Neck: ROM/movement: is normal, is supple, without pain, no range of motions limitations, no nuchal rigidity. 01:05 Chest/axilla: Inspection: normal, Palpation: is normal, no crepitus, no tenderness. 01:05 Cardiovascular: Rate: normal, Rhythm: regular, Edema: pedal edema, that is marked, ankle edema, that is marked, JVD: is not appreciated. 01:05 Respiratory: the patient does not display signs of respiratory distress, Respirations: normal, no use of accessory muscles, no retractions, no splinting, no tachypnea, labored breathing, is not present, Breath sounds: are clear throughout, no decreased breath sounds, no stridor, no wheezing. 01:05 Abdomen/GI: Inspection: abdomen appears normal, Bowel sounds: active, all quadrants, Palpation: abdomen is soft and non-tender, in all quadrants, rebound tenderness, is not appreciated, involuntary guarding, is not appreciated, Rectal exam: Stool: brown, guaiac positive. 01:05 Skin: cellulitis, is not appreciated. 01:05 Neuro: Orientation: to person, place \T\ time. Mentation: is normal, Cerebellar function: is grossly normal, Motor: moves all fours, strength is normal, Sensation: is normal. 01:10 ECG was reviewed by the Attending Physician. cp Vital Signs: 00:08 BP 113 / 85; Pulse 89; Resp 12; Temp 97.4; Pulse Ox 100% ; Weight 113.4 kg; rv 01:00 BP 102 / 44; Pulse 85; Resp 17; Pulse Ox 100% on R/A; rv 02:00 BP 105 / 83; Pulse 88; Resp 17; Pulse Ox 97% on R/A; rv 03:00 BP 106 / 85; Pulse 81; Resp 16; Pulse Ox 97% on R/A; rv 04:00 BP 99 / 64; Pulse 89; Resp 17; Pulse Ox 97% on R/A; rv 05:00 BP 85 / 47; Pulse 96; Resp 17; Pulse Ox 100% on R/A; rv 05:15 BP 76 / 39; Pulse 88; Resp 16; Pulse Ox 100% on R/A; rv 05:30 BP 84 / 40; Pulse 90; Resp 17; Pulse Ox 100% on R/A; rv 05:45 BP 93 / 45; Pulse 92; Resp 17; Pulse Ox 100% on R/A; rv 06:00 BP 109 / 50; Pulse 93; Resp 19; Pulse Ox 100% on R/A; rv 06:15 BP 107 / 55; Pulse 91; Resp 16; Pulse Ox 97% on R/A; rv 07:15 BP 96 / 58; Pulse 90; Resp 18; Temp 97.4; Pulse Ox 99% on R/A; ph 08:00 BP 96 / 50; Pulse 96; Resp 18; Pulse Ox 99% on R/A; ph 08:30 BP 91 / 58; Pulse 91; Resp 16; Temp 98.1; Pulse Ox 99% on R/A; ph 09:00 BP 91 / 51; Pulse 100; Resp 18; Temp 98.1; Pulse Ox 99% ; ph Procedures: 06:47 Central Line: the site was prepped with Betadine, in sterile fashion, a triple lumen cheryl catheter was inserted, in the right femoral vein, in 1 attempts. placement was verified, by blood return, the site was dressed with using sterile technique, the patient tolerated the procedure, well. MDM: 00:14 Patient medically screened. cp 06:47 Data reviewed: vital signs, nurses notes, lab test result(s), EKG, radiologic studies. [facility] 07/10 00:53 Order name: Basic Metabolic Panel; Complete Time: 02:04 cp 07/10 02:06 Interpretation: Normal except: NA 124; K 2.0; CL 82; BUN 20; CRE 2.69; GFR 30; CA 8.1. cp 07/10 00:53 Order name: CBC with Diff; Complete Time: 02:38 cp 07/10 02:07 Interpretation: Normal except: RBC 2.54; HGB 6.4; HCT 20.2; MCV 79.8; MCH 25.3; MCHC cp 31.7; PLT 67; RDW 25.4. 07/10 00:53 Order name: LFT's; Complete Time: 02:04 cp 07/10 02:07 Interpretation: Normal except: AST 73; BILIT 4.9; BILID 2.8; ALB 1.6; GLOB 6.2; A/G 0.3.cp 02 00:53 Order name: Magnesium; Complete Time: 02:04 cp 07/10 00:53 Order name: NT PRO-BNP; Complete Time: 02:04 cp 07/10 00:53 Order name: PT-INR; Complete Time: 02:38 cp 07/10 00:53 Order name: Troponin (emerg Dept Use Only); Complete Time: 02:04 cp 07/10 01:43 Order name: Type And Screen cp 07/10 02:05 Order name: ETOH Level; Complete Time: 02:38 cp 07/10 02:11 Order name: CBC Smear Scan; Complete Time: 02:38 EDMS 07/10 03:35 Order name: Urine Osmolality [facility] 07/10 03:35 Order name: Urine Sodium Random [facility] 07/10 03:35 Order name: Osmolality, Serum [facility] 07/10 03:35 Order name: Phosphorus cheryl 07/10 03:47 Order name: AMMONIA cheryl 07/10 04:03 Order name: Chem 7 cheryl 07/10 04:05 Order name: BMP 07/10 04:56 Order name: Ammonia; Complete Time: 04:59 EDMS 07/10 05:03 Order name: Basic Metabolic Panel; Complete Time: 05:04 EDMS 07/10 05:03 Order name: Phosphorus; Complete Time: 05:04 EDMS 07/10 05:10 Order name: Osmolality, Serum; Complete Time: 06:48 EDMS 07/10 05:14 Order name: Packed RBC Leukored EDMS 07/10 05:54 Order name: Fresh Frozen Plasma EDMS 07/10 06:23 Order name: Chem 7; Complete Time: 07:09 rv 02/08 06:54 Order name: CBC with Diff; Complete Time: 07:14 cheryl 07/10 08:24 Order name: Urine Dipstick--Ancillary (enter results) eb 02 00:53 Order name: XRAY Chest (1 view) cp 07/10 00:53 Order name: EKG; Complete Time: 00:56 cp 07/10 00:53 Order name: Cardiac monitoring; Complete Time: 02:12 cp 07/10 00:53 Order name: EKG - Nurse/Tech; Complete Time: 02:12 cp 07/10 00:53 Order name: IV Saline Lock; Complete Time: 02:12 cp 07/10 00:53 Order name: Labs collected and sent; Complete Time: 02:12 cp 07/10 00:53 Order name: O2 Per Protocol; Complete Time: 02:12 cp 07/10 00:53 Order name: O2 Sat Monitoring; Complete Time: 02:12 cp 07/10 03:35 Order name: IV Saline Lock - Large Bore; Complete Time: 05:13 cheryl 07/10 03:35 Order name: Transfuse; Complete Time: 05:13 [facility] 07/10 07:03 Order name: Bladder Scanner; Complete Time: 07:30 [facility] EC:10 Rate is 102 beats/min. Rhythm is irregular. [place] interval is normal. QRS interval is cp prolonged at 108 msec. QT interval is normal. Interpreted by me. Reviewed by me. Administered Medications: 02:20 Drug: Potassium Chloride 20 mEq Route: IV; Rate: calculated rate; Site: right rv antecubital; 04:30 Follow up: IV Status: Completed infusion rv 02:34 Drug: ProTONIX 40 mg Route: IVP; Site: left wrist; rv 05:43 Follow up: Response: No adverse reaction rv 02:34 Drug: ProTONIX 8 mg/hr Route: IV; Rate: 25 ml/hr; Site: left wrist; rv 05:45 Follow up: IV Status: Infusion continued upon transfer rv 04:00 Drug: Rocephin 1 grams Route: IV; Rate: per protocol; Site: left wrist; rv 04:35 Follow up: IV Status: Completed infusion rv 04:10 Drug: NS 0.9% with KCl 20 mEq/L 1000 ml Route: IV; Rate: 125 ml/hr; Site: right rv antecubital; 05:44 Follow up: IV Status: Infusion continued upon transfer rv 04:15 Drug: Octreotide 50 mcg Route: IV; Rate: per protocol; Site: left wrist; rv 04:35 Follow up: IV Status: Completed infusion rv 04:30 Drug: Potassium Chloride 20 mEq Route: IV; Rate: per protocol; Site: right antecubital; rv 05:45 Follow up: IV Status: Completed infusion rv 04:30 Drug: Octreotide Infusion (50 mcg/hr) - (Octreotide 500 mcg, NS 0.9% 500 ml) Route: IV; rv Rate: 25 ml/hr; Site: left wrist; 05:44 Follow up: IV Status: Infusion continued upon transfer rv 05:12 Drug: Potassium Effervescent Tablet 50 mEq Route: PO; bb 05:43 Follow up: Response: No adverse reaction rv 05:36 Drug: Vitamin K1 10 mg Route: Sub-Q; Site: abdomen; rv 06:29 Follow up: Response: No adverse reaction rv 06:30 Drug: Potassium Chloride 20 mEq Route: IV; Rate: per protocol; Site: right femoral; rv 08:59 Follow up: Response: No adverse reaction; IV Status: Completed infusion ph 08:59 Not Given (Other Intervention Used): Viscous Lidocaine Liquid (4 %) 5 ml Mucous ph Membrane once; to bedside Disposition: 04:17 Co-signature as Attending Physician, Shree Malik MD I agree with the assessment and cheryl plan of care. Disposition: 07/10/19 02:58 Transfer ordered to [facility]. Diagnosis are Anemia in chronic diseases classified elsewhere, Gastrointestinal hemorrhage, unspecified, Hypokalemia, Edema, unspecified, Hypo-osmolality and hyponatremia, Unspecified cirrhosis of liver, Unspecified kidney failure, Retention of urine - PVR = 450cc. - Reason for transfer: Higher level of care. - Accepting physician is Hayes Edmond. - Condition is Stable. - Problem is new. - Symptoms have improved. Signatures: Dispatcher [employer] EDShree Ramirez MD MD cha Ballard, Brenda, RN RN Emily Rizo RN RN Shree Morales PA PA cp Botello, Elizabeth eb Vicente, Ronaldo, RN RN rv Corrections: (The following items were deleted from the chart) 02:06 02:04 Normal except: NA 124; K 2.0; CL 82; BUN 20; CRE 2.69; GFR 30. cp cp 03:57 02:58 07/10/2019 02:[address] [facility]. cheryl Diagnosis is Anemia in chronic diseases classified elsewhere; Gastrointestinal hemorrhage, unspecified; Hypokalemia; Edema, unspecified. Reason for transfer: Higher level of care. Accepting physician is Doctor. Condition is Stable. Problem is new. Symptoms have improved. cp 04:19 03:57 07/10/2019 02:58 Transfer ordered to [facility]. Diagnosis is Anemia in chronic cheryl diseases classified elsewhere; Gastrointestinal hemorrhage, unspecified; Hypokalemia; Edema, unspecified; Hypo-osmolality and hyponatremia; Unspecified cirrhosis of liver. Reason for transfer: Higher level of care. Accepting physician is Doctor. Condition is Stable. Problem is new. Symptoms have improved. cheryl 07:53 04:19 07/10/2019 02:58 Transfer ordered to [facility]. Diagnosis is Anemia in chronic cheryl diseases classified elsewhere; Gastrointestinal hemorrhage, unspecified; Hypokalemia; Edema, unspecified; Hypo-osmolality and hyponatremia; Unspecified cirrhosis of liver; Unspecified kidney failure. Reason for transfer: Higher level of care. Accepting physician is Doctor. Condition is Stable. Problem is new. Symptoms have improved. cheryl 08:20 07:53 07/10/2019 02:58 Transfer ordered to [facility]. Diagnosis is Anemia in chronic eb diseases classified elsewhere; Gastrointestinal hemorrhage, unspecified; Hypokalemia; Edema, unspecified; Hypo-osmolality and hyponatremia; Unspecified cirrhosis of liver; Unspecified kidney failure; Retention of urine - PVR = 450cc. Reason for transfer: Higher level of care. Accepting physician is Doctor. Condition is Stable. Problem is new. Symptoms have improved. cheryl 08:58 07:52 Barney ordered. cheryl ph 09:38 08:20 07/10/2019 02:58 Transfer ordered to [facility]. Diagnosis is Anemia in chronic ph diseases classified elsewhere; Gastrointestinal hemorrhage, unspecified; Hypokalemia; Edema, unspecified; Hypo-osmolality and hyponatremia; Unspecified cirrhosis of liver; Unspecified kidney failure; Retention of urine - PVR = 450cc. Reason for transfer: Higher level of care. Accepting physician is Hayes Edmond. Condition is Stable. Problem is new. Symptoms have improved. eb
--- NOTE | 2019-07-10 02:58 | ER ---
Nurse's Notes [facility] Fausto Name: Fred Barragan III Age: 54 yrs Sex: Male : 1965 Arrival Date: 07/10/2019 Time: 00:03 Bed 16 Private MD: Diagnosis: Anemia in chronic diseases classified elsewhere;Gastrointestinal hemorrhage, unspecified;Hypokalemia;Edema, unspecified;Hypo-osmolality and hyponatremia;Unspecified cirrhosis of liver;Unspecified kidney failure;Retention of urine-PVR = 450cc Presentation: 07/10 00:08 Presenting complaint: Patient states: DENIES SOB/ AND CHEST PAIN. EMS states: HE rv STAYS IN THE [facility]. HE WENT OUT AT AROUND 7 PM AND HE WAS FOUND OUTSIDE THE [facility] AT 11PM. Transition of care: patient was not received from another setting of care. Onset of symptoms was July 09, 2019 at 08:00. Risk Assessment: Do you want to hurt yourself or someone else? Patient reports no desire to harm self or others. Initial Sepsis Screen: Does the patient meet any 2 criteria? No. Patient's initial sepsis screen is negative. Does the patient have a suspected source of infection? No. Patient's initial sepsis screen is negative. Care prior to arrival: None. 00:08 Method Of Arrival: EMS: [facility] rv 00:08 Acuity: BATOOL 3 rv 07:10 Acuity: BATOOL 2 rv Triage Assessment: 00:14 General: Behavior is calm, cooperative. rv Historical: - Allergies: 00:12 Sulfa (Sulfonamide Antibiotics); rv - PMHx: 00:12 chronic leg swelling; Chronic pain; esophageal Cancer; Liver cirrhosis; Sleep Apnea; rv - PSHx: 00:12 Unable to obtain; rv - Immunization history:: Adult Immunizations up to date. - Coronavirus screen:: The patient has NOT traveled to [place], [place], or [place] in the past 14 days. Proceed with normal triage process as indicated. The patient has NOT had contact with known/suspected case of Coronavirus? Proceed with normal triage procedures. - Social history:: Smoking status: Patient reports the use of cigarette tobacco products. - Ebola Screening: : No symptoms or risks identified at this time. Screenin:14 Abuse screen: Denies threats or abuse. Denies injuries from another. Nutritional rv screening: No deficits noted. Tuberculosis screening: No symptoms or risk factors identified. Fall Risk None identified. Assessment: 00:13 General: Appears in no apparent distress. Pain: Complains of pain in BODY ACHES. Neuro: rv Level of Consciousness is awake, alert, obeys commands, Oriented to person, place, time, situation. Cardiovascular: Patient's skin is warm and dry. Rhythm is regular. Respiratory: Airway is patent Denies shortness of breath. Derm: Skin with poor turgor. Musculoskeletal: Swelling present in right leg and left leg. 02:00 Reassessment: Patient appears in no apparent distress at this time. Patient and/or rv family updated on plan of care and expected duration. Pain level reassessed. Patient is alert, oriented x 3, equal unlabored respirations, skin warm/dry/pink. patient is alert and oriented. denies any SOB/. updated on the plan of care. 04:00 Reassessment: Patient appears in no apparent distress at this time. Patient and/or rv family updated on plan of care and expected duration. Pain level reassessed. Patient is alert, oriented x 3, equal unlabored respirations, skin warm/dry/pink. 05:00 Reassessment: Patient appears in no apparent distress at this time. Patient and/or rv family updated on plan of care and expected duration. Pain level reassessed. Patient is alert, oriented x 3, equal unlabored respirations, skin warm/dry/pink. patient noticed to be hypotensive at this time. GCS 15. denies any SOB/ or any new symptom. updated on the plan of care. referred to Dr Perez. blood transfusion started and bolus of NS. close monitoring done. 06:30 Reassessment: Patient appears in no apparent distress at this time. Patient and/or rv family updated on plan of care and expected duration. Pain level reassessed. Patient is alert, oriented x 3, equal unlabored respirations, skin warm/dry/pink. PATIENT IS GCS 15, ALERT AND ORIENTED. BLOOD PRESSURE ELEVATED AFTER TRANSFUSION OF TWO UNITS AND BOLUS OF NS. DR PEREZ STARTING CENTRAL LINE AT THE MOMENT. LUKASZ NASCIMENTO AT BEDSIDE. 07:00 Reassessment: Patient appears in no apparent distress at this time. Patient and/or ph family updated on plan of care and expected duration. Pain level reassessed. Patient is alert, oriented x 3, equal unlabored respirations, skin warm/dry/pink. 08:00 Reassessment: Patient appears in no apparent distress at this time. Patient and/or ph family updated on plan of care and expected duration. Pain level reassessed. Patient is alert, oriented x 3, equal unlabored respirations, skin warm/dry/pink. 08:20 Reassessment: Report called to [facility] [place] [facility], [facility]. ph 09:22 Reassessment: Patient appears in no apparent distress at this time. Patient and/or ph family updated on plan of care and expected duration. Pain level reassessed. Patient is alert, oriented x 3, equal unlabored respirations, skin warm/dry/pink. Report given to [facility], pt transferred to [facility]. Vital Signs: 00:08 BP 113 / 85; Pulse 89; Resp 12; Temp 97.4; Pulse Ox 100% ; Weight 113.4 kg; rv 01:00 BP 102 / 44; Pulse 85; Resp 17; Pulse Ox 100% on R/A; rv 02:00 BP 105 / 83; Pulse 88; Resp 17; Pulse Ox 97% on R/A; rv 03:00 BP 106 / 85; Pulse 81; Resp 16; Pulse Ox 97% on R/A; rv 04:00 BP 99 / 64; Pulse 89; Resp 17; Pulse Ox 97% on R/A; rv 05:00 BP 85 / 47; Pulse 96; Resp 17; Pulse Ox 100% on R/A; rv 05:15 BP 76 / 39; Pulse 88; Resp 16; Pulse Ox 100% on R/A; rv 05:30 BP 84 / 40; Pulse 90; Resp 17; Pulse Ox 100% on R/A; rv 05:45 BP 93 / 45; Pulse 92; Resp 17; Pulse Ox 100% on R/A; rv 06:00 BP 109 / 50; Pulse 93; Resp 19; Pulse Ox 100% on R/A; rv 06:15 BP 107 / 55; Pulse 91; Resp 16; Pulse Ox 97% on R/A; rv 07:15 BP 96 / 58; Pulse 90; Resp 18; Temp 97.4; Pulse Ox 99% on R/A; ph 08:00 BP 96 / 50; Pulse 96; Resp 18; Pulse Ox 99% on R/A; ph 08:30 BP 91 / 58; Pulse 91; Resp 16; Temp 98.1; Pulse Ox 99% on R/A; ph 09:00 BP 91 / 51; Pulse 100; Resp 18; Temp 98.1; Pulse Ox 99% ; ph ED Course: 00:03 Patient arrived in ED. cl3 00:07 Desean Benson, LUKASZ is Primary Nurse. rv 00:10 Triage completed. rv 00:10 Shree Diallo PA is PHCP. cp 00:10 Arm band placed on Patient placed in the treatment room, on a stretcher, Patient rv notified of wait time. 00:11 Shree Perez MD is Attending Physician. cp 00:14 Patient has correct armband on for positive identification. school lunch monitor on. Pulse rv ox on. NIBP on. 01:00 Inserted saline lock: 18 gauge in right antecubital area, using aseptic technique. rv Blood collected. 01:52 XRAY Chest (1 view) In Process Unspecified. EDMS 03:00 Inserted saline lock: 20 gauge in left wrist, using aseptic technique. rv 03:30 Inserted saline lock: 20 gauge in right hand, using aseptic technique. BY JOEY. rv 06:30 Assisted provider with central line placement. Set up central line tray. Triple lumen bb line placed in right femoral. Line placed by Shree Perez MD Placement verified by blood return, Dressed with Tegaderm, Blood was collected. Patient tolerated well. 06:55 Notified ED physician of a critical lab result(s). potassium of 2.4 Dr King conroy notified. 07:[address] Perez with Chula Walsh RN from the [facility] eb Center. 07:[address] Perez with Ksenia from the [facility]. eb 07:16 Dr. Perez called Eliud from the [facility] transfer [place] to speak to the GI bi consultant eb again Dr. Tony. 07:19 Ksenia from the [facility] called to decline the transfer due to being eb at capacity. 07:24 Chula from [facility] called to decline patient in transfer due to eb being at capacity. 07:27 connected the Coagulator bi consultant for [facility] with Dr. Perez for patient eb transfer consultation. 07:29 Bladder scan completed. 486 mls. [id number] 07:34 administrative approval given by Negin Art from the [facility] transfer center/ patient has eb been accepted to the [facility] Maria Del Carmenkate Cartery 8c rm 847/ Dr. Hayes Moya has accepted the patient in transfer/ report to be called to [phone]. 09:37 Patient transferred, IV remains in place. ph Administered Medications: 02:20 Drug: Potassium Chloride 20 mEq Route: IV; Rate: calculated rate; Site: right rv antecubital; 04:30 Follow up: IV Status: Completed infusion rv 02:34 Drug: ProTONIX 40 mg Route: IVP; Site: left wrist; rv 05:43 Follow up: Response: No adverse reaction rv 02:34 Drug: ProTONIX 8 mg/hr Route: IV; Rate: 25 ml/hr; Site: left wrist; rv 05:45 Follow up: IV Status: Infusion continued upon transfer rv 04:00 Drug: Rocephin 1 grams Route: IV; Rate: per protocol; Site: left wrist; rv 04:35 Follow up: IV Status: Completed infusion rv 04:10 Drug: NS 0.9% with KCl 20 mEq/L 1000 ml Route: IV; Rate: 125 ml/hr; Site: right rv antecubital; 05:44 Follow up: IV Status: Infusion continued upon transfer rv 04:15 Drug: Octreotide 50 mcg Route: IV; Rate: per protocol; Site: left wrist; rv 04:35 Follow up: IV Status: Completed infusion rv 04:30 Drug: Potassium Chloride 20 mEq Route: IV; Rate: per protocol; Site: right antecubital; rv 05:45 Follow up: IV Status: Completed infusion rv 04:30 Drug: Octreotide Infusion (50 mcg/hr) - (Octreotide 500 mcg, NS 0.9% 500 ml) Route: IV; rv Rate: 25 ml/hr; Site: left wrist; 05:44 Follow up: IV Status: Infusion continued upon transfer rv 05:12 Drug: Potassium Effervescent Tablet 50 mEq Route: PO; bb 05:43 Follow up: Response: No adverse reaction rv 05:36 Drug: Vitamin K1 10 mg Route: Sub-Q; Site: abdomen; rv 06:29 Follow up: Response: No adverse reaction rv 06:30 Drug: Potassium Chloride 20 mEq Route: IV; Rate: per protocol; Site: right femoral; rv 08:59 Follow up: Response: No adverse reaction; IV Status: Completed infusion ph 08:59 Not Given (Other Intervention Used): Viscous Lidocaine Liquid (4 %) 5 ml Mucous ph Membrane once; to bedside Medication: 07:00 Blood products: FFP X 1 unit given. ph 08:35 Blood products: FFP X 1 unit given. ph Outcome: 02:58 ER care complete, transfer ordered by . cp 09:37 Transferred by ground EMS [place]. to [facility], Transfer ph form completed. X-rays sent w/ patient. 09:37 Condition: stable 09:37 Instructed on the need for transfer. 09:38 Patient left the ED. ph Signatures: Dispatcher [employer] EDMS Rei Gil jb1 Salma Lyman RN RN Emily Rizo RN RN ph Shree Diallo PA PA cp Botello, Elizabeth eb Vicente, Ronaldo, RN RN Mulu Bahena cl3
[2019-07-10] MEDS ORDERED: NS KCL 20MEQ 1,000 ML IV ONE (03:50)
[2019-07-10] MEDS ORDERED: ACETAMINOPHEN 500 MG TAB ONE (03:50)
[2019-07-10] MEDS ORDERED: CEFTRIAXONE/SWI 1gm 1 GM/10 ML SYR ONE (03:51)
[2019-07-10] MEDS ORDERED: OCTREOTIDE ACETATE 100 MCG/ML ONE (03:51)
[2019-07-10] MEDS ORDERED: DIPHENHYDRAMINE 50 MG/ML VIAL ONE (03:53)
[2019-07-10 05:00] LABS: Phosphorus 2.6 mg/dL (2.5-4.9)
[2019-07-10 05:02] LABS: Potassium 1.9 mmol/L (3.5-5.1)
[2019-07-10] MEDS ORDERED: POTASSIUM CL SA 10 MEQ TAB PO ONE (05:07)
[2019-07-10] MEDS ORDERED: POTASSIUM 25 MEQ EFFERV TAB ONE (05:11)
[2019-07-10] MEDS ORDERED: VITAMIN K (ADULT) 10 MG/ML ONE (05:36)
[2019-07-10 07:02] LABS: Potassium 2.4 mmol/L (3.5-5.1)
[2019-07-10 07:08] LABS: Absolute Lymphocytes (CBC) 0.9 K/uL (0.7-4.9); Basophils % 0.7 % (0-1.3); Lymphocytes % 18.5 % (15.3-44.8); MPV 8.7 fL (7.6-11.3)
[2019-07-10] MEDS ORDERED: LIDOCAINE VISCOUS 2% SOLN 15 ML UDC ONE (07:58)
[2019-07-10 08:38] LABS: Urine Blood NEGATIVE (NEG); Urine Glucose NEGATIVE (NEG); Urine Protein NEGATIVE (NEG)
[2019-07-10 10:03] VITALS: O2SAT 99
[2019-07-10 10:05] VITALS: TEMP 98.1
[2019-07-10 10:07] VITALS: BP 91/51
--- NOTE | 2019-07-10 12:48 | RAD REPORT ---
EXAM DESCRIPTION: Maurice Single View07/10/2019 1:50 am CLINICAL HISTORY: sob COMPARISON: May 2019 FINDINGS: The lungs appear clear of acute infiltrate. The heart is normal size IMPRESSION: No acute abnormalities displayed
--- NOTE | 2019-07-11 06:28 | EKG ---
Test Date: 2019-07-10 Test Time: 01:01:33 Claims Technician: MITCH MEASUREMENT RESULTS: Intervals: Rate: 102 ID: [id number] QRSD: 108 QT: 408 QTc: 531 [place]: P: 98 ID: [id number] QRS: 55 T: 102 INTERPRETIVE STATEMENTS: Sinus tachycardia with premature supraventricular complexes ST & T wave abnormality, consider inferior ischemia Abnormal ECG Compared to ECG 05/20/2019 11:20:32 Atrial premature complex(es) now present Sinus rhythm no longer present ST (T wave) deviation still present Electronically Signed On 07-11-19 06:27:35 [employer] PAINTER by Jona Terrazas
== END 2019-07-10 09:38 | disposition short-term general hospital (02) ==
LOC: ER
PROC: 06HT33Z Insertion of Infusion Device into Right Foot Vein, Percutaneous Approach (ICD-10-PCS; principal; 2019-07-10)
PROC: 30233K1 Transfusion of Nonautologous Frozen Plasma into Peripheral Vein, Percutaneous Approach (ICD-10-PCS; 2019-07-10)
PROC: 30233N1 Transfusion of Nonautologous Red Blood Cells into Peripheral Vein, Percutaneous Approach (ICD-10-PCS; 2019-07-10)
DX: D64.9 Anemia, unspecified (principal); K92.2 Gastrointestinal hemorrhage, unspecified; E87.6 Hypokalemia; K74.60 Unspecified cirrhosis of liver; N19 Unspecified kidney failure; R33.9 Retention of urine, unspecified; E87.1 Hypo-osmolality and hyponatremia; Z72.0 Tobacco use; Z88.2 Allergy status to sulfonamides; Z85.01 Personal history of malignant neoplasm of esophagus
CPT/HCPCS: 36415; 36430; 71045; 80048; 80076; 80320; 81003; 82140; 83735; 83880; 83930; 83935; 84100; 84300; 84484; 85025; 85610; 86850; 86900; 86901; 86922; 93005; 96365; 96366; 96367; 96368; 96372; 99285; C9113; J0696; J1200; J2354; J3430; J7030; P9016; P9059